=== PATIENT | female | born 1930 | race Caucasian/White ===

== ENCOUNTER → 2018-12-25 | Outpatient (CLI) | payer MEDICARE | LOC: LAB 08:00 | PROVIDERS: ATTEND Internal Medicine Nephrology | DX: N18.4 Chronic kidney disease, stage 4 (severe) (principal); D63.1 Anemia in chronic kidney disease ==

== ENCOUNTER → 2019-01-29 | Outpatient (CLI) | payer MEDICARE | LOC: SLEEP 19:54 | PROVIDERS: ATTEND Nurse Practitioner | DX: G47.33 Obstructive sleep apnea (adult) (pediatric) (principal); R06.83 Snoring; I10 Essential (primary) hypertension | CPT/HCPCS: 82274; 95811 ==

== ENCOUNTER 2019-02-17 12:40 | Outpatient (RCR) | payer MEDICARE ==
[2018-11-20 13:50] VITALS: BP 204/80
--- NOTE | 2018-11-20 14:00 | NUR ---
DR. RODRIGUEZ'S OFFICE CALLED REGARDING PT'S BP. TO RETURN CALL.
[2018-11-20 14:10] VITALS: BP 205/86
--- NOTE | 2018-11-20 14:30 | NUR ---
DR. RODRIGUEZ RETURNED CALL AND NOTIFIED ON PT'S CURRENT BP OF 205/86 P 60, AND THAT PATIENT TOOK MORNING MEDICATIONS FOR BP THAT INCLUDES AMLODIPINE 20 MG DAILY, SHE TAKES METOPROL 125 MG AT HS AND TAKES HYDRALAZINE 10 MG AT BID AND PT REPORTS THAT SHE HAD MORNING DOES. NEW ORDER RECEIVED THAT IT IS OK TO CONTINUE WITH GIVING ARANESP INJECTION AND THAT PATIENT IS TO CONTINUE WITH TAKING REGULAR BP MEDICATIONS. PT INSTRUCTED ON TAKING BP MEDICATIONS DIRECTED, PT VERBALIZES UNDERSTANDING.
[2018-11-20 17:01] VITALS: BP 195/74
[2018-12-04 13:20] VITALS: BP 169/80
[2018-12-04] MEDS: DARBEPOETIN 25 MCG/ML (ARANESP) 1 ML HOSPITAL SC SCH (14:30)
[2018-12-04 14:58] LABS: HEMOGLOBIN 8.9 G/DL (11.5-16.0)
[2018-12-22 13:10] VITALS: BP 165/74
[2018-12-22] MEDS: DARBEPOETIN 25 MCG/ML (ARANESP) 1 ML HOSPITAL SC SCH (14:05)
--- NOTE | 2018-12-22 15:00 | NUR ---
INFORMATION AND SUPPLIES PROVIDED, AND COPY OF ORDER GIVEN TO PT, FOR COLLECTION OF STOOL SAMPLES FOR OCCULT BLOOD PER DR RODRIGUEZ'S ORDER.
[2018-12-29 13:00] VITALS: BP 183/79
[2018-12-29] MEDS: DARBEPOETIN 25 MCG/ML (ARANESP) 1 ML HOSPITAL SC SCH (13:40)
[2019-01-06 13:28] LABS: HEMOGLOBIN 11.4 G/DL (11.5-16.0)
[2019-01-06 13:45] VITALS: BP 176/71
[2019-01-06] MEDS: DARBEPOETIN 25 MCG/ML (ARANESP) 1 ML HOSPITAL SC SCH (13:56)
[2019-01-20 13:10] LABS: HEMOGLOBIN 11.9 G/DL (11.5-16.0)
[2019-01-20] MEDS: DARBEPOETIN 25 MCG/ML (ARANESP) 1 ML HOSPITAL SC SCH (13:20)
[2019-01-20 13:49] VITALS: BP 168/70
[2019-02-03 13:00] VITALS: BP 170/71
[2019-02-03 13:22] LABS: HEMOGLOBIN 11.6 G/DL (11.5-16.0)
[2019-02-03 13:40] LABS: ALBUMIN 4.2 GM/DL (3.2-4.5); CALCIUM 9.1 MG/DL (8.5-10.1); CREATININE SERUM 3.01 MG/DL (0.60-1.30); PHOSPHORUS 2.8 MG/DL (2.3-4.7); POTASSIUM 5.4 MMOL/L (3.6-5.0)
[~2019-02-17] VITALS: Ht 149.9 cm; Wt 56.9 kg
[2019-02-17 12:40] VITALS: BP 193/84
[~2019-02-17 12:40] MED LIST: ACETAMINOPHEN 500 MG TAB (TYLENOL) PO PRN; DARBEPOETIN 40 MCG/ML (ARANESP) HOSPITAL SC ONE; DARBEPOETIN 40 MCG/ML (ARANESP) HOSPITAL SC SCH; FERRIC CARBOXYMALTOSE INJ 750 MG in NS (IVPB) 250 ML IV NR; FERRIC CARBOXYMALTOSE INJ 750 MG in NS (IVPB) 250 ML IV SCH; diphenhydrAMINE 50 MG/ML INJ (BENADRYL) IV PRN
[2019-02-17 13:00] LABS: HEMOGLOBIN 10.6 G/DL (11.5-16.0)
[2019-02-17] MEDS ORDERED: DARBEPOETIN 40 MCG/ML (ARANESP) HOSPITAL SC SCH (13:30)
[2019-02-17] MEDS ORDERED: DARBEPOETIN 25 MCG/ML (ARANESP) 1 ML HOSPITAL SC SCH (13:30)
[2019-02-17 15:14] LABS: BILIRUBIN,URINE NEGATIVE (NEGATIVE); CLARITY,URINE CLEAR; COLOR,URINE YELLOW; GLUCOSE, URINE (UA) 3+ (NEGATIVE); KETONES,URINE NEGATIVE (NEGATIVE); LEUKOCYTE ESTERASE ,URINE NEGATIVE (NEGATIVE); NITRITE,URINE NEGATIVE (NEGATIVE); PH,URINE 7 (5-9); PROTEIN,URINE 3+ (NEGATIVE); UROBILINOGEN,URINE NORMAL (NORMAL)
[2019-02-17 15:32] LABS: BACTERIA,URINE NEGATIVE /HPF
[2019-02-17 15:37] LABS: MEAN PLATELET VOLUME 9.8 FL (7.4-10.4); RED CELL DISTRIBUTION WIDTH 14.9 % (10.0-14.5); WHITE BLOOD COUNT 9.1 10^3/uL (4.3-11.0)
[2019-02-17 15:56] LABS: ALBUMIN 4.4 GM/DL (3.2-4.5); CALCIUM 9.4 MG/DL (8.5-10.1); CREATININE SERUM 2.95 MG/DL (0.60-1.30); PHOSPHORUS 3.2 MG/DL (2.3-4.7); POTASSIUM 4.9 MMOL/L (3.6-5.0); URIC ACID 4.3 MG/DL (2.6-7.2)
== END 2019-02-18 | disposition home or self-care (01) ==
LOC: SDC 12:40
PROVIDERS: ATTEND Internal Medicine Nephrology
DX: N18.4 Chronic kidney disease, stage 4 (severe) (principal); D63.1 Anemia in chronic kidney disease
CPT/HCPCS: 36415; 80069; 81000; 82274; 82306; 82570; 82728; 83540; 83970; 84156; 84550; 85014; 85018; 85027; 96365; 96372

== ENCOUNTER 2019-04-29 19:37 | Inpatient (IN) | payer MEDICARE ==
[~2019-04-29] VITALS: Ht 149.9 cm; Wt 55.6 kg
--- NOTE | 2019-04-29 19:55 | ED Chest Pain ---
General Chief Complaint: Abdominal/GI Problems Stated Complaint: VOMITING, NO KEEPING FLUIDS IN, DIZZY, DIARRHEA Source: patient, family, RN notes reviewed, old records Exam Limitations: no limitations History of Present Illness Date Seen by Provider: Apr 29, 2019 Time Seen by Provider: 19:55 Initial Comments Patient presents from home c/ c/o worsening nausea and vomiting since yesterday. Reports not being able to keep anything down. States she had diarrhea today as well but that was following a dose of [place] oil for her constipation. Not sure of any fever. (+) lightheaded. Timing/Duration: 24 hours, constant, getting worse Severity/Quality: mild, other (abdomen-cramping) Location: substernal (chest pain c/ exertion only) Radiation: no radiation Activities at Onset: none Modifying Factors: worse with eating, worse with movement ASA po COLOR SEPARATION PHOTOGRAPHER: No NTG SL COLOR SEPARATION PHOTOGRAPHER: No Associated Symptoms: denies symptoms (x/ as noted), abdominal pain (cramping), back pain (chronic), dizziness, headache, nausea/vomiting Allergies and Home Medications Allergies Coded Allergies: Penicillins (Unverified Adverse Reaction, Unknown, 04/29/19) cephalexin (Unverified Adverse Reaction, Unknown, 04/29/19) Patient Home Medication List Home Medication List Reviewed: Yes Review of Systems Review of Systems Constitutional: see HPI, dizziness Cardiovascular: See HPI, Chest Pain (c/ exertion), Lightheadedness Gastrointestinal: See HPI, Abdominal Pain (cramping), Diarrhea (p/ castor oil), Nausea, Poor Appetite, Poor Fluid Intake, Vomiting Musculoskeletal: see HPI, back pain (chronic) Psychiatric/Neurological: See HPI, Headache All Other Systems Reviewed Negative Unless Noted: Yes (Negative excepted noted.) Past Bdaxthf-Hyblbk-Izyqsg Hx Patient Social History Recent Foreign Travel: No Contact w/Someone Who Travel: No Physical Exam Vital Signs Vital Signs - First Documented 04/29/19 19:44 Temp 98.1 Pulse 68 B/P (MAP) 159/61 (93) Pulse Ox 100 O2 Delivery Nasal Cannula Capillary Refill : Height, Weight, BMI Height: 4'11.00" Weight: 125lbs. 6.0oz. 56.127589mv; BMI Method: General Appearance: WD/WN, Mild Distress HEENT: Pharynx Normal (although dry) Neck: Normal Inspection Respiratory: No Respiratory Distress Cardiovascular: Regular Rate, Rhythm Gastrointestinal: Tenderness (mild-diffuse) Rectal: Deferred Neurologic/Psychiatric: Alert, No Motor/Sensory Deficits, Depressed Affect Skin: Warm/Dry Progress/Results/Core Measures Results/Orders Lab Results Laboratory Tests Test 04/29/19 20:11 04/29/19 21:30 04/29/19 22:42 Range/Units White Blood Count 8.1 4.3-11.0 10^3/uL Red Blood Count 3.56 L 4.35-5.85 10^6/uL Hemoglobin 11.6 11.5-16.0 G/DL Hematocrit 34 L 35-52 % Mean Corpuscular Volume 95 80-99 FL Mean Corpuscular Hemoglobin 33 25-34 PG Mean Corpuscular Hemoglobin Concent 34 32-36 G/DL Red Cell Distribution Width 11.5 10.0-14.5 % Platelet Count 198 130-400 10^3/uL Mean Platelet Volume 10.1 7.4-10.4 FL Neutrophils (%) (Auto) 64 42-75 % Lymphocytes (%) (Auto) 19 12-44 % Monocytes (%) (Auto) 11 0-12 % Eosinophils (%) (Auto) 6 0-10 % Basophils (%) (Auto) 0 0-10 % Neutrophils # (Auto) 5.2 1.8-7.8 X 10^3 Lymphocytes # (Auto) 1.5 1.0-4.0 X 10^3 Monocytes # (Auto) 0.9 0.0-1.0 X 10^3 Eosinophils # (Auto) 0.5 H 0.0-0.3 10^3/uL Basophils # (Auto) 0.0 0.0-0.1 10^3/uL Sodium Level 130 L 135-145 MMOL/L Potassium Level 4.8 3.6-5.0 MMOL/L Chloride Level 93 L 98-107 MMOL/L Carbon Dioxide Level 21 21-32 MMOL/L Anion Gap 16 H 5-14 MMOL/L Blood Urea Nitrogen 71 H 7-18 MG/DL Creatinine 3.86 H 0.60-1.30 MG/DL Estimat Glomerular Filtration Rate 11 BUN/Creatinine Ratio 18 Glucose Level 169 H 70-105 MG/DL Calcium Level 9.3 8.5-10.1 MG/DL Corrected Calcium 8.9 8.5-10.1 MG/DL Magnesium Level 2.5 H 1.8-2.4 MG/DL Total Bilirubin 0.3 0.1-1.0 MG/DL Aspartate Amino Transf (AST/SGOT) 14 5-34 U/L Alanine Aminotransferase (ALT/SGPT) 16 0-55 U/L Alkaline Phosphatase 74 40-136 U/L Troponin T 58 H 54 H <=10 NG/L Pro-B-Type Natriuretic Peptide 3457.0 H <75.0 PG/ML Total Protein 6.7 6.4-8.2 GM/DL Albumin 4.5 3.2-4.5 GM/DL Lipase 48 8-78 U/L Urine Color YELLOW Urine Clarity CLEAR Urine pH 6.5 5-9 Urine Specific [place] 1.020 1.016-1.022 Urine Protein 2+ H NEGATIVE Urine Glucose (UA) 1+ H NEGATIVE Urine Ketones NEGATIVE NEGATIVE Urine Nitrite NEGATIVE NEGATIVE Urine Bilirubin NEGATIVE NEGATIVE Urine Urobilinogen NORMAL NORMAL MG/DL Urine Leukocyte Esterase NEGATIVE NEGATIVE Urine RBC (Auto) NEGATIVE NEGATIVE Urine RBC NONE /HPF Urine WBC NONE /HPF Urine Squamous Epithelial Cells 5-10 /HPF Urine Crystals NONE /LPF Urine Bacteria TRACE /HPF Urine Casts NONE /LPF Urine Mucus NEGATIVE /LPF Urine Culture Indicated NO My Orders Orders - VESNA PUENTE DO Ed Iv/Invasive Line Start (04/29/19 19:56) Ekg Tracing (04/29/19 19:56) Cbc With Automated Diff (04/29/19 19:56) Comprehensive Metabolic Panel (04/29/19 19:56) Lipase (04/29/19 19:56) Magnesium (04/29/19 19:56) Ua Culture If Indicated (04/29/19 19:56) Troponin T (04/29/19 19:56) Probnp Fs (04/29/19 19:56) Chest 1 View Ap/Pa Only (04/29/19 19:56) Ns Iv 1000 Ml (Sodium Chloride 0.9%) (04/29/19 21:15) Ns Iv 1000 Ml (Sodium Chloride 0.9%) (04/29/19 21:20) Troponin T (04/29/19 21:58) Ct Abdomen/Pelvis Wo (04/29/19 21:58) Vital Signs/I&O 04/29/19 19:44 Temp 98.1 Pulse 68 B/P (MAP) 159/61 (93) Pulse Ox 100 O2 Delivery Nasal Cannula Initial ECG Rhythm: Normal Sinus Initial ECG Intervals: QT (prolonged) Initial ECG Impression: Nonspecific Changes Initial ECG Comparisson: No Previous ECG Available Diagnostic Imaging Diagonstic Imaging: Xray, CT Plain Films/CT/US/NM/MRI: chest (nothing acute), abdomen (nothing acute) Departure Impression Primary Impression: N&V (nausea and vomiting) Additional Impressions: Acute on chronic renal failure Dehydration Elevated troponin Elevated brain natriuretic peptide (BNP) level Hyponatremia Disposition: ADMITTED INPATIENT Condition: Stable Admissions Decision to Admit Reason: Admit from ER (General) Decision to Admit/Date: Apr 29, 2019 Time/Decision to Admit Time: 23:52 Transfer Time Spoke to Accepting Phy: 23:52 Transfer Progress Notes Discussed the patient c/ Dr. Hinton, the [facility] Hospitalist, and she has accepted the patient in transfer. Transfer Facility: [facility] [place] Method of Transfer: EMS Departure-Patient Inst. Referrals: CHRISTIANA BLACK MD, WILLIAM D DO Apr 29, 2019 19:55
--- OUTSIDE RECORDS SUMMARY | 2019-04-29 20:04 | XMS REPORT | Continuity of Care Document ---
Author Organization Unknown Address Unknown Allergies Active Description Code Type Severity Reaction Onset Reported/Identified Relationship to Patient Clinical Status Yes cephalexin [id number] Drug Allergy Unknown N/A 11/20/2018 Yes Penicillins [id number] Drug Allergy Unknown N/A 11/20/2018 Medications There is no data. Problems Date Dx Coded Attending Type Code Diagnosis Diagnosed By 12/22/2018 GUNNAR RODRIGUEZ MD Ot D63.1 ANEMIA IN CHRONIC KIDNEY DISEASE 12/22/2018 GUNNAR RODRIGUEZ MD Ot N18.4 CHRONIC KIDNEY DISEASE, STAGE 4 (SEVERE) 12/22/2018 GUNNAR RODRIGUEZ MD Ot D63.1 ANEMIA IN CHRONIC KIDNEY DISEASE 12/22/2018 GUNNAR RODRIGUEZ MD Ot N18.4 CHRONIC KIDNEY DISEASE, STAGE 4 (SEVERE) 12/29/2018 GUNNAR RODRIGUEZ MD Ot D63.1 ANEMIA IN CHRONIC KIDNEY DISEASE 12/29/2018 GUNNAR RODRIGUEZ MD Ot N18.4 CHRONIC KIDNEY DISEASE, STAGE 4 (SEVERE) 12/29/2018 JENNIFER GUO GUNNAR Ot D63.1 ANEMIA IN CHRONIC KIDNEY DISEASE 12/29/2018 GUNNAR RODRIGUEZ MD Ot N18.4 CHRONIC KIDNEY DISEASE, STAGE 4 (SEVERE) 01/01/2019 JENNIFER GUO GUNNAR Ot D63.1 ANEMIA IN CHRONIC KIDNEY DISEASE 01/01/2019 GUNNAR RODRIGUEZ MD Ot N18.4 CHRONIC KIDNEY DISEASE, STAGE 4 (SEVERE) 01/06/2019 GUNNAR RODRIGUEZ MD Ot D63.1 ANEMIA IN CHRONIC KIDNEY DISEASE 01/06/2019 GUNNAR RODRIGUEZ MD Ot N18.4 CHRONIC KIDNEY DISEASE, STAGE 4 (SEVERE) 01/20/2019 JENNIFER GUO GUNNAR Ot D63.1 ANEMIA IN CHRONIC KIDNEY DISEASE 01/20/2019 GUNNAR RODRIGUEZ MD Ot N18.4 CHRONIC KIDNEY DISEASE, STAGE 4 (SEVERE) 01/28/2019 [facility] Ot G47.33 OBSTRUCTIVE SLEEP APNEA (ADULT) (PEDIATR 01/29/2019 [facility] TECHNICIAN Ot G47.33 OBSTRUCTIVE SLEEP APNEA (ADULT) (PEDIATR 02/01/2019 [facility] TECHNICIAN Ot G47.33 OBSTRUCTIVE SLEEP APNEA (ADULT) (PEDIATR 02/01/2019 [facility] TECHNICIAN Ot I10 ESSENTIAL (PRIMARY) HYPERTENSION 02/01/2019 [facility] TECHNICIAN Ot R06.83 SNORING 02/03/2019 JENNIFER GUO, GUNNAR Ot D63.1 ANEMIA IN CHRONIC KIDNEY DISEASE 02/03/2019 GUNNAR RODRIGUEZ MD Ot N18.4 CHRONIC KIDNEY DISEASE, STAGE 4 (SEVERE) 02/03/2019 JENNIFER GUO GUNNAR Ot D63.1 ANEMIA IN CHRONIC KIDNEY DISEASE 02/03/2019 KULDIP RODRIGUEZ MDINE Ot N18.4 CHRONIC KIDNEY DISEASE, STAGE 4 (SEVERE) 02/04/2019 [facility] TECHNICIAN Ot G47.33 OBSTRUCTIVE SLEEP APNEA (ADULT) (PEDIATR 02/04/2019 [facility] TECHNICIAN Ot I10 ESSENTIAL (PRIMARY) HYPERTENSION 02/04/2019 [facility] TECHNICIAN Ot R06.83 SNORING 02/05/2019 [facility] TECHNICIAN Ot G47.33 OBSTRUCTIVE SLEEP APNEA (ADULT) (PEDIATR 02/05/2019 [facility] TECHNICIAN Ot I10 ESSENTIAL (PRIMARY) HYPERTENSION 02/05/2019 [facility] TECHNICIAN Ot R06.83 SNORING 02/08/2019 JENNIFER GUO, GUNNAR Ot D63.1 ANEMIA IN CHRONIC KIDNEY DISEASE 02/08/2019 JENNIFER GUO GUNNAR Ot N18.4 CHRONIC KIDNEY DISEASE, STAGE 4 (SEVERE) 02/08/2019 JENNIFER GUO, GUNNAR Ot D63.1 ANEMIA IN CHRONIC KIDNEY DISEASE 02/08/2019 JENNIFER GUO GUNNAR Ot N18.4 CHRONIC KIDNEY DISEASE, STAGE 4 (SEVERE) 02/14/2019 JENNIFER GUO, GUNNAR Ot D63.1 ANEMIA IN CHRONIC KIDNEY DISEASE 02/14/2019 GUNNAR RODRIGUEZ MD Ot N18.4 CHRONIC KIDNEY DISEASE, STAGE 4 (SEVERE) 02/14/2019 [facility] TECHNICIAN Ot G47.33 OBSTRUCTIVE SLEEP APNEA (ADULT) (PEDIATR 02/14/2019 [facility] TECHNICIAN Ot I10 ESSENTIAL (PRIMARY) HYPERTENSION 02/14/2019 [facility] TECHNICIAN Ot R06.83 SNORING 02/14/2019 KULDIP RODRIGUEZ MDINE Ot D63.1 ANEMIA IN CHRONIC KIDNEY DISEASE 02/14/2019 JENNIFER GUO GUNNAR Ot N18.4 CHRONIC KIDNEY DISEASE, STAGE 4 (SEVERE) 02/14/2019 JENNIFER GUO GUNNAR Ot D63.1 ANEMIA IN CHRONIC KIDNEY DISEASE 02/14/2019 GUNNAR RODRIGUEZ MD Ot N18.4 CHRONIC KIDNEY DISEASE, STAGE 4 (SEVERE) 02/17/2019 JENNIFER GUO GUNNAR Ot D63.1 ANEMIA IN CHRONIC KIDNEY DISEASE 02/17/2019 JENNIFER GUO GUNNAR Ot N18.4 CHRONIC KIDNEY DISEASE, STAGE 4 (SEVERE) 02/18/2019 JENNIFER GUO GUNNAR Ot D63.1 ANEMIA IN CHRONIC KIDNEY DISEASE 02/18/2019 JENNIFER GUO GUNNAR Ot N18.4 CHRONIC KIDNEY DISEASE, STAGE 4 (SEVERE) 02/24/2019 JENNIFER GUO GUNNAR Ot D63.1 ANEMIA IN CHRONIC KIDNEY DISEASE 02/24/2019 JENNIFER GUO GUNNAR Ot N18.4 CHRONIC KIDNEY DISEASE, STAGE 4 (SEVERE) 02/24/2019 JENNIFER GUO GUNNAR Ot D63.1 ANEMIA IN CHRONIC KIDNEY DISEASE 02/24/2019 JENNIFER GUO GUNNAR Ot N18.4 CHRONIC KIDNEY DISEASE, STAGE 4 (SEVERE) 03/03/2019 JENNIFER GUO GUNNAR Ot D63.1 ANEMIA IN CHRONIC KIDNEY DISEASE 03/03/2019 JENNIFER GUO GUNNAR Ot N18.4 CHRONIC KIDNEY DISEASE, STAGE 4 (SEVERE) 03/08/2019 JENNIFER GUO GUNNAR Ot D63.1 ANEMIA IN CHRONIC KIDNEY DISEASE 03/08/2019 JENNIFER GUO GUNNAR Ot N18.4 CHRONIC KIDNEY DISEASE, STAGE 4 (SEVERE) 03/10/2019 KULDIP RODRIGUEZ MDINE Ot D63.1 ANEMIA IN CHRONIC KIDNEY DISEASE 03/10/2019 GUNNAR RODRIGUEZ MD Ot N18.4 CHRONIC KIDNEY DISEASE, STAGE 4 (SEVERE) 03/18/2019 KULDIP RODRIGUEZ MDINE Ot D63.1 ANEMIA IN CHRONIC KIDNEY DISEASE 03/18/2019 GUNNAR RODRIGUEZ MD Ot N18.4 CHRONIC KIDNEY DISEASE, STAGE 4 (SEVERE) 03/19/2019 [facility] TECHNICIAN Ot G47.33 OBSTRUCTIVE SLEEP APNEA (ADULT) (PEDIATR 03/19/2019 [facility] PH[facility] TECHNICIAN Ot I10 ESSENTIAL (PRIMARY) HYPERTENSION 03/19/2019 [facility] PH[facility] TECHNICIAN Ot R06.83 SNORING 03/19/2019 JENNIFER GUO GUNNAR Ot D63.1 ANEMIA IN CHRONIC KIDNEY DISEASE 03/19/2019 GUNNAR RODRIGUEZ MD Ot N18.4 CHRONIC KIDNEY DISEASE, STAGE 4 (SEVERE) 03/24/2019 KULDIP RODRIGUEZ MDINE Ot D63.1 ANEMIA IN CHRONIC KIDNEY DISEASE 03/24/2019 KULDIP RODRIGUEZ MDINE Ot N18.4 CHRONIC KIDNEY DISEASE, STAGE 4 (SEVERE) 03/31/2019 JENNIFER GUO GUNNAR Ot D63.1 ANEMIA IN CHRONIC KIDNEY DISEASE 03/31/2019 KULDIP RODRIGUEZ MDINE Ot N18.4 CHRONIC KIDNEY DISEASE, STAGE 4 (SEVERE) 04/07/2019 KULDIP RODRIGUEZ MDINE Ot D63.1 ANEMIA IN CHRONIC KIDNEY DISEASE 04/07/2019 KULDIP RODRIGUEZ MDINE Ot N18.4 CHRONIC KIDNEY DISEASE, STAGE 4 (SEVERE) 04/14/2019 JENNIFER GUO GUNNAR Ot D63.1 ANEMIA IN CHRONIC KIDNEY DISEASE 04/14/2019 GUNNAR RODRIGUEZ MD Ot N18.4 CHRONIC KIDNEY DISEASE, STAGE 4 (SEVERE) 04/15/2019 JENNIFER GUO GUNNAR Ot D63.1 ANEMIA IN CHRONIC KIDNEY DISEASE 04/15/2019 GUNNAR RODRIGUEZ MD Ot N18.4 CHRONIC KIDNEY DISEASE, STAGE 4 (SEVERE) 04/28/2019 JENNIFER GUO GUNNAR Ot D63.1 ANEMIA IN CHRONIC KIDNEY DISEASE 04/28/2019 JENNIFER GUO, GUNNAR Ot N18.4 CHRONIC KIDNEY DISEASE, STAGE 4 (SEVERE) Procedures There is no data. Results Test Result Range Whole blood hemoglobin and hematocrit panel - 12/04/18 13:30 Venous blood hemoglobin measurement (mass/volume) 8.9 g/dL 11.5-16.0 Blood hematocrit (volume fraction) 29 % 35-52 Whole blood hemoglobin and hematocrit panel - 12/04/18 13:30 Venous blood hemoglobin measurement (mass/volume) 8.9 g/dL 11.5-16.0 Blood hematocrit (volume fraction) 29 % 35-52 Stool occult blood screen - 12/22/18 21:00 Stool gastrointestinal hemoglobin detection NEGATIVE NEGATIVE Stool occult blood screen - 12/23/18 21:00 Stool gastrointestinal hemoglobin detection NEGATIVE NEGATIVE Stool occult blood screen - 12/25/18 07:48 Stool gastrointestinal hemoglobin detection NEGATIVE NEGATIVE Whole blood hemoglobin and hematocrit panel - 01/06/19 13:15 Venous blood hemoglobin measurement (mass/volume) 11.4 g/dL 11.5-16.0 Blood hematocrit (volume fraction) 35 % 35-52 Whole blood hemoglobin and hematocrit panel - 01/20/19 13:05 Venous blood hemoglobin measurement (mass/volume) 11.9 g/dL 11.5-16.0 Blood hematocrit (volume fraction) 36 % 35-52 Whole blood hemoglobin and hematocrit panel - 02/03/19 13:14 Venous blood hemoglobin measurement (mass/volume) 11.6 g/dL 11.5-16.0 Blood hematocrit (volume fraction) 35 % 35-52 Serum or plasma renal function panel (Na, K, Cl, CO2, BUN, Cr, glucose,Ca, phos, alb) - 02/03/19 13:14 Serum or plasma sodium measurement (moles/volume) 132 mmol/L 135-145 Serum or plasma potassium measurement (moles/volume) 5.4 mmol/L 3.6-5.0 Serum or plasma chloride measurement (moles/volume) 103 mmol/L 98-107 Carbon dioxide 18 mmol/L 21-32 Serum or plasma anion gap determination (moles/volume) 11 mmol/L 5-14 Serum or plasma urea nitrogen measurement (mass/volume) 40 mg/dL 7-18 Serum or plasma creatinine measurement (mass/volume) 3.01 mg/dL 0.60-1.30 Serum or plasma urea nitrogen/creatinine mass ratio 13 NRG Serum or plasma creatinine measurement with calculation of estimated glomerular filtration rate 15 NRG Serum or plasma glucose measurement (mass/volume) 167 mg/dL 70-105 Serum or plasma calcium measurement (mass/volume) 9.1 mg/dL 8.5-10.1 Serum or plasma albumin measurement (mass/volume) 4.2 g/dL 3.2-4.5 Serum or plasma phosphate measurement (mass/volume) 2.8 mg/dL 2.3-4.7 Serum iron and total iron binding capacity panel - 02/03/19 13:14 Serum or plasma iron measurement (mass/volume) 119 % 35-180 Total iron binding capacity and transferrin saturation measurement 46 % 15-50 Iron binding capacity [mass/volume] in serum or plasma 256 % 280-380 UIBC (unsaturated iron binding capacity) 137 % 55-450 Serum or plasma ferritin measurement (mass/volume) 581.7 % 20.0-177.0 LIPID PANEL - 02/05/19 09:42 CHOLESTEROL, TOTAL 166 mg/dL <200 HDL CHOLESTEROL 59 mg/dL >50 TRIGLYCERIDES 130 mg/dL <150 LDL-CHOLESTEROL 84 mg/dL (calc) NRG CHOL/HDLC RATIO 2.8 (calc) <5.0 NON HDL CHOLESTEROL 107 mg/dL (calc) <130 CMP - 02/05/19 09:42 GLUCOSE 94 mg/dL 65-99 UREA NITROGEN (BUN) 37 mg/dL 7-25 CREATININE 2.87 mg/dL 0.60-0.88 eGFR NON-AFR. NIUEAN 14 mL/min/1.73m2 > OR=60 eGFR 16 mL/min/1.73m2 > OR=60 BUN/CREATININE RATIO 13 (calc) 6-22 SODIUM 133 mmol/L 135-146 POTASSIUM 5.6 mmol/L 3.5-5.3 CHLORIDE 99 mmol/L 98-110 CARBON DIOXIDE 25 mmol/L 20-32 CALCIUM 9.3 mg/dL 8.6-10.4 PROTEIN, TOTAL 6.6 g/dL 6.1-8.1 ALBUMIN 4.5 g/dL 3.6-5.1 GLOBULIN 2.1 g/dL (calc) 1.9-3.7 ALBUMIN/GLOBULIN RATIO 2.1 (calc) 1.0-2.5 BILIRUBIN, TOTAL 0.4 mg/dL 0.2-1.2 ALKALINE PHOSPHATASE 64 U/L 33-130 AST 15 U/L 10-35 ALT 10 U/L 6-29 A1C - 02/05/19 09:42 HEMOGLOBIN A1c 5.9 % of total Hgb <5.7 Whole blood hemoglobin and hematocrit panel - 02/17/19 12:50 Venous blood hemoglobin measurement (mass/volume) 10.6 g/dL 11.5-16.0 Blood hematocrit (volume fraction) 31 % 35-52 Complete urinalysis with reflex to culture - 02/17/19 15:05 Urine color determination YELLOW NRG Urine clarity determination CLEAR NRG Urine pH measurement by test strip 7 5-9 Specific gravity of urine by test strip 1.005 1.016-1.022 Urine protein assay by test strip, semi-quantitative 3+ NEGATIVE Urine glucose detection by automated test strip 3+ NEGATIVE Erythrocytes detection in urine sediment by light microscopy NEGATIVE NEGATIVE Urine ketones detection by automated test strip NEGATIVE NEGATIVE Urine nitrite detection by test strip NEGATIVE NEGATIVE Urine total bilirubin detection by test strip NEGATIVE NEGATIVE Urine urobilinogen measurement by automated test strip (mass/volume) NORMAL NORMAL Urine leukocyte esterase detection by dipstick NEGATIVE NEGATIVE Automated urine sediment erythrocyte count by microscopy (number/high power field) NONE NRG Automated urine sediment leukocyte count by microscopy (number/high power field) NONE NRG Bacteria detection in urine sediment by light microscopy NEGATIVE NRG Crystals detection in urine sediment by light microscopy NONE NRG Casts detection in urine sediment by light microscopy NONE NRG Mucus detection in urine sediment by light microscopy NEGATIVE NRG Complete urinalysis with reflex to culture NO NRG Urine protein/creatinine mass ratio - 02/17/19 15:05 Urine protein measurement (mass/volume) 61 mg/dL 6-12 Urine creatinine measurement (mass/volume) 13 mg/dL 30-125 Urine protein/creatinine mass ratio 4.69 NRG Automated blood complete blood count (hemogram) panel - 02/17/19 15:23 Blood leukocytes automated count (number/volume) 9.1 10*3/uL 4.3-11.0 Blood erythrocytes automated count (number/volume) 3.52 10*6/uL 4.35-5.85 Venous blood hemoglobin measurement (mass/volume) 11.0 g/dL 11.5-16.0 Blood hematocrit (volume fraction) 33 % 35-52 Automated erythrocyte mean corpuscular volume 93 [foz_us] 80-99 Automated erythrocyte mean corpuscular hemoglobin (mass per erythrocyte) 31 pg 25-34 Automated erythrocyte mean corpuscular hemoglobin concentration measurement (mass/volume) 34 g/dL 32-36 Automated erythrocyte distribution width ratio 14.9 % 10.0- 14.5 Automated blood platelet count (count/volume) 224 10*3/uL 130-400 Automated blood platelet mean volume measurement 9.8 [foz_us] 7.4-10.4 Serum or plasma renal function panel (Na, K, Cl, CO2, BUN, Cr, glucose,Ca, phos, alb) - 02/17/19 15:23 Serum or plasma sodium measurement (moles/volume) 128 mmol/L 135-145 Serum or plasma potassium measurement (moles/volume) 4.9 mmol/L 3.6-5.0 Serum or plasma chloride measurement (moles/volume) 100 mmol/L 98-107 Carbon dioxide 22 mmol/L 21-32 Serum or plasma anion gap determination (moles/volume) 6 mmol/L 5-14 Serum or plasma urea nitrogen measurement (mass/volume) 45 mg/dL 7-18 Serum or plasma creatinine measurement (mass/volume) 2.95 mg/dL 0.60-1.30 Serum or plasma urea nitrogen/creatinine mass ratio 15 NRG Serum or plasma creatinine measurement with calculation of estimated glomerular filtration rate 15 NRG Serum or plasma glucose measurement (mass/volume) 159 mg/dL 70-105 Serum or plasma calcium measurement (mass/volume) 9.4 mg/dL 8.5-10.1 Serum or plasma albumin measurement (mass/volume) 4.4 g/dL 3.2-4.5 Serum or plasma phosphate measurement (mass/volume) 3.2 mg/dL 2.3-4.7 Serum or plasma uric acid measurement (mass/volume) - 02/17/19 15:23 Serum or plasma uric acid measurement (mass/volume) 4.3 mg/dL 2.6-7.2 Serum or plasma ferritin measurement (mass/volume) - 02/17/19 15:23 Serum or plasma ferritin measurement (mass/volume) 564.7 % 20.0-177.0 IRON TEST - 02/17/19 15:23 Serum or plasma iron measurement (mass/volume) 124 % 35-180 Serum iron and total iron binding capacity panel - 02/17/19 15:23 Total iron binding capacity and transferrin saturation measurement 43 % 15-50 Iron binding capacity [mass/volume] in serum or plasma 290 % 280-380 UIBC (unsaturated iron binding capacity) 166 % 55-450 Serum or plasma intact pararthyroid hormone measurement (mass/volume) - 02/17/19 15:23 Serum or plasma intact parathyroid hormone measurement (mass/volume) 202.3 pg/mL 9.0-77.0 Bio-intact parathyroid hormone (PTH) measurement with calcium 9.3 % 8.5-10.5 VITAMIN D 25-HYDROXY - 02/17/19 15:23 VITAMIN D 25-HYDROXY (TOTAL) 46.9 % 30.0-100.0 Whole blood hemoglobin and hematocrit panel - 03/03/19 13:05 Venous blood hemoglobin measurement (mass/volume) 9.8 g/dL 11.5-16.0 Blood hematocrit (volume fraction) 30 % 35-52 Whole blood hemoglobin and hematocrit panel - 03/31/19 13:09 Venous blood hemoglobin measurement (mass/volume) 12.5 g/dL 11.5-16.0 Blood hematocrit (volume fraction) 37 % 35-52 Whole blood hemoglobin and hematocrit panel - 04/14/19 13:34 Venous blood hemoglobin measurement (mass/volume) 12.2 g/dL 11.5-16.0 Blood hematocrit (volume fraction) 37 % 35-52 Whole blood hemoglobin and hematocrit panel - 04/28/19 13:05 Venous blood hemoglobin measurement (mass/volume) 11.9 g/dL 11.5-16.0 Blood hematocrit (volume fraction) 35 % 35-52 Encounters ACCT No. Visit Date/Time Discharge Status Pt. Type Provider Facility Loc./Unit Complaint [id number] 02/10/2019 08:30:00 02/10/2019 23:59:59 CLS Outpatient CHRISTIANA BLACK [facility] [id number] 02/05/2019 09:30:00 Document Registration [id number] 02/17/2019 12:40:00 02/18/2019 00:01:00 DIS Outpatient [facility] [id number] 01/29/2019 19:54:00 01/29/2019 23:59:59 CLS Outpatient KWAKU RAM APRN [facility] SLEEP YESSI G47.33 [id number] 12/25/2018 08:00:00 12/25/2018 23:59:59 CLS Outpatient GUNNAR RODRIGUEZ MD [facility] LAB [id number] 12/11/2018 13:00:00 12/11/2018 23:59:59 CLS Preadmit GUNNAR RODRIGUEZ MD [facility] IRON DEFICIENCY ANEMIA [id number] 12/04/2018 13:00:00 12/04/2018 13:00:00 CAN Preadmit GUNNAR RODRIGUEZ MD [facility] IRON DEFICIENCY ANEMIA [id number] 04/28/2019 12:51:00 ACT Outpatient GUNNAR RODRIGUEZ MD [facility] CHRONIC KIDNEY DISEASE
[2019-04-29 20:18] LABS: HEMATOCRIT 34 % (35-52); HEMOGLOBIN 11.6 G/DL (11.5-16.0); MEAN CORPUSCULAR HEMOGLOBIN 33 PG (25-34); MEAN CORPUSCULAR HGB CONC 34 G/DL (32-36); MEAN CORPUSCULAR VOLUME 95 FL (80-99); PLATELET COUNT 198 10^3/uL (130-400); RED CELL DISTRIBUTION WIDTH 11.5 % (10.0-14.5); WHITE BLOOD COUNT 8.1 10^3/uL (4.3-11.0)
[2019-04-29 20:19] LABS: BASOPHILS % (AUTO) 0 % (0-10); EOSINOPHILS # (AUTO) 0.5 10^3/uL (0.0-0.3); EOSINOPHILS % (AUTO) 6 % (0-10); LYMPHOCYTES # (AUTO) 1.5 X 10^3 (1.0-4.0); LYMPHOCYTES % (AUTO) 19 % (12-44); MEAN PLATELET VOLUME 10.1 FL (7.4-10.4); MONOCYTES # (AUTO) 0.9 X 10^3 (0.0-1.0); MONOCYTES % (AUTO) 11 % (0-12); NEUTROPHILS # (AUTO) 5.2 X 10^3 (1.8-7.8); NEUTROPHILS % (AUTO) 64 % (42-75)
[2019-04-29 20:42] LABS: ALBUMIN 4.5 GM/DL (3.2-4.5); BILIRUBIN,TOTAL 0.3 MG/DL (0.1-1.0); CALCIUM 9.3 MG/DL (8.5-10.1); CREATININE SERUM 3.86 MG/DL (0.60-1.30); MAGNESIUM 2.5 MG/DL (1.8-2.4); POTASSIUM 4.8 MMOL/L (3.6-5.0); TOTAL PROTEIN 6.7 GM/DL (6.4-8.2)
--- NOTE | 2019-04-29 20:48 | Diagnostic Imaging Report ---
INDICATION: Epigastric pain Portable chest 8:18 PM Patient has a dorsal column stimulator. Heart size and pulmonary vascularity are normal. Lungs are clear. There are no effusions or pneumothoraces. IMPRESSION: No acute abnormalities in the chest Dictated by: Dictated on workstation # [id number]
[2019-04-29] MEDS ORDERED: NS IV 1000 ML 1,000 ML ONE (21:20)
[2019-04-29] MEDS: NS IV 1000 ML 1,000 ML IV SCH (21:25)
[2019-04-29 21:54] LABS: BACTERIA,URINE TRACE /HPF; BILIRUBIN,URINE NEGATIVE (NEGATIVE); CLARITY,URINE CLEAR; COLOR,URINE YELLOW; GLUCOSE, URINE (UA) 1+ (NEGATIVE); KETONES,URINE NEGATIVE (NEGATIVE); LEUKOCYTE ESTERASE ,URINE NEGATIVE (NEGATIVE); NITRITE,URINE NEGATIVE (NEGATIVE); PH,URINE 6.5 (5-9); PROTEIN,URINE 2+ (NEGATIVE); UROBILINOGEN,URINE NORMAL (NORMAL)
[2019-04-30] VITALS (7 sets, daily range): BP systolic 135–190; BP diastolic 60–87
--- OUTSIDE RECORDS SUMMARY | 2019-04-30 00:46 | XMS REPORT | Continuity of Care Document ---
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 KIDNEY [...] DISEASE, STAGE 4 (SEVERE) 01/28/2019 KWAKU RAM HOSPICE FELLOW Ot G47.33 OBSTRUCTIVE SLEEP APNEA (ADULT) (PEDIATR 01/29/2019 KWAKU RAM HOSPICE FELLOW Ot G47.33 OBSTRUCTIVE SLEEP APNEA (ADULT) (PEDIATR 02/01/2019 KWAKU RAM HOSPICE FELLOW Ot G47.33 OBSTRUCTIVE SLEEP APNEA (ADULT) (PEDIATR 02/01/2019 KWAKU RAM HOSPICE FELLOW Ot I10 ESSENTIAL (PRIMARY) HYPERTENSION 02/01/2019 KWAKU RAM HOSPICE FELLOW Ot R06.83 SNORING 02/03/2019 JENNIFER GUO, GUNNAR Ot D63.1 ANEMIA IN CHRONIC KIDNEY DISEASE 02/03/2019 GUNNAR RODRIGUEZ MD Ot N18.4 CHRONIC KIDNEY DISEASE, STAGE 4 (SEVERE) 02/03/2019 JENNIFER GUO GUNNAR Ot D63.1 ANEMIA IN CHRONIC KIDNEY DISEASE 02/03/2019 KULDIP RODRIGUEZ MDINE Ot N18.4 CHRONIC KIDNEY DISEASE, STAGE 4 (SEVERE) 02/04/2019 KWAKU RAM HOSPICE FELLOW Ot G47.33 OBSTRUCTIVE SLEEP APNEA (ADULT) (PEDIATR 02/04/2019 KWAKU RAM HOSPICE FELLOW Ot I10 ESSENTIAL (PRIMARY) HYPERTENSION 02/04/2019 KWAKU RAM HOSPICE FELLOW Ot R06.83 SNORING 02/05/2019 KWAKU RAM HOSPICE FELLOW Ot G47.33 OBSTRUCTIVE SLEEP APNEA (ADULT) (PEDIATR 02/05/2019 KWAKU RAM HOSPICE FELLOW Ot I10 ESSENTIAL (PRIMARY) HYPERTENSION 02/05/2019 KWAKU RAM HOSPICE FELLOW Ot R06.83 SNORING 02/08/2019 JENNIFER GUO, GUNNAR [...] DISEASE, STAGE 4 (SEVERE) 02/14/2019 KWAKU RAM HOSPICE FELLOW Ot G47.33 OBSTRUCTIVE SLEEP APNEA (ADULT) (PEDIATR 02/14/2019 KWAKU RAM HOSPICE FELLOW Ot I10 ESSENTIAL (PRIMARY) HYPERTENSION 02/14/2019 KWAKU RAM HOSPICE FELLOW Ot R06.83 SNORING 02/14/2019 KULDIP RODRIGUEZ MDINE [...] KIDNEY DISEASE, STAGE 4 (SEVERE) 02/18/2019 JENNIFER UGO GUNNAR Ot D63.1 ANEMIA IN CHRONIC KIDNEY [...] DISEASE, STAGE 4 (SEVERE) 03/19/2019 KWAKU RAM HOSPICE FELLOW Ot G47.33 OBSTRUCTIVE SLEEP APNEA (ADULT) (PEDIATR 03/19/2019 KWAKU RAM HOSPICE FELLOW Ot I10 ESSENTIAL (PRIMARY) HYPERTENSION 03/19/2019 KWAKU RAM HOSPICE FELLOW Ot R06.83 SNORING 03/19/2019 JENNIFER GUO GUNNAR [...] 7-25 CREATININE 2.87 mg/dL 0.60-0.88 eGFR NON-AFR. [place] 14 mL/min/1.73m2 > OR=60 eGFR 16 mL/min/1.73m2 [...] Status Pt. Type Provider Facility Loc./Unit Complaint [id number] 02/10/2019 08:30:00 02/10/2019 23:59:59 CLS Outpatient CHRISTIANA BLACK [facility] [id number] 02/05/2019 09:30:00 Document Registration [id number] 02/17/2019 12:40:00 02/18/2019 00:01:00 DIS Outpatient [facility] [id number] 01/29/2019 19:54:00 01/29/2019 23:59:59 CLS Outpatient KWAKU RAM APRN [facility] SLEEP YESSI G47.33 [id number] 12/25/2018 08:00:00 12/25/2018 23:59:59 CLS Outpatient GUNNAR RODRIGUEZ MD [facility] LAB [id number] 12/11/2018 13:00:00 12/11/2018 23:59:59 CLS Preadmit GUNNAR RODRIGUEZ MD [facility] IRON DEFICIENCY ANEMIA [id number] 12/04/2018 13:00:00 12/04/2018 13:00:00 CAN Preadmit GUNNAR RODRIGUEZ MD [facility] IRON DEFICIENCY ANEMIA [id number] 04/28/2019 12:51:00 ACT Outpatient GUNNAR RODRIGUEZ MD [facility] CHRONIC KIDNEY DISEASE
--- NOTE | 2019-04-30 01:55 | NUR ---
KEN DURHAM admitted to room 433-1, with an admitting diagnosis of abd pain dehydration increased bnp , on 04/30/[address] [facility] accompanied by .KEN DURHAM introduced to surroundings, call light, bed controls, phone, TV, temperature control, lights, meal times, smoking policy, visitor policy, side rail policy, bathrooms and showers. Patient Rights given to patient in the handbook. KEN DURHAM verbalizes understanding that [facility] is not responsible for the loss or damage to any personal effects or valuables that are kept in the patients posession during their hospitalization.
[2019-04-30] MEDS ORDERED: ONDANSETRON 4 MG/2 ML (SDV) Z0FRAN IV PRN (02:30)
[2019-04-30] MEDS ORDERED: CATHETER FLUSH 10 ML SYR IV PRN (02:30)
[2019-04-30] MEDS ORDERED: NS IV 1000 ML 1,000 ML IV SCH (02:30)
[2019-04-30] MEDS: ACETAMINOPHEN 325 MG TABLET PO PRN ×2 (03:08→16:16)
[2019-04-30] MEDS: NS IV 1000 ML 1,000 ML IV SCH (03:57)
--- NOTE | 2019-04-30 05:49 | Diagnostic Imaging Report ---
PROCEDURE: CT abdomen and pelvis without contrast. TECHNIQUE: Multiple contiguous axial images were obtained through the abdomen and pelvis without the use of intravenous contrast. Auto Exposure Controls were utilized during the CT exam to meet ALARA standards for radiation dose reduction. INDICATION: Abdominal pain COMPARISON: None available FINDINGS: Calcified granuloma within the left lung base. Mild bibasilar interstitial and reticular opacities. Additional subpleural groundglass opacities are present, including within the left lower lobe measuring 0.7 cm. Small hiatal hernia. Given appearance, this may relate to a paraesophageal hernia. Mural thickening of the gastric antrum. The unenhanced liver is unremarkable. The spleen is unremarkable. The adrenal glands are unremarkable. The pancreas is unremarkable. The gallbladder is not visualized, likely surgically absent. Hypodensities are identified within the bilateral kidneys, incompletely evaluated on this examination. Punctate 1-2 mm nonobstructing calculus within the superior pole of the left kidney. The bilateral kidneys and ureters are otherwise unremarkable. Extensive vascular calcifications within the abdominal aorta and its branch vessels without aneurysmal dilatation of the abdominal aorta. The urinary bladder is unremarkable. A 3.8 cm cystic structure is noted within the midline lower pelvis without adjacent inflammatory stranding. The uterus is not definitely visualized. Poor distention of the distal colon with mural thickening involving the sigmoid colon and rectosigmoid junction. No significant adjacent fat stranding. The appendix is not definitely visualized. No bowel obstruction or pneumatosis. Stent within the left superficial femoral artery. Stimulator is present with the battery pack within the right gluteal region with the lead extending into the central spinal canal. [place] left curvature of the spine with advanced scattered osseous degenerative changes. No acute osseous abnormality. Significant calcifications involving the origins of the bilateral hamstrings. IMPRESSION: Punctate nonobstructing left renal calculus. Bilateral renal hypodensities, incompletely evaluated on this examination, though statistically related to cysts. Renal ultrasound would help to further evaluate to ensure these are cystic in nature. A 3.8 cm cystic structure within the midline lower pelvis. This is of uncertain etiology. This could relate to an ovarian cystic structure, benign or malignant. Alternatively, this could relate to an enteric duplication cyst. Pelvic ultrasound is recommended for further evaluation. Small hiatal hernia, with suggestion that this relates to a paraesophageal hiatal hernia. Bibasilar interstitial opacities with associated small pleural-based pulmonary nodules. Followup CT of the chest is recommended in 6 months to ensure stability. Mural thickening of the gastric antrum as well as mural thickening involving the sigmoid colon and rectosigmoid junction without adjacent fat stranding. This may relate to poor distention, though gastritis/colitis should be considered. Additional findings as described above. Agree with preliminary interpretation. Dictated by: Dictated on workstation # [id number]
[2019-04-30 05:54] LABS: CALCIUM 8.7 MG/DL (8.5-10.1); CREATININE SERUM 3.8 MG/DL (0.60-1.30); POTASSIUM 4.2 MMOL/L (3.6-5.0)
[2019-04-30] MEDS: CATHETER FLUSH 10 ML SYR IV SCH ×3 (06:31→20:19)
[2019-04-30] MEDS ORDERED: FAMOTIDINE 20MG/2ML IV (PEPCID) IV SCH (09:00)
[2019-04-30] MEDS: FAMOTIDINE 20MG/2ML IV (PEPCID) IV SCH (09:21)
--- NOTE | 2019-04-30 10:14 | NUR ---
Pt is [facility]. [employer] Server provided prayer and Communion.
--- NOTE | 2019-04-30 11:12 | History & Physical-Hospitalist ---
History of Present Illness HPI/Chief Complaint CC: N/V w/elevated creatinine HPI: This is an 88-year-old white female clinic patient of Dr. Perry in [place] who has a past medical history of diabetes and chronic renal failure usual baseline creatinine 3.0 who presented to the ER with severe nausea and vomiting and generalized weakness and was unable to go home from the ER so she was placed on gentle IV fluids due to creatinine elevation to 3.4. Patient is doing well on a clear liquid diet she is ready to advance her diet and restart her home medications and overall patient has become much improved. Telemetry will be discontinued along with hep-locked IV fluid and sliding scale insulin regimen. PT/OT will be consulted. She lives at home alone. IRF eval placed. Source: patient Exam Limitations: no limitations Date Seen 04/30/19 Time Seen by a Provider: 10:00 Attending Physician Britany Hinton DO PCP No,Local Physician Referring Physician Date of Admission Apr 29, 2019 at 23:59 Home Medications & Allergies Home Medications Reviewed patient Home Medication Reconciliation performed by pharmacy medication reconciliations hvac/r service technician and/or nursing. Patients Allergies have been reviewed. Allergies Allergies Coded Allergies Penicillins (Unverified Adverse Reaction, Unknown, 04/29/19) cephalexin (Unverified Adverse Reaction, Unknown, 04/29/19) Past Fypppmb-[id number]-Pxcowq Hx Past Med/Social Hx: Reviewed Nursing Past Med/Soc Hx, Reviewed and Corrections made Patient Social History Marrital Status: single Employed/Student: retired Alcohol Use: Denies Use Recreational Drug Use: No Smoking Status: Never a Smoker Physical Abuse Screen: No Sexual Abuse: No Recent Foreign Travel: No Contact w/other who traveled: No Recent Infectious Disease Expo: No Immunizations Up To Date Date of Pneumonia Vaccine: Aug 30, 2018 Seasonal Allergies Seasonal Allergies: No Past Medical History Cardiac: High Cholesterol, Hypertension Endocrine: Diabetes, Non-Insulin dep Review of Systems Constitutional: see HPI, malaise, weakness EENTM: no symptoms reported Respiratory: no symptoms reported Cardiovascular: no symptoms reported Gastrointestinal: nausea, vomiting Musculoskeletal: no symptoms reported Skin: no symptoms reported Psychiatric/Neurological: No Symptoms Reported All Other Systems Reviewed Negative Unless Noted: Yes Physical Exam Physical Exam Vital Signs Vital Signs - First Documented 04/29/19 04/30/19 19:44 00:33 Temp 98.1 Pulse 68 Resp 20 B/P (MAP) 159/61 (93) Pulse Ox 100 O2 Delivery Nasal Cannula O2 Flow Rate 3.00 Capillary Refill : Less Than 3 Seconds Height, Weight, BMI Height: 4'11.00" Weight: 120lbs. 4.8oz. [id number]; 24.3 BMI Method:Stated General Appearance: No Apparent Distress, WD/WN, Chronically ill Eyes: Right Eye Normal Inspection, Right Eye PERRL HEENT: PERRL/EOMI, TMs Normal, Normal ENT Inspection, Pharynx Normal, Moist Mucous Membranes Neck: Full Range of Motion, Normal Inspection, Non Tender Respiratory: Chest Non Tender, Lungs Clear, Normal Breath Sounds, No Accessory Muscle Use, No Respiratory Distress Cardiovascular: Regular Rate, Rhythm, No Edema, No Gallop, No JVD, No Murmur, Normal Peripheral Pulses Gastrointestinal: Normal Bowel Sounds, No Organomegaly, No Pulsatile Mass, Non Tender, Soft Back: Normal Inspection, No CVA Tenderness, No Vertebral Tenderness Extremity: Normal Capillary Refill, Normal Inspection, Normal Range of Motion, Non Tender, No Calf Tenderness, No Pedal Edema Neurologic/Psychiatric: Alert, Oriented x3, No Motor/Sensory Deficits, Normal Mood/Affect Skin: Normal Color, Warm/Dry Lymphatic: No Adenopathy Results Results/Procedures Labs Laboratory Tests 04/29/19 20:11 04/30/19 05:11 Patient resulted labs reviewed. Assessment/Plan Admission Diagnosis Assessment: N/V Dehydration Elevated troponin Elevated BNP DM CRF Stage 4 HTN HLP Plan: Cardiology consultation ECHO Monitor labs SSI OT/OT DC Tely Admission Status: Observation Diagnosis/Problems Diagnosis/Problems (1) N&V (nausea and vomiting) Status: Acute (2) Elevated troponin Status: Acute (3) Hyponatremia Status: Acute (4) Dehydration Status: Acute (5) Acute on chronic renal failure Status: Chronic Qualifiers: Chronic kidney disease stage: stage 4 (severe) (6) Elevated brain natriuretic peptide (BNP) level Status: Acute Clinical Quality Measures AMI/AHF: ASA po Prior to arrival: No DVT/VTE Risk/Contraindication: Risk Factor Score Per Nursin RFS Level Per Nursing on Admit: 3=High BRITANY HINTON DO Apr 30, 2019 11:12
[2019-04-30] MEDS ORDERED: ONDANSETRON 4 MG/2 ML (SDV) Z0FRAN IVP PRN (11:15)
[2019-04-30] MEDS ORDERED: ACETAMINOPHEN 500 MG TAB (TYLENOL) PO PRN (11:15)
[2019-04-30] MEDS ORDERED: CALCIUM CARBONATE 500 MG (TUMS) TAB.CHEW PO PRN (11:15)
[2019-04-30] MEDS ORDERED: diphenhydrAMINE 25 MG TAB (BENADRYL) PO PRN (11:15)
[2019-04-30] MEDS ORDERED: LOPERAMIDE 2 MG (IMODIUM) TABLET PO PRN (11:15)
[2019-04-30] MEDS ORDERED: MELATONIN 3 MG TABLET PO PRN (11:15)
[2019-04-30] MEDS ORDERED: DOCUSATE SODIUM 100 MG (COLACE) CAP PO PRN (11:15)
--- NOTE | 2019-04-30 11:54 | Physical Therapy Evaluation ---
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 Patient completes activity by themselves 4 Supervision or touching assist (CGA). [place] provide cues , steadying assist 3 The helper provides less than half the effort to complete the activity 2 The helper provides more than half the effort to complete the activity 1 Dependent. The helper does all the effort to complete an activity 7 Patient refused to complete or attempt activity 9 The patient did not perform the activity before the current illness or injury 88 Not attempted due to Medical conditions or safety concerns Functional Abilities and Goals: Independent: Patient completed the activities by him/herself, with or without an assistive device, with no assistance from a helper. Needed Some Help: Patient needed partial assistance from another person to complete activities. Dependent: A helper completed the activities for the patient. Unknown: Not Applicable: Bed Mobility: 6 Transfers (B,C,W/C) (FIM): 6 Gait: 6 Indoor Mobility (Ambulation): Independent Prior Devices Use: Walker Prior Device Use: 4WW PT Evaluation-Current Subjective Patient agrees to PT. Patient report she wear an AFO on her right foot due to drop foot from back surgery several years ago, however, it is not currently with her. Pain Numeric Pain Scale: 0-No Pain Location: No Pain Reported Objective Patient Orientation: Normal For Age Problem Solving: Fair Attachments: Oxygen (2L) ROM/Strength ROM Lower Extremities bilateral LE WFL Strength Lower Extremities right drop foot/ knee extension/flexion 4/5 left LE 4/5 grossly Integumentary/Posture Integumentary refer to nursing notes Bowel Incontinence: No Bladder Incontinence: No Posture WFL Neuromuscular (Tone, Coordination, Reflexes) coordination grossly intact Sensory Vision: Wears Glasses Hearing: Functional Sensation Right Lower Extremit: Impaired Sensation Left Lower Extremity: Impaired Transfers Therapy Code Descriptions/Definitions Functional [place] Measure: 0=Not Assessed/NA 4=Minimal Assistance 1=Total Assistance 5=Supervision or Setup 2=Maximal Assistance 6=Modified [place] 3=Moderate Assistance 7=Complete [place] Transfers (B, C, W/C) (FIM): 4 Scootin Rollin Supine to/from Sit: 5 Sit to/from Stand: 4 CGA for safety Gait Mode of Locomotion: Walk Anticipated Mode of Locomotion: Walk Gait (FIM): 1 Distance (FIM): 1=up to 49 ft Distance: 45' Gait Level of Assist: 4 Gait Persons Needed: 1 Gait Assistive Device: FWW Comments/Gait Description drop foot gait right/functional sequence Balance Sitting Static: Normal Sitting Dynamic: Normal Standing Static: Good Standing Dynamic: Good Assessment/Needs 88 y.o. female, will be seen short term by skilled PT to address functional strength and mobility to improve current LOF and to safely return to home with family at maximum LOF. Rehab Potential: Fair PT Snf Goals Snf Goals PT Snf Goals Time Frame: May 15, 2019 Transfers (B,C,W/C) (FIM): 6 Gait (FIM): 6 Gait distance (FIM): 3=150 ft Distance: 250' Gait Level of Assist: 6 Gait Assistive Device: FWW PT Plan Problem List Problem List: Activity Tolerance Treatment/Plan Treatment Plan: Continue Plan of Care Treatment Plan: Bed Mobility, Education, Functional Activity Katerina, Functional Strength, Gait, Safety, Therapeutic Exercise Treatment Duration: May 15, 2019 Frequency: 6 times per week Estimated Hrs Per Day: .25 hour per day Patient and/or Family Agrees t: Yes Safety Risks/Education Patient Education: Safety Issues Teaching Recipient: Patient Teaching Methods: Discussion Response to Teaching: Verbalize Understanding Discharge Recommendations Therapy D/C Recommendations: Home w/ Family Support Time/GCodes Time In: 1125 Time Out: 1146 Total Billed Treatment Time: 21 Total Billed Treatment 1 visit EVModC 21 min KASSY PEREYRA PT Apr 30, 2019 11:54
[2019-04-30] MEDS ORDERED: SPIR25TA5 PO (12:05)
[2019-04-30] MEDS ORDERED: GLIP10TA13 PO (12:05)
[2019-04-30] MEDS ORDERED: OMEP20CA12 PO (12:05)
[2019-04-30] MEDS ORDERED: METO-395 PO (12:05)
[2019-04-30] MEDS ORDERED: HYDR-3923 PO (12:05)
[2019-04-30] MEDS ORDERED: CETI1TAB61 PO (12:05)
--- NOTE | 2019-04-30 12:09 | NUR ---
SPOKE WITH PATIENT ABOUT THEIR MEDCATIONS AND COMPARED IT TO THE EXTERNAL MED HISTORY. I ALSO CALLED AND SPOKE WITH HER DAUGHTER TO VERIFY ALSO. THE DAUGHTER ALSO WAS ABLE TO TELL ME THAT THE PT TAKES OTC PRILOSEC ONCE D AND ZYRTEC D BID.
[2019-04-30] MEDS ORDERED: PANTOPRAZOLE 20 MG TABLET (PROTONIX) PO PRN (12:27)
--- NOTE | 2019-04-30 13:10 | NUR ---
IRF Evaluation Order received to evaluate patient for the ARU. According to chart, patient is modified independent to stand by assist with ADLs; therefore, the patient does not meet admission criteria specific to requiring two of three forms of therapy. Thank you for this referral.
--- NOTE | 2019-04-30 14:19 | Progress Note-Pre Operative ---
Pre-Operative Progress Note H&P Reviewed The H&P was reviewed, patient examined and no changes noted. Date Seen by Provider: Apr 30, 2019 Time Seen by Provider: 14:00 Date H&P Reviewed: Apr 30, 2019 Time H&P Reviewed: 14:00 Pre-Operative Diagnosis: nausea/vomiting, GERD LEXI HUNT MD Apr 30, 2019 14:19
--- NOTE | 2019-04-30 14:19 | Conscious Sedation/ASA ---
Conscious Sedation Pre-Proced Time 14:00 ASA Score 2 For ASA 3 and 4: Consider anesthesia and medical clearance. Also, for patients with a history of failed moderate sedation consider anesthesia. Airway Lungs Heart ASA score ASA 1: a normal healthy patient ASA 2: a patient with a mild systemic disease (mid diabetes, controlled hypertension, obesity ASA 3: a patient with a severe systemic disease that limits activity (angina, COPD, prior Myocardial infarction) ASA 4: a patient with an incapacitating disease that is a constant threat to life (CHF, renal failure) ASA 5: a moribund patient not expected to survive 24 hrs. (ruptured aneurysm) ASA 6: a declared brain- patient whose organs are being harvested. For emergent operations, add the letter E after the classification Mallampati Classification Grade 3 Sedation Plan Analgesia, Amnesia, Plan communicated to team members, Discussed options with patient/fam, Discussed risks with patient/fam The patient is an appropriate candidate to undergo the planned procedure, sedation, and anesthesia. The patient immediately re-assessed prior to indication. LEXI HUNT MD Apr 30, 2019 14:19
--- NOTE | 2019-04-30 14:38 | ST Cognitive Linguistic Eval ---
Speech Evaluation-General Medical Diagnosis acute or chronic renal failure/dehydration Onset Date: Apr 29, 2019 Therapy Diagnosis Therapy Diagnosis: Cognitive-communication Precautions Precautions/Isolations: Fall Prevention, Standard Precautions Referral Referring Physician: Dr. Hinton Medical History Pertinent Medical History: COPD Reviewed History: Yes Social History Current Living Status: Other Family Speech PLF-Current Status Prior Level of Function Patient lived at home with family. She was independent for most of her daily needs per patient. Subjective The patient was pleasant and cooperative with cognitive evaluation. Language Eval: Auditory Comprehends Simple Yes/No Ques: Functional Indent/Objects Multiple [place]: Functional Ident/Pics in Multiple [place]: Functional Follows 1-Step Commands: Functional Follows Complex Directions: Mild Follows General Conversations: Mild Language Eval: Verbal Language Completes Spontaneous Greeting: Functional Produces Auto, Serial Info: Functional Imitates Simple Words/Phrases: Functional Word Finding: Mild Requests Basic Needs: Functional States Basic Personal Info: Functional Expresses Complex Ideas: Moderate Objective Cognitive Domain Attention: WNL Memory: Mild Problem Solving: Mild Executive Functions: Moderate Visuospatial Skills: Mild Composite Severity Rating: Mild Clock Drawing Severity Rating: Mild Objective Formal/Standardized Tests [facility] Mental Status Results The patient scored 23/30 with deficits in memory and problem solving with decreased safety awareness also noted. 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 Oral Motor/Speech Production Within Functional Limits Impression The patient is an 88 year old woman who was hospitalized due to renal failure and dehydration. The patient completed the SLUMS with verbal cues provided as appropriate. She scored within the MNCD range. She appeared to be distraught at being in the hospital but was easily redirected. The patient is recommended for skilled ST to focus on cognitive function related to safety awareness. Speech Short Term Goals Short Term Goals Short Term Goals 1) The patient will complete memory tasks with 90% or greater given minimal verbal cues. 2) The patient will complete problem solving tasks related to safety with 90% or greater given minimal verbal cues. 3) The patient will demonstrate the ability to follow multi step directions with 90% or greater given minimal verbal cues. Speech Nursing Home Goals Nursing Home Goals The patient will improve her safety awareness and independence within her immediate environment. Speech-Plan Patient/Family Goals Patient/Family Goals: The patient plans on returning home upon hospital discharge. Treatment Plan Speech Therapy Treatment Plan: Continue Plan of Care The patient will receive skilled ST services. Treatment Duration: May 07, 2019 Frequency: 5 times per week Estimated Hrs Per Day: .25 hour per day Rehab Potential: Fair Barriers to Learning: Patient exhibits cognitive deficits Pt/Family Agrees to Plan: Yes Safety Risks/Education Teaching Recipient: Patient Teaching Methods: Discussion Response to Teaching: Verbalize Understanding Education Topics Provided: Safety within her room and utilization of the call light as needed. Time Speech Therapy Time In: 13:15 Speech Therapy Time Out: 13:30 Total Billed Time: 15 Billed Treatment Time 1RAFA[address] ST Apr 30, 2019 14:38
--- NOTE | 2019-04-30 14:46 | Occupational Therapy Eval ---
OT Evaluation-General/PLF Medical Diagnosis Admission Date Apr 29, 2019 at 23:59 Medical Diagnosis: acute or chronic renal failure/dehydration Onset Date: Apr 29, 2019 Therapy Diagnosis Therapy Diagnosis: impaired ADLS and mobility Height/Weight Height (Feet): 4 Height (Inches): 11.00 Weight (Pounds): 120 Weight (Ounces): 4.8 Precautions Precautions/Isolations: Fall Prevention, Standard Precautions Weight Bear Status Weight Bearing Restriction: Weight Bearing/Tolerated noted R foot drop. this is PLOF pt wears AFO but ferrera not have it with her currently Referral Physician: Jamaal Referral Reason: Activity Tolerance, Self Care, Evaluation/Treatment, Strengthening/ROM Medical History Pertinent Medical History: COPD Additional Medical History Constitutional: , malaise, weakness EENTM: no symptoms reported Respiratory: no symptoms reported Cardiovascular: no symptoms reported Gastrointestinal: nausea, vomiting Musculoskeletal: no symptoms reported Skin: no symptoms reported Psychiatric/Neurological: No Symptoms Reported Current History per H&P: "HPI: This is an 88-year-old white female clinic patient of Dr. Perry in [place] who has a past medical history of diabetes and chronic renal failure usual baseline creatinine 3.0 who presented to the ER with severe nausea and vomiting and generalized weakness and was unable to go home from the ER so she was placed on gentle IV fluids due to creatinine elevation to 3.4. Patient is doing well on a clear liquid diet she is ready to advance her diet and restart her home medications and overall patient has become much improved. Telemetry will be discontinued along with hep-locked IV fluid and sliding scale insulin regimen. PT/OT will be consulted. She lives at home alone. IRF eval placed." Reviewed History: Yes Social History Home: Single Level Current Living Status: Other Family Steps Into Home: 2 ADL-Prior Level of Function Therapy Code Descriptions/Definitions Functional [place] Measure: 0=Not Assessed/NA 4=Minimal Assistance 1=Total Assistance 5=Supervision or Setup 2=Maximal Assistance 6=Modified [place] 3=Moderate Assistance 7=Complete [place] Therapy Quality Codes: 6 Independent with activity with or without an assistive device 5 Patient requires set up or clean up by helper. Patient completes activity by themselves 4 Supervision or touching assist (CGA). [place] provide cues , steadying assist 3 The helper provides less than half the effort to complete the activity 2 The helper provides more than half the effort to complete the activity 1 Dependent. The helper does all the effort to complete an activity 7 Patient refused to complete or attempt activity 9 The patient did not perform the activity before the current illness or injury 88 Not attempted due to Medical conditions or safety concerns Functional Abilities and Goals: Independent: Patient completed the activities by him/herself, with or without an assistive device, with no assistance from a helper. Needed Some Help: Patient needed partial assistance from another person to complete activities. Dependent: A helper completed the activities for the patient. Unknown: Not Applicable: Self Care: Independent Functional Cognition: Independent DME/Equipment: Bath Chair, Shower, Tub/Shower Drive Self: No OT Current Status Subjective pt laying in bed upon OT arrival in no apparent distress. pt agreed to OT evaluation session. pt reports no pain. Mental Status/Objective Patient Orientation: Person, Place, Time, Situation ADL-Treatment Therapy Code Descriptions/Definitions Functional [place] Measure: 0=Not Assessed/NA 4=Minimal Assistance 1=Total Assistance 5=Supervision or Setup 2=Maximal Assistance 6=Modified [place] 3=Moderate Assistance 7=Complete [place] Therapy Quality Codes: 6 Independent with activity with or without an assistive device 5 Patient requires set up or clean up by helper. Patient completes activity by themselves 4 Supervision or touching assist (CGA). [place] provide cues , steadying assist 3 The helper provides less than half the effort to complete the activity 2 The helper provides more than half the effort to complete the activity 1 Dependent. The helper does all the effort to complete an activity 7 Patient refused to complete or attempt activity 9 The patient did not perform the activity before the current illness or injury 88 Not attempted due to Medical conditions or safety concerns pt demo ability to sit EOB and perform LB/ UE dressing MOD I and ambulate to bathroom with SBA and perform toileting and grooming MOD I with safety concerns using RW. OT Short Term Goals Short Term Goals 1=Demonstrate adherence to instructed precautions during ADL tasks. 2=Patient will verbalize/demonstrate understanding of assistive devices/modifications for ADL. 3=Patient will improve strength/tolerance for activity to enable patient to perform ADL's. OT Group Home Goals Community Music Therapist Goals 1=Demonstrate adherence to instructed precautions during ADL tasks. 2=Patient will verbalize/demonstrate understanding of assistive devices/modifications for ADL. 3=Patient will improve strength/tolerance for activity to enable patient to perform ADL's. OT Education/Plan Problem List/Assessment pt demo ability to perform ADL tasks MOD I using RW. pt stated she is functioning PLOF and does not sate any safety concerns at this time. noted pt does have Right foot drop and wears AFO at home. pt stated she did not bring AFO to hospital. therefore, pt requires SBA for safety with mobility. OT services not indicated secondary to functioning at baseline. PT to address mobility.(PT agreed to this) pt agrees she does not need OT services. pt safe to return home when medically stable. Discharge Recommendations Plan/Recommendations: Discontinue OT Therapy D/C Recommendations: Home w/ Family Support Equpiment Recommendations-D/C: None Treatment Plan/Plan of Care Treatment,Training & Education: Yes Patient would benefit from OT for education, treatment and training to promote independence in ADL's, mobility, safety and/or upper extremity function for ADL's. Treatment Duration: Apr 30, 2019 Frequency: 1 time per week (d/c ) Estimated Hrs Per Day: Other (d/c) Agreement: Yes Rehab Potential: Fair Time/GCodes Start Time: 14:05 Stop Time: 14:25 Billed Treatment Time EVL 20 minutes AMANDA LOO OT Apr 30, 2019 14:46
--- NOTE | 2019-04-30 15:50 | Consultation-Cardiology ---
HPI-Cardiology Cardiology Consultation: Date of Consultation 04/30/19 Time Seen by a Provider: 15:20 Date of Admission 04-30-19 Attending Physician Britany Hinton DO Admitting Physician Bertha,Local Physician Consulting Physician Tyron Putnam MD HPI: Chief Complaint: Chest pain ESPOSITO Ms. Durham is an 88 year old female admitted to [facility] from the ED. She reports for approx the last several day she has had n/v. She reports she has had a GOSS so she took a "pain pill" and then felt after 2 days she was constipated so she took some castor oil in orange juice and approx 2 hours late began to have diarrhea. She state she has had chest pain which she describes as a pressure which radiates through to her back with activity that is relieved with rest. She describes it as mod to severe. Relieves after several minutes of sitting. States this has been going on for the last few weeks. Reports SOB with the pain. No other assoc symptoms. Denies any palpitations, syncope or near syncope. Reports chronic right ankle swelling which is unchanged in the recent past. Currently not reporting any pain. Review of Systems-Cardiology Review of Systems Constitutional: No chills, No fever; tiredness Eyes: No vision change Ears/Nose/Throat: No epistaxis, No recent hearing loss Respiratory: As described under HPI Cardiovascular: As described under HPI Gastrointestinal: As described under HPI Genitourinary: No dysuria, No hematuria Skin: No rash, No ulcerations Psychiatric/Neurological: No anxiety, No depression, No seizure, No focal weakness, No syncope Hematologic: easy bleeding, easy bruising All Other Systems Reviewed Negative Unless Noted: Yes ZYD-Vlwakt-Wxtjko Hx Patient Social History Marrital Status: single Employed/Student: retired Alcohol Use: Denies Use Recreational Drug Use: No Smoking Status: Never a Smoker Recent Foreign Travel: No Recent Infectious Disease Expo: No Hospitalization with Isolation: Denies Physical Abuse Screen: No Sexual Abuse: No Immunizations Up To Date Date of Pneumonia Vaccine: Aug 30, 2018 Past Medical History PMH As described under Assessment. Family Medical History Family Medical History: She denies any family h/o CAD. Allergies and Home Medications Allergies Coded Allergies: Penicillins (Unverified Adverse Reaction, Unknown, 04/29/19) cephalexin (Unverified Adverse Reaction, Unknown, 04/29/19) Home Medications Famotidine 20 Mg Tablet, 20 MG PO BID Prescribed by: HARVEY VILLARREAL on 05/03/19 1210 Glipizide 10 Mg Tablet, 10 MG PO BID, (Reported) Hydralazine HCl 25 Mg Tablet, 25 MG PO TID, (Reported) Metoprolol Succinate 100 Mg Tab.er.24h, 100 MG PO HS, (Reported) Omeprazole 20 Mg Capsule.dr, 20 MG PO DAILY PRN for HEARTBURN, (Reported) Spironolactone 25 Mg Tablet, 12.5 MG PO DAILY, (Reported) TAKES 1/2 TABLET (25MG) Patient Home Medication List Home Medication List Reviewed: Yes Physical Exam-Cardiology Physical Exam Vital Signs/I&O Capillary Refill : Less Than 3 Seconds Constitutional: AAO x 3, well-developed, other (thin) Neck: No carotid bruit; carotid pulses are 2 + bilaterally Respiratory: lungs clear to auscultation Cardiovascular: regular rate-rhythm; No JVD; S1 and S2 Gastrointestinal: No tender; soft, round Rectal: deferred Extremities: no lower extremity edema bilateral Neurologic/Psychiatric: grossly intact, power is 5/5 both on sides Skin: No rash on exposed areas, No ulcerations on exposed areas Data Review Labs Radiology NAME: KEN DURHAM MED REC#: [id number] PT STATUS: ADM Britney : 1930 PHYSICIAN: VESNA PUENTE DO ADMIT DATE: 04/29/19 Signed Date of Exam: 04/29/19 CT ABDOMEN/PELVIS WO PROCEDURE: CT abdomen and pelvis without contrast. TECHNIQUE: Multiple contiguous axial images were obtained through the abdomen and pelvis without the use of intravenous contrast. Auto Exposure Controls were utilized during the CT exam to meet ALARA standards for radiation dose reduction. INDICATION: Abdominal pain COMPARISON: None available FINDINGS: Calcified granuloma within the left lung base. Mild bibasilar interstitial and reticular opacities. Additional subpleural groundglass opacities are present, including within the left lower lobe measuring 0.7 cm. Small hiatal hernia. Given appearance, this may relate to a paraesophageal hernia. Mural thickening of the gastric antrum. The unenhanced liver is unremarkable. The spleen is unremarkable. The adrenal glands are unremarkable. The pancreas is unremarkable. The gallbladder is not visualized, likely surgically absent. Hypodensities are identified within the bilateral kidneys, incompletely evaluated on this examination. Punctate 1-2 mm nonobstructing calculus within the superior pole of the left kidney. The bilateral kidneys and ureters are otherwise unremarkable. Extensive vascular calcifications within the abdominal aorta and its branch vessels without aneurysmal dilatation of the abdominal aorta. The urinary bladder is unremarkable. A 3.8 cm cystic structure is noted within the midline lower pelvis without adjacent inflammatory stranding. The uterus is not definitely visualized. Poor distention of the distal colon with mural thickening involving the sigmoid colon and rectosigmoid junction. No significant adjacent fat stranding. The appendix is not definitely visualized. No bowel obstruction or pneumatosis. Stent within the left superficial femoral artery. Stimulator is present with the battery pack within the right gluteal region with the lead extending into the central spinal canal. Dresher left curvature of the spine with advanced scattered osseous degenerative changes. No acute osseous abnormality. Significant calcifications involving the origins of the bilateral hamstrings. IMPRESSION: Punctate nonobstructing left renal calculus. Bilateral renal hypodensities, incompletely evaluated on this examination, though statistically related to cysts. Renal ultrasound would help to further evaluate to ensure these are cystic in nature. A 3.8 cm cystic structure within the midline lower pelvis. This is of uncertain etiology. This could relate to an ovarian cystic structure, benign or malignant. Alternatively, this could relate to an enteric duplication cyst. Pelvic ultrasound is recommended for further evaluation. Small hiatal hernia, with suggestion that this relates to a paraesophageal hiatal hernia. Bibasilar interstitial opacities with associated small pleural-based pulmonary nodules. Followup CT of the chest is recommended in 6 months to ensure stability. Mural thickening of the gastric antrum as well as mural thickening involving the sigmoid colon and rectosigmoid junction without adjacent fat stranding. This may relate to poor distention, though gastritis/colitis should be considered. Additional findings as described above. Agree with preliminary interpretation. Dictated by: Dictated on workstation # [id number] Dict: 04/30/19 0515 Trans: 04/30/191038 Interpreted by: NAFISA KIRAN MD Electronically signed by: NAFISA KIRAN MD 04/30/19 103 NAME: KEN DURHAM [facility] REC#: [id number] PT STATUS: REG ER : 1930 PHYSICIAN: VSENA PUENTE DO ADMIT DATE: 04/29/19/ER FS Signed Date of Exam: 04/29/19 CHEST 1 VIEW AP/PA ONLY INDICATION: Epigastric pain Portable chest 8:18 PM Patient has a dorsal column stimulator. Heart size and pulmonary vascularity are normal. Lungs are clear. There are no effusions or pneumothoraces. IMPRESSION: No acute abnormalities in the chest Dictated by: Dictated on workstation # [id number] Dict: 04/29/192044 Trans: 04/29/192109 Interpreted by: PERRY HAYDEN MD Electronically signed by: PERRY HAYDEN MD 04/29/192109 ECG Impression ECG Initial ECG Rhythm: Normal Sinus A/P-Cardiology Assessment/Admission Diagnosis Chest discomfort consistent with characteristics of angina pectoris N/V/D - management per medical services HTN Reports h/o PAD - reports bilat percutaneous peripheral intervention in 2014 and then a few weeks later left LE bypass grafting by Dr Quigley of [facility] - exact details unknown HLD CKD stage 4 - follows with Dr. Celine Vo of nephrology services DM Reports h/o bilat carotid arterial disease - follows with [facility] (reports recent scan in March 2019) - exact details unknown Chronic back with multiple surgeries - reports spinal stimulator in place (done in [place], [place]) Reports h/o PUD (diagnosed in the 60's) for this reason she refuses to take ASA Discussion and Recomendations Chest discomfort with characteristics consistent of angina pectoris. Advise medical management at this time d/t renal failure and refusal of anti-platelet tx, for reasons noted above, which could be necessary if intervention is undertaken. If she continues to have discomfort consideration for high risk cardiac cath with intervention can be made. Increase antihypertensives to better control BP She refuses antiplatelet tx for reasons noted above She refuses Norvasc d/t concerns regarding a recent recall that she has read about Echocardiogram to eval LVEF and structure Monitor lab closely Advise avoidance of any nephrotoxic agents Request records from [facility] Management of n/v/d is with medical services We would like to thank medical services for this consult Further recs will be based on her hospital course Clinical Quality Measures AMI/AHF: ASA po Prior to arrival: No DVT/VTE Risk/Contraindication: Risk Factor Score Per Nursin RFS Level Per Nursing on Admit: 3=High AVA BHATIA Apr 30, 2019 15:49
[2019-04-30] MEDS: hydrALAZINE (APRESOLINE) 25 MG TAB PO SCH ×2 (15:57→21:24)
[2019-04-30] MEDS: inSUlin ASPART (NovoLOG) 1 UNIT/0.01 ML (CHARGE PER UNIT) SC SCH ×2 (16:01→21:25)
--- NOTE | 2019-04-30 16:32 | Consultation-Cardiology ---
HPI-Cardiology Cardiology Consultation: Date of Consultation 04/30/19 Time Seen by a Provider: 16:10 Date of Admission Attending Physician Britany Hinton DO Admitting Physician No,Local Physician Consulting Physician MONY WEINBERG MD, MA, FACP, FACC, FSCAI, CCDS Physician requesting consult: Dr Hinton HPI: Chief Complaint: CC: Headache, nausea, malaise, shorntess of breath, chest discomfort HPI Ms. Rush is an 88 year old female admitted to [facility] from the ED. She reports for approx the last several day she has had n/v. She reports she has had a GOSS so she took a "pain pill" and then felt after 2 days she was constipated so she took some castor oil in orange juice and approx 2 hours late began to have diarr hea. She state she has had chest pain which she describes as a pressure which radiates through to her back with activity that is relieved with rest. She describes it as mod to severe. Relieves after several minutes of sitting. States this has been going on for the last few weeks. Reports SOB with the pain. No other assoc symptoms. Denies any palpitations, syncope or near syncope. Reports chronic right ankle swelling which is unchanged in the recent past. Currently not reporting any pain. Review of Systems-Cardiology Review of Systems Constitutional: No chills, No fever; tiredness Eyes: No vision change Ears/Nose/Throat: No epistaxis, No recent hearing loss Respiratory: As described under HPI Cardiovascular: As described under HPI Gastrointestinal: As described under HPI Genitourinary: No dysuria, No hematuria Skin: No rash, No ulcerations Psychiatric/Neurological: No anxiety, No depression, No seizure, No focal weakness, No syncope Hematologic: easy bleeding, easy bruising All Other Systems Reviewed Negative Unless Noted: Yes NNC-[id number]-Qwjxpv Hx Patient Social History Marrital Status: single Employed/Student: retired Alcohol Use: Denies Use Recreational Drug Use: No Smoking Status: Never a Smoker Recent Foreign Travel: No Recent Infectious Disease Expo: No Hospitalization with Isolation: Denies Physical Abuse Screen: No Sexual Abuse: No Immunizations Up To Date Date of Pneumonia Vaccine: Aug 30, 2018 Past Medical History PMH As described under Assessment. Family Medical History Family Medical History: She denies any family h/o CAD. Allergies and Home Medications Allergies Coded Allergies: Penicillins (Unverified Adverse Reaction, Unknown, 04/29/19) cephalexin (Unverified Adverse Reaction, Unknown, 04/29/19) Home Medications Cetirizine HCl/Pseudoephedrine 1 Each Tab.er.12h, 1 TAB PO BID PRN for CONGESTION, (Reported) Glipizide 10 Mg Tablet, 10 MG PO BID, (Reported) Hydralazine HCl 25 Mg Tablet, 25 MG PO TID, (Reported) Metoprolol Succinate 100 Mg Tab.er.24h, 100 MG PO HS, (Reported) Omeprazole 20 Mg Capsule.dr, 20 MG PO DAILY PRN for HEARTBURN, (Reported) Spironolactone 25 Mg Tablet, 12.5 MG PO DAILY, (Reported) TAKES 1/2 TABLET (25MG) Patient Home Medication List Home Medication List Reviewed: Yes Physical Exam-Cardiology Physical Exam Vital Signs/I&O 04/30/19 04/30/19 04/30/19 04/30/19 04:32 07:00 08:45 08:58 Temp 97.8 97.2 Pulse 65 61 64 Resp 16 21 B/P (MAP) 163/64 (97) 190/87 (121) Pulse Ox 99 99 99 O2 Delivery Nasal Cannula Nasal Cannula Nasal Cannula O2 Flow Rate 2.00 2.00 2.00 04/30/19 04/30/19 04/30/19 09:00 12:49 16:00 Temp 97.6 99.2 Pulse 70 70 Resp 20 18 B/P (MAP) 158/60 (92) 135/80 (98) 183/85 (117) Pulse Ox 99 98 O2 Delivery Nasal Cannula Nasal Cannula O2 Flow Rate 2.00 2.00 Capillary Refill : Less Than 3 Seconds Constitutional: AAO x 3, well-developed, other (thin) Neck: No carotid bruit; carotid pulses are 2 + bilaterally Respiratory: lungs clear to auscultation Cardiovascular: regular rate-rhythm; No JVD; S1 and S2 Gastrointestinal: No tender; soft, round Rectal: deferred Extremities: no lower extremity edema bilateral Neurologic/Psychiatric: grossly intact, power is 5/5 both on sides Skin: No rash on exposed areas, No ulcerations on exposed areas Data Review Labs Laboratory Tests 04/29/19 20:11: White Blood Count 8.1, Red Blood Count 3.56L, Hemoglobin 11.6, Hematocrit 34L, Mean Corpuscular Volume 95, Mean Corpuscular Hemoglobin 33, Mean Corpuscular Hemoglobin Concent 34, Red Cell Distribution Width 11.5, Platelet Count 198, Mean Platelet Volume 10.1, Neutrophils (%) (Auto) 64, Lymphocytes (%) (Auto) 19, Monocytes (%) (Auto) 11, Eosinophils (%) (Auto) 6, Basophils (%) (Auto) 0, Ne utrophils # (Auto) 5.2, Lymphocytes # (Auto) 1.5, Monocytes # (Auto) 0.9, Eosinophils # (Auto) 0.5H, Basophils # (Auto) 0.0, Sodium Level 130L, Potassium Level 4.8, Chloride Level 93L, Carbon Dioxide Level 21, Anion Gap 16H, Blood Urea Nitrogen 71H, Creatinine 3.86H, Estimat Glomerular Filtration Rate 11, BUN/Creatinine Ratio 18, Glucose Level 169H, Calcium Level 9.3, Corrected Calcium 8.9, Magnesium Level 2.5H, Total Bilirubin 0.3, Aspartate Amino Transf (AST/SGOT) 14, Alanine Aminotransferase (ALT/SGPT) 16, Alkaline Phosphatase 74, Troponin T 58H, Pro-B-Type Natriuretic Peptide 3457.0H, Total Protein 6.7, Albumin 4.5, Lipase 48 04/29/19 21:30: Urine Color YELLOW, Urine Clarity CLEAR, Urine pH 6.5, Urine Specific [place] 1.020, Urine Protein 2+H, Urine Glucose (UA) 1+H, Urine Ketones NEGATIVE, Urine Nitrite NEGATIVE, Urine Bilirubin NEGATIVE, Urine Urobilinogen NORMAL, Urine Leukocyte Esterase NEGATIVE, Urine RBC (Auto) NEGATIVE, Urine RBC NONE, Urine WBC NONE, Urine Squamous Epithelial Cells 5-10, Urine Crystals NONE, Urine Bacteria TRACE, Urine Casts NONE, Urine Mucus NEGATIVE, Urine Culture Indicated NO 04/29/19 22:42: Troponin T 54H 04/30/19 05:11: Sodium Level 131L, Potassium Level 4.2, Chloride Level 102, Carbon Dioxide Level 18L, Anion Gap 11, Blood Urea Nitrogen 68H, Creatinine 3.80H, Estimat Glomerular Filtration Rate 11, BUN/Creatinine Ratio 18, Glucose Level 130H, Calcium Level 8.7, Troponin I 0.032H, B-Type Natriuretic Peptide 471.2H 6/21/19 15:44: Glucometer 208H Laboratory Tests 04/29/19 20:11 04/30/19 05:11 A/P-Cardiology Assessment/Admission Diagnosis Chest discomfort consistent with angina pectoris Echo of 04/30/19: LVEF 60-65%, grade I kirkpatrick dysfunction, mild MR, AoV sclerosis w/o stenosis, RVSP 24 mmHg N/V/D - management per Medical services HTN Reports h/o PAD - reports bilat percutaneous peripheral intervention in 2014 and then a few weeks later left LE bypass grafting by Dr Quigley of [facility] - exact details unknown HLD CKD stage 4 - follows with Dr. Celine Vo of Nephrology services DM Reports h/o bilat carotid arterial disease - follows with [facility] (reports recent scan in March 2019) - exact details unknown Chronic back with multiple surgeries - reports spinal stimulator in place (done in [place], [place]) Reports h/o PUD (diagnosed in the 60's) for this reason she refuses to take ASA Discussion and Recomendations * Complex management * Not suitable for invasive cardiac management because: 1) wishes to be managed conservatively, 2) refuses ASA and antiplatelet agents, 3) carries high risk of contrast nephropathy (given CKD-4) with risk of leading to hemodialysis * Increase antihypertensives to better control BP * Multiple refusals: refuses ASA due to reasons noted, refuses Norvasc d/t conc erns regarding a recent recall that she has read about * Monitor lab closely * Advise avoidance of any nephrotoxic agents * Request records from [facility] * We would like to thank medical services for this consult * Further recs will be based on her hospital course Clinical Quality Measures AMI/AHF: ASA po Prior to arrival: No DVT/VTE Risk/Contraindication: Risk Factor Score Per Nursin RFS Level Per Nursing on Admit: 3=High MONY WEINBERG MD FACP FACC CCDS Apr 30, 2019 16:32
--- NOTE | 2019-04-30 16:35 | CONSULTATION REPORT ---
DATE OF SERVICE: 02/28/2019 ADMITTING PHYSICIAN: Britany Hinton DO. HISTORY OF PRESENT ILLNESS: The patient is an 88-year-old female, who presented to [facility] due to nausea, vomiting and weakness. She also does have a chronic renal failure due to diabetes with a baseline creatinine of 3.0 and this was elevated as well. 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 This may be consistent with gastritis, ulceration as well as the possibility of a Armando ulceration. Her hemoglobin is otherwise stable at this time. PAST MEDICAL HISTORY: Hypertension, hypercholesterolemia, diabetes, and chronic renal failure. PAST SURGICAL HISTORY: None known. MEDICATIONS: Cetirizine daily, glipizide 10 mg daily, hydralazine 25 mg t.i.d., metoprolol 100 mg daily, omeprazole 20 mg daily, and spironolactone 25 mg daily. SOCIAL HISTORY: Negative smoke, negative alcohol. FAMILY HISTORY: Noncontributory. VITAL SIGNS: Temperature is 97.6, blood pressure 135/80, pulse 70, respirations 20, and pulse ox 99% on 2 liters nasal cannula. REVIEW OF SYSTEMS: Well-nourished female, currently in no acute distress. She is not experiencing any shortness of breath or difficulty breathing. No chest pain, palpitations, diaphoresis. Initial nausea and vomiting; however, is feeling better since admission and IV hydration. She has had a history of gastroesophageal reflux disease with epigastric burning sensation as well as crampy pain in the past. No known diarrhea or constipation, no red blood per rectum, no dark tarry stools. No fever or chills, no recent inadvertent weight loss. All other review of systems is negative. PHYSICAL EXAMINATION: CHEST: A few scattered rales bilaterally. HEART: Regular, no murmurs. EXTREMITIES: No lower extremity edema, negative Homans sign. HEENT: No scleral icterus. NECK: No cervical lymphadenopathy. ABDOMEN: Soft, nondistended. There is mild discomfort in the epigastric region upon deep palpation. No palpable masses. SKIN: Warm, dry. LABORATORY DATA: WBC is 8.1, hemoglobin 11.6, hematocrit 34, and platelets 198. BUN is 68, creatinine 3.8. ASSESSMENT AND PLAN: An 88-year-old female with nausea and vomiting with signs and symptoms of type 2 paraesophageal hernia as well as possible peptic ulcer disease. While in this admission, we will proceed with an EGD as well as biopsy as appropriate. Job ID: [id number] DocumentID: [id number] Dictated Date: 04/30/2019 14:18:31 Program Host Date: 04/30/2019 14:42:49 Dictated By: LEXI HUNT MD
[2019-04-30] MEDS: meTOprolol SUCCINATE 100 MG (TOPROL XL) TAB PO SCH (20:16)
[2019-04-30] MEDS: SENNA W/DOCUSATE (SENOKOT S) TABLET PO SCH (20:16)
[2019-04-30] MEDS ORDERED: meTOprolol SUCCINATE 100 MG (TOPROL XL) TAB PO SCH (21:00)
[2019-05-01] VITALS: BP 151/73
[2019-05-01 04:00] VITALS: BP 158/79
[2019-05-01 05:40] LABS: BASOPHILS % (AUTO) 0 % (0-10); EOSINOPHILS # (AUTO) 0.5 10^3/uL (0.0-0.3); EOSINOPHILS % (AUTO) 5 % (0-10); HEMATOCRIT 30 % (35-52); HEMOGLOBIN 10.3 G/DL (11.5-16.0); LYMPHOCYTES % (AUTO) 22 % (12-44); MEAN CORPUSCULAR HEMOGLOBIN 33 PG (25-34); MEAN CORPUSCULAR HGB CONC 34 G/DL (32-36); MEAN CORPUSCULAR VOLUME 96 FL (80-99); MEAN PLATELET VOLUME 9.8 FL (7.4-10.4); MONOCYTES # (AUTO) 1.1 X 10^3 (0.0-1.0); MONOCYTES % (AUTO) 13 % (0-12); NEUTROPHILS # (AUTO) 5.3 X 10^3 (1.8-7.8); NEUTROPHILS % (AUTO) 60 % (42-75); PLATELET COUNT 170 10^3/uL (130-400); RED CELL DISTRIBUTION WIDTH 11.7 % (10.0-14.5); WHITE BLOOD COUNT 8.8 10^3/uL (4.3-11.0)
[2019-05-01 06:05] LABS: ALBUMIN 3.6 GM/DL (3.2-4.5); BILIRUBIN,TOTAL 0.3 MG/DL (0.1-1.0); CALCIUM 8.5 MG/DL (8.5-10.1); CREATININE SERUM 3.53 MG/DL (0.60-1.30); POTASSIUM 4.2 MMOL/L (3.6-5.0); TOTAL PROTEIN 5.4 GM/DL (6.4-8.2)
[2019-05-01] MEDS: inSUlin ASPART (NovoLOG) 1 UNIT/0.01 ML (CHARGE PER UNIT) SC SCH ×4 (06:12→20:55)
[2019-05-01] MEDS: CATHETER FLUSH 10 ML SYR IV SCH ×3 (06:23→22:00)
[2019-05-01] MEDS: hydrALAZINE (APRESOLINE) 25 MG TAB PO SCH ×3 (06:23→20:54)
[2019-05-01 08:00] VITALS: BP 178/79
--- NOTE | 2019-05-01 09:04 | Physical Therapy Daily Note ---
PT Daily Note-Current Subjective Patient in bed pre tx, agrees to PT, has no complaints of pain. Appearance Patient in recliner post tx with nurse call, phone, tray, legs elevated, all needs met. Mental Status Patient Orientation: Person, Place, Situation Attachments: Oxygen Transfers Therapy Code Descriptions/Definitions Functional Loup Measure: 0=Not Assessed/NA 4=Minimal Assistance 1=Total Assistance 5=Supervision or Setup 2=Maximal Assistance 6=Modified Loup 3=Moderate Assistance 7=Complete Loup Therapy Quality Codes: 6 Independent with activity with or without an assistive device 5 Patient requires set up or clean up by helper. Patient completes activity by themselves 4 Supervision or touching assist (CGA). [place] provide cues , steadying assist 3 The helper provides less than half the effort to complete the activity 2 The helper provides more than half the effort to complete the activity 1 Dependent. The helper does all the effort to complete an activity 7 Patient refused to complete or attempt activity 9 The patient did not perform the activity before the current illness or injury 88 Not attempted due to Medical conditions or safety concerns Transfers (B, C, W/C) (FIM): 4 Scootin Rollin Supine to/from Sit: 4 Sit to/from Stand: 4 Bed to/from Chair: 4 Supine to sit min assist, sit to stand and transfers CGA Gait Training Gait (FIM): 2 Distance: 50' Gait Level of Assist: 4 Gait Persons Needed: 1 Gait Assistive Device: FWW Steady ambulation, no LOB. Patient needed to use the restroom and she did so with mod I. Treatments ambulation, toileting Assessment Current Status: Fair Progress improved general mobility PT Jail Goals Jail Goals PT Teletype Or [place] Keyboard Operator Goals Time Frame: May 15, 2019 Transfers (B,C,W/C) (FIM): 6 Gait (FIM): 6 Gait distance (FIM): 3=150 ft Distance: 250' Gait Level of Assist: 6 Gait Assistive Device: FWW PT Plan Problem List Problem List: Activity Tolerance, Functional Strength, Safety, Balance, Gait, Transfer, Bed Mobility Treatment/Plan Treatment Plan: Continue Plan of Care Treatment Plan: Bed Mobility, Education, Functional Activity Katerina, Functional Strength, Gait, Safety, Therapeutic Exercise Treatment Duration: May 15, 2019 Frequency: 6 times per week Estimated Hrs Per Day: .25 hour per day Patient and/or Family Agrees t: Yes Safety Risks/Education Patient Education: Gait Training, Transfer Techniques, Correct Positioning, Safety Issues Teaching Recipient: Patient Teaching Methods: Demonstration, Discussion Response to Teaching: Reinforcement Needed Time/GCodes Time In: 0845 Time Out: 0857 Total Billed Treatment Time: 12 Total Billed Treatment 1 visit GT 12' BEBETO GARCIA PT May 01, 2019 09:03
[2019-05-01] MEDS: SENNA W/DOCUSATE (SENOKOT S) TABLET PO SCH ×2 (10:05→20:54)
[2019-05-01] MEDS: meTOprolol SUCCINATE 100 MG (TOPROL XL) TAB PO SCH ×2 (10:05→20:54)
[2019-05-01] MEDS ORDERED: HURRICAINE EXT TUBE (BENZOCAINE) ONE (10:17)
[2019-05-01] MEDS ORDERED: LIDOCAINE JELLY 2% 6 ML SYRINGE ONE (10:17)
[2019-05-01] MEDS ORDERED: fentaNYL INJECTION 100 MCG/2 ML AMP ONE (10:18)
[2019-05-01] MEDS ORDERED: MIDAZOLAM 2 MG/2 ML (VERSED) VIAL ONE ×2 (10:18)
[2019-05-01] MEDS ORDERED: NS IV 500 ML 500 ML IV PRN (10:35)
[2019-05-01] MEDS ORDERED: MIDAZOLAM 2 MG/2 ML (VERSED) VIAL IVP ONE (10:45)
[2019-05-01] MEDS ORDERED: fentaNYL INJECTION 100 MCG/2 ML AMP IVP ONE (10:45)
[2019-05-01] MEDS ORDERED: LIDOCAINE JELLY 2% 6 ML SYRINGE MM PRN (10:45)
[2019-05-01] MEDS ORDERED: HURRICAINE EXT TUBE (BENZOCAINE) XX ONE (11:15)
--- NOTE | 2019-05-01 11:47 | Progress Note-Hospitalist ---
Subjective HPI/CC On Admission Date Seen by Provider: May 01, 2019 Time Seen by Provider: 11:00 CC: N/V w/elevated creatinine HPI: This is an 88-year-old white female clinic patient of Dr. Perry in [place] who has a past medical history of diabetes and chronic renal failure usual baseline creatinine 3.0 who presented to the ER with severe nausea and vomiting and generalized weakness and was unable to go home from the ER so she was placed on gentle IV fluids due to creatinine elevation to 3.4. Patient is doing well on a clear liquid diet she is ready to advance her diet and restart her home medications and overall patient has become much improved. Telemetry will be discontinued along with hep-locked IV fluid and sliding scale insulin regimen. PT/OT will be consulted. She lives at home alone. IRF eval placed. Subjective/Events-last exam Patient still drowsy from EGD sedation Reviewed EGD note and it appears that she has gastritis and biopsy was obtained and dilatation performed for stricture Creatinine 3.5 Hyponatremia noted Conferred with cardiology who confirms presence of angina but considering her renal failure medical management will be optimized no other intervention planned Objective Exam Vital Signs Vital Signs Date Time Temp Pulse Resp B/P (MAP) Pulse Ox O2 Delivery O2 Flow Rate FiO2 05/01/19 16:36 97.6 68 18 168/76 (106) 99 Nasal Cannula 2.00 Capillary Refill : Less Than 3 Seconds General Appearance: No Apparent Distress, WD/WN, Chronically ill, Other (drowsy) HEENT: PERRL/EOMI, TMs Normal, Normal ENT Inspection, Pharynx Normal, Moist Mucous Membranes Neck: Full Range of Motion, Normal Inspection, Non Tender Respiratory: Chest Non Tender, Lungs Clear, Normal Breath Sounds, No Accessory Muscle Use, No Respiratory Distress Cardiovascular: Regular Rate, Rhythm, No Edema, No Gallop, No JVD, No Murmur, Normal Peripheral Pulses Gastrointestinal: Normal Bowel Sounds, No Organomegaly, No Pulsatile Mass, Non Tender, Soft Rectal: Deferred Back: Normal Inspection, No CVA Tenderness, No Vertebral Tenderness Extremity: Normal Capillary Refill, Normal Inspection, Normal Range of Motion, Non Tender, No Calf Tenderness, No Pedal Edema Neurologic/Psychiatric: Other (drowsy) Skin: Normal Color, Warm/Dry Lymphatic: No Adenopathy Results/Procedures Lab Laboratory Tests 05/01/19 05:21 Patient resulted labs reviewed. Assessment/Plan Assessment and Plan Assess & Plan/Chief Complaint Assessment: N/V Dehydration Elevated troponin Elevated BNP DM CRF Stage 4 HTN HLP Gastritis and stricture on EGD today per Dr Rodriguez Plan: Cardiology consultation is appreciated ECHO Monitor labs SSI PT/OT Diagnosis/Problems Diagnosis/Problems (1) N&V (nausea and vomiting) Status: Acute (2) Elevated troponin Status: Acute (3) Hyponatremia Status: Acute (4) Dehydration Status: Acute (5) Acute on chronic renal failure Status: Chronic Qualifiers: Chronic kidney disease stage: stage 4 (severe) (6) Elevated brain natriuretic peptide (BNP) level Status: Acute Clinical Quality Measures AMI/AHF: ASA po Prior to arrival: No DVT/VTE Risk/Contraindication: Risk Factor Score Per Nursin RFS Level Per Nursing on Admit: 3=High RONY MONROE DO May 01, 2019 11:47
[2019-05-01 11:59] VITALS: BP 175/68
--- NOTE | 2019-05-01 12:12 | Progress Note-Cardiology ---
Cardiology SOAP Progress Note Subjective: Just back from endoscopy Drowsy, not reporting any symptoms Objective: I&O/Vital Signs 05/01/19 05/01/19 05/01/19 05/01/19 04:00 08:00 09:00 11:59 Temp 98.1 98.0 97.2 Pulse 68 65 60 Resp 18 18 18 B/P (MAP) 158/79 (105) 178/79 (112) 175/68 (103) Pulse Ox 99 100 100 O2 Delivery Nasal Cannula Nasal Cannula Nasal Cannula Nasal Cannula O2 Flow Rate 2.00 2.00 2.00 2.00 05/01/19 00:00 Intake Total 2010 ml Output Total 1300 ml Balance 710 ml Weight (Pounds): 121 Weight (Ounces): 4.0 Weight (Calculated Kilograms): [id number] Constitutional: AAO x 3, well-developed, other (thin) Respiratory: lungs clear to auscultation Cardiovascular: regular rate-rhythm; No JVD; S1 and S2 Gastrointestional: No tender; soft, round Extremities: no lower extremity edema bilateral Neurologic/Psychiatric: grossly intact, power is 5/5 both on sides Skin: No rash on exposed areas, No ulcerations on exposed areas Results/Procedures: Labs Laboratory Tests 04/30/19 15:44: Glucometer 208H 04/30/19 20:10: Glucometer 204H 05/01/19 05:21: White Blood Count 8.8, Red Blood Count 3.15L, Hemoglobin 10.3L, Hematocrit 30L, Mean Corpuscular Volume 96, Mean Corpuscular Hemoglobin 33, Mean Corpuscular Hemoglobin Concent 34, Red Cell Distribution Width 11.7, Platelet Count 170, Mean Platelet Volume 9.8, Neutrophils (%) (Auto) 60, Lymphocytes (%) (Auto) 22, Monocytes (%) (Auto) 13H, Eosinophils (%) (Auto) 5, Basophils (%) (Auto) 0, Neutrophils # (Auto) 5.3, Lymphocytes # (Auto) 2.0, Monocytes # (Auto) 1.1H, Eosinophils # (Auto) 0.5H, Basophils # (Auto) 0.0, Sodium Level 130L, Potassium Level 4.2, Chloride Level 103, Carbon Dioxide Level 17L, Anion Gap 10, Blood Urea Nitrogen 64H, Creatinine 3.53H, Estimat Glomerular Filtration Rate 12, BUN/Creatinine Ratio 18, Glucose Level 111H, Calcium Level 8.5, Corrected Calcium 8.8, Total Bilirubin 0.3, Aspartate Amino Transf (AST/SGOT) 13, Alanine Aminotransferase (ALT/SGPT) 12, Alkaline Phosphatase 50, Total Protein 5.4L, Albumin 3.6 05/01/19 11:47: Glucometer 172H Laboratory Tests 04/29/19 20:11 04/30/19 05:11 05/01/19 05:21 A/P: Assessment: Chest discomfort consistent with angina pectoris Echo of 04/30/19: LVEF 60-65%, grade I kirkpatrick dysfunction, mild MR, AoV sclerosis w/o stenosis, RVSP 24 mmHg N/V/D - management per Medical services HTN Reports h/o PAD - reports bilat percutaneous peripheral intervention in 2014 and then a few weeks later left LE bypass grafting by Dr Quigley of [facility] - exact details unknown HLD CKD stage 4 - follows with Dr. Celine Vo of Nephrology services DM Reports h/o bilat carotid arterial disease - follows with [facility] (reports recent scan in March 2019) - exact details unknown Chronic back with multiple surgeries - reports spinal stimulator in place (done in [place], [place]) Reports h/o PUD (diagnosed in the 60's) for this reason she refuses to take ASA Plan: * Continue current regimen * Monitor labs * Earlier today, I discussed her CV issues with patient's daughter and with Dr Hinton Clinical Quality Measures AMI/AHF: ASA po Prior to arrival: MONY Chan MD FACP FAC CCDS May 01, 2019 12:12
[2019-05-01] MEDS: FAMOTIDINE 20MG/2ML IV (PEPCID) IV SCH (12:52)
--- NOTE | 2019-05-01 13:58 | Progress Note-Post Operative ---
Post-Operative Progess Note Surgeon (s)/Livestock Laborer (s) Surgeon LEXI HUNT MD Livestock Laborer: none Pre-Operative Diagnosis nausea/vomiting, GERD Post-Operative Diagnosis reflux esophagitis(stage 2), recurrent HH(3cm), mild distal esophageal stricture, mild-mod gastritis. Procedure & Operative Findings Date of Procedure 05/01/19 Procedure Performed/Findings EGD with bx and balloon dilatation. Anesthesia Type cs Estimated Blood Loss Estimated blood loss (mL): minimal Specimens/Packing Specimens Removed ge jxn, antrum LEXI HUNT MD May 01, 2019 13:58
--- NOTE | 2019-05-01 14:20 | OPERATIVE REPORT ---
DATE OF SERVICE: 05/01/2019 ADMITTING PHYSICIAN: Dr. Hinton. PREOPERATIVE DIAGNOSES: Dysphagia, nausea and vomiting, history of recurrent hiatal hernia. POSTOPERATIVE DIAGNOSES: Reflux esophagitis, stage II. Moderate size recurrent hiatal hernia approximately 3 cm in size, intact previous wrap with a mild distal esophageal stricture. Mild to moderate gastritis. No distal obstructions. PROCEDURE: EGD with biopsy and balloon dilatation. SURGEON: Lexi Hunt MD ANESTHESIA: Conscious sedation. ESTIMATED BLOOD LOSS: Minimal. FINDINGS: Reflux esophagitis, stage II. Moderate size recurrent hiatal hernia approximately 3 cm in size, intact previous wrap with a mild distal esophageal stricture. Mild to moderate gastritis. No distal obstructions. DISPOSITION: The patient tolerated the procedure well. INDICATIONS: The patient is an 88-year-old female, who presented to [facility] with nausea and vomiting and weakness. She also has a history of chronic renal failure due to diabetes with a baseline creatinine of 3.0, which was slightly elevated as well. On this admission, a CT scan was performed, which did show a hiatal hernia as well as a thickened portion of the antrum. This was consistent with gastritis. Her hemoglobin was stable and her white count was normal. Upon further questioning, she does report a history of gastroesophageal reflux disease and hiatal hernia and is status post hiatal hernia repair as well as a Gauri fundoplication many years ago. Since that time, she has known she has had a recurrent hiatal hernia. She reports that she has had dysphagia for certain types of foods; however, this episode was more of nausea and vomiting. She was not able to keep any adequate amounts of liquids or solids down. She does not report any hematemesis or coffee ground emesis. DESCRIPTION OF PROCEDURE: The patient was brought to the endoscopy suite, laid in the left lateral decubitus position. After adequate IV pain and sedating medications and conscious sedation anesthesia, the mouthpiece was applied. Endoscope was placed in the mouth, visualizing the pharynx and hypopharyngeal region. Vocal cords, epiglottis and vallecula were identified and appeared to be normal. The endoscope was then gently intubated at the esophageal opening and esophagus was insufflated. The endoscope was then advanced through the first, second and third portion of the esophagus at the level of the GE junction, a reflux esophagitis, stage II identified. The GE junction was also intrathoracic consistent with a recurrent hiatal hernia. A biopsy was taken of the GE junction with forceps with visualization of good hemostasis. The endoscope was then advanced into the stomach and then endoscope retroflexed, visualizing the recurrent hiatal hernia approximately 3 cm in size. There also appeared to be a previous intact Gauri fundoplication wrap; however, this area also appeared to be strictured. There was a mild to moderate gastritis. No formal ulcerations, polyps, or any neoplasms identified throughout the stomach or pylorus. A biopsy was taken of the antrum to rule out H. pylori with visualization of good hemostasis. Endoscope was then advanced through the pylorus and the first and second portions of duodenum, which appeared normal with no distal obstructions. We then proceeded with dilatation of the distal esophageal stricture. The balloon was placed in the stomach and pulled back to the area of the stricture. The balloon was then first insufflated with two atmospheres of pressure with no resistance. We then proceeded to 4 atmospheres of pressure again with no resistance. We then proceeded to 6 atmospheres of pressure or 20 mm in luminal diameter with moderate resistance and left this in place for approximately 60 seconds. The balloon was then desufflated and removed with visualization of good hemostasis as well as no mucosal tears. The endoscope was then slowly withdrawn while taking a second look and suctioning of residual air with no additional findings. The patient tolerated the procedure well. We will start a regular diet. She does have a recurrent hiatal hernia; however, she is not a surgical candidate for revision surgery and we will recommend the necessary lifestyle and diet accommodation including small and more frequent meals, avoidance of eating at night as well as head elevation while lying supine. She also needs to avoid the foods that do cause dysphagia, which include lean meats in larger pieces as well as raw vegetables including salads as well as breads and dry grains. There was no significant gastritis noted and she may continue with her current acid cognos architect regimen. Job ID: [id number] DocumentID: [id number] Dictated Date: 05/01/2019 13:57:11 Wild Animal Caretaker Date: 05/01/2019 14:18:40 Dictated By: LEXI HUNT MD
[2019-05-01 16:36] VITALS: BP 168/76
[2019-05-01 20:17] VITALS: BP 177/77
[2019-05-02] VITALS: BP 170/74
[2019-05-02 04:00] VITALS: BP 129/91
[2019-05-02] MEDS: CATHETER FLUSH 10 ML SYR IV SCH ×3 (06:00→21:00)
[2019-05-02 06:19] LABS: BASOPHILS % (AUTO) 0 % (0-10); EOSINOPHILS # (AUTO) 0.5 10^3/uL (0.0-0.3); EOSINOPHILS % (AUTO) 5 % (0-10); HEMATOCRIT 33 % (35-52); HEMOGLOBIN 10.8 G/DL (11.5-16.0); LYMPHOCYTES # (AUTO) 1.7 X 10^3 (1.0-4.0); LYMPHOCYTES % (AUTO) 17 % (12-44); MEAN CORPUSCULAR HEMOGLOBIN 32 PG (25-34); MEAN CORPUSCULAR HGB CONC 33 G/DL (32-36); MEAN CORPUSCULAR VOLUME 96 FL (80-99); MONOCYTES # (AUTO) 1.1 X 10^3 (0.0-1.0); MONOCYTES % (AUTO) 11 % (0-12); NEUTROPHILS # (AUTO) 6.7 X 10^3 (1.8-7.8); NEUTROPHILS % (AUTO) 67 % (42-75); PLATELET COUNT 166 10^3/uL (130-400); RED CELL DISTRIBUTION WIDTH 11.5 % (10.0-14.5)
[2019-05-02 06:33] LABS: ALBUMIN 3.8 GM/DL (3.2-4.5); BILIRUBIN,TOTAL 0.3 MG/DL (0.1-1.0); CALCIUM 8.7 MG/DL (8.5-10.1); CREATININE SERUM 3.33 MG/DL (0.60-1.30); POTASSIUM 4.2 MMOL/L (3.6-5.0); TOTAL PROTEIN 5.9 GM/DL (6.4-8.2)
[2019-05-02] MEDS: inSUlin ASPART (NovoLOG) 1 UNIT/0.01 ML (CHARGE PER UNIT) SC SCH ×4 (07:02→20:58)
[2019-05-02] MEDS: hydrALAZINE (APRESOLINE) 25 MG TAB PO SCH ×3 (07:32→20:59)
[2019-05-02 08:22] VITALS: BP 160/81
[2019-05-02] MEDS: SENNA W/DOCUSATE (SENOKOT S) TABLET PO SCH ×2 (08:55→20:49)
[2019-05-02] MEDS: FAMOTIDINE 20MG/2ML IV (PEPCID) IV SCH (08:55)
[2019-05-02] MEDS: meTOprolol SUCCINATE 100 MG (TOPROL XL) TAB PO SCH ×2 (08:55→20:49)
--- NOTE | 2019-05-02 10:19 | Progress Note (SOAP) ---
Subjective Date Seen by a Provider: May 02, 2019 Time Seen by a Provider: 09:45 Subjective/Events-last exam Patient seen with Dr. Rodriguez. Patient reports that she gets "choked up with water" but does fine with food. She reports that she did throw up her water this morning. She reports episodes of heartburn but is not having any currently. No nausea. No hematemesis. No abdominal pain. Objective Exam Vital Signs Date Time Temp Pulse Resp B/P (MAP) Pulse Ox O2 Delivery O2 Flow Rate FiO2 05/02/19 08:22 98.0 68 22 160/81 (107) 100 Nasal Cannula 2.00 05/02/19 07:20 Nasal Cannula 2.00 05/02/19 04:00 98.9 74 20 129/91 (104) 97 Nasal Cannula 2.00 05/02/19 00:00 98.4 71 18 170/74 (106) 97 Nasal Cannula 2.00 05/01/19 20:17 98.7 73 18 177/77 (110) 99 Nasal Cannula 2.00 05/01/19 20:00 97 Nasal Cannula 2.00 05/01/19 16:36 97.6 68 18 168/76 (106) 99 Nasal Cannula 2.00 05/01/19 16:11 Nasal Cannula 2.00 05/01/19 11:59 97.2 60 18 175/68 (103) 100 Nasal Cannula 2.00 05/01/19 11:15 55 18 100 Room Air 05/01/19 11:10 55 18 100 OxyMask 10 05/01/19 11:05 58 18 100 OxyMask 10 05/01/19 11:00 58 18 100 OxyMask 10 05/01/19 10:55 63 18 100 OxyMask 10 05/01/19 10:50 62 18 100 OxyMask 10 05/01/19 10:45 64 18 100 OxyMask 10 05/01/19 10:40 60 18 100 OxyMask 10 05/01/19 10:35 61 18 100 OxyMask 10 05/01/19 10:30 62 18 100 OxyMask 10 05/01/19 10:25 62 18 100 OxyMask 10 05/01/19 10:20 62 18 100 OxyMask 10 05/01/19 10:17 64 18 99 Room Air I & O 05/02/19 07:00 Intake Total 6990 ml Output Total 800 ml Balance 6190 ml Capillary Refill : Less Than 3 Seconds General Appearance: No Apparent Distress, WD/WN Neck: Full Range of Motion, Normal Inspection, Supple Respiratory: Normal Breath Sounds, No Accessory Muscle Use, No Respiratory Distress Cardiovascular: Regular Rate, Rhythm, No Edema Gastrointestinal: normal bowel sounds, non tender, soft Extremity: Normal Capillary Refill, Normal Inspection, Normal Range of Motion Neurologic/Psychiatric: Alert, Oriented x3 Skin: Normal Color, Warm/Dry Results Lab Laboratory Tests 05/01/19 11:47: Glucometer 172H 05/01/19 15:57: Glucometer 188H 05/01/19 20:46: Glucometer 310H 05/02/19 05:49: Glucometer 153H 05/02/19 06:00: White Blood Count 10.0, Red Blood Count 3.39L, Hemoglobin 10.8L, Hematocrit 33L, Mean Corpuscular Volume 96, Mean Corpuscular Hemoglobin 32, Mean Corpuscular Hemoglobin Concent 33, Red Cell Distribution Width 11.5, Platelet Count 166, Mean Platelet Volume 10.0, Neutrophils (%) (Auto) 67, Lymphocytes (%) (Auto) 17, Monocytes (%) (Auto) 11, Eosinophils (%) (Auto) 5, Basophils (%) (Auto) 0, Neutrophils # (Auto) 6.7, Lymphocytes # (Auto) 1.7, Monocytes # (Auto) 1.1H, Eosinophils # (Auto) 0.5H, Basophils # (Auto) 0.0, Sodium Level 133L, Potassium Level 4.2, Chloride Level 105, Carbon Dioxide Level 17L, Anion Gap 11, Blood Urea Nitrogen 64H, Creatinine 3.33H, Estimat Glomerular Filtration Rate 13, BUN/Creatinine Ratio 19, Glucose Level 145H, Calcium Level 8.7, Corrected Calcium 8.9, Total Bilirubin 0.3, Aspartate Amino Transf (AST/SGOT) 12, Alanine Aminotransferase (ALT/SGPT) 13, Alkaline Phosphatase 60, Total Protein 5.9L, Albumin 3.8 Assessment/Plan Assessment/Plan Assess & Plan/Chief Complaint A 88 year old female with GERD, recurrent hiatal hernia, esophageal stricture and gastritis identified by EGD. She is not a surgical candidate for revision surgery and we will recommend the necessary lifestyle and diet changes. Small and more frequent meals, avoidance of eating at night as well as head elevation while lying supine. She also needs to avoid the foods that do cause dysphagia, which include lean meats in larger pieces as well as raw vegetables including salads as well as breads and dry grains. Continue with medical management with current acid antique clocks repairer regimen. Clinical Quality Measures AMI/AHF: ASA po Prior to arrival: No DVT/VTE Risk/Contraindication: Risk Factor Score Per Nursin RFS Level Per Nursing on Admit: 3=High ANEG MCNEIL RAILROAD CAR LOADER May 02, 2019 10:19
--- NOTE | 2019-05-02 11:46 | Progress Note-Hospitalist ---
Subjective HPI/CC On Admission Date Seen by Provider: May 02, 2019 Time Seen by Provider: 12:15 CC: N/V w/elevated creatinine HPI: This is an 88-year-old white female clinic patient of Dr. Perry in [place] who has a past medical history of diabetes and chronic renal failure usual baseline creatinine 3.0 who presented to the ER with severe nausea and vomiting and generalized weakness and was unable to go home from the ER so she was placed on gentle IV fluids due to creatinine elevation to 3.4. Patient is doing well on a clear liquid diet she is ready to advance her diet and restart her home medications and overall patient has become much improved. Telemetry will be discontinued along with hep-locked IV fluid and sliding scale insulin regimen. PT/OT will be consulted. She lives at home alone. IRF eval placed. Subjective/Events-last exam Patient doing well Appears to be slightly confused but she appears to be oriented 3 when I questioned her Adamantly refuses to take insulin sliding really unsure what were banded do with that since her blood sugars require insulin and due to renal failure oral hypoglycemic agents she was on is not a safe option anymore considering her creatinine was 3.3 Patient working on swallowing Patient lives alone and I'm really unsure what we will do as far as disposition so initiated a social media marketing manager consult Review of Systems General: Fatigue HEENT: Dysphasia Objective Exam Vital Signs Vital Signs Date Time Temp Pulse Resp B/P (MAP) Pulse Ox O2 Delivery O2 Flow Rate FiO2 05/02/19 12:27 98.0 74 21 169/80 (109) 97 Nasal Cannula 2.00 Capillary Refill : Less Than 3 Seconds General Appearance: No Apparent Distress, WD/WN HEENT: PERRL/EOMI, TMs Normal, Normal ENT Inspection, Pharynx Normal, Moist Mucous Membranes Neck: Full Range of Motion, Normal Inspection, Supple Respiratory: Normal Breath Sounds, No Accessory Muscle Use, No Respiratory Distress Cardiovascular: Regular Rate, Rhythm, No Edema Gastrointestinal: Normal Bowel Sounds, No Organomegaly, No Pulsatile Mass, Non Tender, Soft Rectal: Deferred Back: Normal Inspection, No CVA Tenderness, No Vertebral Tenderness Extremity: Normal Capillary Refill, Normal Inspection, Normal Range of Motion Neurologic/Psychiatric: Alert, Oriented x3 Skin: Normal Color, Warm/Dry Lymphatic: No Adenopathy Results/Procedures Lab Laboratory Tests 05/02/19 06:00 Patient resulted labs reviewed. Assessment/Plan Assessment and Plan Assess & Plan/Chief Complaint Assessment: N/V Dehydration Elevated troponin Elevated BNP DM CRF Stage 4 HTN HLP Gastritis and stricture on EGD today per Dr Rodriguez Plan: Cardiology consultation is appreciated ECHO Monitor labs SSI PT/OT Disposition? Social work consult Needs insulin at discharge Diagnosis/Problems Diagnosis/Problems (1) N&V (nausea and vomiting) Status: Resolved Resolution Date/Time: 05/02/19 @ 13:39 (2) Elevated troponin Status: Acute (3) Hyponatremia Status: Acute (4) Dehydration Status: Acute (5) Acute on chronic renal failure Status: Chronic Qualifiers: Chronic kidney disease stage: stage 4 (severe) (6) Elevated brain natriuretic peptide (BNP) level Status: Acute Clinical Quality Measures AMI/AHF: ASA po Prior to arrival: No DVT/VTE Risk/Contraindication: Risk Factor Score Per Nursin RFS Level Per Nursing on Admit: 3=High RONY MONROE DO May 02, 2019 11:46
[2019-05-02 12:27] VITALS: BP 169/80
[2019-05-02 16:13] VITALS: BP 179/79
--- NOTE | 2019-05-02 16:36 | Progress Note-Cardiology ---
Cardiology SOAP Progress Note Subjective: No cp or palp or syncope Mod shortness of breath with exertion Objective: I&O/Vital Signs 05/02/19 05/02/19 05/02/19 05/02/19 07:20 08:22 12:27 16:13 Temp 98.0 98.0 99.5 Pulse 68 74 63 Resp 22 21 20 B/P (MAP) 160/81 (107) 169/80 (109) 179/79 (112) Pulse Ox 100 97 100 O2 Delivery Nasal Cannula Nasal Cannula Nasal Cannula Nasal Cannula O2 Flow Rate 2.00 2.00 2.00 2.00 05/02/19 00:00 Intake Total 3690 ml Output Total 800 ml Balance 2890 ml Weight (Pounds): 128 Weight (Ounces): 3.0 Weight (Calculated Kilograms): 58.687710 Constitutional: AAO x 3, well-developed, other (thin) Respiratory: lungs clear to auscultation Cardiovascular: regular rate-rhythm; No JVD; S1 and S2 Gastrointestional: No tender; soft, round Extremities: no lower extremity edema bilateral Neurologic/Psychiatric: grossly intact, power is 5/5 both on sides Skin: No rash on exposed areas, No ulcerations on exposed areas Results/Procedures: Labs Laboratory Tests 05/01/19 20:46: Glucometer 310H 05/02/19 05:49: Glucometer 153H 05/02/19 06:00: White Blood Count 10.0, Red Blood Count 3.39L, Hemoglobin 10.8L, Hematocrit 33L, Mean Corpuscular Volume 96, Mean Corpuscular Hemoglobin 32, Mean Corpuscular Hemoglobin Concent 33, Red Cell Distribution Width 11.5, Platelet Count 166, Mean Platelet Volume 10.0, Neutrophils (%) (Auto) 67, Lymphocytes (%) (Auto) 17, Monocytes (%) (Auto) 11, Eosinophils (%) (Auto) 5, Basophils (%) (Auto) 0, Neutrophils # (Auto) 6.7, Lymphocytes # (Auto) 1.7, Monocytes # (Auto) 1.1H, Eosinophils # (Auto) 0.5H, Basophils # (Auto) 0.0, Sodium Level 133L, Potassium Level 4.2, Chloride Level 105, Carbon Dioxide Level 17L, Anion Gap 11, Blood Urea Nitrogen 64H, Creatinine 3.33H, Estimat Glomerular Filtration Rate 13, BUN /Creatinine Ratio 19, Glucose Level 145H, Calcium Level 8.7, Corrected Calcium 8.9, Total Bilirubin 0.3, Aspartate Amino Transf (AST/SGOT) 12, Alanine Aminotransferase (ALT/SGPT) 13, Alkaline Phosphatase 60, Total Protein 5.9L, Albumin 3.8 05/02/19 11:18: Glucometer 291H 05/02/19 15:54: Glucometer 119H A/P: Assessment: Chest discomfort consistent with angina pectoris, ,clinically stable Echo of 04/30/19: LVEF 60-65%, grade I kirkpatrick dysfunction, mild MR, AoV sclerosis w/o stenosis, RVSP 24 mmHg GERD and HH, managed by Dr Rodriguez HTN Reports h/o PAD - reports bilat percutaneous peripheral intervention in 2014 and then a few weeks later left LE bypass grafting by Dr Quigley of [facility] - exact details unknown HLD CKD stage 4 - follows with Dr. Celine Vo of Nephrology services DM Reports h/o bilat carotid arterial disease - follows with [facility] (reports recent scan in March 2019) - exact details unknown Chronic back with multiple surgeries - reports spinal stimulator in place (done in [place], [place]) Reports h/o PUD (diagnosed in the 60's) for this reason she refuses to take ASA Plan: * Continue current regimen * Monitor labs Clinical Quality Measures AMI/AHF: ASA po Prior to arrival: MONY Chan MD FACP [facility]S May 02, 2019 16:36
[2019-05-02 20:18] VITALS: BP 192/79
[2019-05-03] VITALS: BP 152/69
[2019-05-03 04:00] VITALS: BP 186/77
[2019-05-03] MEDS: hydrALAZINE (APRESOLINE) 25 MG TAB PO SCH ×2 (06:00→13:37)
[2019-05-03] MEDS: inSUlin ASPART (NovoLOG) 1 UNIT/0.01 ML (CHARGE PER UNIT) SC SCH ×2 (06:00→11:32)
[2019-05-03] MEDS: CATHETER FLUSH 10 ML SYR IV SCH ×2 (06:01→13:36)
[2019-05-03 08:21] VITALS: BP 173/86
[2019-05-03] MEDS: meTOprolol SUCCINATE 100 MG (TOPROL XL) TAB PO SCH (09:01)
[2019-05-03] MEDS: FAMOTIDINE 20MG/2ML IV (PEPCID) IV SCH (09:01)
[2019-05-03] MEDS: SENNA W/DOCUSATE (SENOKOT S) TABLET PO SCH (09:01)
--- NOTE | 2019-05-03 09:31 | NUR ---
provided prayer and Communion.
--- NOTE | 2019-05-03 10:50 | Physical Therapy Daily Note ---
PT Daily Note-Current Subjective Patient sitting EOB and agrees to PT. Pain Numeric Pain Scale: 3 Location: Lower Location Body Site: Back Pain Description: Chronic Mental Status Patient Orientation: Time, Normal For Age Transfers Therapy Code Descriptions/Definitions Functional [place] Measure: 0=Not Assessed/NA 4=Minimal Assistance 1=Total Assistance 5=Supervision or Setup 2=Maximal Assistance 6=Modified [place] 3=Moderate Assistance 7=Complete [place] Therapy Quality Codes: 6 Independent with activity with or without an assistive device 5 Patient requires set up or clean up by helper. Patient completes activity by themselves 4 Supervision or touching assist (CGA). Ford provide cues , steadying assist 3 The helper provides less than half the effort to complete the activity 2 The helper provides more than half the effort to complete the activity 1 Dependent. The helper does all the effort to complete an activity 7 Patient refused to complete or attempt activity 9 The patient did not perform the activity before the current illness or injury 88 Not attempted due to Medical conditions or safety concerns Transfers (B, C, W/C) (FIM): 6 Scootin Sit to/from Stand: 6 patient performed all mobility modified independent and toileted self after BM with hand washing after Gait Training Gait (FIM): 5 Distance (FIM): 3=150 ft Distance: 500' Gait Level of Assist: 5 Gait Assistive Device: FWW assist for O2 tank/AFO unavailable/noted right drop foot Assessment Patient fatigued very quickly with minimal activity on this date. PT to continue with POC. PT Transit Vehicle Inspector Goals Transit Vehicle Inspector Goals PT Detention Goals Time Frame: May 15, 2019 Transfers (B,C,W/C) (FIM): 6 Gait (FIM): 6 Gait distance (FIM): 3=150 ft Distance: 250' Gait Level of Assist: 6 Gait Assistive Device: FWW PT Plan Treatment/Plan Treatment Plan: Continue Plan of Care Treatment Plan: Bed Mobility, Education, Functional Activity Katerina, Functional Strength, Gait, Safety, Therapeutic Exercise Treatment Duration: May 15, 2019 Frequency: 6 times per week Estimated Hrs Per Day: .25 hour per day Patient and/or Family Agrees t: Yes Time/GCodes Time In: 1031 Time Out: 1044 Total Billed Treatment Time: 13 Total Billed Treatment 1 visit FA 13 min KASSY PEREYRA PT May 03, 2019 10:49
[2019-05-03 10:56] LABS: CALCIUM 8.8 MG/DL (8.5-10.1); CREATININE SERUM 3.29 MG/DL (0.60-1.30)
--- NOTE | 2019-05-03 11:12 | Progress Note-Cardiology ---
Cardiology SOAP Progress Note Subjective: States she is feeling good. Wants to go home. No c/o CP or palpitations. Objective: I&O/Vital Signs 05/03/19 05/03/19 05/03/19 08:00 08:21 12:11 Temp 98.4 98.2 Pulse 64 72 Resp B/P (MAP) 173/86 (115) 170/78 (108) Pulse Ox 100 100 O2 Delivery Nasal Cannula Nasal Cannula Nasal Cannula O2 Flow Rate 2.00 2.00 2.00 05/03/19 00:00 Intake Total 4452 ml Output Total 300 ml Balance 4152 ml Weight (Pounds): 122 Weight (Ounces): 8.0 Weight (Calculated Kilograms): 55.654830 Constitutional: AAO x 3, well-developed, other (thin) Respiratory: lungs clear to auscultation Cardiovascular: regular rate-rhythm; No JVD; S1 and S2 Gastrointestional: No tender; soft, round Extremities: no lower extremity edema bilateral Neurologic/Psychiatric: grossly intact, power is 5/5 both on sides Skin: No rash on exposed areas, No ulcerations on exposed areas Results/Procedures: Labs Laboratory Tests 05/02/19 20:31: Glucometer 232H 05/03/19 06:00: Glucometer 151H 05/03/19 10:30: Sodium Level 131L, Potassium Level 4.0, Chloride Level 103, Carbon Dioxide Level 17L, Anion Gap 11, Blood Urea Nitrogen 52H, Creatinine 3.29H, Estimat Glomerular Filtration Rate 13, BUN/Creatinine Ratio 16, Glucose Level 236H, Calcium Level 8.8 05/03/19 10:54: Glucometer 238H 05/03/19 16:06: Glucometer 247H Laboratory Tests 05/02/19 06:00 05/03/19 10:30 A/P: Assessment: Chest discomfort consistent with angina pectoris, clinically stable Echo of 04/30/19: LVEF 60-65%, grade I kirkpatrick dysfunction, mild MR, AoV sclerosis w/o stenosis, RVSP 24 mmHg GERD and HH, managed by Dr Rodriguez HTN Reports h/o PAD - left above knee fem pop using 6 mm PTFE on 01-13-[address] Lopez at [place], [place]. May 23, [address] Lopez - Atherectomy R SFA. HLD CKD stage 4 - follows with Dr. Celine Vo of Nephrology services DM Reports h/o bilat carotid arterial disease - Carotid u/s from April 02, 2019 showed L ICA stenosis of approx 60-79%; R ICA approx 1-39% stenosis - follows with [facility] Chronic back with multiple surgeries - reports spinal stimulator in place (done in [place], [place]) Reports h/o PUD (diagnosed in the 60's) for this reason she refuses to take ASA Plan: * Records from [facility] [place] reviewed * Continue current regimen * Monitor labs * OK to discharge home on current medication regimen * Follow up as out pt with [facility] cardiothoracic services * F/U as out with nephrology services - established Dr. Vo Physician Assessment Physician Assessment No cp or palp or syncope Chronic exertional shortness of breath Lungs: good bilat air entry Cor: reg Ext: no /c/c/e A&R * As documented in our note above that I updated (italics) and as noted below * Continue current regimen * Monitor labs Clinical Quality Measures AMI/AHF: ASA po Prior to arrival: AVA Persaud TOLL LINE REPAIRER May 03, 2019 11:12 MONY WEINBERG MD FACP [facility] May 03, 2019 18:10
--- NOTE | 2019-05-03 11:45 | NUR ---
Dr. Bolanos notified that patient refuses to take the sliding scale insulin
[2019-05-03] MEDS ORDERED: FAMO20TA3 PO (12:10)
[2019-05-03 12:11] VITALS: BP 170/78
--- NOTE | 2019-05-03 12:19 | D/C HH Face to Face Order ---
D/C Face to Face Orders Instructions for Patient Patient Instructions/FollowUp: Follow up with Dr. Walker on May 20 at 1:15 pm. Physician to follow Patient: Dr. Walker Discharge Diet for Home: Cardiac Diet Patient Problems: Esophageal stricture (dilated this hospital stay) CKD DMII Patient Data-Allergies,Ht & Wt Patient Allergies: Coded Allergies: Penicillins (Unverified Adverse Reaction, Unknown, 04/29/19) cephalexin (Unverified Adverse Reaction, Unknown, 04/29/19) Height (Feet): 4 Height (Inches): 11.00 Weight (Pounds): 122 Weight (Ounces): 8.0 Home Health Need/Face to Face Date of Face to Face: May 03, 2019 Clinical Findings: Generalized weakness and fatigue I have seen Pt [id number]: Yes Discharged To: Home Diagnosis/Conditions: Esophageal stricture (dilated this hospital stay) CKD DMII Debility requiring walker for ambulation Patient is Homebound due to: Linda fall risk due to instabilty Homebound Status Due to the above stated illness, injury or surgical procedure (medical condition or diagnosis) and associated clinical findings, the patient is homebound because of his/her inability to leave home except with aid of a supportive device and/or person AND leaving the home requires a considerable and taxing effort or is medically contraindicated. Pt req the following assistanc: Walker Home Health Nursing Orders Home Health Services Order: Nursing Services, Drum Tester-Evaluate & Treat, Speech Language-Evaluate & Treat Home Health Infusion Therapy Line Start Date: Apr 29, 2019 Therapy Orders Therapy Orders: OT (must have SN or PT order), Physical Therapy, PT to assess for OT, Speech Language Pathology Therapy Specific Orders: Teach enviro modifications/safety, Eval & treat dyspha shannen, Increase strength/endurance Certify Stmt I certify that this patient is under my care and that I, a nurse practitioner or a physician; a perioperative assistant working with me, had a face to face encounter that - meets the physician face to face encounter requirements with this patient as dated. HARVEY VILLARREAL MD May 03, 2019 12:16
--- NOTE | 2019-05-03 12:27 | Discharge Summary ---
Diagnosis/Chief Complaint Date of Admission Apr 29, 2019 Date of Discharge May 03, 2019 Admission Diagnosis Admission Diagnosis Dysphagia Vomiting Dehydration Elevated troponin Elevated BNP DM CRF Stage 4 HTN HLP Discharge Diagnosis Dysphagia- EGD done during stay showed gastritis and esophagitis, hiatal hernia and mild distal esophageal stricture which was dilated. Tolerating intake at d/ c. Resumed home omeprazole and added H2 lesly. Vomiting- CT scan with mural thickening of gastric/sigmoid and rectosigmoid mucosa without stranding, resolved by time of d/c, suspect related to the above Dehydration- improved with careful IVF Elevated troponin- Cardiology consulted, appreciate recommendations, Echo of 04/30/19: LVEF 60-65%, grade I kirkpatrick dysfunction, mild MR, AoV sclerosis w/o stenosis, RVSP 24 mmHg Elevated BNP- echo results as noted above DM- pt declined any sliding scale insulin use and was not interested in considering insulin, reported home blood sugars in the 100-120 range with home glipizide. Discussed concern with using glipizide given her renal function, she can follow up with Dr. Black to discuss further, continued on home med at d/c. CRF Stage 4- stable creatinine about 3.3 during admission HTN- pt stopped Norvasc due to concern about recall, maintained on hydralazine and metoprolol with somewhat elevated BP intermittently during stay. Recommended d/c cetirizine/pseudoephedrine on home med list due to HTN. Pleural nodules- noted on CT, Radiology recommended 6 mo f/u Cystic pelvic mass- 3.8 cm midline lower pelvic cystic mass of unclear etiology noted on CT inpatient, needs pelvic US for follow-up. Chief Complaint/HPI Chief Complaint/HPI From Dr. Hinton's H&P: HPI: This is an 88-year-old white female clinic patient of Dr. Perry in [place] who has a past medical history of diabetes and chronic renal failure usual baseline creatinine 3.0 who presented to the ER with severe nausea and vomiting and generalized weakness and was unable to go home from the ER so she was placed on gentle IV fluids due to creatinine elevation to 3.4. Patient is doing well on a clear liquid diet she is ready to advance her diet and restart her home medications and overall patient has become much improved. Telemetry will be discontinued along with hep-locked IV fluid and sliding scale insulin regimen. PT/OT will be consulted. She lives at home alone. IRF eval placed. Discharge Summary-Simple/Stand Procedures EGD Consultations Surgery- Dr. Rodriguez Cardiology- Dr. Putnam Discharge Physical Examination Allergies: Coded Allergies: Penicillins (Unverified Adverse Reaction, Unknown, 04/29/19) cephalexin (Unverified Adverse Reaction, Unknown, 04/29/19) Vitals & I&Os Vital Sign - Last 12Hours Date Time Temp Pulse Resp B/P (MAP) Pulse Ox O2 Delivery O2 Flow Rate FiO2 05/03/19 12:11 98.2 72 19 170/78 (108) 100 Nasal Cannula 2.00 Intake and Output 05/03/19 00:00 Intake Total 4452 ml Output Total 300 ml Balance 4152 ml General Appearance: Alert, Oriented X3, No Acute Distress Respiratory: Clear to Auscultation, Normal Air Movement Cardiovascular: Regular Rate, No Murmurs Abdominal: Normal Bowel Sounds, Soft Psych/Mental Status: Mental Status NL Hospital Course See final discharge diagnosis. Labs Laboratory Tests Test 05/01/19 15:57 05/01/19 20:46 05/02/19 05:49 05/02/19 06:00 Range/Units Glucometer 188 H 310 H 153 H 70-110 MG/DL White Blood Count 10.0 4.3-11.0 10^3/uL Red Blood Count 3.39 L 4.35-5.85 10^6/uL Hemoglobin 10.8 L 11.5-16.0 G/DL Hematocrit 33 L 35-52 % Mean Corpuscular Volume 96 80-99 FL Mean Corpuscular Hemoglobin 32 25-34 PG Mean Corpuscular Hemoglobin Concent 33 32-36 G/DL Red Cell Distribution Width 11.5 10.0-14.5 % Platelet Count 166 130-400 10^3/uL Mean Platelet Volume 10.0 7.4-10.4 FL Neutrophils (%) (Auto) 67 42-75 % Lymphocytes (%) (Auto) 17 12-44 % Monocytes (%) (Auto) 11 0-12 % Eosinophils (%) (Auto) 5 0-10 % Basophils (%) (Auto) 0 0-10 % Neutrophils # (Auto) 6.7 1.8-7.8 X 10^3 Lymphocytes # (Auto) 1.7 1.0-4.0 X 10^3 Monocytes # (Auto) 1.1 H 0.0-1.0 X 10^3 Eosinophils # (Auto) 0.5 H 0.0-0.3 10^3/uL Basophils # (Auto) 0.0 0.0-0.1 10^3/uL Sodium Level 133 L 135-145 MMOL/L Potassium Level 4.2 3.6-5.0 MMOL/L Chloride Level 105 98-107 MMOL/L Carbon Dioxide Level 17 L 21-32 MMOL/L Anion Gap 11 5-14 MMOL/L Blood Urea Nitrogen 64 H 7-18 MG/DL Creatinine 3.33 H 0.60-1.30 MG/DL Estimat Glomerular Filtration Rate 13 BUN/Creatinine Ratio 19 Glucose Level 145 H 70-105 MG/DL Calcium Level 8.7 8.5-10.1 MG/DL Corrected Calcium 8.9 8.5-10.1 MG/DL Total Bilirubin 0.3 0.1-1.0 MG/DL Aspartate Amino Transf (AST/SGOT) 12 5-34 U/L Alanine Aminotransferase (ALT/SGPT) 13 0-55 U/L Alkaline Phosphatase 60 40-136 U/L Total Protein 5.9 L 6.4-8.2 GM/DL Albumin 3.8 3.2-4.5 GM/DL Test 05/02/19 11:18 05/02/19 15:54 05/02/19 20:31 05/03/19 06:00 Range/Units Glucometer 291 H 119 H 232 H 151 H 70-110 MG/DL Test 05/03/19 10:30 05/03/19 10:54 Range/Units Sodium Level 131 L 135-145 MMOL/L Potassium Level 4.0 3.6-5.0 MMOL/L Chloride Level 103 98-107 MMOL/L Carbon Dioxide Level 17 L 21-32 MMOL/L Anion Gap 11 5-14 MMOL/L Blood Urea Nitrogen 52 H 7-18 MG/DL Creatinine 3.29 H 0.60-1.30 MG/DL Estimat Glomerular Filtration Rate 13 BUN/Creatinine Ratio 16 Glucose Level 236 H 70-105 MG/DL Calcium Level 8.8 8.5-10.1 MG/DL Glucometer 238 H 70-110 MG/DL Radiology Reviewed NAME: KEN DURHAM [facility] REC#: [id number] PT STATUS: ADM Britney : 1930 PHYSICIAN: VESNA PUENTE DO ADMIT DATE: 04/29/19/ Signed Date of Exam: 04/29/19 CT ABDOMEN/PELVIS WO PROCEDURE: CT abdomen and pelvis without contrast. TECHNIQUE: Multiple contiguous axial images were obtained through the abdomen and pelvis without the use of intravenous contrast. Auto Exposure Controls were utilized during the CT exam to meet ALARA standards for radiation dose reduction. INDICATION: Abdominal pain COMPARISON: None available FINDINGS: Calcified granuloma within the left lung base. Mild bibasilar interstitial and reticular opacities. Additional subpleural groundglass opacities are present, including within the left lower lobe measuring 0.7 cm. Small hiatal hernia. Given appearance, this may relate to a paraesophageal hernia. Mural thickening of the gastric antrum. The unenhanced liver is unremarkable. The spleen is unremarkable. The adrenal glands are unremarkable. The pancreas is unremarkable. The gallbladder is not visualized, likely surgically absent. Hypodensities are identified within the bilateral kidneys, incompletely evaluated on this examination. Punctate 1-2 mm nonobstructing calculus within the superior pole of the left kidney. The bilateral kidneys and ureters are otherwise unremarkable. Extensive vascular calcifications within the abdominal aorta and its branch vessels without aneurysmal dilatation of the abdominal aorta. The urinary bladder is unremarkable. A 3.8 cm cystic structure is noted within the midline lower pelvis without adjacent inflammatory stranding. The uterus is not definitely visualized. Poor distention of the distal colon with mural thickening involving the sigmoid colon and rectosigmoid junction. No significant adjacent fat stranding. The appendix is not definitely visualized. No bowel obstruction or pneumatosis. Stent within the left superficial femoral artery. Stimulator is present with the battery pack within the right gluteal region with the lead extending into the central spinal canal. [place] left curvature of the spine with advanced scattered osseous degenerative changes. No acute osseous abnormality. Significant calcifications involving the origins of the bilateral hamstrings. IMPRESSION: Punctate nonobstructing left renal calculus. Bilateral renal hypodensities, incompletely evaluated on this examination, though statistically related to cysts. Renal ultrasound would help to further evaluate to ensure these are cystic in nature. A 3.8 cm cystic structure within the midline lower pelvis. This is of uncertain etiology. This could relate to an ovarian cystic structure, benign or malignant. Alternatively, this could relate to an enteric duplication cyst. Pelvic ultrasound is recommended for further evaluation. Small hiatal hernia, with suggestion that this relates to a paraesophageal hiatal hernia. Bibasilar interstitial opacities with associated small pleural-based pulmonary nodules. Followup CT of the chest is recommended in 6 months to ensure stability. Mural thickening of the gastric antrum as well as mural thickening involving the sigmoid colon and rectosigmoid junction without adjacent fat stranding. This may relate to poor distention, though gastritis/colitis should be considered. Additional findings as described above. Agree with preliminary interpretation. Dictated by: Dictated on workstation # [id number] Dict: 04/30/19514 Trans: 04/30/191038 Interpreted by: NAFISA KIRAN MD Electronically signed by: NAFISA KIRAN MD 04/30/191038 NAME: KEN DURHAM [facility] REC#: [id number] PT STATUS: REG ER : 1930 PHYSICIAN: VESNA PUENTE DO ADMIT DATE: 04/29/19/ER FS Signed Date of Exam: 04/29/19 CHEST 1 VIEW AP/PA ONLY INDICATION: Epigastric pain Portable chest 8:18 PM Patient has a dorsal column stimulator. Heart size and pulmonary vascularity are normal. Lungs are clear. There are no effusions or pneumothoraces. IMPRESSION: No acute abnormalities in the chest Dictated by: Dictated on workstation # [id number] Dict: 04/29/192044 Trans: 04/29/192109 Interpreted by: PERRY HAYDEN MD Electronically signed by: PERRY HAYDEN MD 04/29/192109 Discharge Instructions to patient/family Please see electronic discharge instructions given to patient. Discharge Medications Reviewed and agree with Discharge Medication list on patient's Discharge Instruction sheet Clinical Quality Measures AMI/AHF: ASA po Prior to arrival: No DVT/VTE Risk/Contraindication: Risk Factor Score Per Nursin RFS Level Per Nursing on Admit: 2=Moderate Copy Copies To 1: CHRISTIANA BLACK MD, BETHANY N MD May 03, 2019 12:26
--- NOTE | 2019-05-03 13:21 | NUR ---
CM/SS patient is discharging this day with [facility]. Patient preference would be for [facility] in [facility]. Referral information sent to [facility].
== END 2019-05-03 17:15 | disposition home health service (06) | DRG 392 ==
LOC: EDUNIT# 19:37 → ER FS 19:38 → 4TH 23:59 → OBSVTOIN 05-03 09:45
PROVIDERS: ADMIT Internal Medicine; ATTEND Family Medicine
PROC: 0DB78ZX Excision of Stomach, Pylorus, Via Natural or Artificial Opening Endoscopic, Diagnostic (ICD-10-PCS; 2019-05-01)
PROC: 0D738ZZ Dilation of Lower Esophagus, Via Natural or Artificial Opening Endoscopic (ICD-10-PCS; 2019-05-01)
PROC: 0DB48ZX Excision of Esophagogastric Junction, Via Natural or Artificial Opening Endoscopic, Diagnostic (ICD-10-PCS; principal; 2019-05-01 10:17)
DX: K22.2 Esophageal obstruction (principal); R13.10 Dysphagia, unspecified; K29.70 Gastritis, unspecified, without bleeding; K21.0 Gastro-esophageal reflux disease with esophagitis; N17.9 Acute kidney failure, unspecified; E87.1 Hypo-osmolality and hyponatremia; N18.4 Chronic kidney disease, stage 4 (severe); E86.0 Dehydration; E11.22 Type 2 diabetes mellitus with diabetic chronic kidney disease; I10 Essential (primary) hypertension; E78.5 Hyperlipidemia, unspecified; K44.9 Diaphragmatic hernia without obstruction or gangrene; I73.9 Peripheral vascular disease, unspecified; I08.0 Rheumatic disorders of both mitral and aortic valves; I65.23 Occlusion and stenosis of bilateral carotid arteries; R79.89 Other specified abnormal findings of blood chemistry; J94.9 Pleural condition, unspecified; N94.89 Other specified conditions associated with female genital organs and menstrual cycle; Z88.0 Allergy status to penicillin; Z88.1 Allergy status to other antibiotic agents; Z79.84 Long term (current) use of oral hypoglycemic drugs
CPT/HCPCS: 36415; 71045; 74176; 80048; 80053; 81000; 82962; 83690; 83735; 83880; 84484; 85025; 93005; 93306; G0378

== ENCOUNTER 2019-05-19 12:55 | Outpatient (RCR) | payer MEDICARE ==
[2019-02-24 13:00] VITALS: BP 162/78
[2019-03-03 13:17] LABS: HEMOGLOBIN 9.8 G/DL (11.5-16.0)
[2019-03-03 13:50] VITALS: BP 160/66
[2019-03-10 13:00] VITALS: BP 158/59
[2019-03-18 13:00] VITALS: BP 162/70
[2019-03-24 13:25] VITALS: BP 122/49
[2019-03-31 13:16] LABS: HEMOGLOBIN 12.5 G/DL (11.5-16.0)
[2019-03-31 13:25] VITALS: BP 153/77
[2019-04-14 13:40] LABS: HEMOGLOBIN 12.2 G/DL (11.5-16.0)
[2019-04-14 13:55] VITALS: BP 161/86
[2019-04-28 13:12] LABS: HEMOGLOBIN 11.9 G/DL (11.5-16.0)
[2019-04-28 13:31] VITALS: BP 169/68
[2019-05-12 12:43] VITALS: BP 129/61
[2019-05-12 13:17] LABS: HEMOGLOBIN 10.7 G/DL (11.5-16.0)
[~2019-05-19] VITALS: Ht 149.9 cm; Wt 56.9 kg
[~2019-05-19 12:55] MED LIST changes: -ACETAMINOPHEN 500 MG TAB (TYLENOL) PO PRN; +CETI1TAB61 PO; +DARBEPOETIN 25 MCG/ML (ARANESP) 1 ML HOSPITAL SC ONE; -DARBEPOETIN 40 MCG/ML (ARANESP) HOSPITAL SC SCH; +FAMO20TA3 PO; -FERRIC CARBOXYMALTOSE INJ 750 MG in NS (IVPB) 250 ML IV NR; -FERRIC CARBOXYMALTOSE INJ 750 MG in NS (IVPB) 250 ML IV SCH; +GLIP10TA13 PO; +HYDR-3923 PO; +METO-395 PO; +OMEP20CA12 PO; +SPIR25TA5 PO; -diphenhydrAMINE 50 MG/ML INJ (BENADRYL) IV PRN
[2019-05-19 13:41] LABS: HEMOGLOBIN 10.1 G/DL (11.5-16.0)
[2019-05-19 14:00] LABS: ALBUMIN 4.3 GM/DL (3.2-4.5); CALCIUM 9.4 MG/DL (8.5-10.1); CREATININE SERUM 3.56 MG/DL (0.60-1.30); PHOSPHORUS 3.3 MG/DL (2.3-4.7); POTASSIUM 5.4 MMOL/L (3.6-5.0)
[2019-05-19] MEDS ORDERED: DARBEPOETIN 25 MCG/ML (ARANESP) 1 ML HOSPITAL SC ONE (14:00)
[2019-05-19 14:07] VITALS: BP 153/78
== END 2019-05-25 | disposition home or self-care (01) ==
LOC: SDC 12:55
PROVIDERS: ATTEND Internal Medicine Nephrology
DX: N18.4 Chronic kidney disease, stage 4 (severe) (principal); D63.1 Anemia in chronic kidney disease
CPT/HCPCS: 36415; 80069; 82728; 83540; 85014; 85018; 96372

== ENCOUNTER → 2019-05-24 | Outpatient (CLI) | payer MEDICARE ==
[~2019-05-24] MED LIST changes: -DARBEPOETIN 25 MCG/ML (ARANESP) 1 ML HOSPITAL SC ONE; -DARBEPOETIN 40 MCG/ML (ARANESP) HOSPITAL SC ONE
[2019-05-24 08:06] LABS: HEMOGLOBIN 10.6 G/DL (11.5-16.0); MEAN PLATELET VOLUME 9.5 FL (7.4-10.4); RED CELL DISTRIBUTION WIDTH 12.1 % (10.0-14.5); WHITE BLOOD COUNT 8.3 10^3/uL (4.3-11.0)
[2019-05-24 15:00] LABS: ALBUMIN 4.3 GM/DL (3.2-4.5); CALCIUM 9.7 MG/DL (8.5-10.1); CREATININE SERUM 3.64 MG/DL (0.60-1.30); PHOSPHORUS 4.1 MG/DL (2.3-4.7); POTASSIUM 4.9 MMOL/L (3.6-5.0); URIC ACID 5.1 MG/DL (2.6-7.2)
== END ==
LOC: LAB FS 07:35
PROVIDERS: ATTEND Internal Medicine Nephrology
DX: I73.9 Peripheral vascular disease, unspecified (principal); I12.0 Hypertensive chronic kidney disease with stage 5 chronic kidney disease or end stage renal disease; E11.22 Type 2 diabetes mellitus with diabetic chronic kidney disease; D63.1 Anemia in chronic kidney disease; N18.5 Chronic kidney disease, stage 5; N25.0 Renal osteodystrophy; E87.2 Acidosis; N25.81 Secondary hyperparathyroidism of renal origin; E55.9 Vitamin D deficiency, unspecified; G47.10 Hypersomnia, unspecified
CPT/HCPCS: 36415; 80069; 82306; 82570; 83935; 83970; 84156; 84300; 84550; 85027

== ENCOUNTER 2019-06-09 13:00 | Outpatient (RCR) | payer MEDICARE ==
[2019-05-26 13:00] VITALS: BP 131/79
[2019-05-26 13:38] LABS: HEMOGLOBIN 10.6 G/DL (11.5-16.0)
[2019-06-02] MEDS: DARBEPOETIN 25 MCG/ML (ARANESP) 1 ML HOSPITAL SC SCH (13:49)
[2019-06-02 14:00] VITALS: BP 158/68
[~2019-06-09] VITALS: Ht 149.9 cm; Wt 56.9 kg
[2019-06-09 12:45] VITALS: BP 157/80
[~2019-06-09 13:00] MED LIST changes: +DARBEPOETIN 25 MCG/ML (ARANESP) 1 ML HOSPITAL SC ONE; -OMEP20CA12 PO; +OMEP20CA13 PO
[2019-06-09 13:13] LABS: HEMOGLOBIN 11.5 G/DL (11.5-16.0)
[2019-06-09] MEDS: DARBEPOETIN 25 MCG/ML (ARANESP) 1 ML HOSPITAL SC SCH (13:30)
== END 2019-06-16 13:28 | disposition home or self-care (01) ==
LOC: SDC 13:00
PROVIDERS: ATTEND Internal Medicine Nephrology
DX: E11.22 Type 2 diabetes mellitus with diabetic chronic kidney disease (principal); I12.0 Hypertensive chronic kidney disease with stage 5 chronic kidney disease or end stage renal disease; N18.5 Chronic kidney disease, stage 5; I73.9 Peripheral vascular disease, unspecified; N25.0 Renal osteodystrophy; E87.2 Acidosis; R68.89 Other general symptoms and signs; R80.9 Proteinuria, unspecified; N25.81 Secondary hyperparathyroidism of renal origin; E55.9 Vitamin D deficiency, unspecified; D63.1 Anemia in chronic kidney disease
CPT/HCPCS: 36415; 85014; 85018; 96372

== ENCOUNTER 2019-06-16 12:29 | Outpatient (RCR) | payer MEDICARE ==
[2019-06-09] MEDS: FERRIC CARBOXYMALTOSE INJ 750 MG in NS (IVPB) 250 ML IV SCH (13:30)
[~2019-06-16] VITALS: Ht 149.9 cm; Wt 56.9 kg
[~2019-06-16 12:29] MED LIST changes: +ACETAMINOPHEN 500 MG TAB (TYLENOL) PO PRN; -DARBEPOETIN 25 MCG/ML (ARANESP) 1 ML HOSPITAL SC ONE; +diphenhydrAMINE 50 MG/ML INJ (BENADRYL) IV PRN
[2019-06-16 12:45] VITALS: BP 166/84
[2019-06-16] MEDS: FERRIC CARBOXYMALTOSE INJ 750 MG in NS (IVPB) 250 ML IV SCH (12:53)
== END 2019-06-16 13:43 | disposition home or self-care (01) ==
LOC: SDC 12:29
PROVIDERS: ATTEND Internal Medicine Nephrology
DX: N18.4 Chronic kidney disease, stage 4 (severe) (principal); D63.1 Anemia in chronic kidney disease; D50.9 Iron deficiency anemia, unspecified
CPT/HCPCS: 96365

== ENCOUNTER 2019-06-21 11:07 | Emergency (ER) | payer MEDICARE ==
[~2019-06-21] VITALS: Ht 149.9 cm; Wt 54.0 kg
[~2019-06-21 11:07] MED LIST changes: -ACETAMINOPHEN 500 MG TAB (TYLENOL) PO PRN; -diphenhydrAMINE 50 MG/ML INJ (BENADRYL) IV PRN
[2019-06-21 11:15] VITALS: BP 126/55
--- NOTE | 2019-06-21 11:15 | NUR ---
Triage was done by [employer] developing machine operator. Pt notified Toya that pt fell and hit head on concrete. Aching head pain. Happened at 10:30. Pt's vital signs 98.0 temp, pulse 63, bp 126/55, 97% on 4 L. Pain was a 5 on a number scale (0-10).
[2019-06-21] MEDS ORDERED: TETANUS,DIPTH,PERTUSS P/F (BOOSTRIX) 0.5 ML VIAL IM ONE (12:30)
[2019-06-21] MEDS ORDERED: LIDOCAINE 1% INJ 20 ML 20 ML VIAL INJ ONE (12:30)
--- NOTE | 2019-06-21 12:45 | NUR ---
Consent for Tetanus shot was obtained and signed by patient.
--- OUTSIDE RECORDS SUMMARY | 2019-06-21 13:13 | XMS REPORT | Continuity of Care Document ---
Author Organization Unknown Address Unknown Phone Unavailable Allergies Active Description Code Type Severity Reaction Onset Reported/Identified Relationship to Patient Clinical Status Yes cephalexin [id number] Drug Allergy Unknown N/A 04/29/2019 Yes Penicillins [id number] Drug Allergy Unknown N/A 04/29/2019 Medications There is no data. Problems Date Dx Coded Attending Type Code Diagnosis Diagnosed By 10/09/1342 GUNNAR RODRIGUEZ MD Ot D50.9 IRON DEFICIENCY ANEMIA, UNSPECIFIED 10/09/1342 GUNNAR RODRIGUEZ MD Ot D63.1 ANEMIA IN CHRONIC KIDNEY DISEASE 10/09/1342 GUNNAR RODRIGUEZ MD Ot N18.4 CHRONIC KIDNEY DISEASE, STAGE 4 (SEVERE) 12/22/2018 KULDIP RODRIGUEZ MDINE Ot D63.1 ANEMIA IN CHRONIC KIDNEY DISEASE 12/22/2018 GUNNAR RODRIGUEZ MD Ot N18.4 CHRONIC KIDNEY DISEASE, STAGE 4 (SEVERE) 12/22/2018 KULDIP RODRIGUEZ MDINE Ot D63.1 ANEMIA IN CHRONIC KIDNEY DISEASE 12/22/2018 GUNNAR RODRIGUEZ MD Ot N18.4 CHRONIC KIDNEY DISEASE, STAGE 4 (SEVERE) 12/29/2018 KULDIP RODRIGUEZ MDINE Ot D63.1 ANEMIA IN CHRONIC KIDNEY DISEASE 12/29/2018 JENNIFER GUO GUNNAR Ot N18.4 CHRONIC KIDNEY DISEASE, STAGE 4 (SEVERE) 12/29/2018 KULDIP RODRIGUEZ MDINE Ot D63.1 ANEMIA IN CHRONIC KIDNEY DISEASE 12/29/2018 GUNNAR RODRIGUEZ MD Ot N18.4 CHRONIC KIDNEY DISEASE, STAGE 4 (SEVERE) 01/01/2019 KULDIP RODRIGUEZ MDINE Ot D63.1 ANEMIA IN CHRONIC KIDNEY DISEASE 01/01/2019 GUNNAR RODRIGUEZ MD Ot N18.4 CHRONIC KIDNEY DISEASE, STAGE 4 (SEVERE) 01/06/2019 GUNNAR RODRIGUEZ MD Ot D63.1 ANEMIA IN CHRONIC KIDNEY DISEASE 01/06/2019 JENNIFER GUO, GUNNAR Ot N18.4 CHRONIC KIDNEY DISEASE, STAGE 4 (SEVERE) 01/20/2019 GUNNAR RODRIGUEZ MD Ot D63.1 ANEMIA IN CHRONIC KIDNEY DISEASE 01/20/2019 JENNIFER UGO, GUNNAR Ot N18.4 CHRONIC KIDNEY DISEASE, STAGE 4 (SEVERE) 01/28/2019 KWAKU RAM MEDIA CONSULTANT Ot G47.33 OBSTRUCTIVE SLEEP APNEA (ADULT) (PEDIATR 01/29/2019 KWAKU RAM MEDIA CONSULTANT Ot G47.33 OBSTRUCTIVE SLEEP APNEA (ADULT) (PEDIATR 02/01/2019 KWAKU RAM MEDIA CONSULTANT Ot G47.33 OBSTRUCTIVE SLEEP APNEA (ADULT) (PEDIATR 02/01/2019 KWAKU RAM MEDIA CONSULTANT Ot I10 ESSENTIAL (PRIMARY) HYPERTENSION 02/01/2019 KWAKU RAM MEDIA CONSULTANT Ot R06.83 SNORING 02/03/2019 GUNNAR RODRIGUEZ MD Ot D63.1 ANEMIA IN CHRONIC KIDNEY DISEASE 02/03/2019 GUNNAR RODRIGUEZ MD Ot N18.4 CHRONIC KIDNEY DISEASE, STAGE 4 (SEVERE) 02/03/2019 GUNNAR RODRIGUEZ MD Ot D63.1 ANEMIA IN CHRONIC KIDNEY DISEASE 02/03/2019 GUNNAR RODRIGUEZ MD Ot N18.4 CHRONIC KIDNEY DISEASE, STAGE 4 (SEVERE) 02/04/2019 KWAKU RAM MEDIA CONSULTANT Ot G47.33 OBSTRUCTIVE SLEEP APNEA (ADULT) (PEDIATR 02/04/2019 KWAKU RAM MEDIA CONSULTANT Ot I10 ESSENTIAL (PRIMARY) HYPERTENSION 02/04/2019 KWAKU RAM MEDIA CONSULTANT Ot R06.83 SNORING 02/05/2019 KWAKU RAM MEDIA CONSULTANT Ot G47.33 OBSTRUCTIVE SLEEP APNEA (ADULT) (PEDIATR 02/05/2019 KWAKU RAM MEDIA CONSULTANT Ot I10 ESSENTIAL (PRIMARY) HYPERTENSION 02/05/2019 KWAKU RAM MEDIA CONSULTANT Ot R06.83 SNORING 02/08/2019 GUNNAR RODRIGUEZ MD Ot D63.1 ANEMIA IN CHRONIC KIDNEY DISEASE 02/08/2019 GUNNAR RODRIGUEZ MD Ot N18.4 CHRONIC KIDNEY DISEASE, STAGE 4 (SEVERE) 02/08/2019 KULDIP RODRIGUEZ MDINE Ot D63.1 ANEMIA IN CHRONIC KIDNEY DISEASE 02/08/2019 GUNNAR RODRIGUEZ MD Ot N18.4 CHRONIC KIDNEY DISEASE, STAGE 4 (SEVERE) 02/14/2019 KULDIP RODRIGUEZ MDINE Ot D63.1 ANEMIA IN CHRONIC KIDNEY DISEASE 02/14/2019 KULDIP RODRIGUEZ MDINE Ot N18.4 CHRONIC KIDNEY DISEASE, STAGE 4 (SEVERE) 02/14/2019 KWAKU RAM MEDIA CONSULTANT Ot G47.33 OBSTRUCTIVE SLEEP APNEA (ADULT) (PEDIATR 02/14/2019 KWAKU RAM MEDIA CONSULTANT Ot I10 ESSENTIAL (PRIMARY) HYPERTENSION 02/14/2019 KWAKU RAM MEDIA CONSULTANT Ot R06.83 SNORING 02/14/2019 GUNNAR RODRIGUEZ MD Ot D63.1 ANEMIA IN CHRONIC KIDNEY DISEASE 02/14/2019 GUNNAR RODRIGUEZ MD Ot N18.4 CHRONIC KIDNEY DISEASE, STAGE 4 (SEVERE) 02/14/2019 KULDIP RODRIGUEZ MDINE Ot D63.1 ANEMIA IN CHRONIC KIDNEY DISEASE 02/14/2019 GUNNAR RODRIGUEZ MD Ot N18.4 CHRONIC KIDNEY DISEASE, STAGE 4 (SEVERE) 02/17/2019 KULDIP RODRIGUEZ MDINE Ot D63.1 ANEMIA IN CHRONIC KIDNEY DISEASE 02/17/2019 KULDIP RODRIGUEZ MDINE Ot N18.4 CHRONIC KIDNEY DISEASE, STAGE 4 (SEVERE) 02/18/2019 JENNIFER GUO GUNNAR Ot D63.1 ANEMIA IN CHRONIC KIDNEY DISEASE 02/18/2019 KULDIP RODRIGUEZ MDINE Ot N18.4 CHRONIC KIDNEY DISEASE, STAGE 4 (SEVERE) 02/24/2019 JENNIFER GUO GUNNAR Ot D63.1 ANEMIA IN CHRONIC KIDNEY DISEASE 02/24/2019 GUNNAR RODRIGUEZ MD Ot N18.4 CHRONIC KIDNEY DISEASE, STAGE 4 (SEVERE) 02/24/2019 JENNIFER GUO GUNNAR Ot D63.1 ANEMIA IN CHRONIC KIDNEY DISEASE 02/24/2019 KULDIP RODRIGUEZ MDINE Ot N18.4 CHRONIC KIDNEY DISEASE, STAGE 4 (SEVERE) 03/03/2019 JENNIFER GUO GUNNAR Ot D63.1 ANEMIA IN CHRONIC KIDNEY DISEASE 03/03/2019 GUNNAR RODRIGUEZ MD Ot N18.4 CHRONIC KIDNEY DISEASE, STAGE 4 (SEVERE) 03/08/2019 KULDIP RODRIGUEZ MDINE Ot D63.1 ANEMIA IN CHRONIC KIDNEY DISEASE 03/08/2019 KULDIP RODRIGUEZ MDINE Ot N18.4 CHRONIC KIDNEY DISEASE, STAGE 4 (SEVERE) 03/10/2019 KULDIP RODRIGUEZ MDINE Ot D63.1 ANEMIA IN CHRONIC KIDNEY DISEASE 03/10/2019 GUNNAR RODRIGUEZ MD Ot N18.4 CHRONIC KIDNEY DISEASE, STAGE 4 (SEVERE) 03/18/2019 KULDIP RODRIGUEZ MDINE Ot D63.1 ANEMIA IN CHRONIC KIDNEY DISEASE 03/18/2019 GUNNAR RODRIGUEZ MD Ot N18.4 CHRONIC KIDNEY DISEASE, STAGE 4 (SEVERE) 03/19/2019 KWAKU RAM MEDIA CONSULTANT Ot G47.33 OBSTRUCTIVE SLEEP APNEA (ADULT) (PEDIATR 03/19/2019 KWAKU RAM MEDIA CONSULTANT Ot I10 ESSENTIAL (PRIMARY) HYPERTENSION 03/19/2019 KWAKU RAM MEDIA CONSULTANT Ot R06.83 SNORING 03/19/2019 GUNNAR RODRIGUEZ MD Ot D63.1 ANEMIA IN CHRONIC KIDNEY DISEASE 03/19/2019 KULDIP RODRIGUEZ MDINE Ot N18.4 CHRONIC KIDNEY DISEASE, STAGE 4 (SEVERE) 03/24/2019 JENNIFER GUO GUNNAR Ot D63.1 ANEMIA IN CHRONIC KIDNEY DISEASE 03/24/2019 KULDIP RODRIGUEZ MDINE Ot N18.4 CHRONIC KIDNEY DISEASE, STAGE 4 (SEVERE) 03/31/2019 JENNIFER GUO GUNNAR Ot D63.1 ANEMIA IN CHRONIC KIDNEY DISEASE 03/31/2019 KULDIP RODRIGUEZ MDINE Ot N18.4 CHRONIC KIDNEY DISEASE, STAGE 4 (SEVERE) 04/07/2019 JENNIFER GUO GUNNAR Ot D63.1 ANEMIA IN CHRONIC KIDNEY DISEASE 04/07/2019 JENNIFER GUO GUNNAR Ot N18.4 CHRONIC KIDNEY DISEASE, STAGE 4 (SEVERE) 04/14/2019 JENNIFER GUO GUNNAR Ot D63.1 ANEMIA IN CHRONIC KIDNEY DISEASE 04/14/2019 JENNIFER GUO GUNNAR Ot N18.4 CHRONIC KIDNEY DISEASE, STAGE 4 (SEVERE) 04/15/2019 GUNNAR RODRIGUEZ MD Ot D63.1 ANEMIA IN CHRONIC KIDNEY DISEASE 04/15/2019 GUNNAR RODRIGUEZ MD, Ot N18.4 CHRONIC KIDNEY DISEASE, STAGE 4 (SEVERE) 04/28/2019 GUNNAR RODRIGUEZ MD Ot D63.1 ANEMIA IN CHRONIC KIDNEY DISEASE 04/28/2019 GUNNAR RODRIGUEZ MD Ot N18.4 CHRONIC KIDNEY DISEASE, STAGE 4 (SEVERE) 04/29/2019 GUNNAR RODRIGUEZ MD Ot D63.1 ANEMIA IN CHRONIC KIDNEY DISEASE 04/29/2019 GUNNAR RODRIGUEZ MD, Ot N18.4 CHRONIC KIDNEY DISEASE, STAGE 4 (SEVERE) 04/30/2019 HARVEY VILLARREAL MD Ot 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 04/30/2019 HARVEY VILLARREAL MD, Ot E78.5 HYPERLIPIDEMIA, UNSPECIFIED 04/30/2019 HARVEY VILLARREAL MD Ot E86.0 DEHYDRATION 04/30/2019 HARVEY VILLARREAL MD Ot E87.1 HYPO-OSMOLALITY AND HYPONATREMIA 04/30/2019 HARVEY VILLARREAL MD 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 04/30/2019 HARVEY VILLARREAL MD, Ot I10 ESSENTIAL (PRIMARY) HYPERTENSION 04/30/2019 HARVEY VILLARREAL MD Ot 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 04/30/2019 HARVEY VILLARREAL MD Ot I73.9 PERIPHERAL VASCULAR DISEASE, UNSPECIFIED 04/30/2019 HARVEY VILLARREAL MD Ot 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, UNSPECIFIED 04/30/2019 HARVEY VILLARREAL MD, Ot K21.0 GASTRO-ESOPHAGEAL REFLUX DISEASE WITH ES 04/30/2019 HARVEY VILLARREAL MD Ot K22.2 ESOPHAGEAL OBSTRUCTION 04/30/2019 HARVEY VILLARREAL MD, Ot K29.70 GASTRITIS, UNSPECIFIED, WITHOUT BLEEDING 04/30/2019 HARVEY VILLARREAL MD, Ot K44.9 DIAPHRAGMATIC HERNIA WITHOUT OBSTRUCTION 04/30/2019 HARVEY VILLARREAL MD Ot N17.9 ACUTE KIDNEY FAILURE, UNSPECIFIED 04/30/2019 CHERELLE MD, HARVEY N Ot N18.4 CHRONIC KIDNEY DISEASE, STAGE 4 (SEVERE) 04/30/2019 HARVEY VILLARREAL MD Ot N94.89 OT COND 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 A 04/30/2019 HARVEY VILLARREAL MD Ot R13.10 DYSPHAGIA, UNSPECIFIED 04/30/2019 HARVEY VILLARREAL MD Ot R79.89 OTHER SPECIFIED ABNORMAL FINDINGS OF BLO 04/30/2019 HARVEY VILLARREAL MD Ot Z79.84 AIR SAMPLING AND MONITORING (CURRENT) USE OF ORAL HYPOGLYC 04/30/2019 HARVEY VILLARREAL MD Ot Z88.0 ALLERGY STATUS TO PENICILLIN 04/30/2019 HARVEY VILLARREAL MD Ot Z88.1 ALLERGY STATUS TO OTHER ANTIBIOTIC AGENT 04/30/2019 HARVEY VILLARREAL MD Ot E86.0 DEHYDRATION 04/30/2019 HARVEY VILLARREAL MD Ot E87.1 HYPO-OSMOLALITY AND HYPONATREMIA 04/30/2019 HARVEY VILLARREAL MD Ot N17.9 ACUTE KIDNEY FAILURE, UNSPECIFIED 04/30/2019 HARVEY VILLARREAL MD Ot N18.9 CHRONIC KIDNEY DISEASE, UNSPECIFIED 04/30/2019 HARVEY VILLARREAL MD Ot R11.2 NAUSEA WITH VOMITING, UNSPECIFIED 04/30/2019 HARVEY VILLARREAL MD Ot R79.89 OTHER SPECIFIED ABNORMAL FINDINGS OF BLO 04/30/2019 HARVEY VILLARREAL MD Ot Z88.0 ALLERGY STATUS TO PENICILLIN 04/30/2019 HARVEY VILLARREAL MD Ot Z88.1 ALLERGY STATUS TO OTHER ANTIBIOTIC AGENT 04/30/2019 HARVEY VILLARREAL MD Ot E86.0 DEHYDRATION 04/30/2019 HARVEY VILLARREAL MD Ot E87.1 HYPO-OSMOLALITY AND HYPONATREMIA 04/30/2019 HARVEY VILLARREAL MD Ot N17.9 ACUTE KIDNEY FAILURE, UNSPECIFIED 04/30/2019 HARVEY VILLARREAL MD Ot N18.9 CHRONIC KIDNEY DISEASE, UNSPECIFIED 04/30/2019 HARVEY VILLARREAL MD Ot R11.2 NAUSEA WITH VOMITING, UNSPECIFIED 04/30/2019 HARVEY VILLARREAL MD Ot R79.89 OTHER SPECIFIED ABNORMAL FINDINGS OF BLO 04/30/2019 CHERELLE MD, HARVEY N Ot Z88.0 ALLERGY STATUS TO PENICILLIN 04/30/2019 HARVEY VILLARREAL MD Ot Z88.1 ALLERGY STATUS TO OTHER ANTIBIOTIC AGENT 05/01/2019 HARVEY VILLARREAL MD Ot E86.0 DEHYDRATION 05/01/2019 HARVEY VILLARREAL MD Ot E87.1 HYPO-OSMOLALITY AND HYPONATREMIA 05/01/2019 HARVEY VILLARREAL MD Ot N17.9 ACUTE KIDNEY FAILURE, UNSPECIFIED 05/01/2019 HARVEY VILLARREAL MD Ot N18.9 CHRONIC KIDNEY DISEASE, UNSPECIFIED 05/01/2019 HARVEY VILLARREAL MD Ot R11.2 NAUSEA WITH VOMITING, UNSPECIFIED 05/01/2019 HARVEY VILLARREAL MD Ot R79.89 OTHER SPECIFIED ABNORMAL FINDINGS OF BLO 05/01/2019 HARVEY VILLARREAL MD Ot Z88.0 ALLERGY STATUS TO PENICILLIN 05/01/2019 HARVEY VILLARREAL MD Ot Z88.1 ALLERGY STATUS TO OTHER ANTIBIOTIC AGENT 05/02/2019 HARVEY VILLARREAL MD Ot E86.0 DEHYDRATION 05/02/2019 HARVEY VILLARREAL MD Ot E87.1 HYPO-OSMOLALITY AND HYPONATREMIA 05/02/2019 HARVEY VILLARREAL MD Ot N17.9 ACUTE KIDNEY FAILURE, UNSPECIFIED 05/02/2019 HARVEY VILLARREAL MD Ot N18.9 CHRONIC KIDNEY DISEASE, UNSPECIFIED 05/02/2019 HARVEY VLILARREAL MD Ot R11.2 NAUSEA WITH VOMITING, UNSPECIFIED 05/02/2019 HARVEY VILLARREAL MD Ot R79.89 OTHER SPECIFIED ABNORMAL FINDINGS OF BLO 05/02/2019 HARVEY VILLARREAL MD Ot Z88.0 ALLERGY STATUS TO PENICILLIN 05/02/2019 HARVEY VILLARREAL MD Ot Z88.1 ALLERGY STATUS TO OTHER ANTIBIOTIC AGENT 05/03/2019 HARVEY VILLARREAL MD Ot E86.0 DEHYDRATION 05/03/2019 HARVEY VILLARREAL MD Ot E87.1 HYPO-OSMOLALITY AND HYPONATREMIA 05/03/2019 HARVEY VILLARREAL MD Ot N17.9 ACUTE KIDNEY FAILURE, UNSPECIFIED 05/03/2019 HARVEY VILLARREAL MD Ot N18.9 CHRONIC KIDNEY DISEASE, UNSPECIFIED 05/03/2019 CHERELLE MD, HARVEY N Ot R11.2 NAUSEA WITH VOMITING, UNSPECIFIED 05/03/2019 HARVEY VILLARREAL MD Ot R79.89 OTHER SPECIFIED ABNORMAL FINDINGS OF BLO 05/03/2019 HARVEY VILLARREAL MD Ot Z88.0 ALLERGY STATUS TO PENICILLIN 05/03/2019 HARVEY VILLARREAL MD Ot Z88.1 ALLERGY STATUS TO OTHER ANTIBIOTIC AGENT 05/03/2019 HARVEY VILLARREAL MD Ot E86.0 DEHYDRATION 05/03/2019 HARVEY VILLARREAL MD Ot E87.1 HYPO-OSMOLALITY AND HYPONATREMIA 05/03/2019 HARVEY VILLARREAL MD Ot N17.9 ACUTE KIDNEY FAILURE, UNSPECIFIED 05/03/2019 HARVEY VILLARREAL MD Ot N18.9 CHRONIC KIDNEY DISEASE, UNSPECIFIED 05/03/2019 HARVEY VILLARREAL MD N Ot R11.2 NAUSEA WITH VOMITING, UNSPECIFIED 05/03/2019 HARVEY VILLARREAL MD Ot R79.89 OTHER SPECIFIED ABNORMAL FINDINGS OF BLO 05/03/2019 HARVEY VILLARREAL MD Ot Z88.0 ALLERGY STATUS TO PENICILLIN 05/03/2019 HARVEY VILLARREAL MD Ot Z88.1 ALLERGY STATUS TO OTHER ANTIBIOTIC AGENT 05/03/2019 HARVEY VILLARREAL MD Ot E86.0 DEHYDRATION 05/03/2019 HARVEY VILLARREAL MD Ot E87.1 HYPO-OSMOLALITY AND HYPONATREMIA 05/03/2019 HARVEY VILLARREAL MD Ot N17.9 ACUTE KIDNEY FAILURE, UNSPECIFIED 05/03/2019 HARVEY VILLARREAL MD Ot N18.9 CHRONIC KIDNEY DISEASE, UNSPECIFIED 05/03/2019 HARVEY VILLARREAL MD N Ot R11.2 NAUSEA WITH VOMITING, UNSPECIFIED 05/03/2019 HARVEY VILLARREAL MD N Ot R79.89 OTHER SPECIFIED ABNORMAL FINDINGS OF BLO 05/03/2019 HARVEY VILLARREAL MD Ot Z88.0 ALLERGY STATUS TO PENICILLIN 05/03/2019 HARVEY VILLARREAL MD N Ot Z88.1 ALLERGY STATUS TO OTHER ANTIBIOTIC AGENT 05/03/2019 HARVEY VILLARREAL MD N Ot E86.0 DEHYDRATION 05/03/2019 HARVEY VILLARREAL MD N Ot E87.1 HYPO-OSMOLALITY AND HYPONATREMIA 05/03/2019 HARVEY VILLARREAL MD, Ot N17.9 ACUTE KIDNEY FAILURE, UNSPECIFIED 05/03/2019 HARVEY VILLARREAL MD, Ot N18.9 CHRONIC KIDNEY DISEASE, UNSPECIFIED 05/03/2019 HARVEY VILLARREAL MD, Ot R11.2 NAUSEA WITH VOMITING, UNSPECIFIED 05/03/2019 HARVEY VILLARREAL MD Ot R79.89 OTHER SPECIFIED ABNORMAL FINDINGS OF BLO 05/03/2019 HARVEY VILLARREAL MD, Ot Z88.0 ALLERGY STATUS TO PENICILLIN 05/03/2019 HARVEY VILLARREAL MD, Ot Z88.1 ALLERGY STATUS TO OTHER ANTIBIOTIC AGENT 05/03/2019 HARVEY VILLARREAL MD, Ot 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 05/03/2019 HARVEY VILLARREAL MD, Ot E78.5 HYPERLIPIDEMIA, UNSPECIFIED 05/03/2019 HARVEY VILLARREAL MD, Ot E86.0 DEHYDRATION 05/03/2019 HARVEY VILLARREAL MD Ot E87.1 HYPO-OSMOLALITY AND HYPONATREMIA 05/03/2019 HARVEY VILLARREAL MD 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 05/03/2019 HARVEY VILLARREAL MD Ot I10 ESSENTIAL (PRIMARY) HYPERTENSION 05/03/2019 HARVEY VILLARREAL MD, Ot 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 05/03/2019 HARVEY VILLARREAL MD Ot I73.9 PERIPHERAL VASCULAR DISEASE, UNSPECIFIED 05/03/2019 HARVEY VILLARREAL MD, Ot 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, UNSPECIFIED 05/03/2019 HARVEY VILLARREAL MD Ot K21.0 GASTRO-ESOPHAGEAL REFLUX DISEASE WITH ES 05/03/2019 HARVEY VILLARREAL MD, Ot K22.2 ESOPHAGEAL OBSTRUCTION 05/03/2019 HARVEY VILLARREAL MD Ot K29.70 GASTRITIS, UNSPECIFIED, WITHOUT BLEEDING 05/03/2019 HARVEY VILLARREAL MD, Ot K44.9 DIAPHRAGMATIC HERNIA WITHOUT OBSTRUCTION 05/03/2019 HARVEY VILLARREAL MD, Ot N17.9 ACUTE KIDNEY FAILURE, UNSPECIFIED 05/03/2019 HARVEY VILLARREAL MD, Ot N18.4 CHRONIC KIDNEY DISEASE, STAGE 4 (SEVERE) 05/03/2019 HARVEY VILLARREAL MD, Ot N18.9 CHRONIC KIDNEY DISEASE, UNSPECIFIED 05/03/2019 HARVEY VILLARREAL MD, Ot N94.89 OTH COND 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 A 05/03/2019 HARVEY VILLARREAL MD, Ot R11.2 NAUSEA WITH VOMITING, UNSPECIFIED 05/03/2019 HARVEY VILLARREAL MD, Ot R13.10 DYSPHAGIA, UNSPECIFIED 05/03/2019 HARVEY VILLARREAL MD, Ot R79.89 OTHER SPECIFIED ABNORMAL FINDINGS OF BLO 05/03/2019 HARVEY VILLARREAL MD, Ot Z79.84 FCI (CURRENT) USE OF ORAL HYPOGLYC 05/03/2019 HARVEY VILLARREAL MD, Ot Z88.0 ALLERGY STATUS TO PENICILLIN 05/03/2019 HARVEY VILLARREAL MD, Ot Z88.1 ALLERGY STATUS TO OTHER ANTIBIOTIC AGENT 05/11/2019 HARVEY VILLARREAL MD, Ot 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 05/11/2019 HARVEY VILLARREAL MD, Ot E78.5 HYPERLIPIDEMIA, UNSPECIFIED 05/11/2019 HARVEY VILLARREAL MD Ot E86.0 DEHYDRATION 05/11/2019 HARVEY VILLARREAL MD Ot E87.1 HYPO-OSMOLALITY AND HYPONATREMIA 05/11/2019 HARVEY VILLARREAL MD, 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 05/11/2019 HARVEY VILLARREAL MD, Ot I10 ESSENTIAL (PRIMARY) HYPERTENSION 05/11/2019 HARVEY VILLARREAL MD Ot 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 05/11/2019 HARVEY VILLARREAL MD Ot I73.9 PERIPHERAL VASCULAR DISEASE, UNSPECIFIED 05/11/2019 HARVEY VILALRREAL MD, Ot 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, UNSPECIFIED 05/11/2019 HARVEY VILLARREAL MD, Ot K21.0 GASTRO-ESOPHAGEAL REFLUX DISEASE WITH ES 05/11/2019 HARVEY VILLARREAL MD Ot K22.2 ESOPHAGEAL OBSTRUCTION 05/11/2019 HARVEY VILLARREAL MD, Ot K29.70 GASTRITIS, UNSPECIFIED, WITHOUT BLEEDING 05/11/2019 HARVEY VILLARREAL MD, Ot K44.9 DIAPHRAGMATIC HERNIA WITHOUT OBSTRUCTION 05/11/2019 CHERELLE MD, HARVEY N Ot N17.9 ACUTE KIDNEY FAILURE, UNSPECIFIED 05/11/2019 HARVEY VILLARREAL MD, Ot N18.4 CHRONIC KIDNEY DISEASE, STAGE 4 (SEVERE) 05/11/2019 HARVEY VILLARREAL MD Ot N94.89 OTH COND 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 A 05/11/2019 HARVEY VILLARREAL MD Ot R13.10 DYSPHAGIA, UNSPECIFIED 05/11/2019 HARVEY VILLARREAL MD Ot R79.89 OTHER SPECIFIED ABNORMAL FINDINGS OF BLO 05/11/2019 HARVEY VILLARREAL MD Ot Z79.84 AIR SAMPLING AND MONITORING (CURRENT) USE OF ORAL HYPOGLYC 05/11/2019 HARVEY VILLARREAL MD Ot Z88.0 ALLERGY STATUS TO PENICILLIN 05/11/2019 HARVEY VILLARREAL MD Ot Z88.1 ALLERGY STATUS TO OTHER ANTIBIOTIC AGENT 05/11/2019 KWAKU RAM MEDIA CONSULTANT Ot G47.33 OBSTRUCTIVE SLEEP APNEA (ADULT) (PEDIATR 05/11/2019 KWAKU RAM MEDIA CONSULTANT Ot I10 ESSENTIAL (PRIMARY) HYPERTENSION 05/11/2019 KWAKU RAM MEDIA CONSULTANT Ot R06.83 SNORING 05/11/2019 GUNNAR RODRIGUEZ MD Ot D63.1 ANEMIA IN CHRONIC KIDNEY DISEASE 05/11/2019 GUNNAR RODRIGUEZ MD Ot N18.4 CHRONIC KIDNEY DISEASE, STAGE 4 (SEVERE) 05/11/2019 JENNIFER GUO GUNNAR Ot D63.1 ANEMIA IN CHRONIC KIDNEY DISEASE 05/11/2019 GUNNAR RODRIGUEZ MD Ot N18.4 CHRONIC KIDNEY DISEASE, STAGE 4 (SEVERE) 05/12/2019 JENNIFER GUO GUNNAR Ot D63.1 ANEMIA IN CHRONIC KIDNEY DISEASE 05/12/2019 GUNNAR RODRIGUEZ MD Ot N18.4 CHRONIC KIDNEY DISEASE, STAGE 4 (SEVERE) 05/19/2019 JENNIFER GUO GUNNAR Ot D63.1 ANEMIA IN CHRONIC KIDNEY DISEASE 05/19/2019 KULDIP RODRIGUEZ MDINE Ot N18.4 CHRONIC KIDNEY DISEASE, STAGE 4 (SEVERE) 05/25/2019 JENNIFER GUO GUNNAR Ot D63.1 ANEMIA IN CHRONIC KIDNEY DISEASE 05/25/2019 JENNIFER GUO GUNNAR Ot N18.4 CHRONIC KIDNEY DISEASE, STAGE 4 (SEVERE) 05/26/2019 KULDIP RODRIGUEZ MDINE Ot D63.1 ANEMIA IN CHRONIC KIDNEY DISEASE 05/26/2019 GUNNAR RODRIGUEZ MD Ot N18.4 CHRONIC KIDNEY DISEASE, STAGE 4 (SEVERE) 05/26/2019 KULDIP RODRIGUEZ MDINE Ot D63.1 ANEMIA IN CHRONIC KIDNEY DISEASE 05/26/2019 GUNNAR RODRIGUEZ MD Ot N18.4 CHRONIC KIDNEY DISEASE, STAGE 4 (SEVERE) 06/02/2019 KULDIP RODRIGUEZ MDINE Ot D63.1 ANEMIA IN CHRONIC KIDNEY DISEASE 06/02/2019 GUNNAR RODRIGUEZ MD Ot N18.4 CHRONIC KIDNEY DISEASE, STAGE 4 (SEVERE) 06/08/2019 KWAKU RAM MEDIA CONSULTANT Ot G47.33 OBSTRUCTIVE SLEEP APNEA (ADULT) (PEDIATR 06/08/2019 KWAKU RAM MEDIA CONSULTANT Ot I10 ESSENTIAL (PRIMARY) HYPERTENSION 06/08/2019 KWAKU RAM MEDIA CONSULTANT Ot R06.83 SNORING 06/08/2019 GUNNAR RODRIGUEZ MD Ot D63.1 ANEMIA IN CHRONIC KIDNEY DISEASE 06/08/2019 GUNNAR RODRIGUEZ MD Ot N18.4 CHRONIC KIDNEY DISEASE, STAGE 4 (SEVERE) 06/08/2019 GUNNAR RODRIGUEZ MD Ot D63.1 ANEMIA IN CHRONIC KIDNEY DISEASE 06/08/2019 GUNNAR RODRIGUEZ MD Ot 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 06/08/2019 GUNNAR RODRIGUEZ MD Ot E55.9 VITAMIN D DEFICIENCY, UNSPECIFIED 06/08/2019 KULDIP RODRIGUEZ MDINE Ot E87.2 ACIDOSIS 06/08/2019 GUNNAR RODRIGUEZ MD Ot G47.10 HYPERSOMNIA, UNSPECIFIED 06/08/2019 GUNNAR RODRIGUEZ MD Ot I12.0 HYP CHR KIDNEY DISEASE W STAGE 5 CHR KID 06/08/2019 KULDIP RODRIGUEZ MDINE Ot I73.9 PERIPHERAL VASCULAR DISEASE, UNSPECIFIED 06/08/2019 GUNNAR RODRIGUEZ MD Ot N18.5 CHRONIC KIDNEY DISEASE, STAGE 5 06/08/2019 JENNIFER GUO GUNNAR Ot N25.0 RENAL OSTEODYSTROPHY 06/08/2019 GUNNAR RODRIGUEZ MD Ot 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 O 06/08/2019 GUNNAR RODRIGUEZ MD Ot D63.1 ANEMIA IN CHRONIC KIDNEY DISEASE 06/08/2019 GUNNAR RODRIGUEZ MD Ot N18.4 CHRONIC KIDNEY DISEASE, STAGE 4 (SEVERE) 06/09/2019 GUNNAR RODRIUGEZ MD Ot D63.1 ANEMIA IN CHRONIC KIDNEY DISEASE 06/09/2019 GUNNAR RODRIGUEZ MD Ot N18.4 CHRONIC KIDNEY DISEASE, STAGE 4 (SEVERE) 06/09/2019 GUNNAR RODRIGUEZ MD Ot D63.1 ANEMIA IN CHRONIC KIDNEY DISEASE 06/09/2019 GUNNAR RODRIGUEZ MD Ot N18.4 CHRONIC KIDNEY DISEASE, STAGE 4 (SEVERE) 06/09/2019 GUNNAR RODRIGUEZ MD Ot D63.1 ANEMIA IN CHRONIC KIDNEY DISEASE 06/09/2019 GUNNAR RODRIGUEZ MD Ot N18.4 CHRONIC KIDNEY DISEASE, STAGE 4 (SEVERE) 06/18/2019 GUNNAR RODRIGUEZ MD Ot D63.1 ANEMIA IN CHRONIC KIDNEY DISEASE 06/18/2019 GUNNAR RODRIGUEZ MD Ot 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 06/18/2019 GUNNAR RODRIGUEZ MD Ot E55.9 VITAMIN D DEFICIENCY, UNSPECIFIED 06/18/2019 GUNNAR RODRIGUEZ MD Ot E87.2 ACIDOSIS 06/18/2019 GUNNAR RODRIGUEZ MD Ot G47.10 HYPERSOMNIA, UNSPECIFIED 06/18/2019 GUNNAR RODRIGUEZ MD Ot I12.0 HYP CHR KIDNEY DISEASE W STAGE 5 CHR KID 06/18/2019 GUNNAR RODRIGUEZ MD Ot I73.9 PERIPHERAL VASCULAR DISEASE, UNSPECIFIED 06/18/2019 GUNNAR RODRIGUEZ MD Ot N18.5 CHRONIC KIDNEY DISEASE, STAGE 5 06/18/2019 GUNNAR RODRIGUEZ MD Ot N25.0 RENAL OSTEODYSTROPHY 06/18/2019 GUNNAR RODRIGUEZ MD Ot 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 O Procedures Code Description Performed By Performed On [id number] DILATION OF LOWER ESOPHAGUS, ENDO 05/01/2019 [id number] EXCISION OF ESOPHAGOGASTRIC JUNCTION, EN 05/01/2019 [id number] EXCISION OF STOMACH, PYLORUS, ENDO, DIAG 05/01/2019 Results Test Result Range Whole blood hemoglobin [...] 7-25 CREATININE 2.87 mg/dL 0.60-0.88 eGFR NON-AFR. NIGERIEN 14 mL/min/1.73m2 > OR=60 eGFR 16 mL/min/1.73m2 [...] Blood hematocrit (volume fraction) 35 % 35-52 Complete blood count (CBC) with automated white blood cell (WBC) differential - 04/29/19 20:11 Blood leukocytes automated count (number/volume) 8.1 10*3/uL 4.3-11.0 Blood erythrocytes automated count (number/volume) 3.56 10*6/uL 4.35-5.85 Venous blood hemoglobin measurement (mass/volume) 11.6 g/dL 11.5-16.0 Blood hematocrit (volume fraction) 34 % 35-52 Automated erythrocyte mean corpuscular volume 95 [foz_us] 80-99 Automated erythrocyte mean corpuscular hemoglobin (mass per erythrocyte) 33 pg 25-34 Automated erythrocyte mean corpuscular hemoglobin concentration measurement (mass/volume) 34 g/dL 32-36 Automated erythrocyte distribution width ratio 11.5 % 10.0- 14.5 Automated blood platelet count (count/volume) 198 10*3/uL 130-400 Automated blood platelet mean volume measurement 10.1 [foz_us] 7.4-10.4 Automated blood neutrophils/100 leukocytes 64 % 42-75 Automated blood lymphocytes/100 leukocytes 19 % 12-44 Blood monocytes/100 leukocytes 11 % 0-12 Automated blood eosinophils/100 leukocytes 6 % 0-10 Automated blood basophils/100 leukocytes 0 % 0-10 Blood neutrophils automated count (number/volume) 5.2 10*3 1.8-7.8 Blood lymphocytes automated count (number/volume) 1.5 10*3 1.0-4.0 Blood monocytes automated count (number/volume) 0.9 10*3 0.0- 1.0 Automated eosinophil count 0.5 10*3/uL 0.0-0.3 Automated blood basophil count (count/volume) 0.0 10*3/uL 0.0-0.1 Comprehensive metabolic panel - 04/29/19 20:11 Serum or plasma sodium measurement (moles/volume) 130 mmol/L 135-145 Serum or plasma potassium measurement (moles/volume) 4.8 mmol/L 3.6-5.0 Serum or plasma chloride measurement (moles/volume) 93 mmol/L 98-107 Carbon dioxide 21 mmol/L 21-32 Serum or plasma anion gap determination (moles/volume) 16 mmol/L 5-14 Serum or plasma urea nitrogen measurement (mass/volume) 71 mg/dL 7-18 Serum or plasma creatinine measurement (mass/volume) 3.86 mg/dL 0.60-1.30 Serum or plasma urea nitrogen/creatinine mass ratio 18 NRG Serum or plasma creatinine measurement with calculation of estimated glomerular filtration rate 11 NRG Serum or plasma glucose measurement (mass/volume) 169 mg/dL 70-105 Serum or plasma calcium measurement (mass/volume) 9.3 mg/dL 8.5-10.1 Serum or plasma total bilirubin measurement (mass/volume) 0.3 mg/dL 0.1-1.0 Serum or plasma alkaline phosphatase measurement (enzymatic activity/volume) 74 U/L 40-136 Serum or plasma aspartate aminotransferase measurement (enzymatic activity/volume) 14 U/L 5-34 Serum or plasma alanine aminotransferase measurement (enzymatic activity/volume) 16 U/L 0-55 Serum or plasma protein measurement (mass/volume) 6.7 g/dL 6.4-8.2 Serum or plasma albumin measurement (mass/volume) 4.5 g/dL 3.2-4.5 CALCIUM CORRECTED 8.9 mg/dL 8.5-10.1 Magnesium - 04/29/19 20:11 Magnesium 2.5 mg/dL 1.8-2.4 TROPONIN T - 04/29/19 20:11 TROPONIN T 58 % <=10 PROBNP FS - 04/29/19 20:11 PROBNP FS 3457.0 pg/mL <75.0 Lipase - 04/29/19 20:11 Lipase 48 U/L 8-78 Complete urinalysis with reflex to culture - 04/29/19 21:30 Urine color determination YELLOW NRG Urine clarity determination CLEAR NRG Urine pH measurement by test strip 6.5 5-9 Specific gravity of urine by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
--- NOTE | 2019-06-21 13:35 | ED General ---
General Chief Complaint: Trauma-Non Activation Stated Complaint: FALL; HEAD INJ Nursing Triage Note: Pt arrived by private vehicle from the chiropractor. Pt had fallen outside on concrete and had hit her head and is complaining of right skin tear and previous had a headache/hip pain prior to seeing the chiropractor. Pt has laceration to right forearm and right eyebrow. Pt was able to stand up by holding her car after the fall. Pt is alert, oriented x 4. Pt denies head pain now, but right arm pain at the skin tear. Controlled bleeding at skin tears. Nursing Sepsis Screen: No Definite Risk History of Present Illness Date Seen by Provider: Jun 21, 2019 Time Seen by Provider: 13:31 Initial Comments Patient presenting to emergency department for evaluation of head injury status post mechanical fall. She was at her primary care provider's office for a checkup says that she is feeling quite well but she stepped down off the sidewalk and didn't know there was a drop off and she missed it and fell forward and hit her right forehead and has a skin tear on her right wrist. She says that she was able to stand up with no difficulty and able to ambulate as well and she denies any neck chest abdomen back or extremity pain rather she has a mild headache and has a laceration. Tetanus status is unclear so was updated. She was incidentally being seen for headache by her primary care provider and said it is much better now after treatment from PCP than before. She says she is on no blood thinners. She is in no obvious distress with normal vital signs. Location Injury Occurred: head and right arm Allergies and Home Medications Allergies Coded Allergies: Penicillins (Unverified Adverse Reaction, Unknown, 04/29/19) cephalexin (Unverified Adverse Reaction, Unknown, 04/29/19) Home Medications Famotidine 20 Mg Tablet, 20 MG PO BID Prescribed by: HARVEY VILLARREAL on 05/03/19 1210 Glipizide 10 Mg Tablet, 10 MG PO BID, (Reported) Hydralazine HCl 25 Mg Tablet, 25 MG PO TID, (Reported) Metoprolol Succinate 100 Mg Tab.er.24h, 100 MG PO HS, (Reported) Omeprazole 20 Mg Capsule.dr, 20 MG PO DAILY PRN for HEARTBURN, (Reported) Spironolactone 25 Mg Tablet, 12.5 MG PO DAILY, (Reported) TAKES 1/2 TABLET (25MG) Patient Home Medication List Home Medication List Reviewed: Yes Review of Systems Review of Systems Constitutional: no symptoms reported EENTM: no symptoms reported Respiratory: no symptoms reported Cardiovascular: no symptoms reported Gastrointestinal: no symptoms reported Musculoskeletal: no symptoms reported Skin: other (lac and abrasion) Psychiatric/Neurological: Headache All Other Systems Reviewed Negative Unless Noted: Yes Past Furdmey-Fbrusm-Excpde Hx Patient Social History Alcohol Use: Denies Use Recreational Drug Use: No Smoking Status: Never a Smoker 2nd Hand Smoke Exposure: No Recent Foreign Travel: No Contact w/Someone Who Travel: No Recent Infectious Disease Expo: No Physical Abuse: No Sexual Abuse: No Mistreated: No Fear: No Immunizations Up To Date Tetanus Booster (TDap): Unknown Date of Pneumonia Vaccine: Aug 30, 2018 Seasonal Allergies Seasonal Allergies: No Past Medical History Respiratory: Yes COPD High Cholesterol, Hypertension Diabetes, Non-Insulin dep Integumentary: No Physical Exam Vital Signs Vital Signs - First Documented 06/21/19 11:15 Temp 98.0 Pulse 63 Resp 20 B/P (MAP) 126/55 (78) Pulse Ox 97 O2 Delivery Nasal Cannula O2 Flow Rate 4.00 Capillary Refill : Less Than 3 Seconds Height, Weight, BMI Height: 4'11.00" Weight: 119lbs. 0oz. [id number]; 24.3 BMI Method:Stated General Appearance: No Apparent Distress, WD/WN Eyes: Bilateral Eye Normal Inspection HEENT: PERRL/EOMI, TMs Normal Neck: Non Tender, Supple Respiratory: Lungs Clear, No Respiratory Distress Cardiovascular: Regular Rate, Rhythm Gastrointestinal: Non Tender, Soft Rectal: Deferred Back: Normal Inspection, No Vertebral Tenderness Extremity: Normal Capillary Refill, Normal Range of Motion Neurologic/Psychiatric: Alert, Oriented x3 Skin: Normal Color, Warm/Dry, Other (a stellate lac appx 1cm in size lateral to R eye brow. Just medial to this wound is an appx 2 cm irregular shpaed lac through eye brow. Wound examined in bloodless field with no FB or tendon visualized.) Procedures/Interventions Wound Location: Face Wound's Depth, Shape: irregular, stellate Wound Explored: no foreign body removed Betadine Prep?: Yes Anesthesia: 1% Lidocaine Volume Anesthetic (ccs): 3 Wound Debrided: minimal Suture: Ethlion Suture Size: 5-0 Number of Sutures: 5 Layer Closure?: 1 Sterile Dressing Applied?: Yes Wound prepped and draped in normal sterile fashion and was anesthetized with lidocaine and then irrigated with a copious amount of fluids with no foreign body visualized after cleansing. The lateral wound was closed with 2 sutures and the medial wound was closed with 3 sutures with no complications noted. Progress/Results/Core Measures Suspected Sepsis Recent Fever Within 48 Hours: No Infection Criteria Present: None New/Unexplained Altered Menta: No Sepsis Screen: No Definite Risk SIRS Temperature:98.2 Pulse: 63 Respiratory Rate: 22 Blood Pressure 134 /64 Mean: 87 Results/Orders My Orders Orders - ASHLEY COTO DO Dipht,Pertuss(Acell),Tet Adult (Boostrix (06/21/19 12:30) Lidocaine 1% Inj 20 Ml (Xylocaine 1% Inj (06/21/19 12:30) Ct Head/Cervical Spine Wo (06/21/19 12:26) Medications Given in ED Current Medications Medications Dose Ordered Sig/Bridgette Route Start Time Stop Time Status Last Admin Dose Admin Diphtheria/ Tetanus/Acell Pertussis 0.5 ml ONCE ONCE IM 06/21/19 12:30 06/21/19 12:31 DC 06/21/19 12:53 0.5 ML Lidocaine HCl 20 ml ONCE ONCE INJ 06/21/19 12:30 06/21/19 12:31 DC 06/21/19 12:53 20 ML Vital Signs/I&O 06/21/19 06/21/19 06/21/19 11:15 12:24 12:24 Temp 98.0 98.2 98.2 Pulse 63 63 63 Resp 20 22 22 B/P (MAP) 126/55 (78) 134/64 (87) 134/64 (87) Pulse Ox 97 98 98 O2 Delivery Nasal Cannula Nasal Cannula Nasal Cannula O2 Flow Rate 4.00 4.00 Capillary Refill : Less Than 3 Seconds Blood Pressure Mean: 87 Progress Note : Progress Note Patient's imaging showed no acute findings and her repeat neurologic exam is normal and she continues to feel well. She'll be discharged in stable condition told to follow primary care provider within 2-3 days for recheck and come back to the ED sooner with worsening pain neurologic changes other general concerns. Patient aware and agreeable with plan for discharge and verbalized understanding of the above instructions. Departure Impression Primary Impression: Facial laceration Qualified Codes: S01.81XA - Laceration without foreign body of other part of head, initial encounter Additional Impression: CHI (closed head injury) Disposition: 01 HOME, SELF-CARE Condition: Stable Departure-Patient Inst. Referrals: CHRISTIANA BLACK MD (PCP/Family) Primary Care Physician Patient Instructions: Laceration Repair With Stitches (DC) ASHLEY COTO DO Jun 21, 2019 13:35
--- NOTE | 2019-06-21 14:08 | Diagnostic Imaging Report ---
PROCEDURE: CT head and CT cervical spine without contrast. TECHNIQUE: Multiple contiguous axial images were obtained through the brain and cervical spine without the use of intravenous contrast. Sagittal and coronal reformations through the cervical spine were then performed. Auto Exposure Controls were utilized during the CT exam to meet ALARA standards for radiation dose reduction. INDICATION: Fall with laceration on right forehead. COMPARISON: No prior studies available for comparison. 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 No sulcal effacement or midline shift is identified. No acute intra-axial or extra-axial hemorrhage is detected. Cisterns are patent. No depressed calvarial fracture is detected. IMPRESSION: Chronic changes. No acute intracranial process is detected. CT cervical spine: There is mild reversal of normal cervical lordotic curvature. Minimal anterolisthesis of C3 on C4 is seen. There is retrolisthesis of C5 on C6. Marked cystic degenerative changes throughout the cervical spine is noted. There is significant disc space narrowing at C3-C4, C4-C5, C5-C6 and C6-C7 levels. No fractures are identified. Prevertebral tissues are normal. Odontoid is intact. IMPRESSION: Severe degenerative changes. No acute bony abnormality is detected. Dictated by: Dictated on workstation # [id number]
[2019-06-21 14:32] VITALS: BP 154/61
== END 2019-06-21 14:32 | disposition home or self-care (01) ==
LOC: EDUNIT# 11:07 → ER FS 11:08
DX: S09.90XA Unspecified injury of head, initial encounter (principal); S01.81XA Laceration without foreign body of other part of head, initial encounter; S01.111A Laceration without foreign body of right eyelid and periocular area, initial encounter; J44.9 Chronic obstructive pulmonary disease, unspecified; I10 Essential (primary) hypertension; E78.00 Pure hypercholesterolemia, unspecified; E11.9 Type 2 diabetes mellitus without complications; Z88.0 Allergy status to penicillin; Z88.1 Allergy status to other antibiotic agents; Z79.84 Long term (current) use of oral hypoglycemic drugs
CPT/HCPCS: 70450; 72125; 82962; 90715

== ENCOUNTER 2019-08-04 12:27 | Outpatient (RCR) | payer MEDICARE ==
[2019-06-23 12:40] VITALS: BP 172/73
[2019-06-23 13:06] LABS: HEMOGLOBIN 11.2 G/DL (11.5-16.0)
[2019-07-07 13:09] LABS: HEMOGLOBIN 8.7 G/DL (11.5-16.0)
[2019-07-07 13:40] VITALS: BP 159/72
[2019-07-14] MEDS: DARBEPOETIN 40 MCG/ML (ARANESP) HOSPITAL SC SCH (13:17)
[2019-07-14 13:20] VITALS: BP 160/81
[2019-07-21 13:02] LABS: HEMOGLOBIN 8.8 G/DL (11.5-16.0)
[2019-07-21 13:13] VITALS: BP 119/57
[2019-07-21] MEDS: DARBEPOETIN 40 MCG/ML (ARANESP) HOSPITAL SC SCH (13:23)
[2019-07-28 12:47] LABS: HEMOGLOBIN 9.9 G/DL (11.5-16.0)
[2019-07-28 13:30] VITALS: BP 150/70
[2019-07-28] MEDS: DARBEPOETIN 40 MCG/ML (ARANESP) HOSPITAL SC SCH (13:43)
[~2019-08-04] VITALS: Ht 149.9 cm; Wt 53.1 kg
[2019-08-04 12:26] VITALS: BP 190/85
[~2019-08-04 12:27] MED LIST changes: +DARBEPOETIN 40 MCG/ML (ARANESP) HOSPITAL SC ONE
[2019-08-04] MEDS ORDERED: cloNIDine 0.1 MG (CATAPRES) TAB PO ONE (14:30)
[2019-08-06] MEDS ORDERED: HYDR-3924 PO (17:41)
== END 2019-09-21 | disposition home or self-care (01) ==
LOC: SDC 12:27
PROVIDERS: ATTEND Internal Medicine Nephrology
DX: N18.4 Chronic kidney disease, stage 4 (severe) (principal); D63.1 Anemia in chronic kidney disease; D50.9 Iron deficiency anemia, unspecified
CPT/HCPCS: 36415; 85014; 85018; 96372

== ENCOUNTER 2019-08-06 16:56 | Emergency (ER) | payer MEDICARE ==
[~2019-08-06] VITALS: Ht 148.8 cm; Wt 53.6 kg
[~2019-08-06 16:56] MED LIST changes: -DARBEPOETIN 40 MCG/ML (ARANESP) HOSPITAL SC ONE
[2019-08-06] MEDS ORDERED: hydrALAZINE (APRESOLINE) 25 MG TAB PO ONE (17:30)
--- NOTE | 2019-08-06 17:36 | ED Cardiac General ---
History of Present Illness General Chief Complaint: Cardiac/General Problems Stated Complaint: HIGH BP Nursing Triage Note: Patient reports her blood pressure has been higher than normal since Friday, states she has been taking prn clonidine, but still has had high blood pressures. She denies any symptoms on arrival to ED, states she has had an intermittent headache for several days. She has not contacted her PCP about her higher than normal blood pressures. History of Present Illness Date Seen by Provider: Aug 06, 2019 Time Seen by Provider: 17:10 Initial Comments The patient is an 88-year-old female with a history of hypertension on hydralazine, amlodipine, Lasix and metoprolol, heart failure, chronic respirato ry failure on 4L per NC at all times, chronic renal insufficiency, non-insulin dependent diabetes. The patient presents with concern for asymptomatic elevated blood pressures over the last few days. Contrary to triage note, no consistent severe headache different than usual and no headache now. The patient is alert and oriented 4 and is pleasantly and appropriately interactive and in absolutely no distress upon initial assessment in the emergency department. She specifically denies nausea or vomiting, focal weakness, numbness, tingling, neck stiffness/pain, vision changes, shortness of breath, chest pain of any kind, flank pain, back pain, dysuria or oliguria, changes in bowel habits. Allergies and Home Medications Allergies Coded Allergies: Penicillins (Unverified Adverse Reaction, Unknown, 04/29/19) cephalexin (Unverified Adverse Reaction, Unknown, 04/29/19) Home Medications Famotidine 20 Mg Tablet, 20 MG PO BID Prescribed by: HARVEY VILLARREAL on 05/03/19 1210 Glipizide 10 Mg Tablet, 10 MG PO BID, (Reported) Hydralazine HCl 25 Mg Tablet, 25 MG PO TID, (Reported) Hydralazine HCl 50 Mg Tablet, 50 MG PO TID Prescribed by: TAMRA ELLINGTON on 08/06/19 1741 Metoprolol Succinate 100 Mg Tab.er.24h, 100 MG PO HS, (Reported) Omeprazole 20 Mg Capsule.dr, 20 MG PO DAILY PRN for HEARTBURN, (Reported) Spironolactone 25 Mg Tablet, 12.5 MG PO DAILY, (Reported) TAKES 1/2 TABLET (25MG) Patient Home Medication List Home Medication List Reviewed: Yes Review of Systems Review of Systems Constitutional: see HPI All Other Systems Reviewed Negative Unless Noted: Yes (Negative excepted noted.) Past Avynqmw-Hdbzjr-Tqfwru Hx Past Med/Social Hx: Reviewed Nursing Past Med/Soc Hx Patient Social History Alcohol Use: Denies Use Recreational Drug Use: No Smoking Status: Never a Smoker 2nd Hand Smoke Exposure: No Recent Foreign Travel: No Contact w/Someone Who Travel: No Recent Infectious Disease Expo: No Recent Hopitalizations: No Physical Abuse: No Sexual Abuse: No Mistreated: No Fear: No Immunizations Up To Date Tetanus Booster (TDap): Unknown Date of Pneumonia Vaccine: Aug 30, 2018 Seasonal Allergies Seasonal Allergies: No Past Medical History Surgeries: Yes Respiratory: Yes COPD Cardiac: Yes High Cholesterol, Hypertension Neurological: No Genitourinary: No Gastrointestinal: No Musculoskeletal: No Endocrine: Yes Diabetes, Non-Insulin dep HEENT: No Cancer: No Psychosocial: No Integumentary: No Family Medical History Reviewed Nursing Family Hx Physical Exam Vital Signs Vital Signs - First Documented 08/06/19 17:00 Temp 36.6 Pulse 56 Resp 18 B/P (MAP) 226/85 (132) Pulse Ox 97 O2 Delivery Room Air Capillary Refill : Less Than 3 Seconds Height, Weight, BMI Height: 4'11.00" Weight: 119lbs. 0.0oz. 53.531160qn; 24.00 BMI Method:Stated General Appearance: No Apparent Distress Other comments This is an elderly female appearing nontoxic and in no acute distress. Head is normocephalic and atraumatic. Neck is supple and nontender. Oropharynx is moist. Lungs are clear to auscultation in all stations. There is a normal S1 and S2 without rubs or gallops and capillary refill is appropriate, less than 2 seconds globally. Abdomen is soft, nontender and nondistended. Skin is warm and dry without cyanosis, clubbing or edema. Psychiatrically, the patient demonstrates appropriate mood and affect and is alert. From a neurologic standpoint, patient moves all extremities equally, there are no lateralizing deficits noted and she is alert and oriented 4. Procedures/Interventions Suture Size: 5-0 Progress/Results/Core Measures Results/Orders My Orders Orders - TAMRA ELLINGTON MD Hydralazine Tablet (Apresoline Tablet) (08/06/19 17:30) Clonidine Tablet (Catapres Tablet) (08/06/19 17:45) Vital Signs/I&O 08/06/19 17:00 Temp 36.6 Pulse 56 Resp 18 B/P (MAP) 226/85 (132) Pulse Ox 97 O2 Delivery Room Air Blood Pressure Mean: 132 Progress Progress Note : Time: 17:37 Progress Note Elderly patient who presents with asymptomatic elevated blood pressure without signs or symptoms of acute end organ damage. She is in no distress and reports no symptoms at the present time and this is evidently a recurrent issue for her. I discussed with the patient and her family that asymptomatic elevated systolic blood pressure, particularly without co-occuring markedly elevated diastolic BP, is typically not a medical emergency and that it is typically safe to follow this up closely with primary care. Case is discussed with Dr. Hinton, construction assistant for Dr. Black, who agrees with a trial of 3 times a day 50 mg hydralazine, up from 25 mg twice a day hydralazine, with a plan to follow up very closely in the [facility] primary care clinic on Friday which is being arranged for the patient by our nursing staff. As we do not have oral hydralazine here at this time we will give a dose of clonidine prior to discharge. Patient is counseled that if she develops worsening symptoms or other new symptoms of concern that she should return immediately to the emergency department for reevaluation, but that otherwise she should plan to follow up on Friday in the primary clinic as scheduled to discuss next steps in treatment of her elevated blood pressure. Patient and family understand and agree and all questions are answered. We will proceed with discharge home at this time. Departure Impression Primary Impression: Asymptomatic hypertensive urgency Disposition: 01 HOME, SELF-CARE Condition: Improved Departure-Patient Inst. Referrals: CHRISTIANA BLACK MD (PCP/Family) Primary Care Physician Patient Instructions: High Blood Pressure in Adults Scripts Hydralazine HCl (Hydralazine HCl) 50 Mg Tablet 50 MG PO TID for 7 Days, #21 TAB Prov: TAMRA ELLINGTON MD 08/06/19 TAMRA ELLINGTON MD Aug 06, 2019 17:36
[2019-08-06] MEDS ORDERED: HYDR-3924 PO (17:41)
[2019-08-06] MEDS ORDERED: cloNIDine 0.2 MG (CATAPRES) TAB PO ONE (17:45)
[2019-08-06] MEDS ORDERED: cloNIDine 0.1 MG (CATAPRES) TAB ONE (17:52)
--- NOTE | 2019-08-06 18:41 | Diagnostic Imaging Report ---
INDICATION: Hypertension. COMPARISON STUDY: Chest from April 29, 2019. FINDINGS: Frontal view of the chest demonstrates mild cardiomegaly with normal vascularity. A spinal cord stimulator is in place. Degenerative changes are present in both shoulders. The lungs are clear. The vascularity is normal. IMPRESSION: There is cardiomegaly with no acute findings. Dictated by: Dictated on workstation # [id number]
[2019-08-06 18:47] LABS: WHITE BLOOD COUNT 7.1 10^3/uL (4.3-11.0)
[2019-08-06 18:48] LABS: MEAN PLATELET VOLUME 9.9 FL (7.4-10.4); RED CELL DISTRIBUTION WIDTH 13.2 % (10.0-14.5)
[2019-08-06 19:12] LABS: SODIUM 128 MMOL/L (135-145)
[2019-08-06 19:13] LABS: ALANINE AMINOTRANSFERASE 11 U/L (0-55); ALKALINE PHOSPHATASE 76 U/L (40-136); BILIRUBIN,TOTAL < 0.2 MG/DL (0.1-1.0); BUN/CREATININE RATIO 13; CALCIUM 8.6 MG/DL (8.5-10.1); CARBON DIOXIDE 26 MMOL/L (21-32); CHLORIDE 94 MMOL/L (98-107); GFR ESTIMATED 14; GLUCOSE 234 MG/DL (70-105); POTASSIUM 4.2 MMOL/L (3.6-5.0); TOTAL PROTEIN 5.9 GM/DL (6.4-8.2)
[2019-08-06] MEDS ORDERED: hydrALAZINE (APESOLINE) 20 MG/ML VIAL IV ONE (20:00)
--- NOTE | 2019-08-06 20:27 | Diagnostic Imaging Report ---
PROCEDURE: CT head without contrast. TECHNIQUE: Multiple contiguous axial images were obtained through the brain without the use of intravenous contrast. Auto Exposure Controls were utilized during the CT exam to meet ALARA standards for radiation dose reduction. INDICATION: Trauma, fall. COMPARISON: CT head of 06/21/2019. FINDINGS: There is an acute thin subdural hematoma along the right parietal and temporal region. This has a maximal thickness of 7 mm. There is no associated effacement of adjacent cortical sulci. No midline shift. No hydrocephalus. Encephalomalacia in the right temporal region is unchanged. No acute skull fracture. Paranasal sinuses and mastoid air cells are clear. IMPRESSION: Acute right subdural hematoma has maximal thickness of 7 mm and there is no right to left midline shift. CRITICAL FINDING was called to Dr. Neto Magdaleno in the Emergency Department at 8:24 PM on 08/06/2019. Dictated by: Dictated on workstation # [id number]
[2019-08-06] MEDS ORDERED: ONDANSETRON 4 MG/2 ML (SDV) Z0FRAN IVP ONE (20:30)
[2019-08-06] MEDS ORDERED: fentaNYL INJECTION 100 MCG/2 ML AMP IVP ONE (20:30)
[2019-08-06 20:38] LABS: PROTHROMBIN TIME PATIENT 13.3 SEC (12.2-14.7)
[2019-08-06 21:32] VITALS: BP 128/64
== END 2019-08-06 21:32 | disposition short-term general hospital (02) ==
LOC: EDUNIT# 16:56 → ER FS 16:58
DX: I16.0 Hypertensive urgency (principal); I13.0 Hypertensive heart and chronic kidney disease with heart failure and stage 1 through stage 4 chronic kidney disease, or unspecified chronic kidney disease; E11.22 Type 2 diabetes mellitus with diabetic chronic kidney disease; I50.9 Heart failure, unspecified; N18.9 Chronic kidney disease, unspecified; J44.9 Chronic obstructive pulmonary disease, unspecified; E78.00 Pure hypercholesterolemia, unspecified; Z87.09 Personal history of other diseases of the respiratory system; Z99.81 Dependence on supplemental oxygen; Z88.0 Allergy status to penicillin; Z88.1 Allergy status to other antibiotic agents; Z79.84 Long term (current) use of oral hypoglycemic drugs
CPT/HCPCS: 36415; 70450; 71045; 80053; 84484; 85027; 85610; 85730; 93005; 96374; 96375

== ENCOUNTER 2019-12-30 13:54 | Emergency (ER) | payer MEDICARE ==
[~2019-12-30] VITALS: Ht 149.8 cm; Wt 48.6 kg
[~2019-12-30 13:54] MED LIST changes: +HYDR-3924 PO; -METO-395 PO; +MTP100TCR PO; -OMEP20CA13 PO; +OMEP20CA18 PO
[2019-12-30 15:43] LABS: HEMATOCRIT 33 % (35-52); HEMOGLOBIN 11.6 G/DL (11.5-16.0); MEAN CORPUSCULAR HEMOGLOBIN 33 PG (25-34); MEAN CORPUSCULAR HGB CONC 35 G/DL (32-36); MEAN CORPUSCULAR VOLUME 94 FL (80-99); RED CELL DISTRIBUTION WIDTH 11.8 % (10.0-14.5); WHITE BLOOD COUNT 12.7 10^3/uL (4.3-11.0)
[2019-12-30 15:44] LABS: BASOPHILS % (AUTO) 0 % (0-10); EOSINOPHILS # (AUTO) 0.2 10^3/uL (0.0-0.3); EOSINOPHILS % (AUTO) 2 % (0-10); LYMPHOCYTES # (AUTO) 1.5 X 10^3 (1.0-4.0); LYMPHOCYTES % (AUTO) 12 % (12-44); MEAN PLATELET VOLUME 9.9 FL (7.4-10.4); MONOCYTES # (AUTO) 1.1 X 10^3 (0.0-1.0); MONOCYTES % (AUTO) 9 % (0-12); NEUTROPHILS # (AUTO) 9.8 X 10^3 (1.8-7.8); NEUTROPHILS % (AUTO) 77 % (42-75); PLATELET COUNT 305 10^3/uL (130-400)
--- NOTE | 2019-12-30 15:45 | Diagnostic Imaging Report ---
INDICATION: Shortness of breath. EXAMINATION: PA and lateral chest. FINDINGS: The patient has dorsal column stimulator with leads projecting over the lower thoracic spine. Heart size and pulmonary vascularity are normal. There is a patchy infiltrate at the right lateral lung base. There are no effusions or pneumothoraces. IMPRESSION: Small patchy infiltrate in the right lateral lung base. Dictated by: Dictated on workstation # [id number]
[2019-12-30 15:53] LABS: INR 0.9 (0.8-1.4)
[2019-12-30 16:10] LABS: BUN/CREATININE RATIO 20; CARBON DIOXIDE 20 MMOL/L (21-32); CHLORIDE 96 MMOL/L (98-107); CREATININE SERUM 3.17 MG/DL (0.60-1.30); GFR ESTIMATED 14; POTASSIUM 4.8 MMOL/L (3.6-5.0); SODIUM 129 MMOL/L (135-145)
[2019-12-30 16:11] LABS: ALANINE AMINOTRANSFERASE 27 U/L (0-55); ALBUMIN 4.1 GM/DL (3.2-4.5); ALKALINE PHOSPHATASE 79 U/L (40-136); BILIRUBIN,TOTAL 0.2 MG/DL (0.1-1.0); GLUCOSE 232 MG/DL (70-105); TOTAL PROTEIN 6.3 GM/DL (6.4-8.2)
--- NOTE | 2019-12-30 16:29 | ED Respiratory ---
General Chief Complaint: Respiratory Problems Stated Complaint: SOB Nursing Triage Note: Patient presents to the ED with c/o of shortness of breath. Patient states that her shortness of breath started a couple weeks ago; she was seen by her PCP last and treated for pneuomia. She reports finishing her antibiotic yesterday but is still short of breath with exersion. History of Present Illness Date Seen by Provider: Dec 30, 2019 Time Seen by Provider: 14:10 Initial Comments The patient is an 89-year-old female with a history of hypertension on hydralazine, amlodipine, Lasix and metoprolol, heart failure, chronic respiratory failure on 4L per NC at all times, chronic renal insufficiency with unclear baseline Cr, non-insulin dependent diabetes, history of small subdural hemorrhage about 5 months ago secondary to a ground-level fall. The patient presents with concern for acute onset of dyspnea with minimal exertion in association with a nonproductive cough, all with onset about 2 weeks ago. Patient saw her primary care physician about one week ago and was placed on azithromycin as empiric coverage for community acquired pneumonia. The patient states that while she does not feel any worse than she did last week, she does not feel any better either and continues to have dyspnea with minimal exertion which is not typical for her. She states she can barely walk a few feet with her walker without getting winded. She denies associated fevers, vomiting, upper respiratory congestion/rhinorrhea, shortness of breath at rest, chest pain of any kind, flank pain, back pain, abdominal pain, dysuria or hematuria, changes in bowel habits. Patient is alert and oriented and pleasantly and appropriately interactive and in absolutely no acute distress with appropriate vital signs including oxygenation on her typical several liters of nasal cannula oxygen on initial evaluation here in the emergency department. Allergies and Home Medications Allergies Coded Allergies: Penicillins (Unverified Adverse Reaction, Unknown, 04/29/19) cephalexin (Unverified Adverse Reaction, Unknown, 04/29/19) Home Medications Famotidine 20 Mg Tablet, 20 MG PO BID Prescribed by: HARVEY VILLARREAL on 05/03/19 1210 Glipizide 10 Mg Tablet, 10 MG PO BID, (Reported) Hydralazine HCl 25 Mg Tablet, 25 MG PO TID, (Reported) Hydralazine HCl 50 Mg Tablet, 50 MG PO TID Prescribed by: TAMRA ELLINGTON on 08/06/19 1741 Metoprolol Succinate 100 Mg Tab.er.24h, 100 MG PO HS, (Reported) Omeprazole 20 Mg Capsule.dr, 20 MG PO DAILY PRN for HEARTBURN, (Reported) Spironolactone 25 Mg Tablet, 12.5 MG PO DAILY, (Reported) TAKES 1/2 TABLET (25MG) Patient Home Medication List Home Medication List Reviewed: Yes Review of Systems Review of Systems Constitutional: see HPI All Other Systems Reviewed Negative Unless Noted: Yes (Negative excepted noted.) Past Xthjxan-Oegbet-Uyzdrc Hx Past Med/Social Hx: Reviewed Nursing Past Med/Soc Hx Patient Social History Alcohol Use: Denies Use Recreational Drug Use: No 2nd Hand Smoke Exposure: No Recent Foreign Travel: No Contact w/Someone Who Travel: No Recent Infectious Disease Expo: No Recent Hopitalizations: No Physical Abuse: No Sexual Abuse: No Mistreated: No Fear: No Immunizations Up To Date Tetanus Booster (TDap): Unknown Date of Pneumonia Vaccine: Aug 30, 2018 Seasonal Allergies Seasonal Allergies: No Past Medical History Surgeries: Yes Respiratory: Yes COPD Cardiac: Yes High Cholesterol, Hypertension Neurological: No Genitourinary: No Gastrointestinal: No Musculoskeletal: No Endocrine: Yes Diabetes, Non-Insulin dep HEENT: No Cancer: No Psychosocial: No Integumentary: No Blood Disorders: No Family Medical History Reviewed Nursing Family Hx Physical Exam Vital Signs - First Documented 12/30/19 14:25 Temp 37.2 Pulse 73 Resp 18 B/P (MAP) 167/71 (103) Pulse Ox 100 O2 Delivery Room Air O2 Flow Rate 3.00 Capillary Refill : Less Than 3 Seconds Height: 4'11.00" Weight: 119lbs. 0.0oz. 53.717636pb; 21.00 BMI Method:Stated General Appearance: no apparent distress This is a very elderly female appearing nontoxic and in no acute distress. Head is normocephalic and atraumatic. Neck is supple and nontender. Oropharynx is moist. Lungs are clear to auscultation at all stations. There is some diminished air movement at the bilateral bases without any adventitious sounds noted. Abdomen is soft, nontender and nondistended. Skin is warm and dry without cyanosis, clubbing or edema. Psychiatrically, the patient demonstrates appropriate mood and affect and is alert. Focused Exam Lactate Level 12/30/19 16:40: Lactic Acid Level Laboratory Tests Test 12/30/19 16:40 Procedures/Interventions Suture Size: 5-0 Progress/Results/Core Measures Suspected Sepsis Recent Fever Within 48 Hours: No Infection Criteria Present: Documented Infection New/Unexplained Altered Menta: No Sepsis Screen: No Definite Risk SIRS Temperature: Pulse: 73 Respiratory Rate: 18 Laboratory Tests 12/30/19 15:25: White Blood Count 12.7H Blood Pressure 167 /71 Mean: 103 12/30/19 16:40: Laboratory Tests 12/30/19 15:25: Creatinine 3.17H, INR Comment 0.9, Platelet Count 305, Total Bilirubin 0.2 Results/Orders Lab Results Laboratory Tests Test 12/30/19 15:25 12/30/19 16:40 Range/Units White Blood Count 12.7 H 4.3-11.0 10^3/uL Red Blood Count 3.53 L 4.35-5.85 10^6/uL Hemoglobin 11.6 11.5-16.0 G/DL Hematocrit 33 L 35-52 % Mean Corpuscular Volume 94 80-99 FL Mean Corpuscular Hemoglobin 33 25-34 PG Mean Corpuscular Hemoglobin Concent 35 32-36 G/DL Red Cell Distribution Width 11.8 10.0-14.5 % Platelet Count 305 130-400 10^3/uL Mean Platelet Volume 9.9 7.4-10.4 FL Neutrophils (%) (Auto) 77 H 42-75 % Lymphocytes (%) (Auto) 12 12-44 % Monocytes (%) (Auto) 9 0-12 % Eosinophils (%) (Auto) 2 0-10 % Basophils (%) (Auto) 0 0-10 % Neutrophils # (Auto) 9.8 H 1.8-7.8 X 10^3 Lymphocytes # (Auto) 1.5 1.0-4.0 X 10^3 Monocytes # (Auto) 1.1 H 0.0-1.0 X 10^3 Eosinophils # (Auto) 0.2 0.0-0.3 10^3/uL Basophils # (Auto) 0.0 0.0-0.1 10^3/uL Prothrombin Time 13.0 12.2-14.7 SEC INR Comment 0.9 0.8-1.4 Activated Partial Thromboplast Time 26 24-35 SEC Sodium Level 129 L 135-145 MMOL/L Potassium Level 4.8 3.6-5.0 MMOL/L Chloride Level 96 L 98-107 MMOL/L Carbon Dioxide Level 20 L 21-32 MMOL/L Anion Gap 13 5-14 MMOL/L Blood Urea Nitrogen 62 H 7-18 MG/DL Creatinine 3.17 H 0.60-1.30 MG/DL Estimat Glomerular Filtration Rate 14 BUN/Creatinine Ratio 20 Glucose Level 232 H 70-105 MG/DL Calcium Level 9.0 8.5-10.1 MG/DL Corrected Calcium 8.9 8.5-10.1 MG/DL Total Bilirubin 0.2 0.1-1.0 MG/DL Aspartate Amino Transf (AST/SGOT) 24 5-34 U/L Alanine Aminotransferase (ALT/SGPT) 27 0-55 U/L Alkaline Phosphatase 79 40-136 U/L Troponin I < 0.30 <0.30 NG/ML Pro-B-Type Natriuretic Peptide 2992.0 H <75.0 PG/ML Total Protein 6.3 L 6.4-8.2 GM/DL Albumin 4.1 3.2-4.5 GM/DL My Orders Orders - TAMRA ELLINGTON MD Cbc With Automated Diff (12/30/19 15:20) Comprehensive Metabolic Panel (12/30/19 15:20) Troponin I Fs (12/30/19 15:20) Ekg Tracing (12/30/19 15:20) Chest Pa/Lat (2 View) (12/30/19 15:20) Probnp Fs (12/30/19 15:20) Protime With Inr (12/30/19 15:20) Partial Thromboplastin Time (12/30/19 15:20) Lactic Acid Analyzer (12/30/19 16:18) Blood Culture (12/30/19 16:18) Levofloxacin 750 Mg/150 Ml Iv (Levaquin (12/30/19 16:30) Sputum Culture (12/30/19 16:18) Influenza A And B Antigens (12/30/19 16:18) Blood Culture (12/30/19 16:45) Medications Given in ED Current Medications Medications Dose Ordered Sig/Bridgette Route Start Time Stop Time Status Last Admin Dose Admin Levofloxacin/ Dextrose 150 ml @ 100 mls/hr ONCE ONCE IV 12/30/19 16:30 12/30/19 17:59 12/30/19 16:48 100 MLS/HR Vital Signs/I&O 12/30/19 14:25 Temp 37.2 Pulse 73 Resp 18 B/P (MAP) 167/71 (103) Pulse Ox 100 O2 Delivery Room Air O2 Flow Rate 3.00 Capillary Refill : Less Than 3 Seconds Blood Pressure Mean: 103 Progress Note : Time: 16:25 Progress Note Very elderly and comorbid female who presents with rather significant exertional dyspnea over the last 2 weeks in the setting of a nonproductive cough. Took an entire course of azithromycin, completing it yesterday, without any improvement in symptoms. Vital signs and clinical examination generally reassuring aside from hypertension here in the emergency department. We will check labs and EKG and chest x-ray and will then reevaluate. Low threshold for admission given age and comorbidities. Update 1600: Patient is resting comfortably in no acute distress upon reassessment. Chest x-ray with a right basilar infiltrate suspicious for a community-acquired pneumonia, and laboratory evaluation demonstrates a leukocytosis as well as likely chronic renal insufficiency with creatinine similar to prior values here. BNP also quite elevated without pulmonary congestion noted on chest x-ray or significant peripheral edema. Given age and comorbidities as well as treatment failure with azithromycin, will plan for admission for further care. We will draw cultures and then initiate IV antibiotics as patient is allergic to penicillins and cephalosporins, we will give a dose of levofloxacin. Patient and her family request transfer to [facility] for admission and state that they prefer not to be transferred to [place]. We will proceed with transfer. Update 1635: Patient is graciously accepted in transfer to [facility] for med/telemetry admission by Dr. Majano. ECG EKG : Comment Sinus rhythm, no acute ST elevation or depression, rate 64, TX 191, QRS 95, QTC 444, EP interpretation. Diagnostic Imaging Comments CHEST PA/LAT (2 VIEW) INDICATION: Shortness of breath. EXAMINATION: PA and lateral chest. FINDINGS: The patient has dorsal column stimulator with leads projecting over the lower thoracic spine. Heart size and pulmonary vascularity are normal. There is a patchy infiltrate at the right lateral lung base. There are no effusions or pneumothoraces. IMPRESSION: Small patchy infiltrate in the right lateral lung base. Dictated by: Dictated on workstation # [id number] Departure Impression Primary Impression: Community acquired bacterial pneumonia Additional Impressions: Chronic hypoxemic respiratory failure Exertional dyspnea Chronic renal insufficiency Qualified Codes: N18.9 - Chronic kidney disease, unspecified Disposition: 02 XFER SHT-TRM HOSP Condition: Stable Transfer Transfer Reason: Patient preference Time Spoke to Accepting Phy: 16:40 Transfer Progress Notes Patient family state that they prefer that she be transferred to [facility] for her admission. I counseled the patient and family that we do have the necessary services at [place] however they continue to request [place]. Patient therefore graciously accepted in transfer to [facility] for med/telemetry admission by Dr. Majano. Transfer Time: 16:56 Transfer Facility: [facility] Method of Transfer: EMS Departure-Patient Inst. Referrals: CHRISTIANA BLACK MD (PCP/Family) Primary Care Physician TAMRA ELLINGTON MD Dec 30, 2019 16:28
[2019-12-30] MEDS ORDERED: LEVOFLOXACIN 750 MG/150 ML IV 150 ML IV ONE (16:30)
[2019-12-30 18:24] VITALS: BP 132/80
== END 2019-12-30 18:24 | disposition short-term general hospital (02) ==
LOC: EDUNIT# 13:54 → ER FS 13:55
DX: J96.11 Chronic respiratory failure with hypoxia (principal); J15.9 Unspecified bacterial pneumonia; E11.22 Type 2 diabetes mellitus with diabetic chronic kidney disease; I13.0 Hypertensive heart and chronic kidney disease with heart failure and stage 1 through stage 4 chronic kidney disease, or unspecified chronic kidney disease; N18.9 Chronic kidney disease, unspecified; Z99.81 Dependence on supplemental oxygen; Z88.0 Allergy status to penicillin; Z88.1 Allergy status to other antibiotic agents
CPT/HCPCS: 36415; 71046; 80053; 83605; 83880; 84484; 85025; 85610; 85730; 87040; 87804; 93005; 96365; 96366

== ENCOUNTER → 2020-02-09 | Outpatient (RCR) | payer MEDICARE ==
[2019-11-11 12:07] VITALS: BP 154/74
[2019-11-11] MEDS: DARBEPOETIN 40 MCG/ML (ARANESP) HOSPITAL SC SCH (13:43)
[2019-11-24 13:00] VITALS: BP 159/79
[2019-11-24] MEDS: DARBEPOETIN 40 MCG/ML (ARANESP) HOSPITAL SC SCH (13:21)
[2019-12-08 12:40] VITALS: BP 170/84
[2019-12-08 13:06] LABS: HEMOGLOBIN 11.4 G/DL (11.5-16.0)
[2019-12-08] MEDS: DARBEPOETIN 40 MCG/ML (ARANESP) HOSPITAL SC SCH (13:10)
[2019-12-22 13:33] LABS: HEMOGLOBIN 11.2 G/DL (11.5-16.0)
[2019-12-22 15:00] VITALS: BP 123/70
[2020-01-12 12:41] VITALS: BP 116/74
[2020-01-12 13:27] LABS: HEMOGLOBIN 9.6 G/DL (11.5-16.0)
[2020-01-12 13:48] LABS: ALBUMIN 3.8 GM/DL (3.2-4.5); CREATININE SERUM 3.64 MG/DL (0.60-1.30); PHOSPHORUS 3.9 MG/DL (2.3-4.7); POTASSIUM 4.6 MMOL/L (3.6-5.0)
--- NOTE | 2020-01-12 14:00 | NUR ---
THIS RN PHONED JOSEFINA PHARMACIST TO INQUIRE ABOUT DOSAGE OF 60MCG. INFORMED THAT PATIENT HAD BEEN HOSPITALIZED AT [facility] AND HAD NOT BEEN HERE SINCE 12/08/2019. JOSEFINA INFORMED WOULD CALL [facility] AND GET BACK WITH THIS RN. WILL WAIT FOR NEW ORDERS. JOSEFINA PHONED BACK THIS RN AND INFORMED TO CHANGE DOSAGE TO 40MCG.
[2020-01-26 12:45] VITALS: BP 134/71
[2020-01-26 13:03] LABS: HEMOGLOBIN 10.5 G/DL (11.5-16.0)
[2020-01-26] MEDS: DARBEPOETIN 40 MCG/ML (ARANESP) HOSPITAL SC SCH (13:26)
[~2020-02-09] MED LIST changes: +DARBEPOETIN 60 MCG/ML (ARANESP) HOSPITAL SQ NR; +DARBEPOETIN 60 MCG/ML (ARANESP) HOSPITAL SQ SCH
[2020-02-09 13:22] LABS: HEMOGLOBIN 11.7 G/DL (11.5-16.0)
[2020-02-09 13:25] VITALS: BP 131/69
== END | disposition home or self-care (01) ==
LOC: SDC 11-11 12:02
PROVIDERS: ATTEND Internal Medicine Nephrology
DX: N18.4 Chronic kidney disease, stage 4 (severe) (principal); D63.1 Anemia in chronic kidney disease; D50.9 Iron deficiency anemia, unspecified
CPT/HCPCS: 36415; 80069; 82728; 83540; 85014; 85018; 96372

== ENCOUNTER 2020-02-23 11:58 | Emergency (ER) | payer MEDICARE ==
[~2020-02-23] VITALS: Ht 149.8 cm; Wt 49.5 kg
[~2020-02-23 11:58] MED LIST changes: -DARBEPOETIN 60 MCG/ML (ARANESP) HOSPITAL SQ NR; -DARBEPOETIN 60 MCG/ML (ARANESP) HOSPITAL SQ SCH
--- NOTE | 2020-02-23 12:12 | ED Fall/Injury ---
General Chief Complaint: Trauma-Non Activation Stated Complaint: FALL Source: patient Exam Limitations: no limitations History of Present Illness Date Seen by Provider: Feb 23, 2020 Time Seen by Provider: 12:09 Initial Comments To ER with reports of a fall at home, she bent forward to pick something up as an abrasion on the right side of her face near the eye. No loss of consciousness no neck pain. Complains of some mild right shoulder pain. No anticoagulant use, history of "brain bleed" according to daughter. Daughter Advises that if the patient needs admitted she would like her sent to [place]. Occurred: this evening Severity: moderate Injuries/Pain Location: head Loss of Consciousness: no loss of consciousness Associated Symptoms (Fall): Headache Allergies and Home Medications Allergies Coded Allergies: Penicillins (Unverified Adverse Reaction, Unknown, 04/29/19) cephalexin (Unverified Adverse Reaction, Unknown, 04/29/19) Home Medications Famotidine 20 Mg Tablet, 20 MG PO BID Prescribed by: HARVEY VILLARREAL on 05/03/19 1210 Glipizide 10 Mg Tablet, 10 MG PO BID, (Reported) Hydralazine HCl 25 Mg Tablet, 25 MG PO TID, (Reported) Hydralazine HCl 50 Mg Tablet, 50 MG PO TID Prescribed by: TAMRA ELLINGTON on 08/06/19 1741 Metoprolol Succinate 100 Mg Tab.er.24h, 100 MG PO HS, (Reported) Omeprazole 20 Mg Capsule.dr, 20 MG PO DAILY PRN for HEARTBURN, (Reported) Spironolactone 25 Mg Tablet, 12.5 MG PO DAILY, (Reported) TAKES 1/2 TABLET (25MG) Patient Home Medication List Home Medication List Reviewed: Yes Review of Systems Review of Systems Constitutional: see HPI Eyes: No Symptoms Reported Ears, Nose, Mouth, Throat: no symptoms reported Respiratory: no symptoms reported Cardiovascular: no symptoms reported Genitourinary: no symptoms reported Musculoskeletal: no symptoms reported Skin: no symptoms reported Psychiatric/Neurological: See HPI, Headache Past Tughpvc-Vptxbk-Ibprxl Hx Patient Social History 2nd Hand Smoke Exposure: No Recent Foreign Travel: No Contact w/Someone Who Travel: No Recent Hopitalizations: No Immunizations Up To Date Tetanus Booster (TDap): Unknown Date of Pneumonia Vaccine: Aug 30, 2018 Seasonal Allergies Seasonal Allergies: No Past Medical History Surgeries: Yes Respiratory: Yes COPD Cardiac: Yes High Cholesterol, Hypertension Neurological: No Genitourinary: No Gastrointestinal: No Musculoskeletal: No Endocrine: Yes Diabetes, Non-Insulin dep HEENT: No Cancer: No Psychosocial: No Integumentary: No Blood Disorders: No Physical Exam Vital Signs Vital Signs - First Documented 02/23/20 12:00 Temp 36.2 Pulse 61 Resp 16 B/P (MAP) 164/81 (108) Pulse Ox 96 O2 Delivery Room Air Capillary Refill : Height, Weight, BMI Height: 4'11.00" Weight: 119lbs. 0.0oz. 53.329482ur; 21.00 BMI Method:Stated General Appearance: WD/WN, no apparent distress HEENT: PERRL/EOMI, normal ENT inspection, other (minor superficial abrasion to the corner of the right eye. No evidence of globe injury.) Neck: non-tender, full range of motion Respiratory: no respiratory distress, no accessory muscle use Gastrointestinal: soft Extremities: other (normal range of motion no evidence of injury to the right arm she complains of pain to the right upper arm. Normal pulses neurovascularly intact at the fingertips.) Neurologic/Psychiatric: alert, normal mood/affect, oriented x 3 Arlin Coma Score Best Eye Response: (4) Open Spontaneously Best Verbal Response: (5) Oriented Best Motor Response: (6) Obeys Commands Arlin Total: 15 Procedures/Interventions Suture Size: 5-0 Progress/Results/Core Measures Results/Orders My Orders Orders - JOSEFINA ROMO APRN Humerus, Right, 2 Views (02/23/20 12:09) Ct Head/Cervical Spine Wo (02/23/20 12:09) Vital Signs/I&O 02/23/20 12:00 Temp 36.2 Pulse 61 Resp 16 B/P (MAP) 164/81 (108) Pulse Ox 96 O2 Delivery Room Air Diagnostic Imaging Diagonstic Imaging: CT Comments NAME: KEN DURHAM MED REC#: [id number] PT STATUS: REG ER : 1930 PHYSICIAN: JOSEFINA ROMO APRN ADMIT DATE: 02/23/20/ER Draft Date of Exam:02/23/20 CT HEAD/CERVICAL SPINE WO PROCEDURE: CT head and CT cervical spine without contrast. TECHNIQUE: Multiple contiguous axial images were obtained through the brain and cervical spine without the use of intravenous contrast. Sagittal and coronal reformations through the cervical spine were then performed. Auto Exposure Controls were utilized during the CT exam to meet ALARA standards for radiation dose reduction. INDICATION: Fall. Trauma to head. History of previous traumatic injury. COMPARISON: 08/06/2019 FINDINGS: CT head: Moderate sized area of encephalomalacia of the right temporal lobe extending into the right occipital lobe is noted consistent with prior infarct or traumatic injury. There are also scattered and confluent areas of decreased attenuation within the periventricular and subcortical deep white matter consistent with chronic small vessel ischemic changes. There is no new loss of mcdermott-white matter junction differentiation to suggest new acute territorial infarct. Ventricles and cortical sulci are diffusely prominent consistent with underlying age-related parenchymal volume loss. There is no mass effect or midline shift. There is no evidence of intra or extra-axial intracranial hemorrhage. Bony calvarium is intact. Paranasal sinuses are clear. There is partial opacification of the mastoid air cells on the left. CT cervical spine: Evaluation static alignment shows mild reversal of normal lordotic curvature. There is also slight grade 1 anterolisthesis at the C3-C4 and C7-T1 levels. There is also slight grade 1 retrolisthesis at C5-C6 and C6-C7. Findings are likely degenerative. There is no evidence of jumped facets. Vertebral body heights are maintained. There is no evidence of acute fracture. No bony fragments are seen within the spinal canal. There are advanced multilevel degenerative changes of the cervical spine consisting of diffuse severe disc space narrowing as well as a large anterior and posterior disc osteophyte complex formations and moderate multilevel facet arthropathy. This does result in multilevel osseous spinal canal and neuroforaminal stenosis. Pre and paravertebral soft tissue structures are unremarkable. Note is made of calcified carotid atherosclerosis. Included portions lung apices show no additional acute abnormalities. IMPRESSION: 1. No new acute intracranial abnormality. No CT evidence of acute infarct, mass, nor hemorrhage. 2. Area of old encephalomalacia of the right temporal occipital lobes as well as background chronic small vessel ischemic changes and age-related parenchymal volume loss. 3. No acute fracture or dislocation of the cervical spine. 4. Advanced multilevel degenerative changes of the cervical spine. Dictated on workstation # [id number] Dict: 02/23/20 1231 Trans: 02/23/20 1254 [facility] [id number] Interpreted by: ANUJA TRUONG MD Electronically signed by: Departure Communication (Admissions) Discussed with the daughter that we would get a scan of her head, she informs me that it should be a "CAT scan". Impression Primary Impression: Facial abrasion Qualified Codes: S00.81XA - Abrasion of other part of head, initial encounter Additional Impression: Fall at home Qualified Codes: W19.XXXA - Unspecified fall, initial encounter; Y92.009 - Unspecified place in unspecified non-institutional (private) residence as the place of occurrence of the external cause Disposition: 01 HOME, SELF-CARE Condition: Stable Departure-Patient Inst. Decision time for Depature: 12:59 Referrals: CHRISTIANA BLACK MD (PCP/Family) Primary Care Physician Patient Instructions: Preventing Falls Add. Discharge Instructions: 1. Return to ER for any intolerable headache, confusion, any other concerns. Follow-up with Dr. Black All discharge instructions reviewed with patient and/or family. Voiced understanding. Copy Copies To 1: CHRISTIANA BLACK MD, PETER J BINDING [employer] STITCHER Feb 23, 2020 12:12
--- OUTSIDE RECORDS SUMMARY | 2020-02-23 12:36 | XMS REPORT | Continuity of Care Document ---
Author Organization Unknown Address Unknown Phone Unavailable Allergies Active Description Code Type Severity Reaction Onset Reported/Identified Relationship to Patient Clinical Status Yes cephalexin [id number] Drug Allerg y Unknown N/A 04/29/2019 Yes Penicillins [id number] Drug Aller gy Unknown N/A 04/29/2019 Medications There is no data. 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 10/09/1327 GUNNAR RODRIGUEZ MD Ot E55.9 VITAMIN D DEFICIENCY, UNSPECIFIED 10/09/1327 KULDIP RODRIGUEZ MDINE Ot E87.2 ACIDOSIS 10/09/1327 GUNNAR RODRIGUEZ MD Ot I12.0 HYP CHR KIDNEY DISEASE W STAGE 5 CHR KID 10/09/1327 GUNNAR RODRIGUEZ MD Ot I73.9 PERIPHERAL VASCULAR DISEASE, UNSPECIFIED 10/09/1327 GUNNAR RODRIGUEZ MD Ot N18.5 CHRONIC KIDNEY DISEASE, STAGE 5 10/09/1327 GUNNAR RODRIGUEZ MD Ot N25.0 RENAL OSTEODYSTROPHY 10/09/1327 KULDIP RODRIGUEZ MDINE Ot 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 O 10/09/1327 KULDIP RODRIGUEZ MDINE Ot R68.89 OTHER GENERAL SYMPTOMS AND SIGNS 10/09/1327 GUNNAR RODRIGUEZ MD Ot R80.9 PROTEINURIA, UNSPECIFIED 10/09/1342 GUNNAR RODRIGUEZ MD Ot D50.9 IRON DEFICIENCY ANEMIA, UNSPECIFIED 10/09/1342 GUNNAR RODRIGUEZ MD Ot D63.1 ANEMIA IN CHRONIC KIDNEY DISEASE 10/09/1342 ABOUL-MAGD MD, GUNNAR Ot N18.4 CHRONIC KIDNEY DISEASE, STAGE 4 (SEVERE) 12/22/2018 JENNIFER GUO, GUNNAR Ot D63.1 ANEMIA IN CHRONIC KIDNEY DISEASE 12/22/2018 JENNIFER GUO, GUNNAR Ot N18.4 CHRONIC KIDNEY DISEASE, STAGE 4 (SEVERE) 12/22/2018 JENNIFER GUO, GUNNAR Ot D63.1 ANEMIA IN CHRONIC KIDNEY DISEASE 12/22/2018 JENNIFER GUO, GUNNAR Ot N18.4 CHRONIC KIDNEY DISEASE, STAGE 4 (SEVERE) 12/29/2018 JENNIFER GUO, GUNNAR Ot D63.1 ANEMIA IN CHRONIC KIDNEY DISEASE 12/29/2018 JENNIFER GUO, GUNNAR Ot N18.4 CHRONIC KIDNEY DISEASE, STAGE 4 (SEVERE) 12/29/2018 JENNIFER GUO, GUNNAR Ot D63.1 ANEMIA IN CHRONIC KIDNEY DISEASE 12/29/2018 JENNIFER GUO, GUNNAR Ot N18.4 CHRONIC KIDNEY DISEASE, STAGE 4 (SEVERE) 01/01/2019 KULDIP RODRIGUEZ MDINE Ot D63.1 ANEMIA IN CHRONIC KIDNEY DISEASE 01/01/2019 JENNIFER GUO, GUNNAR Ot N18.4 CHRONIC KIDNEY DISEASE, STAGE 4 (SEVERE) 01/06/2019 JENNIFER GUO, GUNNAR Ot D63.1 ANEMIA IN CHRONIC KIDNEY DISEASE 01/06/2019 JENNIFER GUO, GUNNAR Ot N18.4 CHRONIC KIDNEY DISEASE, STAGE 4 (SEVERE) 01/20/2019 JENNIFER GUO, GUNNAR Ot D63.1 ANEMIA IN CHRONIC KIDNEY DISEASE 01/20/2019 JENNIFER GUO, GUNNAR Ot N18.4 CHRONIC KIDNEY DISEASE, STAGE 4 (SEVERE) 01/28/2019 KWAKU RAM PHYSIATRIST Ot G47.33 OBSTRUCTIVE SLEEP APNEA (ADULT) (PEDIATR 01/29/2019 KWAKU RAM PHYSIATRIST Ot G47.33 OBSTRUCTIVE SLEEP APNEA (ADULT) (PEDIATR 02/01/2019 KWAKU RAM PHYSIATRIST Ot G47.33 OBSTRUCTIVE SLEEP APNEA (ADULT) (PEDIATR 02/01/2019 KWAKU RAM PHYSIATRIST Ot I1 0 ESSENTIAL (PRIMARY) HYPERTENSION 02/01/2019 KWAKU RAM PHYSIATRIST Ot R06.83 SNORING 02/03/2019 ABOUL-MAGD MD, GUNNAR Ot D63.1 ANEMIA IN CHRONIC KIDNEY DISEASE 02/03/2019 KULDIP RODRIGUEZ MDINE Ot N18.4 CHRONIC KIDNEY DISEASE, STAGE 4 (SEVERE) 02/03/2019 KULDIP RODRIGUEZ MDINE Ot D63.1 ANEMIA IN CHRONIC KIDNEY DISEASE 02/03/2019 JENNIFER GUO, GUNNAR Ot N18.4 CHRONIC KIDNEY DISEASE, STAGE 4 (SEVERE) 02/04/2019 KWAKU RAM PHYSIATRIST Ot G47.33 OBSTRUCTIVE SLEEP APNEA (ADULT) (PEDIATR 02/04/2019 KWAKU RAM PHYSIATRIST Ot I1 0 ESSENTIAL (PRIMARY) HYPERTENSION 02/04/2019 KWAKU RAM PHYSIATRIST Ot R06.83 SNORING 02/05/2019 KWAKU RAM PHYSIATRIST Ot G47.33 OBSTRUCTIVE SLEEP APNEA (ADULT) (PEDIATR 02/05/2019 KWAKU RAM PHYSIATRIST Ot I1 0 ESSENTIAL (PRIMARY) HYPERTENSION 02/05/2019 KWAKU RAM PHYSIATRIST Ot R06.83 SNORING 02/08/2019 KULDIP RODRIGUEZ MDINE Ot D63.1 ANEMIA IN CHRONIC KIDNEY DISEASE 02/08/2019 JENNIFER GUO GUNNAR Ot N18.4 CHRONIC KIDNEY DISEASE, STAGE 4 (SEVERE) 02/08/2019 JENNIFER GUO GUNNAR Ot D63.1 ANEMIA IN CHRONIC KIDNEY DISEASE 02/08/2019 JENNIFER GUO GUNNAR Ot N18.4 CHRONIC KIDNEY DISEASE, STAGE 4 (SEVERE) 02/14/2019 KULDIP RODRIGUEZ MDINE Ot D63.1 ANEMIA IN CHRONIC KIDNEY DISEASE 02/14/2019 JENNIFER GUO GUNNAR Ot N18.4 CHRONIC KIDNEY DISEASE, STAGE 4 (SEVERE) 02/14/2019 KWAKU RAM PHYSIATRIST Ot G47.33 OBSTRUCTIVE SLEEP APNEA (ADULT) (PEDIATR 02/14/2019 KWAKU RAM PHYSIATRIST Ot I1 0 ESSENTIAL (PRIMARY) HYPERTENSION 02/14/2019 KWAKU RAM PHYSIATRIST Ot R06.83 SNORING 02/14/2019 GUNNAR RODRIGUEZ MD Ot D63.1 ANEMIA IN CHRONIC KIDNEY DISEASE 02/14/2019 KULDIP RODRIGUEZ MDINE Ot N18.4 CHRONIC KIDNEY DISEASE, STAGE 4 (SEVERE) 02/14/2019 KULDIP RODRIGUEZ MDINE Ot D63.1 ANEMIA IN CHRONIC KIDNEY DISEASE 02/14/2019 GUNNAR RODRIGUEZ MD Ot N18.4 CHRONIC KIDNEY DISEASE, STAGE 4 (SEVERE) 02/17/2019 KULDIP RODRIGUEZ MDINE Ot D63.1 ANEMIA IN CHRONIC KIDNEY DISEASE 02/17/2019 GUNNAR RODRIGUEZ MD Ot N18.4 CHRONIC KIDNEY DISEASE, STAGE 4 (SEVERE) 02/18/2019 GUNNAR RODRIGUEZ MD Ot D63.1 ANEMIA IN CHRONIC KIDNEY DISEASE 02/18/2019 GUNNAR RODRIGUEZ MD Ot N18.4 CHRONIC KIDNEY DISEASE, STAGE 4 (SEVERE) 02/24/2019 GUNNAR RODRIGUEZ MD Ot D63.1 ANEMIA IN CHRONIC KIDNEY DISEASE 02/24/2019 GUNNAR RODRIGUEZ MD Ot N18.4 CHRONIC KIDNEY DISEASE, STAGE 4 (SEVERE) 02/24/2019 GUNNAR RODRIGUEZ MD Ot D63.1 ANEMIA IN CHRONIC KIDNEY DISEASE 02/24/2019 GUNNAR RODRIGUEZ MD Ot N18.4 CHRONIC KIDNEY DISEASE, STAGE 4 (SEVERE) 03/03/2019 KULDIP RODRIGUEZ MDINE Ot D63.1 ANEMIA IN CHRONIC KIDNEY DISEASE 03/03/2019 GUNNAR RODRIGUEZ MD Ot N18.4 CHRONIC KIDNEY DISEASE, STAGE 4 (SEVERE) 03/08/2019 JENNIFER GUO GUNNAR Ot D63.1 ANEMIA IN CHRONIC KIDNEY DISEASE 03/08/2019 KULDIP RODRIGUEZ MDINE Ot N18.4 CHRONIC KIDNEY DISEASE, STAGE 4 (SEVERE) 03/10/2019 JENNIFER GUO GUNNAR Ot D63.1 ANEMIA IN CHRONIC KIDNEY DISEASE 03/10/2019 KULDIP RODRIGUEZ MDINE Ot N18.4 CHRONIC KIDNEY DISEASE, STAGE 4 (SEVERE) 03/18/2019 KULDIP RODRIGUEZ MDINE Ot D63.1 ANEMIA IN CHRONIC KIDNEY DISEASE 03/18/2019 JENNIFER GUO GUNNAR Ot N18.4 CHRONIC KIDNEY DISEASE, STAGE 4 (SEVERE) 03/19/2019 KWAKU RAM APRN Ot G47.33 OBSTRUCTIVE SLEEP APNEA (ADULT) (PEDIATR 03/19/2019 KWAKU RAM PHYSIATRIST Ot I1 0 ESSENTIAL (PRIMARY) HYPERTENSION 03/19/2019 YO KWAKU Greenberg PHYSIATRIST Ot R06.83 SNORING 03/19/2019 KULDIP RODRIGUEZ MDINE Ot D63.1 ANEMIA IN CHRONIC KIDNEY DISEASE 03/19/2019 KULDIP RODRIGUEZ MDINE Ot N18.4 CHRONIC KIDNEY DISEASE, STAGE 4 (SEVERE) 03/24/2019 KULDIP RODRIGUEZ MDINE Ot D63.1 ANEMIA IN CHRONIC KIDNEY DISEASE 03/24/2019 GUNNAR RODRIGUEZ MD Ot N18.4 CHRONIC KIDNEY DISEASE, STAGE 4 (SEVERE) 03/31/2019 JENNIFER GUO GUNNAR Ot D63.1 ANEMIA IN CHRONIC KIDNEY DISEASE 03/31/2019 GUNNAR RODRIGUEZ MD Ot N18.4 CHRONIC KIDNEY DISEASE, STAGE 4 (SEVERE) 04/07/2019 JENNIFER GUO GUNNAR Ot D63.1 ANEMIA IN CHRONIC KIDNEY DISEASE 04/07/2019 GUNNAR RODRIGUEZ MD Ot N18.4 CHRONIC KIDNEY DISEASE, STAGE 4 (SEVERE) 04/14/2019 JENNIFER GUO GUNNAR Ot D63.1 ANEMIA IN CHRONIC KIDNEY DISEASE 04/14/2019 GUNNAR RODRIGUEZ MD Ot N18.4 CHRONIC KIDNEY DISEASE, STAGE 4 (SEVERE) 04/15/2019 JENNIFER GUO GUNNAR Ot D63.1 ANEMIA IN CHRONIC KIDNEY DISEASE 04/15/2019 JENNIFER GUO GUNNAR Ot N18.4 CHRONIC KIDNEY DISEASE, STAGE 4 (SEVERE) 04/28/2019 JENNIFER GUO GUNNAR Ot D63.1 ANEMIA IN CHRONIC KIDNEY DISEASE 04/28/2019 JENNIFER GUO GUNNAR Ot N18.4 CHRONIC KIDNEY DISEASE, STAGE 4 (SEVERE) 04/29/2019 KULDIP RODRIGUEZ MDINE Ot D63.1 ANEMIA IN CHRONIC KIDNEY DISEASE 04/29/2019 KULDIP RODRIGUEZ MDINE Ot N18.4 CHRONIC KIDNEY DISEASE, STAGE 4 (SEVERE) 04/30/2019 HARVEY VILLARREAL MD Ot 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 04/30/2019 HARVEY VILLARREAL MD Ot E78 .5 HYPERLIPIDEMIA, UNSPECIFIED 04/30/2019 HARVEY VILLARREAL MD, Ot E86 .0 DEHYDRATION 04/30/2019 HARVEY VILLARREAL MD, Ot E87 .1 HYPO-OSMOLALITY AND HYPONATREMIA 04/30/2019 HARVEY VILLARREAL MD, 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 04/30/2019 HARVEY VILLARREAL MD, Ot I10 ESSENTIAL (PRIMARY) HYPERTENSION 04/30/2019 HARVEY VILLARREAL MD, Ot 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 04/30/2019 HARVEY VILLARREAL MD Ot I73 .9 PERIPHERAL VASCULAR DISEASE, UNSPECIFIED 04/30/2019 HARVEY VILLARREAL MD, Ot J94 .9 PLEURAL CONDITION, UNSPECIFIED 04/30/2019 HARVEY VILLARREAL MD, Ot K21 .0 GASTRO-ESOPHAGEAL REFLUX DISEASE WITH ES 04/30/2019 HARVEY VILLARREAL MD, Ot K22 .2 ESOPHAGEAL OBSTRUCTION 04/30/2019 HARVEY VILLARREAL MD, Ot K29.70 GASTRITIS, UNSPECIFIED, WITHOUT BLEEDING 04/30/2019 HARVEY VILLARREAL MD, Ot K44 .9 DIAPHRAGMATIC HERNIA WITHOUT OBSTRUCTION 04/30/2019 HARVEY VILLARREAL MD, Ot N17 .9 ACUTE KIDNEY FAILURE, UNSPECIFIED 04/30/2019 HARVEY VILLARREAL MD, Ot N18 .4 CHRONIC KIDNEY DISEASE, STAGE 4 (SEVERE) 04/30/2019 HARVEY VILLARREAL MD, Ot N94.89 OT COND 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 A 04/30/2019 HARVEY VILLARREAL MD, Ot R13.10 DYSPHAGIA, UNSPECIFIED 04/30/2019 HARVEY VILLARREAL MD, Ot R79.89 OTHER SPECIFIED ABNORMAL FINDINGS OF BLO 04/30/2019 HARVEY VILLARREAL MD, Ot Z79.84 SNF (CURRENT) USE OF ORAL HYPOGLYC 04/30/2019 HARVEY VILLARREAL MD, Ot Z88 .0 ALLERGY STATUS TO PENICILLIN 04/30/2019 HARVEY VILLARREAL MD, Ot Z88 .1 ALLERGY STATUS TO OTHER ANTIBIOTIC AGENT 04/30/2019 HARVEY VILLARREAL MD Ot E86 .0 DEHYDRATION 04/30/2019 HARVEY VILLARREAL MD, Ot E87 .1 HYPO-OSMOLALITY AND HYPONATREMIA 04/30/2019 CHERELLE MD, HARVEY N Ot N17 .9 ACUTE KIDNEY FAILURE, UNSPECIFIED 04/30/2019 HARVEY VILLARREAL MD Ot N18 .9 CHRONIC KIDNEY DISEASE, UNSPECIFIED 04/30/2019 HARVEY VILLARREAL MD Ot R11 .2 NAUSEA WITH VOMITING, UNSPECIFIED 04/30/2019 HARVEY VILLARREAL MD Ot R79.89 OTHER SPECIFIED ABNORMAL FINDINGS OF BLO 04/30/2019 HARVEY VILLARREAL MD Ot Z88 .0 ALLERGY STATUS TO PENICILLIN 04/30/2019 HARVEY VILLARREAL MD N Ot Z88 .1 ALLERGY STATUS TO OTHER ANTIBIOTIC AGENT 04/30/2019 HARVEY VILLARREAL MD N Ot E86 .0 DEHYDRATION 04/30/2019 HARVEY VILLARREAL MD Ot E87 .1 HYPO-OSMOLALITY AND HYPONATREMIA 04/30/2019 HARVEY VILLARREAL MD Ot N17 .9 ACUTE KIDNEY FAILURE, UNSPECIFIED 04/30/2019 HARVEY VILLARREAL MD Ot N18 .9 CHRONIC KIDNEY DISEASE, UNSPECIFIED 04/30/2019 HARVEY VILLARREAL MD Ot R11 .2 NAUSEA WITH VOMITING, UNSPECIFIED 04/30/2019 HARVEY VILLARREAL MD Ot R79.89 OTHER SPECIFIED ABNORMAL FINDINGS OF BLO 04/30/2019 HARVEY VILLARREAL MD Ot Z88 .0 ALLERGY STATUS TO PENICILLIN 04/30/2019 HARVEY VILLARREAL MD Ot Z88 .1 ALLERGY STATUS TO OTHER ANTIBIOTIC AGENT 05/01/2019 HARVEY VILLARREAL MD Ot E86 .0 DEHYDRATION 05/01/2019 HARVEY VILLARREAL MD Ot E87 .1 HYPO-OSMOLALITY AND HYPONATREMIA 05/01/2019 HARVEY VILLARREAL MD Ot N17 .9 ACUTE KIDNEY FAILURE, UNSPECIFIED 05/01/2019 HARVEY VILLARREAL MD Ot N18 .9 CHRONIC KIDNEY DISEASE, UNSPECIFIED 05/01/2019 HARVEY VILLARREAL MD Ot R11 .2 NAUSEA WITH VOMITING, UNSPECIFIED 05/01/2019 HARVEY VILLARREAL MD Ot R79.89 OTHER SPECIFIED ABNORMAL FINDINGS OF BLO 05/01/2019 HARVEY VILLARREAL MD Ot Z88 .0 ALLERGY STATUS TO PENICILLIN 05/01/2019 HARVEY VILLARREAL MD Ot Z88 .1 ALLERGY STATUS TO OTHER ANTIBIOTIC AGENT 05/02/2019 HARVEY VILLARREAL MD N Ot E86 .0 DEHYDRATION 05/02/2019 HARVEY VILLARREAL MD Ot E87 .1 HYPO-OSMOLALITY AND HYPONATREMIA 05/02/2019 HARVEY VILLARREAL MD N Ot N17 .9 ACUTE KIDNEY FAILURE, UNSPECIFIED 05/02/2019 HARVEY VILLARREAL MD Ot N18 .9 CHRONIC KIDNEY DISEASE, UNSPECIFIED 05/02/2019 HARVEY VILLARREAL MD Ot R11 .2 NAUSEA WITH VOMITING, UNSPECIFIED 05/02/2019 HARVEY VILLARREAL MD Ot R79.89 OTHER SPECIFIED ABNORMAL FINDINGS OF BLO 05/02/2019 HARVEY VILLARREAL MD Ot Z88 .0 ALLERGY STATUS TO PENICILLIN 05/02/2019 HARVEY VILLARREAL MD N Ot Z88 .1 ALLERGY STATUS TO OTHER ANTIBIOTIC AGENT 05/03/2019 HARVEY VILLARREAL MD N Ot E86 .0 DEHYDRATION 05/03/2019 HARVEY VILLARREAL MD Ot E87 .1 HYPO-OSMOLALITY AND HYPONATREMIA 05/03/2019 HARVEY VILLARREAL MD Ot N17 .9 ACUTE KIDNEY FAILURE, UNSPECIFIED 05/03/2019 HARVEY VILLARREAL MD Ot N18 .9 CHRONIC KIDNEY DISEASE, UNSPECIFIED 05/03/2019 HARVEY VILLARREAL MD Ot R11 .2 NAUSEA WITH VOMITING, UNSPECIFIED 05/03/2019 HARVEY VILLARREAL MD Ot R79.89 OTHER SPECIFIED ABNORMAL FINDINGS OF BLO 05/03/2019 HARVEY VILLARREAL MD Ot Z88 .0 ALLERGY STATUS TO PENICILLIN 05/03/2019 HARVEY VILLARREAL MD N Ot Z88 .1 ALLERGY STATUS TO OTHER ANTIBIOTIC AGENT 05/03/2019 HARVEY VILLARREAL MD N Ot E86 .0 DEHYDRATION 05/03/2019 HARVEY VILLARREAL MD Ot E87 .1 HYPO-OSMOLALITY AND HYPONATREMIA 05/03/2019 HARVEY VILLARREAL MD Ot N17 .9 ACUTE KIDNEY FAILURE, UNSPECIFIED 05/03/2019 HARVEY VILLARREAL MD Ot N18 .9 CHRONIC KIDNEY DISEASE, UNSPECIFIED 05/03/2019 HARVEY VILLARREAL MD N Ot R11 .2 NAUSEA WITH VOMITING, UNSPECIFIED 05/03/2019 HARVEY VILLARREAL MD Ot R79.89 OTHER SPECIFIED ABNORMAL FINDINGS OF BLO 05/03/2019 HARVEY VILLARREAL MD Ot Z88 .0 ALLERGY STATUS TO PENICILLIN 05/03/2019 HARVEY VILLARREAL MD Ot Z88 .1 ALLERGY STATUS TO OTHER ANTIBIOTIC AGENT 05/03/2019 HARVEY VILLARREAL MD Ot E86 .0 DEHYDRATION 05/03/2019 HARVEY VILLARREAL MD Ot E87 .1 HYPO-OSMOLALITY AND HYPONATREMIA 05/03/2019 HARVEY VILLARREAL MD Ot N17 .9 ACUTE KIDNEY FAILURE, UNSPECIFIED 05/03/2019 HARVEY VILLARREAL MD Ot N18 .9 CHRONIC KIDNEY DISEASE, UNSPECIFIED 05/03/2019 HARVEY VILLARREAL MD Ot R11 .2 NAUSEA WITH VOMITING, UNSPECIFIED 05/03/2019 HARVEY VILLARREAL MD Ot R79.89 OTHER SPECIFIED ABNORMAL FINDINGS OF BLO 05/03/2019 HARVEY VILLARREAL MD Ot Z88 .0 ALLERGY STATUS TO PENICILLIN 05/03/2019 HARVEY VILLARREAL MD Ot Z88 .1 ALLERGY STATUS TO OTHER ANTIBIOTIC AGENT 05/03/2019 HARVEY VILLARREAL MD Ot E86 .0 DEHYDRATION 05/03/2019 HARVEY VILLARREAL MD Ot E87 .1 HYPO-OSMOLALITY AND HYPONATREMIA 05/03/2019 HARVEY VILLARREAL MD Ot N17 .9 ACUTE KIDNEY FAILURE, UNSPECIFIED 05/03/2019 HARVEY VILLARREAL MD Ot N18 .9 CHRONIC KIDNEY DISEASE, UNSPECIFIED 05/03/2019 HARVEY VILLARREAL MD Ot R11 .2 NAUSEA WITH VOMITING, UNSPECIFIED 05/03/2019 HARVEY VILLARREAL MD Ot R79.89 OTHER SPECIFIED ABNORMAL FINDINGS OF BLO 05/03/2019 HARVEY VILLARREAL MD Ot Z88 .0 ALLERGY STATUS TO PENICILLIN 05/03/2019 HARVEY VILLARREAL MD Ot Z88 .1 ALLERGY STATUS TO OTHER ANTIBIOTIC AGENT 05/03/2019 HARVEY VILLARREAL MD Ot 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 05/03/2019 HARVEY VILLARREAL MD Ot E78 .5 HYPERLIPIDEMIA, UNSPECIFIED 05/03/2019 HARVEY VILLARREAL MD Ot E86 .0 DEHYDRATION 05/03/2019 HARVEY VILLARREAL MD Ot E87 .1 HYPO-OSMOLALITY AND HYPONATREMIA 05/03/2019 HARVEY VILLARREAL MD, 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 05/03/2019 HARVEY VILLARREAL MD, Ot I10 ESSENTIAL (PRIMARY) HYPERTENSION 05/03/2019 HARVEY VILLARREAL MD, Ot 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 05/03/2019 HARVEY VILLARREAL MD, Ot I73 .9 PERIPHERAL VASCULAR DISEASE, UNSPECIFIED 05/03/2019 HARVEY VILLARREAL MD, Ot J94 .9 PLEURAL CONDITION, UNSPECIFIED 05/03/2019 HARVEY VILLARREAL MD, Ot K21 .0 GASTRO-ESOPHAGEAL REFLUX DISEASE WITH ES 05/03/2019 HARVEY VILLARREAL MD, Ot K22 .2 ESOPHAGEAL OBSTRUCTION 05/03/2019 HARVEY VILLARREAL MD, Ot K29.70 GASTRITIS, UNSPECIFIED, WITHOUT BLEEDING 05/03/2019 HARVEY VILLARREAL MD, Ot K44 .9 DIAPHRAGMATIC HERNIA WITHOUT OBSTRUCTION 05/03/2019 HARVEY VILLARREAL MD, Ot N17 .9 ACUTE KIDNEY FAILURE, UNSPECIFIED 05/03/2019 HARVEY VILLARREAL MD, Ot N18 .4 CHRONIC KIDNEY DISEASE, STAGE 4 (SEVERE) 05/03/2019 HARVEY VILLARREAL MD, Ot N18 .9 CHRONIC KIDNEY DISEASE, UNSPECIFIED 05/03/2019 HARVEY VILLARREAL MD, Ot N94.89 OTH COND 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 A 05/03/2019 HARVEY VILLARREAL MD, Ot R11 .2 NAUSEA WITH VOMITING, UNSPECIFIED 05/03/2019 HARVEY VILLARREAL MD, Ot R13.10 DYSPHAGIA, UNSPECIFIED 05/03/2019 HARVEY VILLARREAL MD, Ot R79.89 OTHER SPECIFIED ABNORMAL FINDINGS OF BLO 05/03/2019 HARVEY VILLARREAL MD, Ot 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 05/03/2019 HARVEY VILLARREAL MD, Ot Z88 .0 ALLERGY STATUS TO PENICILLIN 05/03/2019 HARVEY VILLARREAL MD, Ot Z88 .1 ALLERGY STATUS TO OTHER ANTIBIOTIC AGENT 05/11/2019 HARVEY VILLARREAL MD, Ot 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 05/11/2019 HARVEY VILLARREAL MD, Ot E78 .5 HYPERLIPIDEMIA, UNSPECIFIED 05/11/2019 HARVEY VILLARREAL MD, Ot E86 .0 DEHYDRATION 05/11/2019 HARVEY VILLARREAL MD, Ot E87 .1 HYPO-OSMOLALITY AND HYPONATREMIA 05/11/2019 HARVEY VILLARREAL MD 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 05/11/2019 HARVEY VILLARREAL MD Ot I10 ESSENTIAL (PRIMARY) HYPERTENSION 05/11/2019 HARVEY VILLARREAL MD, Ot 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 05/11/2019 HARVEY VILLARREAL MD, Ot I73 .9 PERIPHERAL VASCULAR DISEASE, UNSPECIFIED 05/11/2019 HARVEY VILLARREAL MD, Ot J94 .9 PLEURAL CONDITION, UNSPECIFIED 05/11/2019 HARVEY VILLARREAL MD, Ot K21 .0 GASTRO-ESOPHAGEAL REFLUX DISEASE WITH ES 05/11/2019 HARVEY VILLARREAL MD, Ot K22 .2 ESOPHAGEAL OBSTRUCTION 05/11/2019 HARVEY VILLARREAL MD, Ot K29.70 GASTRITIS, UNSPECIFIED, WITHOUT BLEEDING 05/11/2019 HARVEY VILLARREAL MD, Ot K44 .9 DIAPHRAGMATIC HERNIA WITHOUT OBSTRUCTION 05/11/2019 HARVEY VILLARREAL MD, Ot N17 .9 ACUTE KIDNEY FAILURE, UNSPECIFIED 05/11/2019 HARVEY VILLARREAL MD, Ot N18 .4 CHRONIC KIDNEY DISEASE, STAGE 4 (SEVERE) 05/11/2019 HARVEY VILLARREAL MD, Ot N94.89 OTH COND 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 A 05/11/2019 HARVEY VILLARREAL MD Ot R13.10 DYSPHAGIA, UNSPECIFIED 05/11/2019 HARVEY VILLARREAL MD, Ot R79.89 OTHER SPECIFIED ABNORMAL FINDINGS OF BLO 05/11/2019 HARVEY VILLARREAL MD, Ot 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 05/11/2019 HARVEY VILLARREAL MD, Ot Z88 .0 ALLERGY STATUS TO PENICILLIN 05/11/2019 HARVEY VILLARREAL MD, Ot Z88 .1 ALLERGY STATUS TO OTHER ANTIBIOTIC AGENT 05/11/2019 KWAKU RAM APRN Ot G47.33 OBSTRUCTIVE SLEEP APNEA (ADULT) (PEDIATR 05/11/2019 YO, KWAKU R PHYSIATRIST Ot I1 0 ESSENTIAL (PRIMARY) HYPERTENSION 05/11/2019 KWAKU RAM PHYSIATRIST Ot R06.83 SNORING 05/11/2019 JENNIFER GUO, GUNNAR Ot D63.1 ANEMIA IN CHRONIC KIDNEY DISEASE 05/11/2019 JENNIFER GUO, GUNNAR Ot N18.4 CHRONIC KIDNEY DISEASE, STAGE 4 (SEVERE) 05/11/2019 JENNIFER GUO, GUNNAR Ot D63.1 ANEMIA IN CHRONIC KIDNEY DISEASE 05/11/2019 JENNIFER GUO, GUNNAR Ot N18.4 CHRONIC KIDNEY DISEASE, STAGE 4 (SEVERE) 05/12/2019 JENNIFER GUO, GUNNAR Ot D63.1 ANEMIA IN CHRONIC KIDNEY DISEASE 05/12/2019 JENNIFER GUO, GUNNAR Ot N18.4 CHRONIC KIDNEY DISEASE, STAGE 4 (SEVERE) 05/19/2019 JENNIFER GUO, GUNNAR Ot D63.1 ANEMIA IN CHRONIC KIDNEY DISEASE 05/19/2019 JENNIFER GUO GUNNAR Ot N18.4 CHRONIC KIDNEY DISEASE, STAGE 4 (SEVERE) 05/25/2019 JENNIFER GUO, GUNNAR Ot D63.1 ANEMIA IN CHRONIC KIDNEY DISEASE 05/25/2019 JENNIFER GUO GUNNAR Ot N18.4 CHRONIC KIDNEY DISEASE, STAGE 4 (SEVERE) 05/26/2019 JENNIFER GUO, GUNNAR Ot D63.1 ANEMIA IN CHRONIC KIDNEY DISEASE 05/26/2019 JENNIFER GUO, GUNNAR Ot N18.4 CHRONIC KIDNEY DISEASE, STAGE 4 (SEVERE) 05/26/2019 JENNIFER GUO, GUNNAR Ot D63.1 ANEMIA IN CHRONIC KIDNEY DISEASE 05/26/2019 JENNIFER GUO, GUNNAR Ot N18.4 CHRONIC KIDNEY DISEASE, STAGE 4 (SEVERE) 06/02/2019 JENNIFER GUO, GUNNAR Ot D63.1 ANEMIA IN CHRONIC KIDNEY DISEASE 06/02/2019 JENNIFER GUO, GUNNAR Ot N18.4 CHRONIC KIDNEY DISEASE, STAGE 4 (SEVERE) 06/08/2019 KWAKU RAM PHYSIATRIST Ot G47.33 OBSTRUCTIVE SLEEP APNEA (ADULT) (PEDIATR 06/08/2019 KWAKU RAM PHYSIATRIST Ot I1 0 ESSENTIAL (PRIMARY) HYPERTENSION 06/08/2019 KWAKU RAM PHYSIATRIST Ot R06.83 SNORING 06/08/2019 GUNNAR RODRIGUEZ MD Ot D63.1 ANEMIA IN CHRONIC KIDNEY DISEASE 06/08/2019 GUNNAR RODRIGUEZ MD Ot N18.4 CHRONIC KIDNEY DISEASE, STAGE 4 (SEVERE) 06/08/2019 GUNNAR RODRIGUEZ MD Ot D63.1 ANEMIA IN CHRONIC KIDNEY DISEASE 06/08/2019 GUNNAR RODRIGUEZ MD Ot 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 06/08/2019 GUNNAR RODRIGUEZ MD Ot E55.9 VITAMIN D DEFICIENCY, UNSPECIFIED 06/08/2019 KULDIP RODRIGUEZ MDINE Ot E87.2 ACIDOSIS 06/08/2019 GUNNAR RODRIGUEZ MD Ot G47.10 HYPERSOMNIA, UNSPECIFIED 06/08/2019 KULDIP RODRIGUEZ MDINE Ot I12.0 HYP CHR KIDNEY DISEASE W STAGE 5 CHR KID 06/08/2019 KULDIP RODRIGUEZ MDINE Ot I73.9 PERIPHERAL VASCULAR DISEASE, UNSPECIFIED 06/08/2019 JENNIFER GUO GUNNAR Ot N18.5 CHRONIC KIDNEY DISEASE, STAGE 5 06/08/2019 KULDIP RODRIGUEZ MDINE Ot N25.0 RENAL OSTEODYSTROPHY 06/08/2019 JENNIFER GUO GUNNAR Ot 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 O 06/08/2019 JENNIFER GUO GUNNAR Ot D63.1 ANEMIA IN CHRONIC KIDNEY DISEASE 06/08/2019 GUNNAR RODRIGUEZ MD Ot N18.4 CHRONIC KIDNEY DISEASE, STAGE 4 (SEVERE) 06/09/2019 JENNIFER GUO GUNNAR Ot D63.1 ANEMIA IN CHRONIC KIDNEY DISEASE 06/09/2019 KULDIP RODRIGUEZ MDINE Ot N18.4 CHRONIC KIDNEY DISEASE, STAGE 4 (SEVERE) 06/09/2019 JENNIFER GUO GUNNAR Ot D63.1 ANEMIA IN CHRONIC KIDNEY DISEASE 06/09/2019 JENNIFER GUO GUNNAR Ot N18.4 CHRONIC KIDNEY DISEASE, STAGE 4 (SEVERE) 06/09/2019 JENNIFER GUO GUNNAR Ot D63.1 ANEMIA IN CHRONIC KIDNEY DISEASE 06/09/2019 ABOUL-GUNNAR WEAVER MD Ot N18.4 CHRONIC KIDNEY DISEASE, STAGE 4 (SEVERE) 06/16/2019 GUNNAR RODRIGUEZ MD Ot D63.1 ANEMIA IN CHRONIC KIDNEY DISEASE 06/16/2019 GUNNAR RODRIGUEZ MD Ot 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 06/16/2019 GUNNAR RODRIGUEZ MD Ot E55.9 VITAMIN D DEFICIENCY, UNSPECIFIED 06/16/2019 GUNNAR RODRIGUEZ MD Ot E87.2 ACIDOSIS 06/16/2019 KULDIP RODRIGUEZ MDINE Ot I12.0 HYP CHR KIDNEY DISEASE W STAGE 5 CHR KID 06/16/2019 GUNNAR RODRIGUEZ MD Ot I73.9 PERIPHERAL VASCULAR DISEASE, UNSPECIFIED 06/16/2019 GUNNAR RODRIGUEZ MD Ot N18.5 CHRONIC KIDNEY DISEASE, STAGE 5 06/16/2019 GUNNAR RODRIGUEZ MD Ot N25.0 RENAL OSTEODYSTROPHY 06/16/2019 KULDIP RODRIGUEZ MDINE Ot 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 O 06/16/2019 GUNNAR RODRIGUEZ MD Ot R68.89 OTHER GENERAL SYMPTOMS AND SIGNS 06/16/2019 GUNNAR RODRIGUEZ MD Ot R80.9 PROTEINURIA, UNSPECIFIED 06/16/2019 GUNNAR RODRIGUEZ MD Ot D50.9 IRON DEFICIENCY ANEMIA, UNSPECIFIED 06/16/2019 GUNNAR RODRIGUEZ MD Ot D63.1 ANEMIA IN CHRONIC KIDNEY DISEASE 06/16/2019 GUNNAR RODRIGUEZ MD Ot N18.4 CHRONIC KIDNEY DISEASE, STAGE 4 (SEVERE) 06/18/2019 GUNNAR RODRIGUEZ MD Ot D63.1 ANEMIA IN CHRONIC KIDNEY DISEASE 06/18/2019 GUNNAR RODRIGUEZ MD Ot 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 06/18/2019 GUNNAR RODRIGUEZ MD Ot E55.9 VITAMIN D DEFICIENCY, UNSPECIFIED 06/18/2019 GUNNAR RODRIGUEZ MD Ot E87.2 ACIDOSIS 06/18/2019 GUNNAR RODRIGUEZ MD Ot G47.10 HYPERSOMNIA, UNSPECIFIED 06/18/2019 KULDIP RODRIGUEZ MDINE Ot I12.0 HYP CHR KIDNEY DISEASE W STAGE 5 CHR KID 06/18/2019 JENNIFER GUO, GUNNAR Ot I73.9 PERIPHERAL VASCULAR DISEASE, UNSPECIFIED 06/18/2019 JENNIFER GUO, GUNNAR Ot N18.5 CHRONIC KIDNEY DISEASE, STAGE 5 06/18/2019 JENNIFER GUO, GUNNAR Ot N25.0 RENAL OSTEODYSTROPHY 06/18/2019 JENNIFER GUO, GUNNAR Ot 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 O 06/21/2019 ASHLEY COTO DO Ot E11 .9 TYPE 2 DIABETES MELLITUS WITHOUT COMPLIC 06/21/2019 ASHLEY COTO DO Ot E78.00 PURE HYPERCHOLESTEROLEMIA, UNSPECIFIED 06/21/2019 ASHLEY COTO DO, Ot I10 ESSENTIAL (PRIMARY) HYPERTENSION 06/21/2019 ASHLEY COTO DO, Ot J44 .9 CHRONIC OBSTRUCTIVE PULMONARY DISEASE, U 06/21/2019 ASHLEY COTO DO Ot S01.111A LACERATION W/O FB OF RIGHT EYELID AND PE 06/21/2019 ASHLEY COTO DO Ot S01.81XA LACERATION W/O FOREIGN BODY OF OTH PART 06/21/2019 ASHLEY COTO DO Ot S09.90XA UNSPECIFIED INJURY OF HEAD, INITIAL ENCO 06/21/2019 ASHLEY COTO DO Ot 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 06/21/2019 ASHLEY COTO DO Ot Z88 .0 ALLERGY STATUS TO PENICILLIN 06/21/2019 ASHLEY COTO DO Ot Z88 .1 ALLERGY STATUS TO OTHER ANTIBIOTIC AGENT 06/24/2019 ASHLEY COTO DO, Ot E11 .9 TYPE 2 DIABETES MELLITUS WITHOUT COMPLIC 06/24/2019 ASHLEY COTO DO Ot E78.00 PURE HYPERCHOLESTEROLEMIA, UNSPECIFIED 06/24/2019 ASHLEY COTO DO Ot I10 ESSENTIAL (PRIMARY) HYPERTENSION 06/24/2019 ASHLEY COTO DO, Ot J44 .9 CHRONIC OBSTRUCTIVE PULMONARY DISEASE, U 06/24/2019 ASHLEY COTO DO Ot S01.111A LACERATION W/O FB OF RIGHT EYELID AND PE 06/24/2019 ASHLEY COTO DO, Ot S01.81XA LACERATION W/O FOREIGN BODY OF OTH PART 06/24/2019 ASHLEY COTO DO Ot S09.90XA UNSPECIFIED INJURY OF HEAD, INITIAL ENCO 06/24/2019 ASHLEY COTO DO Ot Z79.84 SNF (CURRENT) USE OF ORAL HYPOGLYC 06/24/2019 ASHLEY COTO DO Ot Z88 .0 ALLERGY STATUS TO PENICILLIN 06/24/2019 ASHLEY COTO DO Ot Z88 .1 ALLERGY STATUS TO OTHER ANTIBIOTIC AGENT 07/28/2019 JENNIFER GUO, GUNNAR Ot D50.9 IRON DEFICIENCY ANEMIA, UNSPECIFIED 07/28/2019 JENNIFER GUO, GUNNAR Ot D63.1 ANEMIA IN CHRONIC KIDNEY DISEASE 07/28/2019 JENNIFER GUO, GUNNAR Ot N18.4 CHRONIC KIDNEY DISEASE, STAGE 4 (SEVERE) 08/04/2019 JENNIFER GUO, GUNNAR Ot D50.9 IRON DEFICIENCY ANEMIA, UNSPECIFIED 08/04/2019 JENNIFER GUO, GUNNAR Ot D63.1 ANEMIA IN CHRONIC KIDNEY DISEASE 08/04/2019 KULDIP RODRIGUEZ MDINE Ot N18.4 CHRONIC KIDNEY DISEASE, STAGE 4 (SEVERE) 08/06/2019 BARBARA MANDEL DO Ot 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 08/06/2019 BARBARA MANDEL DO Ot E78.00 PURE HYPERCHOLESTEROLEMIA, UNSPECIFIED 08/06/2019 BARBARA MANDEL DO Ot I13.0 HYP HRT CHR KDNY DIS W HRT FAIL AND ST 08/06/2019 TEQUILA TRIANA, BARBARA Ot I16.0 HYPERTENSIVE URGENCY 08/06/2019 BARBARA MANDEL DO Ot I50.9 HEART FAILURE, UNSPECIFIED 08/06/2019 BARBARA MANDEL DO Ot J44.9 CHRONIC OBSTRUCTIVE PULMONARY DISEASE, U 08/06/2019 BARBARA MANDEL DO Ot N18.9 CHRONIC KIDNEY DISEASE, UNSPECIFIED 08/06/2019 TEQUILA TRIANA, BARBARA Ot R03.0 ELEVATED BLOOD-PRESSURE READING, W/O JAVY 08/06/2019 BARBARA MANDEL DO Ot Z79.84 SNF (CURRENT) USE OF ORAL HYPOGLYC 08/06/2019 BARBARA MANDEL DO Ot Z87.09 PERSONAL HISTORY OF OTHER DISEASES OF TH 08/06/2019 BARBARA MANDEL DO Ot Z88.0 ALLERGY STATUS TO PENICILLIN 08/06/2019 BARBARA MANDEL DO Ot Z88.1 ALLERGY STATUS TO OTHER ANTIBIOTIC AGENT 08/06/2019 BARBARA MANDEL DO Ot Z99.81 DEPENDENCE ON SUPPLEMENTAL OXYGEN 08/10/2019 MANDEL DO, BARBARA Ot 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 08/10/2019 [place] DO, BARBARA Ot E78.00 PURE HYPERCHOLESTEROLEMIA, UNSPECIFIED 08/10/2019 [place] DO, BARBARA Ot I13.0 HYP HRT CHR KDNY DIS W HRT FAIL AND ST 08/10/2019 [facility], BARBARA Ot I16.0 HYPERTENSIVE URGENCY 08/10/2019 [facility], BARBARA Ot I50.9 HEART FAILURE, UNSPECIFIED 08/10/2019 [facility], BARBARA Ot J44.9 CHRONIC OBSTRUCTIVE PULMONARY DISEASE, U 08/10/2019 [facility], BARBARA Ot N18.9 CHRONIC KIDNEY DISEASE, UNSPECIFIED 08/10/2019 [facility], BARBARA Ot R03.0 ELEVATED BLOOD-PRESSURE READING, W/O JAVY 08/10/2019 [facility], BARBARA Ot 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 08/10/2019 [facility], BARBARA Ot Z87.09 PERSONAL HISTORY OF OTHER DISEASES OF TH 08/10/2019 [facility], BARBARA Ot Z88.0 ALLERGY STATUS TO PENICILLIN 08/10/2019 [facility], BARBARA Ot Z88.1 ALLERGY STATUS TO OTHER ANTIBIOTIC AGENT 08/10/2019 [facility], BARBARA Ot Z99.81 DEPENDENCE ON SUPPLEMENTAL OXYGEN 08/12/2019 GUNNAR RODRIGUEZ MD Ot D50.9 IRON DEFICIENCY ANEMIA, UNSPECIFIED 08/12/2019 GUNNAR RODRIGUEZ MD Ot D63.1 ANEMIA IN CHRONIC KIDNEY DISEASE 08/12/2019 GUNNAR RODRIGUEZ MD Ot N18.4 CHRONIC KIDNEY DISEASE, STAGE 4 (SEVERE) 09/06/2019 GUNNAR RODRIGUEZ MD Ot D50.9 IRON DEFICIENCY ANEMIA, UNSPECIFIED 09/06/2019 KULDIP RODRIGUEZ MDINE Ot D63.1 ANEMIA IN CHRONIC KIDNEY DISEASE 09/06/2019 GUNNAR RODRIGUEZ MD Ot N18.4 CHRONIC KIDNEY DISEASE, STAGE 4 (SEVERE) 09/21/2019 GUNNAR RODRIGUEZ MD Ot D50.9 IRON DEFICIENCY ANEMIA, UNSPECIFIED 09/21/2019 GUNNAR RODRIGUEZ MD Ot D63.1 ANEMIA IN CHRONIC KIDNEY DISEASE 09/21/2019 GUNNAR RODRIGUEZ MD Ot N18.4 CHRONIC KIDNEY DISEASE, STAGE 4 (SEVERE) 09/27/2019 GUNNAR RODRIGUEZ MD Ot D50.9 IRON DEFICIENCY ANEMIA, UNSPECIFIED 09/27/2019 GUNNAR RODRIGUEZ MD Ot D63.1 ANEMIA IN CHRONIC KIDNEY DISEASE 09/27/2019 GUNNAR RODRIGUEZ MD Ot N18.4 CHRONIC KIDNEY DISEASE, STAGE 4 (SEVERE) 11/11/2019 GUNNAR RODRIGUEZ MD Ot D50.9 IRON DEFICIENCY ANEMIA, UNSPECIFIED 11/11/2019 GUNNAR RODRIGUEZ MD Ot D63.1 ANEMIA IN CHRONIC KIDNEY DISEASE 11/11/2019 GUNNAR RODRIGUEZ MD Ot N18.4 CHRONIC KIDNEY DISEASE, STAGE 4 (SEVERE) 11/24/2019 GUNNAR RODRIGUEZ MD Ot D50.9 IRON DEFICIENCY ANEMIA, UNSPECIFIED 11/24/2019 GUNNAR RODRIGUEZ MD Ot D63.1 ANEMIA IN CHRONIC KIDNEY DISEASE 11/24/2019 GUNNAR RODRIGUEZ MD Ot N18.4 CHRONIC KIDNEY DISEASE, STAGE 4 (SEVERE) 12/01/2019 GUNNAR RODRIGUEZ MD Ot D50.9 IRON DEFICIENCY ANEMIA, UNSPECIFIED 12/01/2019 GUNNAR RODRIGUEZ MD Ot D63.1 ANEMIA IN CHRONIC KIDNEY DISEASE 12/01/2019 GUNNAR RODRIGUEZ MD Ot N18.4 CHRONIC KIDNEY DISEASE, STAGE 4 (SEVERE) 12/08/2019 GUNNAR RODRIGUEZ MD Ot D50.9 IRON DEFICIENCY ANEMIA, UNSPECIFIED 12/08/2019 GUNNAR RODRIGUEZ MD Ot D63.1 ANEMIA IN CHRONIC KIDNEY DISEASE 12/08/2019 GUNNAR RODRIGUEZ MD Ot N18.4 CHRONIC KIDNEY DISEASE, STAGE 4 (SEVERE) 12/22/2019 GUNNAR RODRIGUEZ MD Ot D50.9 IRON DEFICIENCY ANEMIA, UNSPECIFIED 12/22/2019 GUNNAR RODRIGUEZ MD Ot D63.1 ANEMIA IN CHRONIC KIDNEY DISEASE 12/22/2019 GUNNAR RODRIGUEZ MD Ot N18.4 CHRONIC KIDNEY DISEASE, STAGE 4 (SEVERE) 12/30/2019 TAMRA ELLINGTON MD Ot 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 9 CHRONIC KIDNEY DISEASE, UNSPECIFIED 12/30/2019 TAMRA ELLINGTON MD Ot R06. 09 OTHER FORMS OF DYSPNEA 12/30/2019 TAMRA ELLINGTON MD Ot Z88. 0 ALLERGY STATUS TO PENICILLIN 12/30/2019 TAMRA ELLINGTON MD Ot Z88. 1 ALLERGY STATUS TO OTHER ANTIBIOTIC AGENT 12/30/2019 TAMRA ELLINGTON MD Ot Z99. 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 9 CHRONIC KIDNEY DISEASE, UNSPECIFIED 01/04/2020 TAMRA ELLINGTON MD Ot R06. 09 OTHER FORMS OF DYSPNEA 01/04/2020 TAMRA ELLINGTON MD Ot Z88. 0 ALLERGY STATUS TO PENICILLIN 01/04/2020 TAMRA ELLINGTON MD Ot Z88. 1 ALLERGY STATUS TO OTHER ANTIBIOTIC AGENT 01/04/2020 TAMRA ELLINGTON MD Ot Z99. 81 DEPENDENCE ON SUPPLEMENTAL OXYGEN 01/04/2020 GUNNAR RODRIGUEZ MD Ot D50.9 IRON DEFICIENCY ANEMIA, UNSPECIFIED 01/04/2020 GUNNAR RODRIGUEZ MD Ot D63.1 ANEMIA IN CHRONIC KIDNEY DISEASE 01/04/2020 GUNNAR RODRIGUEZ MD Ot N18.4 CHRONIC KIDNEY DISEASE, STAGE 4 (SEVERE) 01/06/2020 GUNNAR RODRIGUEZ MD Ot D50.9 IRON DEFICIENCY ANEMIA, UNSPECIFIED 01/06/2020 GUNNAR RODRIGUEZ MD Ot D63.1 ANEMIA IN CHRONIC KIDNEY DISEASE 01/06/2020 ABOUL-MAGD MD, GUNNAR Ot N18.4 CHRONIC KIDNEY DISEASE, STAGE 4 (SEVERE) 01/12/2020 JENNIFER GUO, GUNNAR Ot D50.9 IRON DEFICIENCY ANEMIA, UNSPECIFIED 01/12/2020 JENNIFER GUO, GUNNAR Ot D63.1 ANEMIA IN CHRONIC KIDNEY DISEASE 01/12/2020 JENNIFER GUO, GUNNAR Ot N18.4 CHRONIC KIDNEY DISEASE, STAGE 4 (SEVERE) 01/12/2020 JENNIFER GUO, GUNNAR Ot D50.9 IRON DEFICIENCY ANEMIA, UNSPECIFIED 01/12/2020 JENNIFER GUO, GUNNAR Ot D63.1 ANEMIA IN CHRONIC KIDNEY DISEASE 01/12/2020 JENNIFER GUO, GUNNAR Ot N18.4 CHRONIC KIDNEY DISEASE, STAGE 4 (SEVERE) 01/12/2020 JENNIFER GUO, GUNNAR Ot D50.9 IRON DEFICIENCY ANEMIA, UNSPECIFIED 01/12/2020 JENNIFER GUO, GUNNAR Ot D63.1 ANEMIA IN CHRONIC KIDNEY DISEASE 01/12/2020 KULDIP RODRIGUEZ MDINE Ot N18.4 CHRONIC KIDNEY DISEASE, STAGE 4 (SEVERE) 01/26/2020 JENNIFER GUO GUNANR Ot D50.9 IRON DEFICIENCY ANEMIA, UNSPECIFIED 01/26/2020 JENNIFER GUO, GUNNAR Ot D63.1 ANEMIA IN CHRONIC KIDNEY DISEASE 01/26/2020 JENNIFER GUO, GUNNAR Ot N18.4 CHRONIC KIDNEY DISEASE, STAGE 4 (SEVERE) 01/26/2020 JENNIFER GUO GUNNAR Ot D50.9 IRON DEFICIENCY ANEMIA, UNSPECIFIED 01/26/2020 JENNIFER GUO GUNNAR Ot D63.1 ANEMIA IN CHRONIC KIDNEY DISEASE 01/26/2020 JENNIFER GUO, GUNNAR Ot N18.4 CHRONIC KIDNEY DISEASE, STAGE 4 (SEVERE) 02/09/2020 JENNIFER GUO GUNNAR Ot D50.9 IRON DEFICIENCY ANEMIA, UNSPECIFIED 02/09/2020 JENNIFER GUO, GUNNAR Ot D63.1 ANEMIA IN CHRONIC KIDNEY DISEASE 02/09/2020 JENNIFER GUO, GUNNAR Ot N18.4 CHRONIC KIDNEY DISEASE, STAGE 4 (SEVERE) 02/09/2020 JENNIFER GUO GUNNAR Ot D50.9 IRON DEFICIENCY ANEMIA, UNSPECIFIED 02/09/2020 JENNIFER GUO, GUNNAR Ot D63.1 ANEMIA IN CHRONIC KIDNEY DISEASE 02/09/2020 JENNIFER GUO, GUNNAR Lindsey N18.4 CHRONIC KIDNEY DISEASE, STAGE 4 (SEVERE) Procedures Code Description Performed By Per formed On [id number] DI LATION OF LOWER ESOPHAGUS, ENDO 05/01/2019 [id number] EX CISION OF ESOPHAGOGASTRIC JUNCTION, EN 05/01/2019 [id number] EX CISION OF STOMACH, PYLORUS, ENDO, DIAG 05/01/2019 Results Test Result Range Whole blood hemoglobin and hematocrit [facility] 12/04/18 13:30 Venous blood hemoglobin measurement (mass/volume) 8.9 g/dL 11.5-16.0 Blood hematocrit (volume fraction) 29 % 35-52 Whole blood hemoglobin and hematocrit [facility] 12/04/18 13:30 Venous blood hemoglobin measurement (mass/volume) 8.9 g/dL 11.5-16.0 Blood hematocrit (volume fraction) 29 % 35-52 Stool occult blood screen - 12/22/18 21: 00 Stool gastrointestinal hemoglobin detection NEGATI VE NEGATIVE Stool occult blood screen - 12/23/18 21: 00 Stool gastrointestinal hemoglobin detection NEGATI VE NEGATIVE Stool occult blood screen - 12/25/18 07: 48 Stool gastrointestinal hemoglobin detection NEGATI VE NEGATIVE Whole blood hemoglobin and hematocrit [facility] 01/06/19 13:15 Venous blood hemoglobin measurement (mass/volume) 11.4 g/dL 11.5-16.0 Blood hematocrit (volume fraction) 35 % 35-52 Whole blood hemoglobin and hematocrit [facility] 01/20/19 13:05 Venous blood hemoglobin measurement (mass/volume) 11.9 g/dL 11.5-16.0 Blood hematocrit (volume fraction) 36 % 35-52 Whole blood hemoglobin and hematocrit [facility] 02/03/19 13:14 Venous blood hemoglobin measurement (mass/volume) 11.6 g/dL 11.5-16.0 Blood hematocrit (volume fraction) 35 % 35-52 Serum or plasma renal function panel (Na , K, Cl, CO2, BUN, Cr, glucose,Ca, phos, alb) - 02/03/19 13:14 Serum or plasma sodium measurement (moles/volume) 132 mmol/L 135-145 Serum or plasma potassium measurement (moles/volume) 5.4 mmol/L 3.6-5.0 Serum or plasma chloride measurement (moles/volume) 103 mmol/L 98-107 Carbon dioxide 18 mmol/L 21-32 Serum or plasma anion gap determination (moles/volume) 11 mmol/L 5-14 Serum or plasma urea nitrogen measurement (mass/volume ) 40 mg/dL 7-18 Serum or plasma creatinine measurement (mass/volume) 3.01 mg/dL 0.60-1.30 Serum or plasma urea nitrogen/creatinine mass ratio 13 NRG Serum or plasma creatinine measurement w ith calculation of estimated glomerular filtration rate 15 NRG Serum or plasma glucose measurement (mass/volume) 167 mg/dL 70-105 Serum or plasma calcium measurement (mass/volume) 9.1 mg/dL 8.5-10.1 Serum or plasma albumin measurement (mass/volume) 4.2 g/dL 3.2-4.5 Serum or plasma phosphate measurement (mass/volume) 2.8 mg/dL 2.3-4.7 Serum iron and total iron binding capaci ty panel - 02/03/19 13:14 Serum or plasma [...] <5.0 NON HDL CHOLESTEROL 107 mg/dL (calc) <13 0 CMP - 02/05/19 09:42 GLUCOSE 94 mg/dL 65-99 UREA NITROGEN (BUN) 37 mg/dL 7-25 CREATININE 2.87 mg/dL 0.60-0.88 eGFR NON-AFR. [place] 14 mL/min/1.73m2 > OR = 60 eGFR 16 mL/min/1.73m2 > OR = 60 BUN/CREATININE RATIO 13 (calc) 6-22 SODIUM 133 mmol/L 135-146 POTASSIUM 5.6 mmol/L 3.5-5.3 CHLORIDE 99 mmol/L 98-110 CARBON DIOXIDE 25 mmol/L 20-32 CALCIUM 9.3 mg/dL 8.6-10.4 PROTEIN, TOTAL 6.6 g/dL 6.1-8.1 ALBUMIN 4.5 g/dL 3.6-5.1 GLOBULIN 2.1 g/dL (calc) 1.9-3.7 ALBUMIN/GLOBULIN RATIO 2.1 (calc) 1.0-2. 5 BILIRUBIN, TOTAL 0.4 mg/dL 0.2-1.2 ALKALINE PHOSPHATASE 64 U/L 33-130 AST 15 U/L 10-35 ALT 10 U/L 6-29 A1C - 02/05/19 09:42 HEMOGLOBIN A1c 5.9 % of total Hgb <5.7 Whole blood hemoglobin and hematocrit pa maia - 02/17/19 12:50 Venous blood hemoglobin measurement (mass/volume) 10.6 g/dL 11.5-16.0 Blood hematocrit (volume fraction) 31 % 35-52 Complete urinalysis with reflex to cultu re - 02/17/19 15:05 Urine color determination YELLOW NRG Urine clarity determination CLEAR NR G Urine pH measurement by test strip 7 5-9 Specific gravity of urine by test strip 1.005 1.016-1.022 Urine protein assay by test strip, semi-quantitative 3+ NEGATIVE Urine glucose detection by automated test strip 3+ NEGATIVE Erythrocytes detection in urine sediment by light micr oscopy NEGATIVE NEGATIVE Urine ketones detection by automated test strip NE GATIVE NEGATIVE Urine nitrite detection by test strip NEGATIVE NEGATIVE Urine total bilirubin detection by test strip NEGA TIVE NEGATIVE Urine urobilinogen measurement by automated test strip (mass/volume) NORMAL NORMAL Urine leukocyte esterase detection by dipstick NEG ATIVE NEGATIVE Automated urine sediment erythrocyte cou nt by microscopy (number/high power field) NONE NRG Automated urine sediment leukocyte count by microscopy (number/high power field) NONE NRG Bacteria detection in urine sediment by light microsco py NEGATIVE NRG Crystals detection in urine sediment by light microsco py NONE NRG Casts detection in urine sediment by light microscopy NONE NRG Mucus detection in urine sediment by light microscopy NEGATIVE NRG Complete urinalysis with reflex to culture NO NRG Urine protein/creatinine mass ratio - 15:05 Urine protein measurement (mass/volume) 61 mg/dL 6-12 Urine creatinine measurement (mass/volume) 13 mg/d L 30-125 Urine protein/creatinine mass ratio 4.69 NRG Automated blood complete blood count (he mogram) panel - 02/17/19 15:23 Blood leukocytes automated count (number/volume) 9.1 10*3/uL 4.3-11.0 Blood erythrocytes automated count (number/volume) 3.52 10*6/uL 4.35-5.85 Venous blood hemoglobin measurement (mass/volume) 11.0 g/dL 11.5-16.0 Blood hematocrit (volume fraction) 33 % 35-52 Automated erythrocyte mean corpuscular volume 93 [ foz_us] 80-99 Automated erythrocyte mean corpuscular h emoglobin (mass per erythrocyte) 31 pg 25-34 Automated erythrocyte mean corpuscular h emoglobin concentration measurement (mass/volume) 34 g/dL 32-36 Automated erythrocyte distribution width ratio 14. 9 % 10.0- 14.5 Automated blood platelet count (count/volume) 224 10*3/uL 130-400 Automated blood platelet mean volume measurement 9.8 [foz_us] 7.4-10.4 Serum or plasma renal function panel (Na , K, Cl, CO2, BUN, Cr, glucose,Ca, phos, alb) - 02/17/19 15:23 Serum or plasma sodium measurement (moles/volume) 128 mmol/L 135-145 Serum or plasma potassium measurement (moles/volume) 4.9 mmol/L 3.6-5.0 Serum or plasma chloride measurement (moles/volume) 100 mmol/L 98-107 Carbon dioxide 22 mmol/L 21-32 Serum or plasma anion gap determination (moles/volume) 6 mmol/L 5-14 Serum or plasma urea nitrogen measurement (mass/volume ) 45 mg/dL 7-18 Serum or plasma creatinine measurement (mass/volume) 2.95 mg/dL 0.60-1.30 Serum or plasma urea nitrogen/creatinine mass ratio 15 NRG Serum or plasma creatinine measurement w ith calculation of estimated glomerular filtration rate 15 NRG Serum or plasma glucose measurement (mass/volume) 159 mg/dL 70-105 Serum or plasma calcium measurement (mass/volume) 9.4 mg/dL 8.5-10.1 Serum or plasma albumin measurement (mass/volume) 4.4 g/dL 3.2-4.5 Serum or plasma phosphate measurement (mass/volume) 3.2 mg/dL 2.3-4.7 Serum or plasma uric acid measurement (m ass/volume) - 02/17/19 15:23 Serum or plasma uric acid measurement (mass/volume) 4.3 mg/dL 2.6-7.2 Serum or plasma ferritin measurement (ma ss/volume) - 02/17/19 15:23 Serum or plasma ferritin measurement (mass/volume) 564.7 % 20.0-177.0 IRON TEST - 02/17/19 15:23 Serum or plasma iron measurement (mass/volume) 124 % 35-180 Serum iron and total iron binding capaci ty panel - 02/17/19 15:23 Total iron binding capacity and transferrin saturation measurement 43 % 15-50 Iron binding capacity [mass/volume] in serum or plasma 290 % 280-380 UIBC (unsaturated iron binding capacity) 166 % 55-450 Serum or plasma intact pararthyroid horm one measurement (mass/volume) - 02/17/19 15:23 Serum or plasma intact parathyroid hormone measurement (mass/volume) 202.3 pg/mL 9.0-77.0 Bio-intact parathyroid hormone (PTH) measurement with calcium 9.3 % 8.5-10.5 VITAMIN D 25-HYDROXY - 02/17/19 15:23 VITAMIN D 25-HYDROXY (TOTAL) 46.9 % 3 0.0-100.0 Whole blood hemoglobin and hematocrit [facility] 03/03/19 13:05 Venous blood hemoglobin measurement (mass/volume) 9.8 g/dL 11.5-16.0 Blood hematocrit (volume fraction) 30 % 35-52 Whole blood hemoglobin and hematocrit [facility] 03/31/19 13:09 Venous blood hemoglobin measurement (mass/volume) 12.5 g/dL 11.5-16.0 Blood hematocrit (volume fraction) 37 % 35-52 Whole blood hemoglobin and hematocrit [facility] 04/14/19 13:34 Venous blood hemoglobin measurement (mass/volume) 12.2 g/dL 11.5-16.0 Blood hematocrit (volume fraction) 37 % 35-52 Whole blood hemoglobin and hematocrit [facility] 04/28/19 13:05 Venous blood hemoglobin measurement (mass/volume) 11.9 g/dL 11.5-16.0 Blood hematocrit (volume fraction) 35 % 35-52 Complete blood count (CBC) with automate d white blood cell (WBC) differential - 04/29/19 20:11 Blood leukocytes automated count (number/volume) 8.1 10*3/uL 4.3-11.0 Blood erythrocytes automated count (number/volume) 3.56 10*6/uL 4.35-5.85 Venous blood hemoglobin measurement (mass/volume) 11.6 g/dL 11.5-16.0 Blood hematocrit (volume fraction) 34 % 35-52 Automated erythrocyte mean corpuscular volume 95 [ foz_us] 80-99 Automated erythrocyte mean corpuscular h emoglobin (mass per erythrocyte) 33 pg 25-34 Automated erythrocyte mean corpuscular h emoglobin concentration measurement (mass/volume) 34 g/dL 32-36 Automated erythrocyte distribution width ratio 11. 5 % 10.0- 14.5 Automated blood platelet count [...] 10*3 1.0-4.0 Blood monocytes automated count (number/volume) 0. 9 10*3 0.0-1.0 Automated eosinophil count 0.5 10*3/uL 0 .0-0.3 Automated blood basophil count (count/volume) 0.0 10*3/uL 0.0-0.1 Comprehensive metabolic panel - 04/29/19 20:11 Serum or plasma sodium measurement (moles/volume) 130 mmol/L 135-145 Serum or plasma potassium measurement (moles/volume) 4.8 mmol/L 3.6-5.0 Serum or plasma chloride measurement (moles/volume) 93 mmol/L 98-107 Carbon dioxide 21 mmol/L 21-32 Serum or plasma anion gap determination (moles/volume) 16 mmol/L 5-14 Serum or plasma urea nitrogen measurement (mass/volume ) 71 mg/dL 7-18 Serum or plasma creatinine measurement (mass/volume) 3.86 mg/dL 0.60-1.30 Serum or plasma urea nitrogen/creatinine mass ratio 18 NRG Serum or plasma creatinine measurement w ith calculation of estimated glomerular filtration rate 11 NRG Serum or plasma glucose measurement (mass/volume) 169 mg/dL 70-105 Serum or plasma calcium measurement (mass/volume) 9.3 mg/dL 8.5-10.1 Serum or plasma total bilirubin measurement (mass/volu me) 0.3 mg/dL 0.1-1.0 Serum or plasma alkaline phosphatase bridget surement (enzymatic activity/volume) 74 U/L 40-136 Serum or plasma aspartate aminotransfera se measurement (enzymatic activity/volume) 14 U/L 5-34 Serum [...] U/L 8-78 Complete urinalysis with reflex to cultu re - 04/29/19 21:30 Urine color determination YELLOW NRG Urine clarity determination CLEAR NR G Urine pH measurement by test strip 6.5 5-9 Specific gravity of urine by test strip 1.020 1.016-1.022 Urine protein assay by test strip, semi-quantitative 2+ NEGATIVE Urine glucose detection by automated test strip 1+ NEGATIVE Erythrocytes detection in urine sediment by light micr oscopy NEGATIVE NEGATIVE Urine ketones detection by automated test strip NE GATIVE NEGATIVE Urine nitrite detection by test strip NEGATIVE NEGATIVE Urine total bilirubin detection by test strip NEGA TIVE NEGATIVE Urine urobilinogen measurement by automated test strip (mass/volume) NORMAL NORMAL Urine leukocyte esterase detection by dipstick NEG ATIVE NEGATIVE Automated urine sediment erythrocyte cou nt by microscopy (number/high power field) NONE NRG Automated urine sediment leukocyte count by microscopy (number/high power field) NONE NRG Bacteria detection in urine sediment by light microsco py TRACE NRG Squamous epithelial cells detection in u rine sediment by light microscopy 5-10 NRG Crystals detection in urine sediment by light microsco py NONE NRG Casts detection in urine sediment by light microscopy NONE NRG Mucus detection in urine sediment by light microscopy NEGATIVE NRG Complete urinalysis with reflex to culture NO NRG TROPONIN T - 04/29/19 22:42 TROPONIN T 54 % <=10 Whole blood basic metabolic panel - 04/11 11/28 05:11 Serum or plasma sodium measurement (moles/volume) 131 mmol/L 135-145 Serum or plasma potassium measurement (moles/volume) 4.2 mmol/L 3.6-5.0 Serum or plasma chloride measurement (moles/volume) 102 mmol/L 98-107 Carbon dioxide 18 mmol/L 21-32 Serum or plasma anion gap determination (moles/volume) 11 mmol/L 5-14 Serum or plasma urea nitrogen measurement (mass/volume ) 68 mg/dL 7-18 Serum or plasma creatinine measurement (mass/volume) 3.80 mg/dL 0.60-1.30 Serum or plasma urea nitrogen/creatinine mass ratio 18 NRG Serum or plasma creatinine measurement w ith calculation of estimated glomerular filtration rate 11 NRG Serum or plasma glucose measurement (mass/volume) 130 mg/dL 70-105 Serum or plasma calcium measurement (mass/volume) 8.7 mg/dL 8.5-10.1 Serum or plasma troponin i.cardiac measu rement (mass/volume) - 04/30/19 05:11 Serum or plasma troponin i.cardiac measurement (mass/v olume) 0.032 ng/mL <0.028 Capillary blood glucose measurement by g lucometer (mass/volume) - 04/30/19 15:44 Capillary blood glucose measurement by glucometer (mas s/volume) 208 mg/dL 70-110 Capillary blood glucose measurement by g lucometer (mass/volume) - 04/30/19 20:10 Capillary blood glucose measurement by glucometer (mas s/volume) 204 mg/dL 70-110 Complete blood count (CBC) with automate d white blood cell (WBC) differential - 05/01/19 05:21 Blood leukocytes automated count (number/volume) 8.8 10*3/uL 4.3-11.0 Blood erythrocytes automated count (number/volume) 3.15 10*6/uL 4.35-5.85 Venous blood hemoglobin measurement (mass/volume) 10.3 g/dL 11.5-16.0 Blood hematocrit (volume fraction) 30 % 35-52 Automated erythrocyte mean corpuscular volume 96 [ foz_us] 80-99 Automated erythrocyte mean corpuscular h emoglobin (mass per erythrocyte) 33 pg 25-34 Automated erythrocyte mean corpuscular h emoglobin concentration measurement (mass/volume) 34 g/dL 32-36 Automated erythrocyte distribution width ratio 11. 7 % 10.0- 14.5 Automated blood platelet count [...] 10*3 1.0-4.0 Blood monocytes automated count (number/volume) 1. 1 10*3 0.0-1.0 Automated eosinophil count 0.5 10*3/uL 0 .0-0.3 Automated blood basophil count (count/volume) 0.0 10*3/uL 0.0-0.1 Comprehensive metabolic panel - 05/01/19 05:21 Serum or plasma sodium measurement (moles/volume) 130 mmol/L 135-145 Serum or plasma potassium measurement (moles/volume) 4.2 mmol/L 3.6-5.0 Serum or plasma chloride measurement (moles/volume) 103 mmol/L 98-107 Carbon dioxide 17 mmol/L 21-32 Serum or plasma anion gap determination (moles/volume) 10 mmol/L 5-14 Serum or plasma urea nitrogen measurement (mass/volume ) 64 mg/dL 7-18 Serum or plasma creatinine measurement (mass/volume) 3.53 mg/dL 0.60-1.30 Serum or plasma urea nitrogen/creatinine mass ratio 18 NRG Serum or plasma creatinine measurement w ith calculation of estimated glomerular filtration rate 12 NRG Serum or plasma glucose measurement (mass/volume) 111 mg/dL 70-105 Serum or plasma calcium measurement (mass/volume) 8.5 mg/dL 8.5-10.1 Serum or plasma total bilirubin measurement (mass/volu me) 0.3 mg/dL 0.1-1.0 Serum or plasma alkaline phosphatase bridget surement (enzymatic activity/volume) 50 U/L 40-136 Serum or plasma aspartate aminotransfera se measurement (enzymatic activity/volume) 13 U/L 5-34 Serum or plasma alanine aminotransferase measurement (enzymatic activity/volume) 12 U/L 0-55 Serum or plasma protein measurement (mass/volume) 5.4 g/dL 6.4-8.2 Serum or plasma albumin measurement (mass/volume) 3.6 g/dL 3.2-4.5 CALCIUM CORRECTED 8.8 mg/dL 8.5-10.1 Capillary blood glucose measurement by g lucometer (mass/volume) - 05/01/19 11:47 Capillary blood glucose measurement by glucometer (mas s/volume) 172 mg/dL 70-110 Capillary blood glucose measurement by g lucometer (mass/volume) - 05/01/19 15:57 Capillary blood glucose measurement by glucometer (mas s/volume) 188 mg/dL 70-110 Capillary blood glucose measurement by g lucometer (mass/volume) - 05/01/19 20:46 Capillary blood glucose measurement by glucometer (mas s/volume) 310 mg/dL 70-110 Capillary blood glucose measurement by g lucometer (mass/volume) - 05/02/19 05:49 Capillary blood glucose measurement by glucometer (mas s/volume) 153 mg/dL 70-110 Complete blood count (CBC) with automate d white blood cell (WBC) differential - 05/02/19 06:00 Blood leukocytes automated count (number/volume) 10.0 10*3/uL 4.3-11.0 Blood erythrocytes automated count (number/volume) 3.39 10*6/uL 4.35-5.85 Venous blood hemoglobin measurement (mass/volume) 10.8 g/dL 11.5-16.0 Blood hematocrit (volume fraction) 33 % 35-52 Automated erythrocyte mean corpuscular volume 96 [ foz_us] 80-99 Automated erythrocyte mean corpuscular h emoglobin (mass per erythrocyte) 32 pg 25-34 Automated erythrocyte mean corpuscular h emoglobin concentration measurement (mass/volume) 33 g/dL 32-36 Automated erythrocyte distribution width ratio 11. 5 % 10.0- 14.5 Automated blood platelet count [...] 10*3 1.0-4.0 Blood monocytes automated count (number/volume) 1. 1 10*3 0.0-1.0 Automated eosinophil count 0.5 10*3/uL 0 .0-0.3 Automated blood basophil count (count/volume) 0.0 10*3/uL 0.0-0.1 Comprehensive metabolic panel - 05/02/19 06:00 Serum or plasma sodium measurement (moles/volume) 133 mmol/L 135-145 Serum or plasma potassium measurement (moles/volume) 4.2 mmol/L 3.6-5.0 Serum or plasma chloride measurement (moles/volume) 105 mmol/L 98-107 Carbon dioxide 17 mmol/L 21-32 Serum or plasma anion gap determination (moles/volume) 11 mmol/L 5-14 Serum or plasma urea nitrogen measurement (mass/volume ) 64 mg/dL 7-18 Serum or plasma creatinine measurement (mass/volume) 3.33 mg/dL 0.60-1.30 Serum or plasma urea nitrogen/creatinine mass ratio 19 NRG Serum or plasma creatinine measurement w ith calculation of estimated glomerular filtration rate 13 NRG Serum or plasma glucose measurement (mass/volume) 145 mg/dL 70-105 Serum or plasma calcium measurement (mass/volume) 8.7 mg/dL 8.5-10.1 Serum or plasma total bilirubin measurement (mass/volu me) 0.3 mg/dL 0.1-1.0 Serum or plasma alkaline phosphatase bridget surement (enzymatic activity/volume) 60 U/L 40-136 Serum or plasma aspartate aminotransfera se measurement (enzymatic activity/volume) 12 U/L 5-34 Serum or plasma alanine aminotransferase measurement (enzymatic activity/volume) 13 U/L 0-55 Serum or plasma protein measurement (mass/volume) 5.9 g/dL 6.4-8.2 Serum or plasma albumin measurement (mass/volume) 3.8 g/dL 3.2-4.5 CALCIUM CORRECTED 8.9 mg/dL 8.5-10.1 Capillary blood glucose measurement by g lucometer (mass/volume) - 05/02/19 11:18 Capillary blood glucose measurement by glucometer (mas s/volume) 291 mg/dL 70-110 Capillary blood glucose measurement by g lucometer (mass/volume) - 05/02/19 15:54 Capillary blood glucose measurement by glucometer (mas s/volume) 119 mg/dL 70-110 Capillary blood glucose measurement by g lucometer (mass/volume) - 05/02/19 20:31 Capillary blood glucose measurement by glucometer (mas s/volume) 232 mg/dL 70-110 Capillary blood glucose measurement by g lucometer (mass/volume) - 05/03/19 06:00 Capillary blood glucose measurement by glucometer (mas s/volume) 151 mg/dL 70-110 Whole blood basic metabolic panel - 04/11 02/26 10:30 Serum or plasma sodium measurement (moles/volume) 131 mmol/L 135-145 Serum or plasma potassium measurement (moles/volume) 4.0 mmol/L 3.6-5.0 Serum or plasma chloride measurement (moles/volume) 103 mmol/L 98-107 Carbon dioxide 17 mmol/L 21-32 Serum or plasma anion gap determination (moles/volume) 11 mmol/L 5-14 Serum or plasma urea nitrogen measurement (mass/volume ) 52 mg/dL 7-18 Serum or plasma creatinine measurement (mass/volume) 3.29 mg/dL 0.60-1.30 Serum or plasma urea nitrogen/creatinine mass ratio 16 NRG Serum or plasma creatinine measurement w ith calculation of estimated glomerular filtration rate 13 NRG Serum or plasma glucose measurement (mass/volume) 236 mg/dL 70-105 Serum or plasma calcium measurement (mass/volume) 8.8 mg/dL 8.5-10.1 Capillary blood glucose measurement by g lucometer (mass/volume) - 05/03/19 10:54 Capillary blood glucose measurement by glucometer (mas s/volume) 238 mg/dL 70-110 Capillary blood glucose measurement by g lucometer (mass/volume) - 05/03/19 16:06 Capillary blood glucose measurement by glucometer (mas s/volume) 247 mg/dL 70-110 BMP - 05/10/19 13:48 GLUCOSE 221 mg/dL 65-99 UREA NITROGEN (BUN) 62 mg/dL 7-25 CREATININE 3.54 mg/dL 0.60-0.88 eGFR NON-AFR. [place] 11 mL/min/1.73m2 > OR = 60 eGFR 13 mL/min/1.73m2 > OR = 60 BUN/CREATININE RATIO 18 (calc) 6-22 SODIUM 126 mmol/L 135-146 POTASSIUM 5.4 mmol/L 3.5-5.3 CHLORIDE 96 mmol/L 98-110 CARBON DIOXIDE 21 mmol/L 20-32 CALCIUM 9.1 mg/dL 8.6-10.4 A1C - 05/10/19 13:48 HEMOGLOBIN A1c 6.2 % of total Hgb <5.7 Whole blood hemoglobin and hematocrit [facility] 05/12/19 13:11 Venous blood hemoglobin measurement (mass/volume) 10.7 g/dL 11.5-16.0 Blood hematocrit (volume fraction) 32 % 35-52 Whole blood hemoglobin and hematocrit [facility] 05/19/19 13:24 Venous blood hemoglobin measurement (mass/volume) 10.1 g/dL 11.5-16.0 Blood hematocrit (volume fraction) 30 % 35-52 Serum or plasma renal function panel (Na , K, Cl, CO2, BUN, Cr, glucose,Ca, phos, alb) - 05/19/19 13:24 Serum or plasma sodium measurement (moles/volume) 126 mmol/L 135-145 Serum or plasma potassium measurement (moles/volume) 5.4 mmol/L 3.6-5.0 Serum or plasma chloride measurement (moles/volume) 96 mmol/L 98-107 Carbon dioxide 18 mmol/L 21-32 Serum or plasma anion gap determination (moles/volume) 12 mmol/L 5-14 Serum or plasma urea nitrogen measurement (mass/volume ) 59 mg/dL 7-18 Serum or plasma creatinine measurement (mass/volume) 3.56 mg/dL 0.60-1.30 Serum or plasma urea nitrogen/creatinine mass ratio 17 NRG Serum or plasma creatinine measurement w ith calculation of estimated glomerular filtration rate 12 NRG Serum or plasma glucose measurement (mass/volume) 163 mg/dL 70-105 Serum or plasma calcium measurement (mass/volume) 9.4 mg/dL 8.5-10.1 Serum or plasma albumin measurement (mass/volume) 4.3 g/dL 3.2-4.5 Serum or plasma phosphate measurement (mass/volume) 3.3 mg/dL 2.3-4.7 Serum iron and total iron binding capaci ty panel - 05/19/19 13:24 TIBC 281 % 280-380 Serum or plasma iron measurement (mass/volume) 71 % 35-180 Total iron binding capacity and transferrin saturation measurement 25 % 15-50 UIBC (unsaturated iron binding capacity) 210 % 55-450 Serum or plasma ferritin measurement (mass/volume) 458.5 % 20.0-177.0 Urine protein/creatinine mass ratio - 07:42 Urine protein measurement (mass/volume) 112 mg/dL 6-12 Urine creatinine measurement (mass/volume) 42 mg/d L 30-125 Urine protein/creatinine mass ratio 2.67 [facility] Automated blood complete blood count (he mogram) panel - 05/24/19 07:46 Blood leukocytes automated count (number/volume) 8.3 10*3/uL 4.3-11.0 Blood erythrocytes automated count (number/volume) 3.33 10*6/uL 4.35-5.85 Venous blood hemoglobin measurement (mass/volume) 10.6 g/dL 11.5-16.0 Blood hematocrit (volume fraction) 32 % 35-52 Automated erythrocyte mean corpuscular volume 95 [ foz_us] 80-99 Automated erythrocyte mean corpuscular h emoglobin (mass per erythrocyte) 32 pg 25-34 Automated erythrocyte mean corpuscular h emoglobin concentration measurement (mass/volume) 34 g/dL 32-36 Automated erythrocyte distribution width ratio 12. 1 % 10.0- 14.5 Automated blood platelet count (count/volume) 240 10*3/uL 130-400 Automated blood platelet mean volume measurement 9.5 [foz_us] 7.4-10.4 Serum or plasma renal function panel (Na , K, Cl, CO2, BUN, Cr, glucose,Ca, phos, alb) - 05/24/19 07:46 Serum or plasma sodium measurement (moles/volume) 126 mmol/L 135-145 Serum or plasma potassium measurement (moles/volume) 4.9 mmol/L 3.6-5.0 Serum or plasma chloride measurement (moles/volume) 94 mmol/L 98-107 Carbon dioxide 21 mmol/L 21-32 Serum or plasma anion gap determination (moles/volume) 11 mmol/L 5-14 Serum or plasma urea nitrogen measurement (mass/volume ) 44 mg/dL 7-18 Serum or plasma creatinine measurement (mass/volume) 3.64 mg/dL 0.60-1.30 Serum or plasma urea nitrogen/creatinine mass ratio 12 NRG Serum or plasma creatinine measurement w ith calculation of estimated glomerular filtration rate 12 NRG Serum or plasma glucose measurement (mass/volume) 121 mg/dL 70-105 Serum or plasma calcium measurement (mass/volume) 9.7 mg/dL 8.5-10.1 Serum or plasma albumin measurement (mass/volume) 4.3 g/dL 3.2-4.5 Serum or plasma phosphate measurement (mass/volume) 4.1 mg/dL 2.3-4.7 Serum or plasma uric acid measurement (m ass/volume) - 05/24/19 07:46 Serum or plasma uric acid measurement (mass/volume) 5.1 mg/dL 2.6-7.2 VITAMIN D 25-HYDROXY - 05/24/19 07:46 VITAMIN D 25-HYDROXY (TOTAL) 60.8 % 3 0.0-100.0 Urine osmolality - 05/24/19 07:46 Urine osmolality 235 % 250-1200 SODIUM URINE RANDOM - 05/24/19 07:46 [id number] 34 % NRG Serum or plasma intact pararthyroid horm one measurement (mass/volume) - 05/24/19 07:46 Serum or plasma intact parathyroid hormone measurement (mass/volume) 134.4 pg/mL 9.0-77.0 Bio-intact parathyroid hormone (PTH) measurement with calcium 9.7 % 8.5-10.5 VITAMIN D 25-HYDROXY - 07/15/19 07:46 VITAMIN D 25-HYDROXY (TOTAL) 60.8 % 3 0.0-100.0 SODIUM URINE RANDOM - 05/24/19 07:46 [id number] 34 % NRG Whole blood hemoglobin and hematocrit [facility] - 05/26/19 13:28 Venous blood hemoglobin measurement (mass/volume) 10.6 g/dL 11.5-16.0 Blood hematocrit (volume fraction) 31 % 35-52 Whole blood hemoglobin and hematocrit [facility] 06/09/19 13:00 Venous blood hemoglobin measurement (mass/volume) 11.5 g/dL 11.5-16.0 Blood hematocrit (volume fraction) 34 % 35-52 CBC - 06/15/19 08:45 WHITE BLOOD CELL COUNT 8.7 Thousand/uL 3 .8-10.8 RED BLOOD CELL COUNT 3.77 Million/uL 3.8 0-5.10 HEMOGLOBIN 12.1 g/dL 11.7-15.5 HEMATOCRIT 36.5 % 35.0-45.0 MCV 96.8 fL 80.0-100.0 MCH 32.1 pg 27.0-33.0 MCHC 33.2 g/dL 32.0-36.0 RDW 11.9 % 11.0-15.0 PLATELET COUNT 246 Thousand/uL 140-400 MPV 9.7 fL 7.5-12.5 ABSOLUTE NEUTROPHILS 5716 cells/uL 1500- 7800 ABSOLUTE LYMPHOCYTES 1418 cells/uL 850-3 900 ABSOLUTE MONOCYTES 1218 cells/uL 200-950 ABSOLUTE EOSINOPHILS 322 cells/uL 15-500 ABSOLUTE BASOPHILS 26 cells/uL 0-200 NEUTROPHILS 65.7 % NRG LYMPHOCYTES 16.3 % NRG MONOCYTES 14.0 % NRG EOSINOPHILS 3.7 % NRG BASOPHILS 0.3 % NRG Capillary blood glucose measurement by g lucometer (mass/volume) - 06/21/19 14:06 Capillary blood glucose measurement by glucometer (mas s/volume) 154 mg/dL 70-110 Whole blood hemoglobin and hematocrit [facility] - 06/23/19 13:00 Venous blood hemoglobin measurement (mass/volume) 11.2 g/dL 11.5-16.0 Blood hematocrit (volume fraction) 33 % 35-52 Whole blood hemoglobin and hematocrit [facility] - 07/07/19 13:00 Venous blood hemoglobin measurement (mass/volume) 8.7 g/dL 11.5-16.0 Blood hematocrit (volume fraction) 26 % 35-52 Whole blood hemoglobin and hematocrit [facility] 07/21/19 12:55 Venous blood hemoglobin measurement (mass/volume) 8.8 g/dL 11.5-16.0 Blood hematocrit (volume fraction) 27 % 35-52 Whole blood hemoglobin and hematocrit [facility] 07/28/19 12:39 Venous blood hemoglobin measurement (mass/volume) 9.9 g/dL 11.5-16.0 Blood hematocrit (volume fraction) 30 % 35-52 Automated blood complete blood count (he mogram) panel - 08/06/19 18:35 Blood leukocytes automated count (number/volume) 7.1 10*3/uL 4.3-11.0 Blood erythrocytes automated count (number/volume) 2.97 10*6/uL 4.35-5.85 Venous blood hemoglobin measurement (mass/volume) 10.0 g/dL 11.5-16.0 Blood hematocrit (volume fraction) 31 % 35-52 Automated erythrocyte mean corpuscular volume 103 [foz_us] 80-99 Automated erythrocyte mean corpuscular h emoglobin (mass per erythrocyte) 34 pg 25-34 Automated erythrocyte mean corpuscular h emoglobin concentration measurement (mass/volume) 33 g/dL 32-36 Automated erythrocyte distribution width ratio 13. 2 % 10.0- 14.5 Automated blood platelet count (count/volume) 178 10*3/uL 130-400 Automated blood platelet mean volume measurement 9.9 [foz_us] 7.4-10.4 Comprehensive metabolic panel - 08/06/19 18:35 Serum or plasma sodium measurement (moles/volume) 128 mmol/L 135-145 Serum or plasma potassium measurement (moles/volume) 4.2 mmol/L 3.6-5.0 Serum or plasma chloride measurement (moles/volume) 94 mmol/L 98-107 Carbon dioxide 26 mmol/L 21-32 Serum or plasma anion gap determination (moles/volume) 8 mmol/L 5-14 Serum or plasma urea nitrogen measurement (mass/volume ) 43 mg/dL 7-18 Serum or plasma creatinine measurement (mass/volume) 3.20 mg/dL 0.60-1.30 Serum or plasma urea nitrogen/creatinine mass ratio 13 NRG Serum or plasma creatinine measurement w ith calculation of estimated glomerular filtration rate 14 NRG Serum or plasma glucose measurement (mass/volume) 234 mg/dL 70-105 Serum or plasma calcium measurement (mass/volume) 8.6 mg/dL 8.5-10.1 Serum or plasma total bilirubin measurement (mass/volu me) < mg/dL 0.1-1.0 Serum or plasma alkaline phosphatase bridget surement (enzymatic activity/volume) 76 U/L 40-136 Serum or plasma aspartate aminotransfera se measurement (enzymatic activity/volume) 14 U/L 5-34 Serum or plasma alanine aminotransferase measurement (enzymatic activity/volume) 11 U/L 0-55 Serum or plasma protein measurement (mass/volume) 5.9 g/dL 6.4-8.2 Serum or plasma albumin measurement (mass/volume) 4.0 g/dL 3.2-4.5 CALCIUM CORRECTED 8.6 mg/dL 8.5-10.1 TROPONIN I FS - 08/06/19 18:35 TROPONIN I FS < 0.30 <0.30 PT panel in platelet poor plasma by coag ulation assay - 08/06/19 18:35 Prothrombin time (PT) in platelet poor plasma by coagu lation assay 13.3 s 12.2-14.7 INR in platelet poor plasma or blood by coagulation as say 1.0 0.8-1.4 Activated partial thromboplastin time (a PTT) in platelet poor plasma bycoagulation assay - 08/06/19 18:35 Activated partial thromboplastin time (a PTT) in platelet poor plasma bycoagulation assay 30 s 24-35 CBC w/MANUAL DIFF - 10/13/19 10:48 WHITE BLOOD CELL COUNT 8.7 Thousand/uL 3 .8-10.8 RED BLOOD CELL COUNT 3.05 Million/uL 3.8 0-5.10 HEMOGLOBIN 10.1 g/dL 11.7-15.5 HEMATOCRIT 29.9 % 35.0-45.0 MCV 98.0 fL 80.0-100.0 MCH 33.1 pg 27.0-33.0 MCHC 33.8 g/dL 32.0-36.0 RDW 11.5 % 11.0-15.0 PLATELET COUNT 233 Thousand/uL 140-400 MPV 10.0 fL 7.5-12.5 ABSOLUTE NEUTROPHILS 5307 cells/uL 1500- 7800 ABSOLUTE MONOCYTES 696 cells/uL 200-950 ABSOLUTE EOSINOPHILS 435 cells/uL 15-500 ABSOLUTE BASOPHILS 87 cells/uL 0-200 NEUTROPHILS 61.0 % NRG LYMPHOCYTES 25.0 % NRG MONOCYTES 8.0 % NRG EOSINOPHILS 5.0 % NRG BASOPHILS 1.0 % NRG ABSOLUTE LYMPHOCYTES 2175 cells/uL 850-3 900 PLATELET ESTIMATION ADEQUATE ADEQUATE COMMENT(S) NRG A1C - 10/13/19 10:48 HEMOGLOBIN A1c 6.4 % of total Hgb <5.7 Whole blood hemoglobin and hematocrit [facility] 11/11/19 12:55 Venous blood hemoglobin measurement (mass/volume) 9.0 g/dL 11.5-16.0 Blood hematocrit (volume fraction) 28 % 35-52 Whole blood hemoglobin and hematocrit [facility] 12/08/19 12:59 Venous blood hemoglobin measurement (mass/volume) 11.4 g/dL 11.5-16.0 Blood hematocrit (volume fraction) 35 % 35-52 Whole blood hemoglobin and hematocrit [facility] 12/22/19 13:25 Venous blood hemoglobin measurement (mass/volume) 11.2 g/dL 11.5-16.0 Blood hematocrit (volume fraction) 33 % 35-52 Complete blood count (CBC) with automate d white blood cell (WBC) differential - 12/30/19 15:25 Blood leukocytes automated count (number/volume) 12.7 10*3/uL 4.3-11.0 Blood erythrocytes automated count (number/volume) 3.53 10*6/uL 4.35-5.85 Venous blood hemoglobin measurement (mass/volume) 11.6 g/dL 11.5-16.0 Blood hematocrit (volume fraction) 33 % 35-52 Automated erythrocyte mean corpuscular volume 94 [ foz_us] 80-99 Automated erythrocyte mean corpuscular h emoglobin (mass per erythrocyte) 33 pg 25-34 Automated erythrocyte mean corpuscular h emoglobin concentration measurement (mass/volume) 35 g/dL 32-36 Automated erythrocyte distribution width ratio 11. 8 % 10.0- 14.5 Automated blood platelet count (count/volume) 305 10*3/uL 130-400 Automated blood platelet mean volume measurement 9.9 [foz_us] 7.4-10.4 Automated blood neutrophils/100 leukocytes 77 % 42-75 Automated blood lymphocytes/100 leukocytes 12 % 12-44 Blood monocytes/100 leukocytes 9 % 0-12 Automated blood eosinophils/100 leukocytes 2 % 0-10 Automated blood basophils/100 leukocytes 0 % 0-10 Blood neutrophils automated count (number/volume) 9.8 10*3 1.8-7.8 Blood lymphocytes automated count (number/volume) 1.5 10*3 1.0-4.0 Blood monocytes automated count (number/volume) 1. 1 10*3 0.0-1.0 Automated eosinophil count 0.2 10*3/uL 0 .0-0.3 Automated blood basophil count (count/volume) 0.0 10*3/uL 0.0-0.1 PT panel in platelet poor plasma by coag ulation assay - 12/30/19 15:25 Prothrombin time (PT) in platelet poor plasma by coagu lation assay 13.0 s 12.2-14.7 INR in platelet poor plasma or blood by coagulation as say 0.9 0.8-1.4 Activated partial thromboplastin time (a PTT) in platelet poor plasma bycoagulation assay - 12/30/19 15:25 Activated partial thromboplastin time (a PTT) in platelet poor plasma bycoagulation assay 26 s 24-35 Comprehensive metabolic panel - 12/30/19 15:25 Serum or plasma sodium measurement (moles/volume) 129 mmol/L 135-145 Serum or plasma potassium measurement (moles/volume) 4.8 mmol/L 3.6-5.0 Serum or plasma chloride measurement (moles/volume) 96 mmol/L 98-107 Carbon dioxide 20 mmol/L 21-32 Serum or plasma anion gap determination (moles/volume) 13 mmol/L 5-14 Serum or plasma urea nitrogen measurement (mass/volume ) 62 mg/dL 7-18 Serum or plasma creatinine measurement (mass/volume) 3.17 mg/dL 0.60-1.30 Serum or plasma urea nitrogen/creatinine mass ratio 20 NRG Serum or plasma creatinine measurement w ith calculation of estimated glomerular filtration rate 14 NRG Serum or plasma glucose measurement (mass/volume) 232 mg/dL 70-105 Serum or plasma calcium measurement (mass/volume) 9.0 mg/dL 8.5-10.1 Serum or plasma total bilirubin measurement (mass/volu me) 0.2 mg/dL 0.1-1.0 Serum or plasma alkaline phosphatase bridgte surement (enzymatic activity/volume) 79 U/L 40-136 Serum or plasma aspartate aminotransfera se measurement (enzymatic activity/volume) 24 U/L 5-34 Serum or plasma alanine aminotransferase measurement (enzymatic activity/volume) 27 U/L 0-55 Serum or plasma protein measurement (mass/volume) 6.3 g/dL 6.4-8.2 Serum or plasma albumin measurement (mass/volume) 4.1 g/dL 3.2-4.5 CALCIUM CORRECTED 8.9 mg/dL 8.5-10.1 TROPONIN I FS - 12/30/19 15:25 TROPONIN I FS < 0.30 <0.30 PROBNP FS - 12/30/19 15:25 PROBNP FS 2992.0 pg/mL <75.0 Influenza virus A and B antigen detectio n - 12/30/19 16:40 FLU RESULT NEGATIVE FOR INFLUENZA A AND B ANTIGENS BY IA NR Blood lactic acid measurement (moles/vol ume) - 12/30/19 16:40 Blood lactic acid measurement (moles/volume) 1.18 mmol/L 0.50-2.00 Bacterial blood culture - 12/30/19 16:40 Bacterial blood culture NG NRG Bacterial blood culture - 12/30/19 17:39 Bacterial blood culture NG NR Whole blood hemoglobin and hematocrit pa maia - 01/12/20 13:17 Venous blood hemoglobin measurement (mass/volume) 9.6 g/dL 11.5-16.0 Blood hematocrit (volume fraction) 29 % 35-52 Serum or plasma renal function panel (Na , K, Cl, CO2, BUN, Cr, glucose,Ca, phos, alb) - 01/12/20 13:17 Serum or plasma sodium measurement (moles/volume) 134 mmol/L 135-145 Serum or plasma potassium measurement (moles/volume) 4.6 mmol/L 3.6-5.0 Serum or plasma chloride measurement (moles/volume) 105 mmol/L 98-107 Carbon dioxide 22 mmol/L 21-32 Serum or plasma anion gap determination (moles/volume) 7 mmol/L 5-14 Serum or plasma urea nitrogen measurement (mass/volume ) 54 mg/dL 7-18 Serum or plasma creatinine measurement (mass/volume) 3.64 mg/dL 0.60-1.30 Serum or plasma urea nitrogen/creatinine mass ratio 15 NRG Serum or plasma creatinine measurement w ith calculation of estimated glomerular filtration rate 12 NRG Serum or plasma glucose measurement (mass/volume) 121 mg/dL 70-105 Serum or plasma calcium measurement (mass/volume) 9.0 mg/dL 8.5-10.1 Serum or plasma albumin measurement (mass/volume) 3.8 g/dL 3.2-4.5 Serum or plasma phosphate measurement (mass/volume) 3.9 mg/dL 2.3-4.7 Serum iron and total iron binding capaci [facility] - 01/12/20 13:17 TIBC 216 % 280-380 UIBC 162 % 55-450 Serum or plasma iron measurement (mass/volume) 54 % 35-180 Total iron binding capacity and transferrin saturation measurement 25 % 15-50 Serum or plasma ferritin measurement (mass/volume) 798.5 % 20.0-177.0 Whole blood hemoglobin and hematocrit [facility] 01/26/20 12:55 Venous blood hemoglobin measurement (mass/volume) 10.5 g/dL 11.5-16.0 Blood hematocrit (volume fraction) 32 % 35-52 Whole blood hemoglobin and hematocrit [facility] 02/09/20 13:10 Venous blood hemoglobin measurement (mass/volume) 11.7 g/dL 11.5-16.0 Blood hematocrit (volume fraction) 36 % 35-52 CBC - 02/14/20 10:07 WHITE BLOOD CELL COUNT 7.3 Thousand/uL 3 .8-10.8 RED BLOOD CELL COUNT 3.39 Million/uL 3.8 0-5.10 HEMOGLOBIN 10.8 g/dL 11.7-15.5 HEMATOCRIT 33.0 % 35.0-45.0 MCV 97.3 fL 80.0-100.0 MCH 31.9 pg 27.0-33.0 MCHC 32.7 g/dL 32.0-36.0 RDW 12.4 % 11.0-15.0 PLATELET COUNT 234 Thousand/uL 140-400 MPV 10.3 fL 7.5-12.5 ABSOLUTE NEUTROPHILS 4541 cells/uL 1500- 7800 ABSOLUTE LYMPHOCYTES 1716 cells/uL 850-3 900 ABSOLUTE MONOCYTES 664 cells/uL 200-950 ABSOLUTE EOSINOPHILS 350 cells/uL 15-500 ABSOLUTE BASOPHILS 29 cells/uL 0-200 NEUTROPHILS 62.2 % NRG LYMPHOCYTES 23.5 % NRG MONOCYTES 9.1 % NRG EOSINOPHILS 4.8 % NRG BASOPHILS 0.4 % NRG A1C - 02/14/20 10:07 HEMOGLOBIN A1c 5.9 % of total Hgb <5.7 Encounters ACCT No. Visit Date/Time Discharge Status Pt. Type Provider Facility Loc./Unit Complaint [id number] 06/15/2019 08:45:00 06/15/2019 23:59: 59 [id number] 02/14/2020 09:00:00 Document Registration [id number] 10/13/2019 09:30:00 Document Registration [id number] 06/15/2019 08:45:00 Document Registration [id number] 05/10/2019 13:15:00 Document Registration [id number] 02/05/2019 09:30:00 Document Registration [id number] 02/09/2020 12:55:00 00:01:00 DIS Outpatient GUNNAR RODRIGUEZ MD [facility] [id number] 12/30/2019 13:55:00 18:24:00 DIS Emergency TAMRA ELLINGTON MD [facility] ER FS SOB [id number] 08/04/2019 12:27:00 00:01:00 DIS Outpatient GUNNAR RODRIGUEZ MD [facility] [id number] 08/06/2019 16:58:00 21:32:00 DIS Emergency BARBARA MANDEL DO [facility] ER FS HIGH BP [id number] 06/21/2019 11:08:00 14:32:00 DIS Emergency ASHLEY COTO DO [facility] ER FS FALL; HEAD INJ [id number] 06/16/2019 12:29:00 13:43:00 DIS Outpatient GUNNAR RODRIGUEZ MD [facility] IRON DEFICIENCY ANEMIA [id number] 06/09/2019 13:00:00 13:28:00 DIS Outpatient GUNNAR RODRIGUEZ MD [facility] CHRONIC KIDNEY DISEASE [id number] 05/19/2019 12:55:00 00:01:00 DIS Outpatient GUNNAR RODRIGUEZ MD [facility] CHRONIC KIDNEY DISEASE [id number] 05/24/2019 07:35:00 23:59:59 CLS Outpatient GUNNAR RODRIGUEZ MD [facility] LAB FS RENAL PANEL, CB C, VIT D 25, URIC ACID, IPTH [id number] 05/03/2019 09:45:00 17:15:00 DIS Inpatient CHERELLE GUO, HARVEY Hernandez [facility] 4TH W/V;ACUTE OR CHRONIC RF ;DEHYDRATION [id number] 02/17/2019 12:40:00 00:01:00 DIS Outpatient GUNNAR RODRIGUEZ MD [facility] CHRONIC KIDNEY DISEASE [id number] 01/29/2019 19:54:00 23:59:59 CLS Outpatient KWAKU RAM APRN [facility] SLEEP YESSI G47.33 [id number] 12/25/2018 08:00:00 23:59:59 CLS Outpatient GUNNAR RODRIGUEZ MD [facility] LAB [id number] 12/11/2018 13:00:00 23:59:59 CLS Preadmit GUNNAR RODRIGUEZ MD [facility] IRON DEFICIENCY ANEMIA [id number] 12/04/2018 13:00:00 13:00:00 CAN Preadmit GUNNAR RODRIGUEZ MD [facility] IRON DEFICIENCY ANEMIA
--- OUTSIDE RECORDS SUMMARY | 2020-02-23 12:36 | XMS REPORT ---
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.51 14 Jun, 2017 0 [id number] Problem 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 Jun, 0 645241569 Problem Incomplete tear of left rotator cuff M75.112 Dec, 0 603857583 Problem Olecranon bursitis, left elbow M70.22 14 Jun, 018 0 [id number] Problem Chronic kidney disease, 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 Active [id number] Problem COPD (chronic obstructive pulmonary disease) J44.9 Aug, 0 59125460 Problem 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 Dec, 0 [id number] Problem H/O repair of right rotator cuff Z98.890 Dec, 0 497536562 Problem Acute on chronic systolic congestive heart failure I50.23 Aug, 0 523316884 Problem Right foot drop M21.371 Jan, 0 3 [id number] ALLERGIES No Information ENCOUNTERS Encounter Location Date Diagnosis [facility] [place] [address] [place] [address] Feb, [place] [address] [address] [place] [address] Jan, Acute on chronic systolic (c ongestive) heart failure I50.23 ; Chronic kidney disease, 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 ; PVD (peripheral vascular disease) I73.9 and COPD (chronic obstructive pulmonary disease) J44.9 [facility] [address] [id number] [place] [address] Dec, [facility] [address] [facility] [id number] [place] [address] Dec, [facility] [address] [id number] [place] [address] Dec, [address] [place] [address] Dec, [address] [place] [address] Dec, COPD (chronic obstructive pu lmonary disease) J44.9 and Type 2 diabetes mellitus with diabetic peripheral angiopathy without gangrene E11.51 [address] [place] [address] Nov, Type 2 diabetes mellitus wit h stage 4 chronic kidney disease GFR 15-29 E11.22 [facility] [id number] [place] [address] Nov, [address] [place] [address] Oct, [address] [place] [address] Oct, Type 2 diabetes mellitus wit h stage 4 chronic kidney disease GFR 15-29 E11.22 ; PVD (peripheral vascular disease) I73.9 ; Mixed hyperlipidemia E78.2 and Benign hypertension I10 [address] [place] [address] Oct, 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.51 [address] [address] [place] [address] Oct, 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.51 and Benign hypertension I10 [facility] [place] [address] [place] [address] Sep, [facility] [place] [address] [place] [address] Aug, [facility] [place] [address] [place] [address] Jun, [facility] [place] [address] [facility] [address] Jun, Type 2 diabetes mellitus wit h stage 4 chronic kidney disease GFR 15-29 E11.22 [facility] [place] [address] [place] [address] Jun, 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.51 ; Mixed hyperlipidemia E78.2 ; Chronic kidney disease, 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 and BMI 24.0-24.9, adult Z68.24 [facility] [place] [address] [place] [address] Jun, [facility] [place] [address] [place] [address] May, [facility] [place] [address] [place] [address] May, [facility] [place] [address] [facility] [address] May, [facility] [place] [address] [facility] [address] May, [facility] [place] [address] [place] [address] May, Type 2 diabetes mellitus wit h stage 4 chronic kidney disease GFR 15-29 E11.22 [facility] [address] [facility] [place] [address] Apr, [facility] [place] [address] [place] [address] Apr, [facility] [place] [address] [place] [address] Feb, 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.51 ; Mixed hyperlipidemia E78.2 ; Benign hypertension I10 and Type 2 diabetes mellitus with stage 4 chronic kidney di sease GFR 15-29 E11.22 [facility] [place] [address] [place] [address] Jan, Type 2 diabetes mellitus wit h diabetic chronic kidney disease, unspecified CKD stage, 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 [facility] [address] [place] [address] Dec, Dehydration E86.0 ; Vomiting R11.10 and Diarrhea R19.7 [place] [address] [address] Nov, [facility] [address] [address] Oct, [place] [address] [address] Oct, [facility] [address] [address] Oct, [facility] [address] [address] Oct, [facility] [address] [address] Oct, [facility] [address] [address] Sep, [facility] [address] [address] Sep, IMMUNIZATIONS No Known Immunizations SOCIAL HISTORY Never Assessed REASON FOR VISIT Lab (walk-in) PLAN OF CARE VITAL SIGNS MEDICATIONS Unknown Medications RESULTS No Results PROCEDURES Procedure Date Ordered Result Body Site VENIPUNCT, ROUTINE* February 05, 2019 LIPID PANEL February 05, 2019 COMPREHEN METABOLIC PANEL February 05, 2019 Hemoglobin Test Send Out 0 dollar February 05, 2019 INSTRUCTIONS MEDICATIONS ADMINISTERED No Known Medications MEDICAL (GENERAL) HISTORY Type Description Date Medical History Type 2 diabetes mellitus Medical History Hyperlipidemia Medical History Olecranon bursitis of left elbow Medical History COPD (chronic obstructive pulmonary dise ase) Medical History PVD (peripheral vascular disease) Medical History Hypertension Medical History Right foot drop Medical History CKD (Chronic Kidney Disease) Stage 4 Medical History Scoliosis Medical History GERD Medical History Major depressive disorder Medical History Atherosclerotic Heart Disease Medical History Primary Generalized Osteoarthritis Surgical History Hysterectomy Surgical History Lap Appy Surgical History Lap Irene Hospitalization History surgeries Hospitalization History Marian Carroll 10/10/2019
--- NOTE | 2020-02-23 12:44 | NUR ---
PT BACK FROM CT. WARM BLANKETS AND CALL LIGHT GIVEN TO HER. PT DENIES NEEDS AT THIS TIME.
--- NOTE | 2020-02-23 12:55 | Diagnostic Imaging Report ---
PROCEDURE: CT head and CT cervical spine without contrast. TECHNIQUE: Multiple contiguous axial images were obtained through the brain and cervical spine without the use of intravenous contrast. Sagittal and coronal reformations through the cervical spine were then performed. Auto Exposure Controls were utilized during the CT exam to meet ALARA standards for radiation dose reduction. INDICATION: Fall. Trauma to head. History of previous traumatic injury. COMPARISON: 08/06/2019 FINDINGS: CT head: Moderate sized area of encephalomalacia of the right temporal lobe extending into the right occipital lobe is noted consistent with prior infarct or traumatic injury. There are also scattered and confluent areas of decreased attenuation within the periventricular and subcortical deep white matter consistent with chronic small vessel ischemic changes. There is no new loss of mcdermott-white matter junction differentiation to suggest new acute territorial infarct. Ventricles and cortical sulci are diffusely prominent consistent with underlying age-related parenchymal volume loss. There is no mass effect or midline shift. There is no evidence of intra or extra-axial intracranial hemorrhage. Bony calvarium is intact. Paranasal sinuses are clear. There is partial opacification of the mastoid air cells on the left. CT cervical spine: Evaluation static alignment shows mild reversal of normal lordotic curvature. There is also slight grade 1 anterolisthesis at the C3-C4 and C7-T1 levels. There is also slight grade 1 retrolisthesis at C5-C6 and C6-C7. Findings are likely degenerative. There is no evidence of jumped facets. Vertebral body heights are maintained. There is no evidence of acute fracture. No bony fragments are seen within the spinal canal. There are advanced multilevel degenerative changes of the cervical spine consisting of diffuse severe disc space narrowing as well as a large anterior and posterior disc osteophyte complex formations and moderate multilevel facet arthropathy. This does result in multilevel osseous spinal canal and neuroforaminal stenosis. Pre and paravertebral soft tissue structures are unremarkable. Note is made of calcified carotid atherosclerosis. Included portions lung apices show no additional acute abnormalities. IMPRESSION: 1. No new acute intracranial abnormality. No CT evidence of acute infarct, mass, nor hemorrhage. 2. Area of old encephalomalacia of the right temporal occipital lobes as well as background chronic small vessel ischemic changes and age-related parenchymal volume loss. 3. No acute fracture or dislocation of the cervical spine. 4. Advanced multilevel degenerative changes of the cervical spine. Dictated by: Dictated on workstation # [id number]
--- NOTE | 2020-02-23 13:07 | Diagnostic Imaging Report ---
INDICATION: Fall with pain in the right arm. TIME OF EXAM: 12:36 PM. FINDINGS: Multiple views of the right humerus were obtained. There is a high riding humeral head with significant narrowing of the acromiohumeral space, consistent with chronic rotator cuff arthropathy. There are acromioclavicular joint degenerative changes as well. The alignment at the elbow is normal. The humerus is demineralized but no definite fracture is identified. No dislocation is seen. IMPRESSION: Chronic changes of the right shoulder. No acute bony abnormality is detected. Dictated by: Dictated on workstation # [id number]
[2020-02-23 13:15] VITALS: BP 148/67
== END 2020-02-23 13:15 | disposition home or self-care (01) ==
LOC: EDUNIT# 11:58 → ER 12:00
DX: S00.81XA Abrasion of other part of head, initial encounter (principal); J44.9 Chronic obstructive pulmonary disease, unspecified; E78.00 Pure hypercholesterolemia, unspecified; I10 Essential (primary) hypertension; E11.9 Type 2 diabetes mellitus without complications; W19.XXXA Unspecified fall, initial encounter; Z79.84 Long term (current) use of oral hypoglycemic drugs; Z79.899 Other long term (current) drug therapy; Z88.0 Allergy status to penicillin; Z88.1 Allergy status to other antibiotic agents
CPT/HCPCS: 70450; 72125; 73060

== ENCOUNTER 2020-05-17 10:36 | Outpatient (RCR) | payer MEDICARE ==
[2020-02-23 13:37] LABS: HEMOGLOBIN 11.1 G/DL (11.5-16.0)
[2020-02-23 14:00] VITALS: BP 122/80
[2020-03-08 10:05] VITALS: BP 157/78
[2020-03-08 10:23] LABS: HEMOGLOBIN 9.9 G/DL (11.5-16.0)
[2020-03-08] MEDS: DARBEPOETIN 40 MCG/ML (ARANESP) HOSPITAL SC SCH (11:03)
[2020-03-22 11:05] VITALS: BP 197/82
[2020-03-23 10:40] VITALS: BP 112/55
[2020-03-23] MEDS: DARBEPOETIN 40 MCG/ML (ARANESP) HOSPITAL SC SCH (10:53)
[2020-04-05 11:35] LABS: HEMOGLOBIN 9.9 G/DL (11.5-16.0)
[2020-04-05] MEDS: DARBEPOETIN 40 MCG/ML (ARANESP) HOSPITAL SC SCH (11:59)
[2020-04-05 12:00] VITALS: BP 164/73
[2020-04-19 10:45] VITALS: BP 197/80
[2020-04-20 10:45] VITALS: BP 156/65
[2020-04-20] MEDS: DARBEPOETIN 40 MCG/ML (ARANESP) HOSPITAL SC SCH (11:09)
[2020-05-03 09:35] VITALS: BP 146/71
[2020-05-03 10:03] LABS: HEMOGLOBIN 12.1 G/DL (11.5-16.0)
[2020-05-03 10:33] LABS: CALCIUM 9.1 MG/DL (8.5-10.1); CREATININE SERUM 4.09 MG/DL (0.60-1.30); POTASSIUM 4.6 MMOL/L (3.6-5.0)
[~2020-05-17 10:36] MED LIST changes: +AMLO10TA7 PO; +FAMOTIDINE 20MG/2ML IV (PEPCID) ONE
[2020-05-17 10:51] LABS: HEMOGLOBIN 10.3 G/DL (11.5-16.0)
[2020-05-17 11:30] VITALS: BP 119/55
[2020-05-17] MEDS ORDERED: DARBEPOETIN 25 MCG/ML (ARANESP) 1 ML HOSPITAL SC SCH (11:30)
== END 2020-05-23 | disposition home or self-care (01) ==
LOC: SDC 10:36
PROVIDERS: ATTEND Internal Medicine Nephrology
DX: N18.4 Chronic kidney disease, stage 4 (severe) (principal); D63.1 Anemia in chronic kidney disease
CPT/HCPCS: 36415; 80069; 82728; 83540; 85014; 85018; 96372

== ENCOUNTER 2020-08-09 11:16 | Outpatient (RCR) | payer MEDICARE ==
[2020-05-31 11:30] VITALS: BP 157/67
--- NOTE | 2020-05-31 11:30 | NUR ---
ARANESP INCORRECTLY DOCUMENTED ON CARE ACTIVITY RECORD XOLAIR 300 MG SQ. MED GIVEN WAS ARANESP 22.5 MCG SQ.
[2020-06-14 11:30] VITALS: BP 136/73
[2020-06-14 11:31] LABS: HEMOGLOBIN 9.2 G/DL (11.5-16.0)
--- NOTE | 2020-06-14 12:10 | NUR ---
THIS RN PHONED PHARMACY AND INFORMED THAT THEY SENT SAME DOSE OF 22.5MCG LAST DOSE WAS GIVEN. THIS RN INFORMED THAT HGB WENT FROM 10.3 TO 9.2 AND NEEDS TO BE ROUNDED UP BY 25%. CHELITA PHONED THIS RN BACK AND INFORMED THAT WOULD BE 28.125 AND THAT SHE ROUNDED TO THE NEXT VIAL SIZE WHICH IS 25MCG. THIS RN VERIFIED THAT 25MCG WAS CORRECT AND CHELITA INFORMED IT WAS AND THAT SHE HAD CHANGED THE ORDER.
[2020-06-14] MEDS: DARBEPOETIN 25 MCG/ML (ARANESP) 1 ML HOSPITAL SC SCH (12:43)
[2020-07-12 10:55] VITALS: BP 154/65
[2020-07-12 11:11] LABS: HEMOGLOBIN 9.5 G/DL (11.5-16.0)
[2020-07-12] MEDS: DARBEPOETIN 25 MCG/ML (ARANESP) 1 ML HOSPITAL SC SCH (12:11)
[2020-07-26] MEDS: DARBEPOETIN 25 MCG/ML (ARANESP) 1 ML HOSPITAL SC SCH (11:44)
[2020-07-26 12:00] VITALS: BP 139/73
[2020-07-26 12:14] LABS: ALBUMIN 3.7 GM/DL (3.2-4.5); POTASSIUM 4.7 MMOL/L (3.6-5.0)
[2020-07-26 12:16] LABS: CALCIUM 8.5 MG/DL (8.5-10.1)
[2020-07-26 12:20] LABS: CREATININE SERUM 4.1 MG/DL (0.60-1.30); PHOSPHORUS 3.9 MG/DL (2.3-4.7)
[2020-07-26 12:23] LABS: URIC ACID 5.3 MG/DL (2.6-7.2)
[2020-08-09 11:15] VITALS: BP 121/55
[~2020-08-09 11:16] MED LIST changes: +DARBEPOETIN 25 MCG/ML (ARANESP) 1 ML HOSPITAL SC SCH; -FAMOTIDINE 20MG/2ML IV (PEPCID) ONE
[2020-08-09 11:32] LABS: HEMOGLOBIN 10.1 g/dL (11.5-16.0)
[2020-08-09] MEDS: DARBEPOETIN 25 MCG/ML (ARANESP) 1 ML HOSPITAL SC SCH (12:31)
== END 2020-08-29 | disposition home or self-care (01) ==
LOC: SDC 11:16
PROVIDERS: ATTEND Internal Medicine Nephrology
DX: N18.4 Chronic kidney disease, stage 4 (severe) (principal); D63.1 Anemia in chronic kidney disease
CPT/HCPCS: 36415; 80061; 80069; 82306; 82570; 82728; 83036; 83540; 83970; 84156; 84550; 85014; 85018; 96372

== ENCOUNTER 2020-10-17 15:26 | Emergency (ER) | payer MEDICARE ==
[~2020-10-17 15:26] MED LIST changes: +AMLO-251 PO; -AMLO10TA7 PO; -DARBEPOETIN 25 MCG/ML (ARANESP) 1 ML HOSPITAL SC SCH
[2020-10-17 15:59] LABS: BASOPHILS % (AUTO) 0 % (0-10); EOSINOPHILS % (AUTO) 6 % (0-10); HEMATOCRIT 33 % (35-52); HEMOGLOBIN 10.6 G/DL (11.5-16.0); LYMPHOCYTES % (AUTO) 17 % (12-44); MEAN CORPUSCULAR HEMOGLOBIN 31 PG (25-34); MEAN CORPUSCULAR HGB CONC 32 G/DL (32-36); MEAN CORPUSCULAR VOLUME 98 FL (80-99); MEAN PLATELET VOLUME 11.1 FL (7.4-10.4); MONOCYTES % (AUTO) 11 % (0-12); NEUTROPHILS % (AUTO) 66 % (42-75); PLATELET COUNT 243 10^3/uL (130-400)
[2020-10-17 16:00] LABS: EOSINOPHILS # (AUTO) 0.6 10^3/uL (0.0-0.3); LYMPHOCYTES # (AUTO) 1.9 X 10^3 (1.0-4.0); MONOCYTES # (AUTO) 1.2 X 10^3 (0.0-1.0); NEUTROPHILS # (AUTO) 7.2 X 10^3 (1.8-7.8)
[2020-10-17 16:02] LABS: CARBON DIOXIDE 20 MMOL/L (21-32); CHLORIDE 99 MMOL/L (98-107); POTASSIUM 4.9 MMOL/L (3.6-5.0); SODIUM 132 MMOL/L (135-145)
[2020-10-17 16:03] LABS: ALANINE AMINOTRANSFERASE 12 U/L (0-55); ALKALINE PHOSPHATASE 93 U/L (40-136); BILIRUBIN,TOTAL 0.2 MG/DL (0.1-1.0); BUN/CREATININE RATIO 14; CREATININE SERUM 3.48 MG/DL (0.60-1.30); GFR ESTIMATED 12; GLUCOSE 132 MG/DL (70-105); TOTAL PROTEIN 6.3 GM/DL (6.4-8.2)
[2020-10-17 16:04] LABS: ALBUMIN 4.2 GM/DL (3.2-4.5)
--- NOTE | 2020-10-17 16:18 | Diagnostic Imaging Report ---
INDICATION: Left facial droop and left upper extremity weakness. TECHNIQUE: Multiple contiguous axial images were obtained through the brain without the use of intravenous contrast. Auto Exposure Controls were utilized during the CT exam to meet ALARA standards for radiation dose reduction. COMPARISON: 02/23/2020. FINDINGS: There is a large old infarct in the posterior portion of the right MCA territory involving the right temporal lobe. This has not changed compared to the previous study. There is underlying mild atrophic change. There are patchy low-density changes in the deep white matter, compatible with chronic ischemic change. There is no new parenchymal abnormality in the brain. The ventricles are normal in size. The calvarial windows are unremarkable. IMPRESSION: Atrophic changes. 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 There is no new intracranial abnormality. There are chronic changes in the deep white matter. Dictated by: Dictated on workstation # [id number]
--- NOTE | 2020-10-17 16:33 | ED General ---
General Chief Complaint: Glucose Problems Stated Complaint: UNABLE TO SPEAK Nursing Triage Note: Patient brought to the ED by EMS for stroke like symptoms of facial droop and inability to speak. EMS reports daughter went to check on patient at 11:00 am this morning and found her unable to speak. Daughter states patient's blood sugar was low, so she gave patient an orange to eat. On EMS arrival, patient's blood sugar was 50s-60s, patient given 1/2 amp D50 by EMS, blood sugar recheck 136. Patient alert, oriented, and speaking fluently on arrival to ED, unable to raise left arm higher than bedrail, but no drift on exam. Left facial droop noted. Nursing Sepsis Screen: No Definite Risk Source of Information: Patient, EMS Exam Limitations: No Limitations History of Present Illness Date Seen by Provider: Oct 17, 2020 Time Seen by Provider: 15:20 Initial Comments 89-year-old female presents via EMS with concern of possible stroke and noted low blood sugar on EMS arrival in the 50s. Patient's daughter stopped by to check on her around 1330 (pm) & found her to be weak and unable to speak, she thought her blood sugar was low and was trying to get her glucose up by eating a n orange, but shortly after trying called EMS. On arrival, patient talkative, alert and oriented with mild dysarthria and left upper extremity weakness without ataxia. Review of past medical history shows CT of February 2020 with right MCA ischemia? Allergies and Home Medications Allergies Coded Allergies: Penicillins (Unverified Adverse Reaction, Unknown, 04/29/19) cephalexin (Unverified Adverse Reaction, Unknown, 04/29/19) Home Medications Amlodipine Besylate 10 Mg Tablet, 10 MG PO DAILY, (Reported) Famotidine 20 Mg Tablet, 20 MG PO BID Prescribed by: HARVEY VILLARREAL on 05/03/19 1210 Glipizide 10 Mg Tablet, 10 MG PO BID, (Reported) Hydralazine HCl 25 Mg Tablet, 25 MG PO TID, (Reported) Metoprolol Succinate 100 Mg Tab.er.24h, 100 MG PO HS, (Reported) Omeprazole 20 Mg Capsule.dr, 20 MG PO DAILY PRN for HEARTBURN, (Reported) Spironolactone 25 Mg Tablet, 12.5 MG PO DAILY, (Reported) TAKES 1/2 TABLET (25MG) Patient Home Medication List Home Medication List Reviewed: Yes Review of Systems Review of Systems Constitutional: No fever, No malaise; weakness Respiratory: No cough, No dyspnea on exertion, No short of breath Cardiovascular: No chest pain, No edema, No palpitations Gastrointestinal: No abdominal pain, No loss of appetite, No nausea, No vomiting Musculoskeletal: No back pain, No muscle pain, No neck pain Skin: No change in color, No rash Psychiatric/Neurological: Denies Numbness, Denies Paresthesia, Denies Weakness Past Ngkqjxf-Vlnsfw-Ioffcg Hx Past Med/Social Hx: Reviewed Nursing Past Med/Soc Hx Patient Social History 2nd Hand Smoke Exposure: No Recent Foreign Travel: No Contact w/Someone Who Travel: No Recent Infectious Disease Expo: No Recent Hopitalizations: No Immunizations Up To Date Tetanus Booster (TDap): Unknown Date of Pneumonia Vaccine: Aug 30, 2018 Seasonal Allergies Seasonal Allergies: No Past Medical History Surgeries: Yes Appendectomy, Eye Surgery, Hysterectomy, Orthopedic Respiratory: Yes COPD Cardiac: Yes High Cholesterol, Hypertension Neurological: Yes (BRAIN BLEED FROM A FALL) Genitourinary: No Gastrointestinal: No Musculoskeletal: No Endocrine: Yes Diabetes, Non-Insulin dep HEENT: No Cancer: No Psychosocial: No Integumentary: No Blood Disorders: No Physical Exam Vital Signs Vital Signs - First Documented 10/17/20 10/17/20 15:26 17:15 Temp 36.5 Pulse 64 Resp 18 B/P (MAP) 176/69 (104) Pulse Ox 100 O2 Delivery Room Air O2 Flow Rate 3.00 Capillary Refill : Less Than 3 Seconds Height, Weight, BMI Height: 4'11.00" Weight: 119lbs. 0.0oz. 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 II-XII Norm as Tested Skin: Normal Color, Warm/Dry Focused Exam Lactate Level 10/17/20 16:20: Lactic Acid Level 0.68 Lactic Acid Level Laboratory Tests Test 10/17/20 16:20 Lactic Acid Level 0.68 MMOL/L (0.50-2.00) Procedures/Interventions Suture Size: 5-0 Progress/Results/Core Measures Suspected Sepsis Recent Fever Within 48 Hours: No Infection Criteria Present: None New/Unexplained Altered Menta: No Sepsis Screen: No Definite Risk SIRS Temperature: Pulse: 64 Respiratory Rate: 18 Laboratory Tests 10/17/20 15:25: White Blood Count 11.0 Blood Pressure 176 /69 Mean: 104 10/17/20 16:20: Lactic Acid Level 0.68 Laboratory Tests 10/17/20 15:25: Creatinine 3.48#H, Platelet Count 243, Total Bilirubin 0.2 Results/Orders Lab Results Laboratory Tests Test 10/17/20 15:25 10/17/20 16:20 Range/Units White Blood Count 11.0 4.3-11.0 10^3/uL Red Blood Count 3.37 L 4.35-5.85 10^6/uL Hemoglobin 10.6 L 11.5-16.0 G/DL Hematocrit 33 L 35-52 % Mean Corpuscular Volume 98 80-99 FL Mean Corpuscular Hemoglobin 31 25-34 PG Mean Corpuscular Hemoglobin Concent 32 32-36 G/DL Red Cell Distribution Width 12.2 10.0-14.5 % Platelet Count 243 130-400 10^3/uL Mean Platelet Volume 11.1 H 7.4-10.4 FL Immature Granulocyte % (Auto) 1 % Neutrophils (%) (Auto) 66 42-75 % Lymphocytes (%) (Auto) 17 12-44 % Monocytes (%) (Auto) 11 0-12 % Eosinophils (%) (Auto) 6 0-10 % Basophils (%) (Auto) 0 0-10 % Neutrophils # (Auto) 7.2 1.8-7.8 X 10^3 Lymphocytes # (Auto) 1.9 1.0-4.0 X 10^3 Monocytes # (Auto) 1.2 H 0.0-1.0 X 10^3 Eosinophils # (Auto) 0.6 H 0.0-0.3 10^3/uL Basophils # (Auto) 0.0 0.0-0.1 10^3/uL Immature Granulocyte # (Auto) 0.1 0.0-0.1 10^3/uL Sodium Level 132 L 135-145 MMOL/L Potassium Level 4.9 3.6-5.0 MMOL/L Chloride Level 99 98-107 MMOL/L Carbon Dioxide Level 20 L 21-32 MMOL/L Anion Gap 13 5-14 MMOL/L Blood Urea Nitrogen 49 H 7-18 MG/DL Creatinine 3.48 #H 0.60-1.30 MG/DL Estimat Glomerular Filtration Rate 12 BUN/Creatinine Ratio 14 Glucose Level 132 H 70-105 MG/DL Calcium Level 9.0 8.5-10.1 MG/DL Corrected Calcium 8.8 8.5-10.1 MG/DL Total Bilirubin 0.2 0.1-1.0 MG/DL Aspartate Amino Transf (AST/SGOT) 19 5-34 U/L Alanine Aminotransferase (ALT/SGPT) 12 0-55 U/L Alkaline Phosphatase 93 40-136 U/L Troponin I < 0.30 <0.30 NG/ML Total Protein 6.3 L 6.4-8.2 GM/DL Albumin 4.2 3.2-4.5 GM/DL Lactic Acid Level 0.68 0.50-2.00 MMOL/L My Orders Orders - ROVENSTINELISSET L DO Ed Iv/Invasive Line Start (10/17/20 15:37) Cbc With Automated Diff (10/17/20 15:37) Comprehensive Metabolic Panel (10/17/20 15:37) Lactic Acid Analyzer (10/17/20 15:37) Troponin I Fs (10/17/20 15:37) Ekg Tracing (10/17/20 15:37) Ct Head Wo (10/17/20 15:37) Vital Signs/I&O 10/17/20 10/17/20 15:26 17:15 Temp 36.5 Pulse 64 62 Resp 18 18 B/P (MAP) 176/69 (104) 178/85 Pulse Ox 100 96 O2 Delivery Room Air Nasal Cannula O2 Flow Rate 3.00 Capillary Refill : Less Than 3 Seconds Blood Pressure Mean: 104 Progress Note : Progress Note Called patients, daughter @1345, regarding her LUE "weakness" that I noticed on initial exam....she states her mother has a rotator cuff injury and that it is nothing new. No ataxia and fully functioning LUE- forearm, wrist and hand. Otherwise no Neuro deficits and Ct of head without acute changes. Patient feeling well, alert and oriented. Discussed considerations of increased HH services as pt lives alone. Diagnostic Imaging Diagonstic Imaging: CT Comments COMPARISON: 02/23/2020. FINDINGS: There is a large old infarct in the posterior portion of the right MCA territory involving the right temporal lobe. This has not changed compared to the previous study. There is underlying mild atrophic change. There are patchy low-density changes in the deep white matter, compatible with chronic ischemic change. There is no new parenchymal abnormality in the brain. The ventricles are normal in size. The calvarial windows are unremarkable. IMPRESSION: Atrophic changes. 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 There is no new intracranial abnormality. There are chronic changes in the deep white matter. Dictated on workstation # [id number] Dict: 10/17/20 1615 Trans: 10/17/20 1618 [id number] Interpreted by: MARQUISE CANELA MD Electronically signed by: Departure Impression Primary Impression: Hypoglycemia Disposition: 01 HOME, SELF-CARE Condition: Improved Departure-Patient Inst. Decision time for Depature: 16:52 Referrals: CHRISTIANA BLACK MD (PCP/Family) Primary Care Physician Patient Instructions: Low Blood Sugar, Adult (DC) Add. Discharge Instructions: Call your Primary Doctor tomorrow to notify them of your episode of low blood sugar. It is also recommended you pursue more frequent home health evaluations All discharge instructions reviewed with patient and/or family. Voiced understanding. LISSET WARREN DO Oct 17, 2020 16:32
[2020-10-17 17:15] VITALS: BP 178/85
== END 2020-10-17 17:14 | disposition home or self-care (01) ==
LOC: EDUNIT# 15:26 → ER FS 15:27
DX: E11.649 Type 2 diabetes mellitus with hypoglycemia without coma (principal); I10 Essential (primary) hypertension; Z88.0 Allergy status to penicillin; Z88.1 Allergy status to other antibiotic agents
CPT/HCPCS: 36415; 70450; 80053; 83605; 84484; 85025; 93005

== ENCOUNTER 2020-11-15 10:24 | Outpatient (RCR) | payer MEDICARE ==
[2020-08-30] MEDS: DARBEPOETIN 25 MCG/ML (ARANESP) 1 ML HOSPITAL SC SCH (11:59)
[2020-08-30 12:03] VITALS: BP 178/67
[2020-09-13 11:16] LABS: HEMOGLOBIN 10.8 g/dL (11.5-16.0)
[2020-09-13 12:17] VITALS: BP 160/73
[2020-09-13] MEDS: DARBEPOETIN 25 MCG/ML (ARANESP) 1 ML HOSPITAL SC SCH (12:17)
[2020-09-27] MEDS: DARBEPOETIN 25 MCG/ML (ARANESP) 1 ML HOSPITAL SC SCH (11:24)
[2020-09-27 11:28] VITALS: BP 172/76
[2020-10-11 10:50] VITALS: BP 138/86
[2020-10-11 11:13] LABS: HEMOGLOBIN 10.8 g/dL (11.5-16.0)
[2020-10-11 11:34] LABS: ALBUMIN 3.9 GM/DL (3.2-4.5); CALCIUM 8.6 MG/DL (8.5-10.1); CREATININE SERUM 3.93 MG/DL (0.60-1.30); PHOSPHORUS 5.5 MG/DL (2.3-4.7); POTASSIUM 4.3 MMOL/L (3.6-5.0)
[2020-10-11] MEDS: DARBEPOETIN 25 MCG/ML (ARANESP) 1 ML HOSPITAL SC SCH (12:08)
[2020-10-25 10:50] VITALS: BP 184/75
[2020-11-01 10:00] VITALS: BP 124/71
[2020-11-01] MEDS: DARBEPOETIN 25 MCG/ML (ARANESP) 1 ML HOSPITAL SC SCH (10:26)
[~2020-11-15] VITALS: Ht 149.9 cm; Wt 49500.0 kg
[2020-11-15 08:55] VITALS: BP 124/71
[~2020-11-15 10:24] MED LIST changes: +CITA20TA9 PO; +FURO20TA4 PO; +ISOS30TA3 PO; +NF-SODBICA PO; +PANT40TA52 PO
[2020-11-15 10:50] LABS: HEMOGLOBIN 10.5 g/dL (11.5-16.0)
[2020-11-15] MEDS: DARBEPOETIN 25 MCG/ML (ARANESP) 1 ML HOSPITAL SC SCH (11:23)
== END 2020-11-28 | disposition home or self-care (01) ==
LOC: SDC 10:24
PROVIDERS: ATTEND Internal Medicine Nephrology
DX: N18.4 Chronic kidney disease, stage 4 (severe) (principal); D63.1 Anemia in chronic kidney disease
CPT/HCPCS: 36415; 80069; 82728; 83540; 85014; 85018; 96372

== ENCOUNTER 2020-12-16 10:42 | Observation (INO) | payer MEDICARE ==
[~2020-12-16] VITALS: Ht 149.8 cm; Wt 53.6 kg
[~2020-12-16 10:42] MED LIST changes: -ISOS30TA3 PO; +ISOS30TA82 PO
--- NOTE | 2020-12-16 11:02 | ED Hip Pain/Injury ---
General Chief Complaint: Hip/Pelvic Problems Stated Complaint: LT HIP PAIN Source: patient, EMS Exam Limitations: no limitations History of Present Illness Date Seen by Provider: Dec 16, 2020 Time Seen by Provider: 10:45 Initial Comments 89 y/o female presents via EMS with c/o left hip pain for 3 days. Saw her PCP 2 days ago and was given a shot of steroid w no relief. Taking hydrocodone and says it's not helping. Patient states this morning she could not get out of bed to use the restrooom, so she called 911. Told EMS her pain was 10/10, given 100mg Fentanyl en route and 3/10 pain on arrival. Denies injury or trauma. No recent illness. Denies fever or chills. Lives alone. Allergies and Home Medications Allergies Coded Allergies: Penicillins (Unverified Adverse Reaction, Unknown, 04/29/19) cephalexin (Unverified Adverse Reaction, Unknown, 04/29/19) Home Medications Amlodipine Besylate 10 Mg Tablet, 10 MG PO DAILY, (Reported) Citalopram Hydrobromide 20 Mg Tablet, 20 MG PO DAILY, (Reported) Furosemide 20 Mg Tablet, 20 MG PO DAILY, (Reported) Glipizide 10 Mg Tablet, 10 MG PO BID, (Reported) Hydralazine HCl 25 Mg Tablet, 25 MG PO TID, (Reported) Isosorbide Mononitrate 30 Mg Tab.er.24h, 30 MG PO HS, (Reported) Metoprolol Succinate 100 Mg Tab.er.24h, 100 MG PO HS, (Reported) Pantoprazole Sodium 40 Mg Tablet.dr, 40 MG PO DAILY, (Reported) Sodium Bicarbonate 650 Mg Tablet, 2 TAB PO BID, (Reported) Patient Home Medication List Home Medication List Reviewed: Yes Review of Systems Constitutional: No dizziness, No fever, No malaise, No weakness Respiratory: No cough, No short of breath Cardiovascular: No chest pain, No edema, No palpitations Gastrointestinal: No abdominal pain, No loss of appetite, No nausea, No vomiting Musculoskeletal: other (left hip and buttock pain) Skin: No change in color, No lesions, No rash Psychiatric/Neurological: Denies Numbness, Denies Paresthesia, Denies Weakness Past Byniwpg-Vqvzgv-Sbryfx Hx Past Med/Social Hx: Reviewed Nursing Past Med/Soc Hx Patient Social History 2nd Hand Smoke Exposure: No Recent Hopitalizations: No Immunizations Up To Date Tetanus Booster (TDap): Unknown Date of Pneumonia Vaccine: Aug 30, 2018 Seasonal Allergies Seasonal Allergies: No Past Medical History Surgeries: Yes Appendectomy, Eye Surgery, Hysterectomy, Orthopedic Respiratory: Yes COPD Cardiac: Yes High Cholesterol, Hypertension Neurological: Yes (BRAIN BLEED FROM A FALL) Genitourinary: No Gastrointestinal: No Musculoskeletal: No Endocrine: Yes Diabetes, Non-Insulin dep HEENT: No Cancer: No Psychosocial: No Integumentary: No Blood Disorders: No Physical Exam Vital Signs Vital Signs - First Documented 12/16/20 10:44 Temp 36.8 Pulse 70 Resp 18 B/P (MAP) 188/71 (110) Pulse Ox 98 O2 Delivery Room Air Capillary Refill : Height, Weight, BMI Height: 4'11.00" Weight: 119lbs. 0.0oz. 53.352063je; 22.00 BMI Method:Stated General Appearance: No Apparent Distress, WD/WN HEENT: PERRL/EOMI, Normal ENT Inspection Cardiovascular: Regular Rate, Rhythm, No JVD Respiratory: Chest Non Tender, Lungs Clear Gastrointestinal: Non Tender, Soft Back: Normal Inspection, No CVA Tenderness Extremity: Normal Capillary Refill, Normal Inspection, Non Tender Neurologic/Psychiatric: Alert, Oriented x3, No Motor/Sensory Deficits, Normal Mood/Affect Skin: Normal Color, Warm/Dry Procedures/Interventions Suture Size: 5-0 Progress/Results/Core Measures Results/Orders My Orders Orders - LISSET WARREN DO Pelvis (Ap) (12/16/20 10:49) Vital Signs/I&O 12/16/20 10:44 Temp 36.8 Pulse 70 Resp 18 B/P (MAP) 188/71 (110) Pulse Ox 98 O2 Delivery Room Air Progress Progress Note : Time: 11:34 Progress Note REsting comfortably, pain improved and able to straighten her LLE (lying flat in bed)....previously L hip held in flexion. Diagnostic Imaging Diagonstic Imaging: Xray Comments IMPRESSION: 1. No acute findings are present. 2. Degenerative changes present in the lower lumbar spine and both hips right greater than left with arterial sclerosis. Dictated by: Dictated on workstation # [id number] Dict: 12/16/20 1104 Trans: 12/16/20 1232 [id number] Interpreted by: BONNIE GOMEZ MD Electronically signed by: BONNIE GOMEZ MD 12/16/20 1232 Departure Communication (Admissions) Time/Spoke to Admitting Phy: 12:[address] Clemente re need to admit as pt lives alone and is unable to stand and or walk without assistance and great pain. Will admit w plan to manage pain and to see PT for return to ADL Impression Primary Impression: Sciatica of left side Additional Impression: Intractable pain Disposition: 30 STILL A PATIENT Condition: Improved Admissions Decision to Admit Reason: Admit from ER (General) Decision to Admit/Date: Dec 16, 2020 Time/Decision to Admit Time: 12:15 Departure-Patient Inst. Referrals: CHRISTIANA BLACK MD (PCP/Family) Primary Care Physician LISSET WARREN DO Dec 16, 2020 11:02
--- NOTE | 2020-12-16 12:25 | Diagnostic Imaging Report ---
INDICATION: Left hip pain radiating down left leg. FINDINGS: AP view of the pelvis demonstrates joint space narrowing in both hips right worse than the left. Degenerative changes are present in the lower lumbar spine. Diffuse arterial sclerosis is present. No fracture or dislocation is present. IMPRESSION: 1. No acute findings are present. 2. Degenerative changes present in the lower lumbar spine and both hips right greater than left with arterial sclerosis. Dictated by: Dictated on workstation # [id number]
[2020-12-16] MEDS ORDERED: fentaNYL INJECTION 100 MCG/2 ML AMP IVP ONE ×2 (13:15→15:15)
[2020-12-16] MEDS ORDERED: fentaNYL INJECTION 100 MCG/2 ML AMP ONE (15:03)
[2020-12-16 16:26] VITALS: BP 180/77
[2020-12-16] MEDS ORDERED: amLODIPine 10 MG (NORVASC) TAB ONE (17:16)
[2020-12-16] MEDS: hydrALAZINE (APRESOLINE) 25 MG TAB PO SCH (17:22)
[2020-12-16] MEDS: amLODIPine 10 MG (NORVASC) TAB PO SCH (17:22)
[2020-12-16 18:11] VITALS: BP 169/77
[2020-12-16] MEDS: fentaNYL INJECTION 100 MCG/2 ML AMP IVP PRN ×4 (18:58→21:38)
[2020-12-16 19:50] VITALS: BP 151/67
[2020-12-16] MEDS ORDERED: CATHETER FLUSH 10 ML SYR IV PRN (20:30)
[2020-12-16] MEDS ORDERED: meTOprolol SUCCINATE 100 MG (TOPROL XL) TAB PO SCH (21:00)
[2020-12-16] MEDS: ISOSORBIDE MONONITRATE 30 MG (IMDUR) TAB PO SCH (21:09)
[2020-12-16] MEDS: meTOprolol SUCCINATE 100 MG (TOPROL XL) TAB PO SCH (21:09)
[2020-12-16] MEDS: SODIUM BICARBONATE 650 MG TABLET (NON-FORMULARY) PO SCH (21:10)
[2020-12-16] MEDS: polyethylene glycoL POWDER 17 GM (MIRALAX) PACK PO SCH (21:13)
[2020-12-16] MEDS: CATHETER FLUSH 10 ML SYR IV SCH (21:13)
[2020-12-17 00:15] VITALS: BP 155/69
[2020-12-17] MEDS: fentaNYL INJECTION 100 MCG/2 ML AMP IVP PRN ×4 (01:39→11:46)
[2020-12-17 04:00] VITALS: BP 186/81
[2020-12-17] MEDS: hydrALAZINE (APRESOLINE) 25 MG TAB PO SCH ×3 (05:59→21:05)
[2020-12-17] MEDS: CATHETER FLUSH 10 ML SYR IV SCH ×3 (05:59→21:06)
[2020-12-17 08:00] VITALS: BP 177/81
[2020-12-17] MEDS: PANTOPRAZOLE 40 MG (PROTONIX) TAB PO SCH (08:15)
[2020-12-17] MEDS: FUROSEMIDE 20 MG (LASIX) TAB PO SCH (08:15)
[2020-12-17] MEDS: SODIUM BICARBONATE 650 MG TABLET (NON-FORMULARY) PO SCH ×2 (08:15→21:14)
[2020-12-17] MEDS: amLODIPine 10 MG (NORVASC) TAB PO SCH (08:15)
[2020-12-17] MEDS ORDERED: FLU QUAD HIGH DOSE 240 MCG/0.7 ML 2020-21 (FLUZONE) IM ONE (08:45)
[2020-12-17] MEDS: HYDROcodone/APAP 7.5 MG/325 MG (LORTAB, LORCET PLUS) TABLET PO PRN ×3 (09:46→21:39)
--- NOTE | 2020-12-17 10:10 | History & Physical-Hospitalist ---
History of Present Illness HPI/Chief Complaint This is an 89-year-old white female who lives alone. She had been loading laundry into the close washer and had sudden onset of severe back pain with radiation down the left leg. She describes the pain is intractable and is unable to function at home. She has a history of a nerve stimulator in her back and has had 3 back surgeries first 1 in 1968. The patient remains very uncomfortable. She had a CT lumbar spine this morning results are pending pelvic film was unremarkable. Source: patient Exam Limitations: no limitations Date Seen 12/17/20 Time Seen by a Provider: 09:30 Attending Physician Cathryn Clemente MD PCP Christiana Walker MD Referring Physician Date of Admission Dec 16, 2020 at 15:00 Home Medications & Allergies Home Medications Reviewed patient Home Medication Reconciliation performed by pharmacy medication reconciliations civil drafting technician and/or nursing. Patients Allergies have been reviewed. Allergies Allergies Coded Allergies Penicillins (Verified Adverse Reaction, Unknown, 12/16/20) cephalexin (Verified Adverse Reaction, Unknown, 12/16/20) Past Vjznony-Kuhhao-Khbbtu Hx Past Med/Social Hx: Reviewed Nursing Past Med/Soc Hx Patient Social History Marrital Status: Employed/Student: retired Alcohol Use: Denies Use Recreational Drug Use: No Smoking Status: Never a Smoker 2nd Hand Smoke Exposure: No Recent Foreign Travel: No Contact w/other who traveled: No Recent Hopitalizations: No Recent Infectious Disease Expo: No Immunizations Up To Date Tetanus Booster (TDap): Unknown Date of Pneumonia Vaccine: Aug 30, 2018 Seasonal Allergies Seasonal Allergies: No Past Medical History Surgeries: Appendectomy, Eye Surgery, Gallbladder, Hysterectomy, Orthopedic Cardiac: High Cholesterol, Hypertension Musculoskeletal: 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), Foot Drop (Right) Endocrine: Diabetes, Non-Insulin dep Hearing Impairment: Hard of Hearing History of Blood Disorders: No Review of Systems Constitutional: see HPI Respiratory: no symptoms reported Cardiovascular: no symptoms reported Musculoskeletal: see HPI, back pain, muscle pain (Left leg) Skin: no symptoms reported Psychiatric/Neurological: Weakness Physical Exam Physical Exam Vital Signs Vital Signs - First Documented 12/16/20 12/16/20 10:44 20:00 Temp 36.8 Pulse 70 Resp 18 B/P (MAP) 188/71 (110) Pulse Ox 98 O2 Delivery Room Air O2 Flow Rate 2.00 Capillary Refill : Less Than 3 SecondsLess Than 3 Seconds Height, Weight, BMI Height: 4'11.00" Weight: 119lbs. 0.0oz. 53.860419op; 23.97 BMI Method:Stated General Appearance: No Apparent Distress, WD/WN HEENT: Normal ENT Inspection Neck: Normal Inspection, Limited Range of Motion Respiratory: Lungs Clear, Normal Breath Sounds, No Accessory Muscle Use, No Respiratory Distress Cardiovascular: Regular Rate, Rhythm, No Edema, No Gallop, Extra Beats Gastrointestinal: Normal Bowel Sounds, Non Tender, Soft Rectal: Deferred Back: Normal Inspection Extremity: No Pedal Edema Neurologic/Psychiatric: Alert, Oriented x3, Normal Mood/Affect, Other (Muscle strength normal bilateral lower extremities) Skin: Normal Color, Warm/Dry Results Results/Procedures Labs Patient resulted labs reviewed. Imaging: Reviewed Imaging Films, Reviewed Imaging Report Assessment/Plan Admission Diagnosis Severe back pain possible compression fracture imagings pending Chronic back pain Hypertension Coronary artery disease Diabetes Plan to admit for pain control and physical therapy consult and orthopedic surgery consult Admission Status: Observation Copy Copies To 1: CHRISTIANA WALKER MD, KATHLEEN M MD Dec 17, 2020 10:10
--- NOTE | 2020-12-17 10:21 | Diagnostic Imaging Report ---
PROCEDURE: CT lumbar spine without contrast. TECHNIQUE: Multiple contiguous axial images were obtained through the lumbar spine without the use of intravenous contrast. Sagittal and coronal reformations were then performed. Auto Exposure Controls were utilized during the CT exam to meet ALARA standards for radiation dose reduction. INDICATION: Radicular pain radiating down the left hip and leg. Previous neural stimulator placement. COMPARISON STUDY: CT of the abdomen and pelvis from 04/29/2019. FINDINGS: No fractures are present. Neurostimulator remains in place. Diffuse arterial sclerosis is present. Bilateral renal cysts are again identified. Levoscoliosis has not appreciably changed. The T12-L1 level demonstrates disc space narrowing. Mild right lateral subluxation is present. This with scoliosis results in mild narrowing of the right neural foramina. L1-L2 level demonstrates. No stenosis is present. L3-L4 level demonstrates disc space narrowing and osteophytic ridging. There is moderate narrowing of the left neural foramina. L4-L5 level demonstrates disc space narrowing. No significant stenosis is present. L5-S1 level demonstrates facet arthropathy. No significant stenosis is present. IMPRESSION: Multilevel spondylosis is present with fairly severe scoliosis. No fractures are present. Facet arthropathy and some osteophytes on the right side. There is mild narrowing of the right neural foramina. Dictated by: Dictated on workstation # [id number]
[2020-12-17 10:53] LABS: ALBUMIN 3.5 GM/DL (3.2-4.5); POTASSIUM 4.8 MMOL/L (3.6-5.0)
[2020-12-17 10:54] LABS: CALCIUM 7.9 MG/DL (8.5-10.1)
[2020-12-17 10:57] LABS: BILIRUBIN,TOTAL 0.5 MG/DL (0.1-1.0)
[2020-12-17 10:59] LABS: CREATININE SERUM 3.99 MG/DL (0.60-1.30)
[2020-12-17 11:19] LABS: BASOPHILS % (AUTO) 0 % (0-10); EOSINOPHILS # (AUTO) 0.1 10^3/uL (0.0-0.3); EOSINOPHILS % (AUTO) 1 % (0-10); HEMATOCRIT 31 % (35-52); HEMOGLOBIN 9.9 g/dL (11.5-16.0); LYMPHOCYTES % (AUTO) 8 % (12-44); MEAN CORPUSCULAR HEMOGLOBIN 32 pg (25-34); MEAN CORPUSCULAR HGB CONC 33 g/dL (32-36); MEAN CORPUSCULAR VOLUME 97 fL (80-99); MEAN PLATELET VOLUME 10.8 fL (9.0-12.2); MONOCYTES # (AUTO) 1.3 10^3/uL (0.0-1.0); MONOCYTES % (AUTO) 11 % (0-12); NEUTROPHILS # (AUTO) 9.3 10^3/uL (1.8-7.8); NEUTROPHILS % (AUTO) 79 % (42-75); PLATELET COUNT 164 10^3/uL (130-400); WHITE BLOOD COUNT 11.7 10^3/uL (4.3-11.0)
[2020-12-17] MEDS ORDERED: inSUlin ASPART (NovoLOG) 1 UNIT/0.01 ML (CHARGE PER UNIT) SC ONE (11:30)
[2020-12-17 11:46] LABS: ERYTHROCYTE SEDIMENTATION RATE 31 MM/HR (0-30)
[2020-12-17 12:00] VITALS: BP 167/68
[2020-12-17 15:48] VITALS: BP 154/78
[2020-12-17] MEDS: inSUlin ASPART (NovoLOG) 1 UNIT/0.01 ML (CHARGE PER UNIT) SC SCH ×2 (16:29→21:05)
[2020-12-17 19:52] VITALS: BP 157/70
[2020-12-17] MEDS: ISOSORBIDE MONONITRATE 30 MG (IMDUR) TAB PO SCH (21:04)
[2020-12-17] MEDS: polyethylene glycoL POWDER 17 GM (MIRALAX) PACK PO SCH (21:05)
[2020-12-17] MEDS: meTOprolol SUCCINATE 100 MG (TOPROL XL) TAB PO SCH (21:05)
[2020-12-18] VITALS (8 sets, daily range): BP systolic 112–178; BP diastolic 57–74
[2020-12-18] MEDS: inSUlin ASPART (NovoLOG) 1 UNIT/0.01 ML (CHARGE PER UNIT) SC SCH ×4 (05:34→20:52)
[2020-12-18] MEDS: CATHETER FLUSH 10 ML SYR IV SCH ×3 (05:49→20:53)
[2020-12-18 07:12] LABS: BASOPHILS % (AUTO) 0 % (0-10); EOSINOPHILS # (AUTO) 0.3 10^3/uL (0.0-0.3); EOSINOPHILS % (AUTO) 4 % (0-10); HEMATOCRIT 29 % (35-52); HEMOGLOBIN 9.6 g/dL (11.5-16.0); LYMPHOCYTES # (AUTO) 1.5 10^3/uL (1.0-4.0); LYMPHOCYTES % (AUTO) 17 % (12-44); MEAN CORPUSCULAR HEMOGLOBIN 32 pg (25-34); MEAN CORPUSCULAR HGB CONC 33 g/dL (32-36); MEAN CORPUSCULAR VOLUME 97 fL (80-99); MEAN PLATELET VOLUME 11.1 fL (9.0-12.2); MONOCYTES # (AUTO) 1.1 10^3/uL (0.0-1.0); MONOCYTES % (AUTO) 13 % (0-12); NEUTROPHILS # (AUTO) 5.9 10^3/uL (1.8-7.8); NEUTROPHILS % (AUTO) 67 % (42-75); PLATELET COUNT 177 10^3/uL (130-400); WHITE BLOOD COUNT 8.8 10^3/uL (4.3-11.0)
[2020-12-18 07:33] LABS: ALBUMIN 3.4 GM/DL (3.2-4.5); BILIRUBIN,TOTAL 0.3 MG/DL (0.1-1.0); CALCIUM 8.4 MG/DL (8.5-10.1); CREATININE SERUM 4.51 MG/DL (0.60-1.30); POTASSIUM 4.1 MMOL/L (3.6-5.0); TOTAL PROTEIN 5.9 GM/DL (6.4-8.2)
[2020-12-18] MEDS: hydrALAZINE (APRESOLINE) 25 MG TAB PO SCH ×3 (07:42→20:51)
[2020-12-18] MEDS: HYDROcodone/APAP 7.5 MG/325 MG (LORTAB, LORCET PLUS) TABLET PO PRN ×3 (07:42→20:52)
[2020-12-18] MEDS: FUROSEMIDE 20 MG (LASIX) TAB PO SCH (07:42)
[2020-12-18] MEDS: amLODIPine 10 MG (NORVASC) TAB PO SCH (07:42)
[2020-12-18] MEDS: PANTOPRAZOLE 40 MG (PROTONIX) TAB PO SCH (07:43)
[2020-12-18] MEDS: SODIUM BICARBONATE 650 MG TABLET (NON-FORMULARY) PO SCH ×2 (07:43→20:51)
--- NOTE | 2020-12-18 10:04 | Physical Therapy Evaluation ---
PT Evaluation-General Medical Diagnosis Admission Date Dec 16, 2020 at 15:00 Medical Diagnosis: intractable pain/acute sciatica Onset Date: Dec 16, 2020 Therapy Diagnosis Therapy Diagnosis: debility/weakness/left hip pain Height/Weight Height (Feet): 4 Height (Inches): 11.00 Weight (Pounds): 119 Weight (Ounces): 0.0 Precautions Precautions/Isolations: Fall Prevention, Standard Precautions Weight Bear Status Right Lower Extremity: Right Weight Bearing/Tolerated Left Lower Extremity: Left Weight Bearing/Tolerated Referral Physician: Bryn Reason for Referral: Evaluation/Treatment Medical History Pertinent Medical History: CAD, COPD, DM, HTN Additional Medical History 3 back surgeries Current History EMS secondary to left hip pain and inability to care for self Reviewed History: Yes Social History Home: Single Level Current Living Status: Alone Prior Prior Level of Function SCALE: Activities may be completed with or without assistive devices. 4-Yvgyucyquz-lqcyrgi completes the activity by him/herself with no assistance from a helper. 5-Set-up or Clean-up Assistance-helper sets up or cleans up; patient completes activity. [place] assists only prior to or following the activity. 4-Supervision or Touching Assistance-helper provides verbal cues and/or touching/steadying and/or contact guard assistance as patient completes activity. Assistance may be provided throughout the activity or intermittently. 3-Partial/Moderate Assistance-helper does LESS THAN HALF the effort. [place] lifts, holds or supports trunk or limbs, but provides less than half the effort. 2-Substantial/Maximal Assistance-helper does MORE THAN HALF the effort. [place] lifts or holds trunk or limbs and provides more than half the effort. 2-Ehqtdanem-lpfqbv does ALL the effort. Patient does none of the effort to complete the activity. Or, the assistance of 2 or more helpers is required for the patient to complete the activity. If activity was not attempted, code reason: 7-Patient Refused. 9-Not Applicable-not attempted and the patient did not perform the activity before the current illness, exacerbation or injury. 10-Not Attempted due to Environmental Limitations-(lack of equipment, weather restraints, etc.). 88-Not Attempted due to Medical Conditions or Safety Concerns. Bed Mobility: 6 Transfers (B,C,W/C): 6 Gait: 6 Indoor Mobility (Ambulation): Independent Prior Devices Use: Walker PT Evaluation-Current Subjective Patient reluctantly agrees to PT. Pain Numeric Pain Scale: 8 Location: Left Location Body Site: Hip Pain Description: Acute Objective Patient Orientation: Normal For Age Attachments: Oxygen ROM/Strength ROM Lower Extremities bilateral LE WFL Strength Lower Extremities right drop foot chronic/left and right LE 3+/5 grossly Integumentary/Posture Integumentary refer to nursing notes Bowel Incontinence: No Bladder Incontinence: No Posture WFL/scoliosis Neuromuscular (Tone, Coordination, Reflexes) grossly intact Sensory Vision: Wears Glasses Hearing: Impaired Transfers Roll Left to Right (QC): 6 Sit to Lying (QC): 5 Lying to Sitting/Side of Bed(Q: 5 Sit to Stand (QC): 4 Chair/Olx-cu-Dzbzy Xfer(QC): 4 CGA for safety/initial assessment Gait Does the Patient Walk?: Yes Mode of Locomotion: Walk Anticipated Mode of Locomotion: Walk Walk 10 feet (QC): 4 Walk 50 ft with 2 Turns(QC): 4 Walk 150 ft (QC): 4 Distance: 150' Gait Assistive Device: FWW Comments/Gait Description safe and functional with no deviation Balance Sitting Static: Normal Sitting Dynamic: Normal Standing Static: Normal Standing Dynamic: Normal Treatment ice placed left piriformis region due to pain Assessment/Needs 89 y.o. female, will be seen short term by skilled PT to address left gluteal pain and functional mobility to ensure safe return to home. Rehab Potential: Fair PT Skilled Nursing Goals Skilled Nursing Goals PT Skilled Nursing Goals Time Frame: Dec 30, 2020 Roll Left & Right (QC): 5 Sit to Lying (QC): 5 Lying-Sitting on Side/Bed(QC): 5 Sit to Stand (QC): 5 Chair/Lkb-qw-Drfkw Xfer(QC): 5 Toilet Transfer (QC): 5 Does the Patient Walk: Yes Walk 10 feet (QC): 5 Walk 50ft with 2 Turns (QC): 5 Walk 150 ft (QC): 5 PT Plan Problem List Problem List: Activity Tolerance, Other (left hip pain) Treatment/Plan Treatment Plan: Continue Plan of Care Treatment Plan: Education, Functional Activity Katerina, Functional Strength, Gait, Safety, Therapeutic Exercise, Transfers Treatment Duration: Dec 30, 2020 Frequency: 6 times per week Estimated Hrs Per Day: .25 hour per day Patient and/or Family Agrees t: Yes Time/GCodes Time In: 844 Time Out: 906 Total Billed Treatment Time: 22 Total Billed Treatment 1 visit EVModC 22 min KASSY PEREYRA PT Dec 18, 2020 10:04
--- NOTE | 2020-12-18 10:11 | Progress Note - Hospitalist ---
Subjective HPI/CC On Admission Date Seen by Provider: Dec 18, 2020 Time Seen by Provider: 10:00 This is an 89-year-old white female who lives alone. She had been loading laundry into the close washer and had sudden onset of severe back pain with radiation down the left leg. She describes the pain is intractable and is unable to function at home. She has a history of a nerve stimulator in her back and has had 3 back surgeries first 1 in 1968. The patient remains very uncomfortable. She had a CT lumbar spine this morning results are pending pelvic film was unremarkable. Subjective/Events-last exam Pt reports having a lot of back pain PT and OT consulted and rehab referral CT scan did not reveal any compression fracture Back surgeries in the passed multiple times Solumedrol and Baclofen will be started Has not had a BM since Friday so will start aggressive medication Spoke to PCP and Stage 5 CKD has been present for years Review of Systems Musculoskeletal: back pain Objective Exam Vital Signs Vital Signs Date Time Temp Pulse Resp B/P (MAP) Pulse Ox O2 Delivery O2 Flow Rate FiO2 12/19/20 04:00 36.3 61 20 177/76 (109) 99 Room Air 12/18/20 08:00 2.00 Capillary Refill : Less Than 3 SecondsLess Than 3 Seconds General Appearance: No Apparent Distress, WD/WN, Chronically ill, Thin Respiratory: Lungs Clear, Normal Breath Sounds Cardiovascular: Regular Rate, Rhythm Back: Decreased Range of Motion, Muscle Spasm, Vertebral Tenderness Neurologic/Psychiatric: Alert, Oriented x3, No Motor/Sensory Deficits, Normal Mood/Affect Results/Procedures Lab Laboratory Tests 12/18/20 06:52 12/19/20 05:15 Patient resulted labs reviewed. Imaging: Reviewed Imaging Films, Reviewed Imaging Report Assessment/Plan Assessment and Plan Assess & Plan/Chief Complaint Assessment: Severe and incapacitating back pain CT reveals no compression fracture CKD Stage 5 for years per PCP HTN CAD Advanced age Constipation Plan: PT OT Steroids Pain control BM regimen Diagnosis/Problems Diagnosis/Problems (1) Intractable pain Status: Acute (2) CKD (chronic kidney disease) stage 5, GFR less than 15 ml/min (3) Sciatica of left side Status: Acute RONY MONROE DO Dec 18, 2020 10:11
[2020-12-18] MEDS: methylPREDNISolone 40 MG/ML (Solu-MEDROL) VIAL IV SCH ×4 (10:47→20:53)
[2020-12-18] MEDS: BISACODYL 10 MG SUPP (DULCOLAX) PR SCH (10:48)
[2020-12-18] MEDS: BACLOFEN 10 MG (LIORESAL) TAB PO SCH ×3 (10:48→20:52)
[2020-12-18] MEDS: LACTULOSE SYRUP 10GM/15ML (ENULOSE) 30ML UDC PO SCH ×2 (10:48→20:50)
[2020-12-18] MEDS: SENNA W/DOCUSATE (SENOKOT S) TABLET PO SCH ×2 (10:48→20:51)
[2020-12-18] MEDS: polyethylene glycoL POWDER 17 GM (MIRALAX) PACK PO SCH ×3 (10:53→20:53)
--- NOTE | 2020-12-18 14:10 | Occupational Therapy Eval ---
OT Evaluation-General/PLF Medical Diagnosis Admission Date Dec 16, 2020 at 15:00 Medical Diagnosis: intractable pain/acute sciatica Onset Date: Dec 16, 2020 Therapy Diagnosis Therapy Diagnosis: Weakness, Decreased ADL skills Height/Weight Height (Feet): 4 Height (Inches): 11.00 Weight (Pounds): 119 Weight (Ounces): 0.0 Precautions Precautions/Isolations: Fall Prevention, Standard Precautions Weight Bear Status Weight Bearing Restriction: Weight Bearing/Tolerated Referral Physician: Brny Referral Reason: Activity Tolerance, Self Care, Evaluation/Treatment, Strengthening/ROM Medical History Pertinent Medical History: CAD, COPD, DM, HTN Additional Medical History DDD, Right foot drop, nerve stimulator, multiple back surgeries. Current History Pt. has history of back pain. Began having severe pain at home. Came to ER and found to have multi-level spondylosis with severe scoliosis. Reviewed History: Yes Social History Home: Single Level Current Living Status: Alone Entry Into Home: Ramp ADL-Prior Level of Function SCALE: Activities may be completed with or without assistive devices. 6-Qamcejcxom-vbxsfae completes the activity by him/herself with no assistance from a helper. 5-Set-up or Clean-up Assistance-helper sets up or cleans up; patient completes activity. [place] assists only prior to or following the activity. 4-Supervision or Touching Assistance-helper provides verbal cues and/or touching/steadying and/or contact guard assistance as patient completes activ ity. Assistance may be provided throughout the activity or intermittently. 3-Partial/Moderate Assistance-helper does LESS THAN HALF the effort. [place] lifts, holds or supports trunk or limbs, but provides less than half the effort. 2-Substantial/Maximal Assistance-helper does MORE THAN HALF the effort. [place] lifts or holds trunk or limbs and provides more than half the effort. 8-Zgvnbmllr-oxhghw does ALL the effort. Patient does none of the effort to complete the activity. Or, the assistance of 2 or more helpers is required for the patient to complete the activity. If activity was not attempted, code reason: 7-Patient Refused. 9-Not Applicable-not attempted and the patient did not perform the activity before the current illness, exacerbation or injury. 10-Not Attempted due to Environmental Limitations-(lack of equipment, weather restraints, etc.). 88-Not Attempted due to Medical Conditions or Safety Concerns. ADL PLOF Comments Pt. lives alone but states that she has a bath aide that comes 2x/week, and a nurse that comes 1x/week. Her daughter brings her food and groceries. She uses a walker at home. She has an AFO for her right LE, but does not always use it. Self Care: Needed Some Help Functional Cognition: Independent DME/Equipment: Bath Chair, Shower DME/Equipment Comments Pt. uses a walker at home. OT Current Status Subjective Pt. reports 8/10 pain down right LE from hip after ambulation. Nursing notified. Appearance Pt. in bed. Agrees to work with OT. Mental Status/Objective Patient Orientation: Person, Place Current Glasses/Contacts: Yes Upper Extremity ROM Pt. has limited shoulder ROM in bilateral UE. She is able to flex bilateral shoulders to approximately 60 degrees. She states that she had a RCR in left shoulder, and needed one in right shoulder but did not get one done. ADL-Treatment On/Off Footwear (QC): 4 (SBA seated on side of bed to bring bilateral LE up to her to doff don slipper socks.) Other Treatments Pt. transferred supine-sit with min assist. She reports pain in left LE, but agrees to ambulate with walker. Pt. stands at walker with min assist. She is able to ambulate with CGA and walker approximately 50 feet. Noted that pt. has foot drop in right LE, and has to lift LE when ambulating. Pt. does state that she has an AFO somewhere but does not use it very much. Pt. reports significant pain in left hip and down leg after ambulation. Pt. transferred back to bed with CGA. All needs met and pt. requests pain medication. OT reports this to nurse aide who will report to nurse. Education OT Patient Education: Correct positioning, Modified ADL techniques, Progress toward Goal/Update tx plan, Purpose of tx/functional activities, Reviewed pre cautions, Rehab process, Transfer techniques Teaching Recipient: Patient Teaching Methods: Demonstration, Discussion Response to Teaching: Verbalize Understanding, Return Demonstration OT Shelter Goals Grease Man Goals Time Frame: Jan 01, 2021 Eating (QC): 6 Oral Hygiene (QC): 6 Toileting Hygiene (QC): 4 Shower/Bathe Self (QC): 4 Upper Body Dressing (QC): 5 Lower Body Dressing (QC): 4 On/Off Footwear (QC): 4 Additional Goals: 1-Demonstrate ADL Tasks, 2-Verbalize Understanding, 3- ImproveStrength/Katerina 1=Demonstrate adherence to instructed precautions during ADL tasks. 2=Patient will verbalize/demonstrate understanding of assistive devices/modifications for ADL. 3=Patient will improve strength/tolerance for activity to enable patient to perform ADL's. OT Education/Plan Problem List/Assessment Assessment: Decreased Activ Tolerance, Dependent Transfers, Impaired I ADL's, Impaired Self-Care Skills, Restricted Funct UE ROM Discharge Recommendations Plan/Recommendations: Continue POC Therapy Discharge Recommendati: Post Acute OT Treatment Plan/Plan of Care Treatment,Training & Education: Yes Patient would benefit from OT for education, treatment and training to promote independence in ADL's, mobility, safety and/or upper extremity function for ADL's. Plan of Care: ADL Retraining, Functional Mobility, UE Funct Exercise/Act Treatment Duration: Jan 01, 2021 Frequency: 5 times per week Estimated Hrs Per Day: .25 hour per day Agreement: Yes Rehab Potential: Fair Time/GCodes Start Time: 13:25 Stop Time: 13:38 Total Time Billed (hr/min): 13 Billed Treatment Time 1, EMILY NOE OT Dec 18, 2020 14:10
[2020-12-18] MEDS: ISOSORBIDE MONONITRATE 30 MG (IMDUR) TAB PO SCH (20:51)
[2020-12-18] MEDS ORDERED: meTOproloL SUCCINATE 50 MG (TOPROL XL) TAB PO SCH (21:00)
[2020-12-19 04:00] VITALS: BP 177/76
[2020-12-19] MEDS: methylPREDNISolone 40 MG/ML (Solu-MEDROL) VIAL IV SCH ×2 (04:12→09:25)
[2020-12-19] MEDS: CATHETER FLUSH 10 ML SYR IV SCH (04:12)
[2020-12-19 05:41] LABS: BASOPHILS % (AUTO) 0 % (0-10); EOSINOPHILS % (AUTO) 0 % (0-10); HEMATOCRIT 31 % (35-52); HEMOGLOBIN 10.1 g/dL (11.5-16.0); LYMPHOCYTES # (AUTO) 0.4 10^3/uL (1.0-4.0); LYMPHOCYTES % (AUTO) 7 % (12-44); MEAN CORPUSCULAR HEMOGLOBIN 32 pg (25-34); MEAN CORPUSCULAR HGB CONC 33 g/dL (32-36); MEAN CORPUSCULAR VOLUME 96 fL (80-99); MEAN PLATELET VOLUME 11.1 fL (9.0-12.2); MONOCYTES # (AUTO) 0.2 10^3/uL (0.0-1.0); MONOCYTES % (AUTO) 3 % (0-12); NEUTROPHILS # (AUTO) 5.4 10^3/uL (1.8-7.8); NEUTROPHILS % (AUTO) 90 % (42-75); PLATELET COUNT 218 10^3/uL (130-400)
[2020-12-19 05:59] LABS: ALBUMIN 3.7 GM/DL (3.2-4.5); POTASSIUM 4.7 MMOL/L (3.6-5.0)
[2020-12-19 06:00] LABS: CALCIUM 8.8 MG/DL (8.5-10.1)
[2020-12-19 06:02] LABS: TOTAL PROTEIN 6.2 GM/DL (6.4-8.2)
[2020-12-19 06:03] LABS: BILIRUBIN,TOTAL 0.3 MG/DL (0.1-1.0)
[2020-12-19 06:05] LABS: CREATININE SERUM 4.5 MG/DL (0.60-1.30)
[2020-12-19] MEDS: inSUlin ASPART (NovoLOG) 1 UNIT/0.01 ML (CHARGE PER UNIT) SC SCH (06:20)
[2020-12-19 08:00] VITALS: BP 140/79
[2020-12-19] MEDS ORDERED: CLC600T PO (08:24)
[2020-12-19] MEDS ORDERED: NF-DOR2% OU (08:24)
[2020-12-19] MEDS ORDERED: LATA2.5D19 OU (08:24)
[2020-12-19] MEDS ORDERED: MULT-1136 PO (08:24)
[2020-12-19] MEDS ORDERED: CYAN500T8 PO (08:24)
[2020-12-19] MEDS: BACLOFEN 10 MG (LIORESAL) TAB PO SCH (08:32)
[2020-12-19] MEDS: hydrALAZINE (APRESOLINE) 25 MG TAB PO SCH (08:32)
[2020-12-19] MEDS: PANTOPRAZOLE 40 MG (PROTONIX) TAB PO SCH (08:32)
[2020-12-19] MEDS: FUROSEMIDE 20 MG (LASIX) TAB PO SCH (08:32)
[2020-12-19] MEDS: BISACODYL 10 MG SUPP (DULCOLAX) PR SCH (08:32)
[2020-12-19] MEDS: amLODIPine 10 MG (NORVASC) TAB PO SCH (08:32)
[2020-12-19] MEDS: SODIUM BICARBONATE 650 MG TABLET (NON-FORMULARY) PO SCH (08:32)
[2020-12-19] MEDS: HYDROcodone/APAP 7.5 MG/325 MG (LORTAB, LORCET PLUS) TABLET PO PRN (08:32)
[2020-12-19] MEDS: polyethylene glycoL POWDER 17 GM (MIRALAX) PACK PO SCH (08:33)
[2020-12-19] MEDS: LACTULOSE SYRUP 10GM/15ML (ENULOSE) 30ML UDC PO SCH (08:33)
[2020-12-19] MEDS: SENNA W/DOCUSATE (SENOKOT S) TABLET PO SCH (08:33)
--- NOTE | 2020-12-19 09:38 | Physical Therapy Daily Note ---
PT Daily Note-Current Subjective Patient denies pain on this date and agrees to PT. Pain Numeric Pain Scale: 0-No Pain Location: No Pain Reported Mental Status Patient Orientation: Normal For Age Transfers SCALE: Activities may be completed with or without assistive devices. 8-Fxtcrsqjkj-qroeoww completes the activity by him/herself with no assistance from a helper. 5-Set-up or Clean-up Assistance-helper sets up or cleans up; patient completes activity. Wirtz assists only prior to or following the activity. 4-Supervision or Touching Assistance-helper provides verbal cues and/or to uching/steadying and/or contact guard assistance as patient completes activity. Assistance may be provided throughout the activity or intermittently. 3-Partial/Moderate Assistance-helper does LESS THAN HALF the effort. Wirtz lifts, holds or supports trunk or limbs, but provides less than half the effort. 2-Substantial/Maximal Assistance-helper does MORE THAN HALF the effort. Wirtz lifts or holds trunk or limbs and provides more than half the effort. 2-Hrufnyzba-upuuxx does ALL the effort. Patient does none of the effort to complete the activity. Or, the assistance of 2 or more helpers is required for the patient to complete the activity. If activity was not attempted, code reason: 7-Patient Refused. 9-Not Applicable-not attempted and the patient did not perform the activity before the current illness, exacerbation or injury. 10-Not Attempted due to Environmental Limitations-(lack of equipment, weather restraints, etc.). 88-Not Attempted due to Medical Conditions or Safety Concerns. Sit to Stand (QC): 4 Weight Bearing Right Lower Extremity: Right Weight Bearing/Tolerated Left Lower Extremity: Left Weight Bearing/Tolerated Gait Training Does the Patient Walk?: Yes Distance: 300' Walk 10 feet (QC): 4 Walk 50 ft with 2 Turns(QC): 4 Walk 150 ft (QC): 4 Gait Assistive Device: FWW SBA/chronic right drop foot (several years)/steady pace Exercises Seated Therapy Exercises: Ankle pumps (left LE only), Long arc quads, Hip flexion Seated Reps: 15 (2 sets) Assessment Patient much improved from yesterday with denial of pain. Patient improved with distance with FWW. Has ramp at home and declined step training. Chronic right drop foot of several years from previous back surgery. 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 Goals Time Frame: Dec 30, 2020 Roll Left & Right (QC): 5 Sit to Lying (QC): 5 Lying-Sitting on Side/Bed(QC): 5 Sit to Stand (QC): 5 Chair/Ndi-os-Lqstz Xfer(QC): 5 Toilet Transfer (QC): 5 Does the Patient Walk: Yes Walk 10 feet (QC): 5 Walk 50ft with 2 Turns (QC): 5 Walk 150 ft (QC): 5 PT Plan Treatment/Plan Treatment Plan: Continue Plan of Care Treatment Plan: Education, Functional Activity Katerina, Functional Strength, Ga it, Safety, Therapeutic Exercise, Transfers Treatment Duration: Dec 30, 2020 Frequency: 6 times per week Estimated Hrs Per Day: .25 hour per day Patient and/or Family Agrees t: Yes Time/GCodes Time In: 820 Time Out: 843 Total Billed Treatment Time: 23 Total Billed Treatment 1 visit GT 12 min EX 11 min KASSY PEREYRA PT Dec 19, 2020 09:38
--- NOTE | 2020-12-19 10:37 | Discharge Summary ---
Diagnosis/Chief Complaint Date of Admission Dec 16, 2020 at 15:00 Date of Discharge Discharge Date: Dec 19, 2020 Discharge Diagnosis Severe back pain h/p back surgeries Stage 5 CKD HTN Angina Discharge Summary Discharge Physical Examination Allergies: Coded Allergies: Penicillins (Verified Adverse Reaction, Unknown, 12/16/20) cephalexin (Verified Adverse Reaction, Unknown, 12/16/20) Vitals & I&Os Vital Signs Date Time Temp Pulse Resp B/P (MAP) Pulse Ox O2 Delivery O2 Flow Rate FiO2 12/19/20 08:00 36.3 69 18 140/79 (99) 98 Room Air 12/18/20 08:00 2.00 General Appearance: Alert, Oriented X3, Cooperative Respiratory: Clear to Auscultation Cardiovascular: Regular Rate Hospital Course Was the Problem List Reviewed?: Yes Standard course after admitted for severe back pain placed on pain meds and PT OT evaluated. CT scan revealed no fx. BM regimen successful and patient was deemed stable for move to IRF. Labs (last 24 hrs) Laboratory Tests 12/16/20 20:48: Glucometer 210H 12/17/20 05:39: Glucometer 138H 12/17/20 10:34: Sodium Level 125*L, Potassium Level 4.8, Chloride Level 99, Carbon Dioxide Level 15L, Anion Gap 11, Blood Urea Nitrogen 54H, Creatinine 3.99H, Estimat Glomerular Filtration Rate 11, BUN/Creatinine Ratio 14, Glucose Level 264H, Calcium Level 7.9L, Corrected Calcium 8.3L, Total Bilirubin 0.5, Aspartate Amino Transf (AST/SGOT) 26, Alanine Aminotransferase (ALT/SGPT) 10, Alkaline Phosphatase 55, Total Protein 6.0L, Albumin 3.5 12/17/20 11:01: Glucometer 304H 12/17/20 11:10: White Blood Count 11.7H, Red Blood Count 3.13L, Hemoglobin 9.9L, Hematocrit 31L, Mean Corpuscular Volume 97, Mean Corpuscular Hemoglobin 32, Mean Corpuscular Hemoglobin Concent 33, Red Cell Distribution Width 12.6, Platelet Count 164, Mean Platelet Volume 10.8, Immature Granulocyte % (Auto) 0, Neutrophils (%) (Auto) 79H, Lymphocytes (%) (Auto) 8L, Monocytes (%) (Auto) 11, Eosinophils (%) (Auto) 1, Basophils (%) (Auto) 0, Neutrophils # (Auto) 9.3H, Lymphocytes # (Auto) 1.0, Monocytes # (Auto) 1.3H, Eosinophils # (Auto) 0.1, Basophils # (Auto) 0.0, Immature Granulocyte # (Auto) 0.0, Erythrocyte Sedimentation Rate 31H 12/17/20 15:51: Glucometer 65L 12/17/20 20:31: Glucometer 301H 12/18/20 05:16: Glucometer 165H 12/18/20 06:52: White Blood Count 8.8, Red Blood Count 3.01L, Hemoglobin 9.6L, Hematocrit 29L, Mean Corpuscular Volume 97, Mean Corpuscular Hemoglobin 32, Mean Corpuscular Hemoglobin Concent 33, Red Cell Distribution Width 12.6, Platelet Count 177, Mean Platelet Volume 11.1, Immature Granulocyte % (Auto) 0, Neutrophils (%) (Auto) 67, Lymphocytes (%) (Auto) 17, Monocytes (%) (Auto) 13H, Eosinophils (%) (Auto) 4, Basophils (%) (Auto) 0, Neutrophils # (Auto) 5.9, Lymphocytes # (Auto) 1.5, Monocytes # (Auto) 1.1H, Eosinophils # (Auto) 0.3, Basophils # (Auto) 0.0, Immature Granulocyte # (Auto) 0.0, Sodium Level 131L, Potassium Level 4.1, Chloride Level 102, Carbon Dioxide Level 17L, Anion Gap 12, Blood Urea Nitrogen 62H, Creatinine 4.51#H, Estimat Glomerular Filtration Rate 9, BUN/Creatinine Ratio 14, Glucose Level 167H, Calcium Level 8.4L, Corrected Calcium 8.9, Total Bilirubin 0.3, Aspartate Amino Transf (AST/SGOT) 12, Alanine Aminotransferase (ALT/SGPT) 8, Alkaline Phosphatase 64, Total Protein 5.9L, Albumin 3.4 12/18/20 11:10: Glucometer 235H 12/18/20 15:59: Glucometer 164H 12/18/20 20:12: Glucometer 315H 12/19/20 05:04: Glucometer 294H 12/19/20 05:15: White Blood Count 6.0, Red Blood Count 3.18L, Hemoglobin 10.1L, Hematocrit 31L, Mean Corpuscular Volume 96, Mean Corpuscular Hemoglobin 32, Mean Corpuscular Hemoglobin Concent 33, Red Cell Distribution Width 12.4, Platelet Count 218, Mean Platelet Volume 11.1, Immature Granulocyte % (Auto) 0, Neutrophils (%) (Auto) 90H, Lymphocytes (%) (Auto) 7L, Monocytes (%) (Auto) 3, Eosinophils (%) (Auto) 0, Basophils (%) (Auto) 0, Neutrophils # (Auto) 5.4, Lymphocytes # (Auto) 0.4L, Monocytes # (Auto) 0.2, Eosinophils # (Auto) 0.0, Basophils # (Auto) 0.0, Immature Granulocyte # (Auto) 0.0, Sodium Level 129L, Potassium Level 4.7, Chloride Level 99, Carbon Dioxide Level 17L, Anion Gap 13, Blood Urea Nitrogen 70H, Creatinine 4.50H, Estimat Glomerular Filtration Rate 9, BUN/Creatinine Ratio 16, Glucose Level 286H, Calcium Level 8.8, Corrected Calcium 9.0, Total Bilirubin 0.3, Aspartate Amino Transf (AST/SGOT) 15, Alanine Aminotransferase (ALT/SGPT) 16, Alkaline Phosphatase 83, Total Protein 6.2L, Albumin 3.7 12/19/20 11:51: Glucometer 300H Pending Labs Laboratory Tests 12/16/20 20:48: Glucometer 210 12/17/20 05:39: Glucometer 138 12/17/20 10:34: Sodium Level 125, Potassium Level 4.8, Chloride Level 99, Carbon Dioxide Level 15, Anion Gap 11, Blood Urea Nitrogen 54, Creatinine 3.99, Estimat Glomerular Filtration Rate 11, BUN/Creatinine Ratio 14, Glucose Level 264, Calcium Level 7.9, Corrected Calcium 8.3, Total Bilirubin 0.5, Aspartate Amino Transf (AST/SGOT) 26, Alanine Aminotransferase (ALT/SGPT) 10, Alkaline Phosphatase 55, Total Protein 6.0, Albumin 3.5 12/17/20 11:01: Glucometer 304 12/17/20 11:10: White Blood Count 11.7, Red Blood Count 3.13, Hemoglobin 9.9, Hematocrit 31, Mean Corpuscular Volume 97, Mean Corpuscular Hemoglobin 32, Mean Corpuscular Hemoglobin Concent 33, Red Cell Distribution Width 12.6, Platelet Count 164, Mean Platelet Volume 10.8, Immature Granulocyte % (Auto) 0, Neutrophils (%) (Auto) 79, Lymphocytes (%) (Auto) 8, Monocytes (%) (Auto) 11, Eosinophils (%) (Auto) 1, Basophils (%) (Auto) 0, Neutrophils # (Auto) 9.3, Lymphocytes # (Auto) 1.0, Monocytes # (Auto) 1.3, Eosinophils # (Auto) 0.1, Basophils # (Auto) 0.0, Immature Granulocyte # (Auto) 0.0, Erythrocyte Sedimentation Rate 31 12/17/20 15:51: Glucometer 65 12/17/20 20:31: Glucometer 301 12/18/20 05:16: Glucometer 165 12/18/20 06:52: White Blood Count 8.8, Red Blood Count 3.01, Hemoglobin 9.6, Hematocrit 29, Mean Corpuscular Volume 97, Mean Corpuscular Hemoglobin 32, Mean Corpuscular Hemoglobin Concent 33, Red Cell Distribution Width 12.6, Platelet Count 177, Mean Platelet Volume 11.1, Immature Granulocyte % (Auto) 0, Neutrophils (%) (Auto) 67, Lymphocytes (%) (Auto) 17, Monocytes (%) (Auto) 13, Eosinophils (%) (Auto) 4, Basophils (%) (Auto) 0, Neutrophils # (Auto) 5.9, Lymphocytes # (Auto) 1.5, Monocytes # (Auto) 1.1, Eosinophils # (Auto) 0.3, Basophils # (Auto) 0.0, Immature Granulocyte # (Auto) 0.0, Sodium Level 131, Potassium Level 4.1, Chloride Level 102, Carbon Dioxide Level 17, Anion Gap 12, Blood Urea Nitrogen 62, Creatinine 4.51, Estimat Glomerular Filtration Rate 9, BUN/Creatinine Ratio 14, Glucose Level 167, Calcium Level 8.4, Corrected Calcium 8.9, Total Bilirubin 0.3, Aspartate Amino Transf (AST/SGOT) 12, Alanine Aminotransferase (ALT/SGPT) 8, Alkaline Phosphatase 64, Total Protein 5.9, Albumin 3.4 12/18/20 11:10: Glucometer 235 12/18/20 15:59: Glucometer 164 12/18/20 20:12: Glucometer 315 12/19/20 05:04: Glucometer 294 12/19/20 05:15: White Blood Count 6.0, Red Blood Count 3.18, Hemoglobin 10.1, Hematocrit 31, Mean Corpuscular Volume 96, Mean Corpuscular Hemoglobin 32, Mean Corpuscular Hemoglobin Concent 33, Red Cell Distribution Width 12.4, Platelet Count 218, Mean Platelet Volume 11.1, Immature Granulocyte % (Auto) 0, Neutrophils (%) (Auto) 90, Lymphocytes (%) (Auto) 7, Monocytes (%) (Auto) 3, Eosinophils (%) (Auto) 0, Basophils (%) (Auto) 0, Neutrophils # (Auto) 5.4, Lymphocytes # (Auto) 0.4, Monocytes # (Auto) 0.2, Eosinophils # (Auto) 0.0, Basophils # (Auto) 0.0, Immature Granulocyte # (Auto) 0.0, Sodium Level 129, Potassium Level 4.7, Chloride Level 99, Carbon Dioxide Level 17, Anion Gap 13, Blood Urea Nitrogen 70, Creatinine 4.50, Estimat Glomerular Filtration Rate 9, BUN/Creatinine Ratio 16, Glucose Level 286, Calcium Level 8.8, Corrected Calcium 9.0, Total Bilirubin 0.3, Aspartate Amino Transf (AST/SGOT) 15, Alanine Aminotransferase (ALT/SGPT) 16, Alkaline Phosphatase 83, Total Protein 6.2, Albumin 3.7 12/19/20 11:51: Glucometer 300 Discharge Home Medications: Active Scripts Active Reported Vitamin B-12 (Cyanocobalamin (Vitamin B-12)) 500 Mcg Tablet 500 Mcg PO DAILY Calcium (Calcium Carbonate) 600 Mg Tablet 600 Mg PO DAILY Multivitamin 1 Each Tablet 1 Each PO DAILY Xalatan (Latanoprost) 2.5 Ml Drops 1 Drops OU HS Dorzolamide HCl 10 Ml Drops 1 Drop OU BID Sodium Bicarbonate 650 Mg Tablet 1,300 Mg PO BID TAKES 2 (650MG) TABS Furosemide 20 Mg Tablet 20 Mg PO DAILY Isosorbide Mononitrate ER (Isosorbide Mononitrate) 30 Mg Tab.er.24h 30 Mg PO HS Pantoprazole Sodium 40 Mg Tablet.dr 40 Mg PO HS Citalopram HBr (Citalopram Hydrobromide) 20 Mg Tablet 20 Mg PO HS Amlodipine Besylate 10 Mg Tablet 10 Mg PO DAILY Hydralazine HCl 25 Mg Tablet 25 Mg PO TID Metoprolol Succinate 100 Mg Tab.er.24h 50 Mg PO HS TAKES OF A 100MG TAB Glipizide 10 Mg Tablet 10 Mg PO DAILY Instructions to patient/family Please see electronic discharge instructions given to patient. Diagnosis/Problems Diagnosis/Problems (1) Intractable pain Status: Acute (2) CKD (chronic kidney disease) stage 5, GFR less than 15 ml/min (3) Sciatica of left side Status: Acute RONY MONROE DO Dec 19, 2020 10:37
== END 2020-12-19 11:22 ==
LOC: ER FS 10:42 → EDUNIT# 10:42 → ER FS 14:23 → 4TH 15:00
PROVIDERS: ADMIT Internal Medicine; ATTEND Internal Medicine
DX: M54.9 Dorsalgia, unspecified (principal); I12.0 Hypertensive chronic kidney disease with stage 5 chronic kidney disease or end stage renal disease; N18.5 Chronic kidney disease, stage 5; E11.22 Type 2 diabetes mellitus with diabetic chronic kidney disease; I20.9 Angina pectoris, unspecified; M54.32 Sciatica, left side; J44.9 Chronic obstructive pulmonary disease, unspecified; E78.00 Pure hypercholesterolemia, unspecified; Z79.899 Other long term (current) drug therapy; Z88.0 Allergy status to penicillin; Z88.1 Allergy status to other antibiotic agents; Z90.710 Acquired absence of both cervix and uterus
CPT/HCPCS: 36415; 72131; 72170; 80053; 82962; 85025; 85652; 90662; 96374; G0378

== ENCOUNTER 2020-12-19 09:46 | Inpatient (IN) | payer MEDICARE ==
[~2020-12-19] VITALS: Ht 147.3 cm; Wt 53.9 kg
[~2020-12-19 09:46] MED LIST changes: +CLC600T PO; +CYAN500T8 PO; +LATA2.5D19 OU; +MULT-1136 PO; +NF-DOR2% OU
[2020-12-19] MEDS ORDERED: FLEET ENEMA ADULT 1 EA BTL PR PRN (11:00)
[2020-12-19] MEDS ORDERED: guaiFENesin/CODEINE (ROBITUSSIN AC) 10ML UDC PO PRN (11:00)
[2020-12-19] MEDS ORDERED: diphenhydrAMINE 25 MG TAB (BENADRYL) PO PRN (11:00)
[2020-12-19] MEDS ORDERED: LACTULOSE SYRUP 10GM/15ML (ENULOSE) 30ML UDC PO PRN (11:00)
[2020-12-19] MEDS ORDERED: ONDANSETRON 4 MG (ZOFRAN) ORAL DISSOLVE TAB PO PRN (11:00)
[2020-12-19] MEDS ORDERED: ACETAMINOPHEN 500 MG TAB (TYLENOL) PO PRN (11:00)
[2020-12-19] MEDS ORDERED: MELATONIN 3 MG TABLET PO PRN (11:00)
[2020-12-19] MEDS ORDERED: CALCIUM CARBONATE 500 MG (TUMS) TAB.CHEW PO PRN (11:00)
[2020-12-19] MEDS ORDERED: ALPRAZolam 0.25 MG (XANAX) TAB PO PRN (11:00)
[2020-12-19] MEDS ORDERED: BISACODYL 10 MG SUPP (DULCOLAX) PR PRN (11:00)
[2020-12-19] MEDS ORDERED: DOCUSATE SODIUM 100 MG (COLACE) CAP PO PRN (11:00)
[2020-12-19] MEDS ORDERED: LOPERAMIDE 2 MG (IMODIUM) TABLET PO PRN (11:00)
--- NOTE | 2020-12-19 11:13 | PM&R Post Admission Assessment ---
PM&R Date of Visit: Dec 20, 2020 Time of Visit: 11:30 History of Present Illness CC: Severe back pain with debility and in need of recovery before discharging home alone HPI: This is an 89yoWF clinic pt of Dr. Walker in [facility] who has a PMH of HTN, CAD, angina and severe back pain three prior surgeries since 1968 with stage 5 renal insufficiency who presents to the inpatient rehab unit in need of additional recovery before returning home to live alone. She is reporting left sided sciatica pain. CT scan showed no compression fracture. She was given IV steroids to help with any type of inflammatory reaction and she does have a right foot drop which appears to be chronic. Bowels moved after laxatives given yesterday. Overall she is wanting to get stronger to be able to go home. Past Knqlcqb-Msddhh-Lyccqt Hx Past Med/Social Hx: Reviewed Nursing Past Med/Soc Hx, Reviewed and Corrections made Patient Social History Marrital Status: Employed/Student: retired Alcohol Use: Denies Use Smoking Status: Never a Smoker 2nd Hand Smoke Exposure: No Recent Hopitalizations: No Immunizations Up To Date Tetanus Booster (TDap): Unknown Date of Pneumonia Vaccine: Aug 30, 2018 Date of Influenza Vaccine: Dec 18, 2020 Seasonal Allergies Seasonal Allergies: No Past Medical History Surgeries: Appendectomy, Eye Surgery, Gallbladder, Hysterectomy, Orthopedic Cardiac: High Cholesterol, Hypertension Genitourinary: Renal Failure, UTI-Chronic Musculoskeletal: Degenerate Disk Disease, Foot Drop Endocrine: Diabetes, Non-Insulin dep Hearing Impairment: Hard of Hearing History of Blood Disorders: No PM&R Allergy/Meds/Data Review Allergies Coded Allergies: Penicillins (Verified Adverse Reaction, Unknown, 12/16/20) cephalexin (Verified Adverse Reaction, Unknown, 12/16/20) Home Medications Scheduled Amlodipine Besylate (Amlodipine Besylate), 10 MG PO DAILY, (Reported) Calcium Carbonate (Calcium), 600 MG PO DAILY, (Reported) Citalopram Hydrobromide (Citalopram HBr), 20 MG PO HS, (Reported) Cyanocobalamin (Vitamin B-12) (Vitamin B-12), 500 MCG PO DAILY, (Reported) Dorzolamide HCl (Dorzolamide HCl), 1 DROP OU BID, (Reported) Furosemide (Furosemide), 20 MG PO DAILY, (Reported) Glipizide (Glipizide), 10 MG PO DAILY, (Reported) Hydralazine HCl (Hydralazine HCl), 25 MG PO TID, (Reported) Isosorbide Mononitrate (Isosorbide Mononitrate ER), 30 MG PO HS, (Reported) Latanoprost (Xalatan), 1 DROPS OU HS, (Reported) Metoprolol Succinate (Metoprolol Succinate), 50 MG PO HS, (Reported) Multivitamin (Multivitamin), 1 EACH PO DAILY, (Reported) Pantoprazole Sodium (Pantoprazole Sodium), 40 MG PO HS, (Reported) Sodium Bicarbonate (Sodium Bicarbonate), 1,300 MG PO BID, (Reported) Current Medications Current Medications Reviewed Review of Systems Constitutional: see HPI, malaise, weakness Musculoskeletal: back pain Physical Exam Physical Exam Vital Signs Capillary Refill : Height, Weight, BMI Height: 4'11.00" Weight: 119lbs. 0.0oz. [id number]; 23.97 BMI Method:Stated General Appearance: No Apparent Distress, WD/WN, Chronically ill Eyes: Bilateral Eye Normal Inspection, Bilateral Eye PERRL HEENT: PERRL/EOMI, Normal ENT Inspection, Pharynx Normal, Other (blackfeet severe) Neck: Full Range of Motion, Normal Inspection, Non Tender, Supple, Carotid Bruit Respiratory: Chest Non Tender, Lungs Clear, Normal Breath Sounds, No Accessory Muscle Use, No Respiratory Distress Cardiovascular: Regular Rate, Rhythm, No Edema, No Gallop, No JVD, No Murmur, Normal Peripheral Pulses Gastrointestinal: Normal Bowel Sounds, No Organomegaly, No Pulsatile Mass, Non Tender, Soft Back: Normal Inspection, Decreased Range of Motion, Muscle Spasm, Vertebral Tenderness Extremity: Normal Capillary Refill, Normal Inspection, Normal Range of Motion, Non Tender, No Calf Tenderness, No Pedal Edema Neurologic/Psychiatric: Alert, Oriented x3, No Motor/Sensory Deficits, Normal Mood/Affect, Abnormal Gait, Motor Weakness (lower extremities 4/5) Skin: Normal Color, Warm/Dry Lymphatic: No Adenopathy PM&R Medical Assessment & Plan REHAB/MEDICAL ASSESSMENT AND PLAN: REHAB IMPAIRMENT GROUP: Severe back pain and lives alone ETIOLOGIC DIAGNOSIS: Severe back pain and lives alone The comorbidities that impact the patients function and/or functional outcome by: advanced age, Stage 5 CKD, DM OOC, Severe [place], debility, fall risk REHAB PLAN: The patient is being admitted to our comprehensive inpatient rehabilitation facility and can tolerate the intensity of service consisting of at least: 180 minutes of therapy a day, 5 out of 7 days a week Rehab treatment will consist of: PT OT will help patient regain function with increased stamina and use of assistive devices to help navigate and ambulate and increase ADL independence The patient/family has a good understanding of our discharge process and will benefit from an interdisciplinary inpatient rehabilitation program. The patient has potential to make improvement and is in need of at least two of the following multidisciplinary therapies including but not limited to physical, occupational, speech, and prosthetics and orthotics. Additionally the patient will need services from respiratory, nutritional services, wound care, psychology, etc. (Customize this to each patient). Given the patients complex condition and risk of further medical complications, rehabilitation services cannot be safely or effectively provided at a lower level of care such as a retirement facility. BARRIERS TO DISCHARGE: Advanced age and lives alone ESTIMATED LOS: 7 days DISPOSITION: Home RELEVANT CHANGES SINCE PREADMISSION SCREENING: I have compared the patients medical and functional status at the time of the preadmission screening and there are: no changes PROGNOSIS: Guarded REHABILITATION GOALS: 1. PT OT will help patient regain function with increased stamina and use of assistive devices to help navigate and ambulate and increase ADL All the above goals were reviewed with the patient and he/she is in agreement. By signing this document, I acknowledge that I have personally performed a full physical examination on this patient within 24 hours of admission to this [facility] rehabilitation facility and have determined the patient to be able to tolerate the above course of treatment at an intensive level for a reasonable period of time. I will be completing a detailed individualized Plan of Care for this patient by day #4 of the patients stay based upon the Preadmission Screen, the Post-Admission Evaluation, and the therapy evaluations. Admission Dx/Comorbidities: (1) Sciatica of left side Status: Acute ICD Codes: M54.32 - Sciatica, left side (2) CKD (chronic kidney disease) stage 5, GFR less than 15 ml/min ICD Codes: N18.5 - Chronic kidney disease, stage 5 (3) Intractable pain Status: Acute ICD Codes: R52 - Pain, unspecified (4) Hypoglycemia Status: Acute ICD Codes: E16.2 - Hypoglycemia, unspecified Assessment/Plan Assessment and Plan Assess & Plan/Chief Complaint Assessment: Severe back pain with h/o [address] negative for fracture CKD Stage V not a hemodialysis candidate DM OOC HTN OOC Angina CAD Falls in past Plan: IRF protocol Limit pain meds and muscle relaxants Monitor confusion RONY MONROE DO Dec 19, 2020 11:13
[2020-12-19 11:33] VITALS: BP 143/77
[2020-12-19] MEDS ORDERED: ACETAMINOPHEN 325 MG TABLET PO PRN (12:00)
--- NOTE | 2020-12-19 12:10 | Occupational Therapy Eval ---
OT Evaluation-General/PLF Medical Diagnosis Admission Date Dec 19, 2020 at 11:00 Medical Diagnosis: Intractable back pain Onset Date: Dec 16, 2020 Therapy Diagnosis Therapy Diagnosis: Weakness, pain, decreased ADL skills Height/Weight Height (Feet): 4 Height (Inches): 11.00 Weight (Pounds): 119 Weight (Ounces): 0.0 Precautions Precautions/Isolations: Fall Prevention, Standard Precautions Weight Bear Status Weight Bearing Restriction: Weight Bearing/Tolerated Referral Physician: Dr. Hinton Referral Reason: Activity Tolerance, Self Care, Evaluation/Treatment, Strengthening/ROM Medical History Pertinent Medical History: CAD, COPD, DM, HTN Additional Medical History Multiple back surgeries, nerve stimulator, left RCR Current History Pt. states that she was loading washing machine and had intense pain in her back. She came to ER and had testing. No fx. Pt. has multilevel spondylosis and scoliosis. Reviewed History: Yes Social History Home: Single Level Current Living Status: Alone Entry Into Home: Ramp ADL-Prior Level of Function SCALE: Activities may be completed with or without assistive devices. 2-Wfvbldhvuz-lbibtuy completes the activity by him/herself with no assistance from a helper. 5-Set-up or Clean-up Assistance-helper sets up or cleans up; patient completes activity. [place] assists only prior to or following the activity. 4-Supervision or Touching Assistance-helper provides verbal cues and/or touching/steadying and/or contact guard assistance as patient completes activity. Assistance may be provided throughout the activity or intermittently. 3-Partial/Moderate Assistance-helper does LESS THAN HALF the effort. [place] lifts, holds or supports trunk or limbs, but provides less than half the effort. 2-Substantial/Maximal Assistance-helper does MORE THAN HALF the effort. [place] lifts or holds trunk or limbs and provides more than half the effort. 4-Bxsoitrow-mcikrz does ALL the effort. Patient does none of the effort to complete the activity. Or, the assistance of 2 or more helpers is required for the patient to complete the activity. If activity was not attempted, code reason: 7-Patient Refused. 9-Not Applicable-not attempted and the patient did not perform the activity before the current illness, exacerbation or injury. 10-Not Attempted due to Environmental Limitations-(lack of equipment, weather restraints, etc.). 88-Not Attempted due to Medical Conditions or Safety Concerns. ADL PLOF Comments Pt. reports yesterday at acute evaluation that she has a bath aide that comes 2 x per week, and a nurse that comes 1 x per week. Her daughter brings her groceries and she is able to use the microwave. Pt. reports that she is independent with her walker. She has foot drop on the right side, and has an AFO that she is unsure where it is. She does not use it she states. Self Care: Needed Some Help Functional Cognition: Independent DME/Equipment: Bath Chair, Shower DME/Equipment Comments Walker OT Current Status Subjective Pt. reports 5/10 pain in left hip, but winces throughout treatment. Pt. has had pain medication. Mental Status/Objective Patient Orientation: Unable to Assess Current Glasses/Contacts: Yes Upper Extremity ROM Pt. has limited AROM at bilateral shoulders. Approximately 60 degrees. ADL-Treatment Eating (QC): 4 Oral Hygiene (QC): 7 Shower/Bathe Self (QC): 3 (Min assist for balance, and cues to sequence steps. Pt. washes glasses on her face instead of taking them off.) Upper Body Dressing (QC): 10 (No street clothing available.) Lower Body Dressing (QC): 10 On/Off Footwear (QC): 4 (SBA to doff/don slipper socks.) Toileting Hygiene (QC): 4 (CGA on toilet ) Other Treatments Pt. seen for co-treatment with PT due to need of skilled assistance x 2. Pt. verbalizes fatigue and pain. PT focused on transfers and mobility while OT facilitated ADL training. Noted throughout treatment pt. became groggy, and had increased difficulty attending to tasks. She would repeat herself and had difficulty focusing on what was being asked of her. She also had difficulty following simple 2 step commands. Nursing notified immediately. BP taken several times and is 179/68. Blood sugar at 300. 02 sats at 99%. Pt. transferred back to bed. All needs met for comfort. Nursing monitoring pt. Education OT Patient Education: Correct positioning, Modified ADL techniques, Progress t annaard Goal/Update tx plan, Purpose of tx/functional activities, Reviewed precautions, Rehab process, Transfer techniques Teaching Recipient: Patient Teaching Methods: Demonstration Response to Teaching: Verbalize Understanding, Return Demonstration, Reinforcement Needed OT Short Term Goals Short Term Goals Time Frame: Dec 26, 2020 Eatin Oral hygiene: 4 Toileting hygiene: 5 Shower/bathe self: 4 Upper body dressin Lower body dressin Putting on/taking off footwear: 4 OT Emission Technician Goals Shelter Goals Time Frame: Jan 02, 2021 Eating (QC): 6 Oral Hygiene (QC): 6 Toileting Hygiene (QC): 6 Shower/Bathe Self (QC): 4 Upper Body Dressing (QC): 5 Lower Body Dressing (QC): 4 On/Off Footwear (QC): 6 Additional Goals: 1-Demonstrate ADL Tasks, 2-Verbalize Understanding, 3-ImproveStrength/Katerina 1=Demonstrate adherence to instructed precautions during ADL tasks. 2=Patient will verbalize/demonstrate understanding of assistive devices/modifications for ADL. 3=Patient will improve strength/tolerance for activity to enable patient to perform ADL's. Pt. will be able to complete full ADL task without complaint of pain. OT Education/Plan Problem List/Assessment Assessment: Decreased Activ Tolerance, Decreased UE Strength, Dependent Transfers, Impaired Bed Mobility, Impaired Cognition, Impaired I ADL's, Impaired Self-Care Skills, Restricted Funct UE ROM Discharge Recommendations Plan/Recommendations: Continue POC Therapy Discharge Recommendati: Post Acute OT Comment Equipment needs and location status to be determined. Treatment Plan/Plan of Care Treatment,Training & Education: Yes Patient would benefit from OT for education, treatment and training to promote independence in ADL's, mobility, safety and/or upper extremity function for ADL's. Plan of Care: ADL Retraining, Functional Mobility, UE Funct Exercise/Act Treatment Duration: Jan 02, 2021 Frequency: 5 times per week Estimated Hrs Per Day: 1.5 hours per day Agreement: Yes Rehab Potential: Good Time/GCodes Start Time: 11:00 Stop Time: 12:00 Total Time Billed (hr/min): 50 Billed Treatment Time 9059-2805 PT candaceal, no charge [id number] 1, EVM x 10minutes [id number] ADL x 40minutes (only charge 2 units because 50 minutes total is 3 units) Treatment completed with PT EMILY TODD OT Dec 19, 2020 12:10
--- NOTE | 2020-12-19 13:14 | Occupational Ther Daily Note ---
OT Current Status-Daily Note Subjective Pt sleeping in bed. Woke to touch and name. Pt agrees to therapy. Pt c/o pain in L hip and lower L back, nrsg aware and Kpac placed. Mental Status/Objective Patient Orientation: Person, Place Attachments: IV ADL-Treatment Increased time required due to pain. PT/OT co-treat ([id number]) skills of 2 clinicians required due to increased pain and decreased mobility. PT focusing on bed mobility and transfers while OT focused on positioning and B UE placement during mobility. Pt was then given a late lunch. Pt positioned to eat in comfort then pt complete eating independently. After session, pt sitting in rec liner with call light/phone in reach. All needs met in room. Therapy Code Descriptions/Definitions Functional [place] Measure: 0=Not Assessed/NA 4=Minimal Assistance 1=Total Assistance 5=Supervision or Setup 2=Maximal Assistance 6=Modified [place] 3=Moderate Assistance 7=Complete IndependenceSCALE: Activities may be completed with or without assistive devices. 8-Klilvusrmz-owcxvbi completes the activity by him/herself with no assistance from a helper. 5-Set-up or Clean-up Assistance-helper sets up or cleans up; patient completes activity. [place] assists only prior to or following the activity. 4-Supervision or Touching Assistance-helper provides verbal cues and/or touching/steadying and/or contact guard assistance as patient completes activity. Assistance may be provided throughout the activity or intermittently. 3-Partial/Moderate Assistance-helper does LESS THAN HALF the effort. [place] lifts, holds or supports trunk or limbs, but provides less than half the effort. 2-Substantial/Maximal Assistance-helper does MORE THAN HALF the effort. [place] lifts or holds trunk or limbs and provides more than half the effort. 2-Wdbjcmdra-vwwisl does ALL the effort. Patient does none of the effort to complete the activity. Or, the assistance of 2 or more helpers is required for the patient to complete the activity. If activity was not attempted, code reason: 7-Patient Refused. 9-Not Applicable-not attempted and the patient did not perform the activity before the current illness, exacerbation or injury. 10-Not Attempted due to Environmental Limitations-(lack of equipment, weather restraints, etc.). 88-Not Attempted due to Medical Conditions or Safety Concerns. Eating (QC): 6 (Pt able to open packages and containers then use regular utensils to eat.) Other Treatment Pt given light resistance theraband for B UE strengthening. Will go over exercises tomorrow. OT Short Term Goals Short Term Goals Time Frame: Dec 26, 2020 Eatin Oral hygiene: 4 Toileting hygiene: 5 Shower/bathe self: 4 Upper body dressin Lower body dressin Putting on/taking off footwear: 4 OT Fdc Goals Fdc Goals Time Frame: Jan 02, 2021 Eating (QC): 6 Oral Hygiene (QC): 6 Toileting Hygiene (QC): 6 Shower/Bathe Self (QC): 4 Upper Body Dressing (QC): 5 Lower Body Dressing (QC): 4 On/Off Footwear (QC): 6 Additional Goals: 1-Demonstrate ADL Tasks, 2-Verbalize Understanding, 3- ImproveStrength/Katerina 1=Demonstrate adherence to instructed precautions during ADL tasks. 2=Patient will verbalize/demonstrate understanding of assistive devices/modifications for ADL. 3=Patient will improve strength/tolerance for activity to enable patient to perform ADL's. OT Education/Plan Problem List/Assessment Assessment: Decreased Activ Tolerance, Decreased UE Strength, Impaired Funct Balance, Impaired Self-Care Skills, Restricted Funct UE ROM Discharge Recommendations Plan/Recommendations: Continue POC Treatment Plan/Plan of Care Patient would benefit from OT for education, treatment and training to promote independence in ADL's, mobility, safety and/or upper extremity function for ADL's. Plan of Care: ADL Retraining, Functional Mobility, UE Funct Exercise/Act Treatment Duration: Jan 02, 2021 Frequency: 5 times per week Estimated Hrs Per Day: 1.5 hours per day Agreement: Yes Rehab Potential: Good Time/GCodes Start Time: 12:50 Stop Time: 13:30 Total Time Billed (hr/min): 40 Billed Treatment Time 1 visit-ADL 2 (30 min) FA 1 (10 min) co-treat with PT [id number], individual [id number] KUMAR KEYS Dec 19, 2020 13:14
--- NOTE | 2020-12-19 13:46 | Physical Therapy Evaluation ---
PT Evaluation-General Medical Diagnosis Admission Date Dec 19, 2020 at 11:00 Medical Diagnosis: Intractable back pain Onset Date: Dec 16, 2020 Therapy Diagnosis Therapy Diagnosis: impaired mobility, strength, endurance Height/Weight Height (Feet): 4 Height (Inches): 11.00 Weight (Pounds): 119 Weight (Ounces): 0.0 Precautions Precautions/Isolations: Fall Prevention, Standard Precautions Referral Physician: Dr. Hinton Reason for Referral: Evaluation/Treatment Medical History Pertinent Medical History: CAD, COPD, DM, HTN Reviewed History: Yes Social History Home: Single Level Current Living Status: Alone Entry Into Home: Ramp Prior Prior Level of Function SCALE: Activities may be completed with or without assistive devices. 4-Gydnvjggbg-gqfeicd completes the activity by him/herself with no assistance from a helper. 5-Set-up or Clean-up Assistance-helper sets up or cleans up; patient completes activity. [place] assists only prior to or following the activity. 4-Supervision or Touching Assistance-helper provides verbal cues and/or touching/steadying and/or contact guard assistance as patient completes activity. Assistance may be provided throughout the activity or intermittently. 3-Partial/Moderate Assistance-helper does LESS THAN HALF the effort. [place] lifts, holds or supports trunk or limbs, but provides less than half the effort. 2-Substantial/Maximal Assistance-helper does MORE THAN HALF the effort. [place] lifts or holds trunk or limbs and provides more than half the effort. 9-Tcbvfkbsr-uakadq does ALL the effort. Patient does none of the effort to complete the activity. Or, the assistance of 2 or more helpers is required for the patient to complete the activity. If activity was not attempted, code reason: 7-Patient Refused. 9-Not Applicable-not attempted and the patient did not perform the activity before the current illness, exacerbation or injury. 10-Not Attempted due to Environmental Limitations-(lack of equipment, weather restraints, etc.). 88-Not Attempted due to Medical Conditions or Safety Concerns. Bed Mobility: 6 Transfers (B,C,W/C): 6 Gait: 6 Indoor Mobility (Ambulation): Independent Prior Devices Use: Walker PT Evaluation-Current Subjective Patient in recliner pre tx, agrees to PT, has 5/10 pain in left hip but patient presents with probably more pain than that. Patient has already had pain meds. Will be co-treating with OT due to poor patient mobility, strength, pain with activity, coordinate UE and LE during activity, safety and reduce risk of fall. Pt/Family Goals to be independent at home Objective Patient Orientation: Person, Confused, Situation ROM/Strength ROM Lower Extremities NT due to pain Strength Lower Extremities NT in LLE due to pain, patient has trouble following directions due to [place] and confusion so not able to be tested on the right leg either. Sensory Vision: Wears Glasses Hearing: Impaired Sensation Right Lower Extremit: Intact Sensation Left Lower Extremity: Intact Transfers Roll Left & Right (QC): 4 Sit to Lying (QC): 3 Lying to Sitting/Side of Bed(Q: 3 Sit to Stand (QC): 3 Chair/Dkx-gn-Pmkgg Xfer(QC): 3 Toilet Transfer (QC): 3 Car Transfer (QC): 3 Patient performs bed mobility with SBA, supine <-> sit min assist, sit <-> stand min assist, transfers min assist, car transfer min assist. Patient need tactile and visual cues for safety and positioning due to [place]. Gait Does the Patient Walk?: Yes Mode of Locomotion: Walk Anticipated Mode of Locomotion: Walk Walk 10 feet (QC): 4 Walk 50 ft with 2 Turns(QC): 4 Walk 150 ft (QC): 88 Walking 10ft/uneven surface-QC: 4 Distance: 120'x2 Gait Assistive Device: FWW Comments/Gait Description Gait is antalgic, slow, has right dropfoot. Wheelchair Training Wheel 50 ft with 2 turns (QC): 1 Wheel 150 ft (QC): 1 Type of Wheelchair: Manual Stairs 1 Step (curb) (QC): 3 4 Steps (QC): 88 12 Steps (QC): 88 Balance Sitting Static: Normal Sitting Dynamic: Normal Standing Static: Fair Standing Dynamic: Fair Picking up an Object (QC): 88 Treatment PT performed bed mobility and transfer training, ambulation, stair training, standing balance and positioning during bathing and dressing, OT performed bathing and dressing and UE positioning and safety during activity. Assessment/Needs Patient in bed post tx with nurse call, phone, tray, all needs met, bed alarm on. Patient became increasingly confused during tx, her O2 stayed at 97-99%, BP was at 140's/77 at the beginning of tx, and 175/68 at the end, her blood sugar was 300. Rehab Potential: Guarded PT Short Term Goals Short Term Goals Time Frame: Dec 26, 2020 Roll Left & Right: 6 Sit to lyin Lying to sitting on side of be: 4 Sit to stand: 4 Chair/rae-qv-ifrgs transfer: 4 Walk 10 feet: 4 Walk 50 feet with two turns: 4 Walk 150 feet: 4 PT Ordnance Equipment Worker Goals Ordnance Equipment Worker Goals PT Ordnance Equipment Worker Goals Time Frame: Jan 09, 2021 Roll Left & Right (QC): 6 Sit to Lying (QC): 6 Lying-Sitting on Side/Bed(QC): 6 Sit to Stand (QC): 6 Chair/Tiv-wt-Twool Xfer(QC): 6 Toilet Transfer (QC): 6 Car Transfer (QC): 6 Does the Patient Walk: Yes Walk 10 feet (QC): 6 Walk 50ft with 2 Turns (QC): 6 Walk 150 ft (QC): 6 Walking 10ft on Uneven Surface: 6 1 Step (curb) (QC): 4 4 Steps (QC): 4 12 Steps (QC): 88 Picking up an Object (QC): 88 Wheel 50 feet with 2 turns (QC: 9 Wheel 150 feet: 9 PT Plan Problem List Problem List: Activity Tolerance, Functional Strength, Safety, Balance, Gait, Transfer, Bed Mobility, ROM Treatment/Plan Treatment Plan: Continue Plan of Care Treatment Plan: Bed Mobility, Education, Functional Activity Katerina, Functional Strength, Group Therapy, Gait, Safety, Therapeutic Exercise, Transfers Treatment Duration: Jan 09, 2021 Frequency: At least 5 of 7 days/Wk (IRF) Estimated Hrs Per Day: 1.5 hours per day Patient and/or Family Agrees t: Yes Safety Risks/Education Patient Education: Gait Training, Transfer Techniques, Steps, Correct Positioning, Safety Issues Teaching Recipient: Patient Teaching Methods: Demonstration, Discussion Response to Teaching: Reinforcement Needed Discharge Recommendations Plan Patient will perform bed mobility and transfer training, balance and endurance training, functional strengthening, stair training, gait training, and education, to improve functional mobility and independence at home. Therapy Discharge Recommendati: 24 Hour Supervision, Scheduled Assistance, Home & Family Time/GCodes Time In: 1100 Time Out: 1200 Total Billed Treatment Time: 50 Total Billed Treatment 1 visit EVM 10' FA 40' PT eval from [id number], OT eval from [id number], co-treat from [id number] BEBETO GARCIA PT Dec 19, 2020 13:45
--- NOTE | 2020-12-19 14:19 | Physical Therapy Daily Note ---
PT Daily Note-Current Subjective Patient in bed pre tx, would like to get into recliner to eat lunch, has severe unrated pain in left hip area. Will be co-treating with OT due to poor patient mobility, strength, endurance, severe pain with activity, coordinate UE and LE during activity, safety and reduced risk of falls. Appearance Patient in recliner post tx with nurse call, phone, tray, all needs met, chair alarm on, hot pack on left hip. Mental Status Patient Orientation: Person, Confused Transfers SCALE: Activities may be completed with or without assistive devices. 7-Kmztormfme-whycehu completes the activity by him/herself with no assistance from a helper. 5-Set-up or Clean-up Assistance-helper sets up or cleans up; patient completes activity. [place] assists only prior to or following the activity. 4-Supervision or Touching Assistance-helper provides verbal cues and/or touching /steadying and/or contact guard assistance as patient completes activity. Assistance may be provided throughout the activity or intermittently. 3-Partial/Moderate Assistance-helper does LESS THAN HALF the effort. [place] lifts, holds or supports trunk or limbs, but provides less than half the effort. 2-Substantial/Maximal Assistance-helper does MORE THAN HALF the effort. [place] lifts or holds trunk or limbs and provides more than half the effort. 6-Artdvjugn-dsrghk does ALL the effort. Patient does none of the effort to complete the activity. Or, the assistance of 2 or more helpers is required for the patient to complete the activity. If activity was not attempted, code reason: 7-Patient Refused. 9-Not Applicable-not attempted and the patient did not perform the activity before the current illness, exacerbation or injury. 10-Not Attempted due to Environmental Limitations-(lack of equipment, weather restraints, etc.). 88-Not Attempted due to Medical Conditions or Safety Concerns. Roll Left & Right (QC): 3 Lying to Sitting/Side of Bed(Q: 3 Sit to Stand (QC): 3 Chair/Fhr-dh-Ntgrv Xfer(QC): 3 Patient needs min assist for supine to sit, min assist for sit to stand, patient ambulates a few feet to recliner and turns to sit with min assist. Gait Training Distance: 5' Gait Assistive Device: FWW cues for positioning and safety Treatments bed mobility and transfers, ambulation, OT worked on UE positioning and safety during activity, setup patient for lunch Assessment Current Status: Poor Progress severe pain, nurse aware PT Short Term Goals Short Term Goals Time Frame: Dec 26, 2020 Roll Left & Right: 6 Sit to lyin Lying to sitting on side of be: 4 Sit to stand: 4 Chair/oks-ix-zfjrc transfer: 4 Walk 10 feet: 4 Walk 50 feet with two turns: 4 Walk 150 feet: 4 PT Real Estate Instructor Goals Real Estate Instructor Goals PT Half-Way Goals Time Frame: Jan 09, 2021 Roll Left & Right (QC): 6 Sit to Lying (QC): 6 Lying-Sitting on Side/Bed(QC): 6 Sit to Stand (QC): 6 Chair/Iwc-pr-[place] Xfer(QC): 6 Toilet Transfer (QC): 6 Car Transfer (QC): 6 Does the Patient Walk: Yes Walk 10 feet (QC): 6 Walk 50ft with 2 Turns (QC): 6 Walk 150 ft (QC): 6 Walking 10ft on Uneven Surface: 6 1 Step (curb) (QC): 4 4 Steps (QC): 4 12 Steps (QC): 88 Picking up an Object (QC): 88 Wheel 50 feet with 2 turns (QC: 9 Wheel 150 feet: 9 PT Plan Problem List Problem List: Activity Tolerance, Functional Strength, Safety, Balance, Gait, Transfer, Bed Mobility, ROM Treatment/Plan Treatment Plan: Continue Plan of Care Treatment Plan: Bed Mobility, Education, Functional Activity Katerina, Functional Strength, Group Therapy, Gait, Safety, Therapeutic Exercise, Transfers Treatment Duration: Jan 09, 2021 Frequency: At least 5 of 7 days/Wk (IRF) Estimated Hrs Per Day: 1.5 hours per day Patient and/or Family Agrees t: Yes Safety Risks/Education Patient Education: Gait Training, Transfer Techniques, Correct Positioning, Safety Issues Teaching Recipient: Patient Teaching Methods: Demonstration, Discussion Response to Teaching: Reinforcement Needed Time/GCodes Time In: 1300 Time Out: 1310 Total Billed Treatment Time: 10 Total Billed Treatment 1 visit FA BEBETO PIEDRA PT Dec 19, 2020 14:19
--- NOTE | 2020-12-19 14:50 | Physical Therapy Daily Note ---
PT Daily Note-Current Subjective Patient in recliner pre tx, hard to rouse, she wakes and agrees to PT, has unrated left hip pain. Appearance Patient in bed post tx with nurse call, phone, tray, all needs met, bed alarm on. Mental Status Patient Orientation: Person, Confused Transfers SCALE: Activities may be completed with or without assistive devices. 6-Uuzhwvakcw-tbybxjf completes the activity by him/herself with no assistance from a helper. 5-Set-up or Clean-up Assistance-helper sets up or cleans up; patient completes activity. [place] assists only prior to or following the activity. 4-Supervision or Touching Assistance-helper provides verbal cues and/or touching/steadying and/or contact guard assistance as patient completes activity. Assistance may be provided throughout the activity or intermittently. 3-Partial/Moderate Assistance-helper does LESS THAN HALF the effort. [place] lifts, holds or supports trunk or limbs, but provides less than half the effort. 2-Substantial/Maximal Assistance-helper does MORE THAN HALF the effort. [place] lifts or holds trunk or limbs and provides more than half the effort. 7-Kjsdonayk-bavlwq does ALL the effort. Patient does none of the effort to complete the activity. Or, the assistance of 2 or more helpers is required for the patient to complete the activity. If activity was not attempted, code reason: 7-Patient Refused. 9-Not Applicable-not attempted and the patient did not perform the activity before the current illness, exacerbation or injury. 10-Not Attempted due to Environmental Limitations-(lack of equipment, weather restraints, etc.). 88-Not Attempted due to Medical Conditions or Safety Concerns. Roll Left & Right (QC): 6 Sit to Lying (QC): 3 Sit to Stand (QC): 3 Chair/Ihm-zf-Mlzwb Xfer(QC): 3 Gait Training Distance: 150'x2 Walk 10 feet (QC): 4 Walk 50 ft with 2 Turns(QC): 4 Walk 150 ft (QC): 4 Gait Assistive Device: FWW cues for direction, antalgic ambulation, right foot drop Exercises NuStep Minutes: 10 NuStep Workload: 4 Treatments bed mobility and transfers, ambulation, functional strengthening Assessment Current Status: Fair Progress improved ambulation but still confused PT Short Term Goals Short Term Goals Time Frame: Dec 26, 2020 Roll Left & Right: 6 Sit to lyin Lying to sitting on side of be: 4 Sit to stand: 4 Chair/nad-ag-swtrm transfer: 4 Walk 10 feet: 4 Walk 50 feet with two turns: 4 Walk 150 feet: 4 PT Media Operator Goals Mcc Goals PT Mcc Goals Time Frame: Jan 09, 2021 Roll Left & Right (QC): 6 Sit to Lying (QC): 6 Lying-Sitting on Side/Bed(QC): 6 Sit to Stand (QC): 6 Chair/Ihm-qg-Oxwqv Xfer(QC): 6 Toilet Transfer (QC): 6 Car Transfer (QC): 6 Does the Patient Walk: Yes Walk 10 feet (QC): 6 Walk 50ft with 2 Turns (QC): 6 Walk 150 ft (QC): 6 Walking 10ft on Uneven Surface: 6 1 Step (curb) (QC): 4 4 Steps (QC): 4 12 Steps (QC): 88 Picking up an Object (QC): 88 Wheel 50 feet with 2 turns (QC: 9 Wheel 150 feet: 9 PT Plan Problem List Problem List: Activity Tolerance, Functional Strength, Safety, Balance, Gait, Transfer, Bed Mobility, ROM Treatment/Plan Treatment Plan: Continue Plan of Care Treatment Plan: Bed Mobility, Education, Functional Activity Katerina, Functional Strength, Group Therapy, Gait, Safety, Therapeutic Exercise, Transfers Treatment Duration: Jan 09, 2021 Frequency: At least 5 of 7 days/Wk (IRF) Estimated Hrs Per Day: 1.5 hours per day Patient and/or Family Agrees t: Yes Safety Risks/Education Patient Education: Gait Training, Transfer Techniques, Correct Positioning, Safety Issues Teaching Recipient: Patient Teaching Methods: Demonstration, Discussion Response to Teaching: Reinforcement Needed Time/GCodes Time In: 1420 Time Out: 1450 Total Billed Treatment Time: 30 Total Billed Treatment 1 visit EX 10' GT 20' BEBETO GARCIA PT Dec 19, 2020 14:50
[2020-12-19 15:14] VITALS: BP 168/72
[2020-12-19 16:00] VITALS: BP 143/68
[2020-12-19] MEDS ORDERED: inSUlin (REGULAR) HUMAN 1 UNIT/0.01 ML (CHARGE PER UNIT) SC NR (16:00)
[2020-12-19] MEDS: inSUlin ASPART (NovoLOG) 1 UNIT/0.01 ML (CHARGE PER UNIT) SC SCH ×2 (16:17→21:08)
[2020-12-19] MEDS ORDERED: NS IV 1000 ML 1,000 ML ONE (16:39)
[2020-12-19] MEDS ORDERED: NS (IVPB) 250 ML IV ONE (16:45)
[2020-12-19] MEDS ORDERED: fentaNYL INJECTION 100 MCG/2 ML AMP IVP PRN (16:45)
[2020-12-19] MEDS ORDERED: HALOPERIDOL 5 MG/ML (HALDOL) VIAL IM PRN (17:15)
[2020-12-19] MEDS ORDERED: LORazepam INJ 2 MG/ML (ATIVAN) VIAL IVP PRN (17:15)
[2020-12-19] MEDS: NS IV 1000 ML 1,000 ML IV SCH (17:34)
--- NOTE | 2020-12-19 18:56 | Progress Note ---
OSWALDO ALLEN,[employer] 12/19/20 1856: Progress Note HOSPITAL COURSE 89 yo woman with PMH of chronic back pain & PSH of spinal nerve stimulator placement and spine surgery x3 presented to [facility] on 12/16 with left-sided back pain that radiated to the left hip that began on 12/14 and was not relieved by hydrocodone. She was transferred to in [place] on 12/16 and admitted to the floor where she received baclofen, lortab, & fentanyl but still experienced some discomfort. She was discharged to inpatient rehab on 12/19 to work with PT/OT who note that she still complains of pain in her L hip/L lower back for which she received a Kpac. She was found to have a glucometer reading of 428 and received 10 units regular insulin & 12 units SSI Novolog. BRITANY MONROE DO 12/20/20 0621: Supervisory-Addendum Brief Verification & Attestation Participated in pt care: history, MDM, physical Personally performed: exam, history, MDM, supervision of care Care discussed with: Medical Student Procedures: n/a Results interpretation: Verified all documentation Verification and Attestation of Medical Student E/M Service A medical student performed and documented this service in my presence. I reviewed and verified all information documented by the medical student and made modifications to such information, when appropriate. I personally performed the physical exam and medical decision making. Britany Monroe, Dec 20, 2020,06:21 OSWALDO ALLEN,[employer]cos[employer]EN Dec 19, 2020 18:56 BRITANY MONROE DO Dec 20, 2020 06:21
[2020-12-19] MEDS: polyethylene glycoL POWDER 17 GM (MIRALAX) PACK PO SCH (19:56)
[2020-12-19] MEDS ORDERED: PANTOPRAZOLE 40 MG (PROTONIX) TAB PO SCH (21:00)
[2020-12-19] MEDS ORDERED: meTOprolol SUCCINATE 100 MG (TOPROL XL) TAB PO SCH (21:00)
[2020-12-19] MEDS: SODIUM BICARBONATE 650 MG TABLET (NON-FORMULARY) PO SCH (22:19)
[2020-12-19] MEDS: DOCUSATE SODIUM 100 MG (COLACE) CAP PO SCH (22:20)
[2020-12-19] MEDS: SENNA W/DOCUSATE (SENOKOT S) TABLET PO SCH (22:20)
[2020-12-19] MEDS: ISOSORBIDE MONONITRATE 30 MG (IMDUR) TAB PO SCH (22:21)
[2020-12-19] MEDS: hydrALAZINE (APRESOLINE) 25 MG TAB PO SCH (22:21)
[2020-12-19] MEDS: LATANOPROST 0.005% (XALATAN) OPHTH SOLN 2.5 ML OU SCH (22:22)
[2020-12-19] MEDS: DORZOLAMIDE 2% 10 ML BTL (TRUSOPT) OU SCH (22:22)
[2020-12-20] MEDS: NS IV 1000 ML 1,000 ML IV SCH (03:48)
[2020-12-20 05:57] LABS: BASOPHILS % (AUTO) 0 % (0-10); EOSINOPHILS % (AUTO) 0 % (0-10); HEMATOCRIT 30 % (35-52); HEMOGLOBIN 9.9 g/dL (11.5-16.0); LYMPHOCYTES # (AUTO) 0.6 10^3/uL (1.0-4.0); LYMPHOCYTES % (AUTO) 6 % (12-44); MEAN CORPUSCULAR HEMOGLOBIN 32 pg (25-34); MEAN CORPUSCULAR HGB CONC 33 g/dL (32-36); MEAN CORPUSCULAR VOLUME 97 fL (80-99); MEAN PLATELET VOLUME 10.9 fL (9.0-12.2); MONOCYTES % (AUTO) 9 % (0-12); NEUTROPHILS # (AUTO) 8.9 10^3/uL (1.8-7.8); NEUTROPHILS % (AUTO) 85 % (42-75); PLATELET COUNT 243 10^3/uL (130-400); WHITE BLOOD COUNT 10.5 10^3/uL (4.3-11.0)
[2020-12-20 05:59] VITALS: BP 164/72
[2020-12-20 06:09] LABS: ALBUMIN 3.5 GM/DL (3.2-4.5)
[2020-12-20 06:10] LABS: POTASSIUM 4.2 MMOL/L (3.6-5.0)
[2020-12-20 06:11] LABS: CALCIUM 8.4 MG/DL (8.5-10.1)
[2020-12-20 06:12] LABS: TOTAL PROTEIN 5.7 GM/DL (6.4-8.2)
[2020-12-20 06:14] LABS: BILIRUBIN,TOTAL 0.2 MG/DL (0.1-1.0)
[2020-12-20 06:16] LABS: CREATININE SERUM 4.48 MG/DL (0.60-1.30)
[2020-12-20] MEDS: MULTIVIT W/MINERALS TAB (THERAGRAN M) PO SCH (06:23)
[2020-12-20] MEDS: CYANOCOBALAMIN 1,000 MCG (VITAMIN B-12) TABLET PO SCH (06:23)
[2020-12-20] MEDS: inSUlin ASPART (NovoLOG) 1 UNIT/0.01 ML (CHARGE PER UNIT) SC SCH ×4 (06:24→21:42)
--- NOTE | 2020-12-20 08:56 | Physical Therapy Daily Note ---
PT Daily Note-Current Subjective Pt sitting in recliner upon arrival. Pt demonstrates some confusion but asks to use BR. Pain Location Body Site: Back Pain Description: Ache Comment: Pt reports back pain but doesn't rate. Mental Status Patient Orientation: Person, Confused Attachments: Oxygen (2L) Additional O2 line added so pt can reach BR. Transfers SCALE: Activities may be completed with or without assistive devices. 1-Rfumpovgib-phiixsi completes the activity by him/herself with no assistance from a helper. 5-Set-up or Clean-up Assistance-helper sets up or cleans up; patient completes activity. [place] assists only prior to or following the activity. 4-Supervision or Touching Assistance-helper provides verbal cues and/or touching/steadying and/or contact guard assistance as patient completes activity. Assistance may be provided throughout the activity or intermittently. 3-Partial/Moderate Assistance-helper does LESS THAN HALF the effort. [place] lifts, holds or supports trunk or limbs, but provides less than half the effort. 2-Substantial/Maximal Assistance-helper does MORE THAN HALF the effort. [place] lifts or holds trunk or limbs and provides more than half the effort. 4-Dallrrimo-ukqbhy does ALL the effort. Patient does none of the effort to complete the activity. Or, the assistance of 2 or more helpers is required for the patient to complete the activity. If activity was not attempted, code reason: 7-Patient Refused. 9-Not Applicable-not attempted and the patient did not perform the activity before the current illness, exacerbation or injury. 10-Not Attempted due to Environmental Limitations-(lack of equipment, weather restraints, etc.). 88-Not Attempted due to Medical Conditions or Safety Concerns. Sit to Stand (QC): 4 Toilet Transfer (QC): 4 Weight Bearing Full Weight Bearing Full Weight Bearing Gait Training Does the Patient Walk?: Yes Distance: 10' x2 Walk 10 feet (QC): 4 Gait Persons Needed: 1 Gait Assistive Device: FWW Pt has long standing R drop foot. Pt is more impulsive but tired today. Treatments Additional O2 line was added so pt could make it to BR. TF to standing then amb. to BR. After finishing, LOCOMOTIVE SUPERVISOR encourages pt to wash hands. Pt reports back pain and asks to rest bedside. Pt demonstrates confusion with VC given, impulsive. Pt resting in bed at end of tx with all needs met, call light in hand. Assessment Current Status: Poor Progress Pt demonstrates lack of motivation for Therapy but also confused. Pt is [place] and has difficulty hearing LOCOMOTIVE SUPERVISOR. PT Short Term Goals Short Term Goals Time Frame: Dec 26, 2020 Roll Left & Right: 6 Sit to lyin Lying to sitting on side of be: 4 Sit to stand: 4 Chair/jjr-lu-cnanj transfer: 4 Walk 10 feet: 4 Walk 50 feet with two turns: 4 Walk 150 feet: 4 PT Fitting Room Associate Goals Fitting Room Associate Goals PT Fitting Room Associate Goals Time Frame: Jan 09, 2021 Roll Left & Right (QC): 6 Sit to Lying (QC): 6 Lying-Sitting on Side/Bed(QC): 6 Sit to Stand (QC): 6 Chair/Jeh-cd-Hobij Xfer(QC): 6 Toilet Transfer (QC): 6 Car Transfer (QC): 6 Does the Patient Walk: Yes Walk 10 feet (QC): 6 Walk 50ft with 2 Turns (QC): 6 Walk 150 ft (QC): 6 Walking 10ft on Uneven Surface: 6 1 Step (curb) (QC): 4 4 Steps (QC): 4 12 Steps (QC): 88 Picking up an Object (QC): 88 Wheel 50 feet with 2 turns (QC: 9 Wheel 150 feet: 9 PT Plan Problem List Problem List: Activity Tolerance, Functional Strength, Safety, Balance, Gait Treatment/Plan Treatment Plan: Continue Plan of Care Treatment Plan: Bed Mobility, Education, Functional Activity Katerina, Functional Strength, Group Therapy, Gait, Safety, Therapeutic Exercise, Transfers Treatment Duration: Jan 09, 2021 Frequency: At least 5 of 7 days/Wk (IRF) Estimated Hrs Per Day: 1.5 hours per day Patient and/or Family Agrees t: Yes Safety Risks/Education Patient Education: Gait Training, Transfer Techniques, Correct Positioning, Safety Issues Teaching Recipient: Patient Teaching Methods: Discussion Response to Teaching: Reinforcement Needed Time/GCodes Time In: 815 Time Out: 900 Total Billed Treatment Time: 45 Total Billed Treatment 1, FA x3 (45m) ALANIS LÓPEZ LOCOMOTIVE SUPERVISOR Dec 20, 2020 08:56
[2020-12-20 09:00] VITALS: BP 149/66
[2020-12-20] MEDS ORDERED: NON-FORMULARY MEDICATION 1 EA EA (Cyanocobalamin (Vitamin B-12) (Vitamin B-12) 500 MCG) PO SCH (09:00)
[2020-12-20] MEDS ORDERED: NON-FORMULARY MEDICATION 1 EA EA (Multivitamin 1 EACH) PO SCH (09:00)
--- NOTE | 2020-12-20 09:29 | Individualized Plan of Care ---
Individualized Plan of Care Rehab Nursing IPOC Order Admission Date Dec 19, 2020 at 11:00 Current Orders Orders Admission Order(Inpt,Obs,Sdc) (12/19/20 11:00) Vital Signs: Per Unit Policy ( 08,16,00 (12/19/20 11:00) Sheet Hanger-Inpt Rehab Con (12/19/20 11:00) Rehab Nursing Orders-Ipoc (12/19/20 11:00) Physical Therapy Rehab Orders (12/19/20 11:00) Occupational Therapy Rehab Ord (12/19/20 11:00) Speech Therapy Rehab Orders (12/19/20 11:00) Cbc With Automated Diff (12/20/20 06:00) Comprehensive Metabolic Panel (12/20/20 06:00) Intake & Output 06,14,22 (12/19/20 11:00) Precautions (Aru) (12/19/20 11:00) Weekly Weight WEEK (12/19/20 11:00) Rehab-Intensity Of Therapy (12/19/20 11:00) Initiate Admission Nursing Pro .admission (12/19/20 11:00) Acetaminophen Tablet (Tylenol Tablet) (12/19/20 11:00) Alprazolam Tablet (Xanax Tablet) (12/19/20 11:00) Calcium Carbonate Chew Tablet (Antacid C (12/19/20 11:00) Diphenhydramine Tablet (Benadryl Tablet) (12/19/20 11:00) Docusate Sodium Capsule (Colace Capsule) (12/19/20 21:00) Docusate Sodium Capsule (Colace Capsule) (12/19/20 11:00) Bisacodyl Suppository (Dulcolax Supposit (12/19/20 11:00) Lactulose Oral Solution (Enulose Oral So (12/19/20 11:00) Na Phos/Na Biphos Enema (Fleet Enema Frederic (12/19/20 11:00) Guaifenesin/Codeine Syrup (Robitussin Ac (12/19/20 11:00) Loperamide Tablet (Imodium Tablet) (12/19/20 11:00) Melatonin Tablet (Melatonin Tablet) (12/19/20 11:00) Polyethylene Glycol Powder Pkt (Miralax (12/19/20 21:00) Ondansetron Oral Dissolve Tab (Zofran (12/19/20 11:00) Senna S Tablet (Senokot S Tablet) (12/19/20 21:00) Initiate Admission Nursing Pro .admission (12/19/20 11:00) Admission Arrival Bed Request (12/19/20 11:39) Acetaminophen Tablet/Caplet (Tylenol T (12/19/20 12:00) Cho 60g/M 3snack (16-2000 Cristóbal) (12/19/20 Lunch) Patient Visit (12/19/20 ) Pt Eval Moderate Complexity (12/19/20 ) Functional Activities, Ea 15 (12/19/20 ) Exercise Therap, Ea 15 Min (12/19/20 ) Gait Training, Ea 15 Min (12/19/20 ) Insulin Aspart (Novolog) (Novolog (Charg (12/19/20 16:00) Hemoglobin A1c (12/19/20 15:59) Insulin (Regular) Human (Novolin R (Per (12/19/20 16:00) Insulin Determir (Per Unit) (Levemir (Pe (12/19/20 21:00) Amlodipine Tablet (Norvasc Tablet) (12/20/20 09:00) Calcium Carbonate Tablet (Calcarb 600 Ta (12/20/20 08:00) Citalopram Tablet (Celexa Tablet) (12/19/20 21:00) Dorzolamide 2% Ophthalmic Soln (Trusopt (12/19/20 21:00) Furosemide Tablet (Lasix Tablet) (12/20/20 09:00) Hydralazine Tablet (Apresoline Tablet) (12/19/20 21:00) Isosorbide Mononitrate Tablet (Imdur Tab (12/19/20 21:00) Latanoprost 0.005% Ophth Soln (Xalatan 0 (12/19/20 21:00) Metoprolol Succinate (Xl) Tab (Toprol Xl (12/19/20 21:00) Pantoprazole Tablet (Protonix Tablet) (12/19/20 21:00) Sodium Bicarbonate Tablet (Nf) (Sodium B (12/19/20 21:00) (Nf) Cyanocobalamin (Vitamin B-12) (Megan (12/20/20 09:00) (Nf) Multivitamin (12/20/20 09:00) Hydrocodone/Apap 5/325 Tablet (Lortab 5 (12/19/20 16:15) Therapeutic Multivitamin Tab (Vitamins, (12/20/20 07:00) Cyanocobalamin Tablet (Vitamin B-12 Tabl (12/20/20 07:00) Ns (Ivpb) (Sodium Chloride 0.9%) (12/19/20 16:45) Ns Iv 1000 Ml (Sodium Chloride 0.9%) (12/19/20 16:45) Fentanyl Injection (Sublimaze Injection (12/19/20 16:45) Transfer - Bed/Room/Location (12/19/20 16:40) Ns Iv 1000 Ml (Sodium Chloride 0.9%) (12/19/20 16:39) Haloperidol Injection (Haldol Injectio (12/19/20 17:15) Lorazepam Injection (Ativan Injection) (12/19/20 17:15) Insulin Determir (Per Unit) (Levemir (Pe (12/19/20 21:00) Occult Blood Stool (12/20/20 17:35) Iron Test (Fe) (12/20/20 06:52) Metoprolol Succinate (Xl) Tab (Toprol Xl (12/20/20 21:00) Patient Visit (12/20/20 ) Speech Sound Lang Comp (12/20/20 ) Treat. Speech/Lang/Voice (12/20/20 ) Patient Visit (12/20/20 ) Functional Activities, Ea 15 (12/20/20 ) Exercise Therap, Ea 15 Min (12/20/20 ) Pantoprazole Tablet (Protonix Tablet) (12/20/20 21:00) Rehab Nursing Orders: Ongoing Assess. of Cognitive Status, Ongoing Assess. of Function Status, Bladder Management, Bladder Scan, Bladder Training, Bowel Management, Bowel Training, Disease Management & Educaiton, DVT Prophylaxis, Fall Prevention, Fluid/Electrolyte/Nutrition Mgmt, Infection Prevention, Medication Management & Education, Management of Risks & Complications, Manageme nt of Skin Intergrity, Nutrition Management, Pain Management, Patient/Family Support, Safety Management Intensity of Therapy to be met Patient to be seen: Min.3h per day/5 of 7d PT IPOC Problem List: Activity Tolerance, Functional Strength, Safety, Balance, Gait, Transfer, Bed Mobility, ROM Treatment Plan: Continue Plan of Care Bed Mobility, Education, Functional Activity Katerina, Functional Strength, Group Therapy, Gait, Safety, Therapeutic Exercise, Transfers Treatment Duration: Jan 09, 2021 Frequency: At least 5 of 7 days/Wk (IRF) Estimated Hrs Per Day: 1.5 hours per day OT IPOC Problems: Decreased Activ Tolerance, Decreased UE Strength, Impaired Funct Balance, Impaired Self-Care Skills, Restricted Funct UE ROM OT Treatment, Training and Edu: Yes Plan of Care: ADL Retraining, Functional Mobility, UE Funct Exercise/Act Treatment Duration: Jan 02, 2021 Frequency: 5 times per week Estimated Hrs Per Day: 1.[address] IPOC Speech Therapy Treatment Plan: Continue Plan of Care Treatment Duration: Dec 20, 2020 Frequency: 3 times per week Estimated Hrs Per Day: .25 hour per day Sheet Hanger/Case Mgmt Sheet Hanger/Case Managemen: Discharge Planning Dietitian/Vegetable Farmworker Dietitian/Vegetable Farmworker to monitor nutritional status and make changes and/or recommendations as needed and work with speech pathology on dietary upgrades as the occur. Physician IPOC Medical Issues being managed closely and that require the 24 hour availability of a physician: Advanced age and end stage kidney disease now with confusion but pain requiring pain meds will need close monitoring for decompensation Medical Issues: Bowel/Bladder Function, DVT Prophylaxis, Falls Precautions, Fluid/Electrolyte/Nutrition Balance, Infection Protection, Pain Management Brief Synthesis of Preadmission Screen, Post-Admission Evaluation, and Therapy Evaluations: PT OT ST will all focus on regaining function and work through back pain and help clear thought process in order to continue treatment to increase independence Medical Prognosis: Guarded Anticipated Length of Stay: 7 days RONY MONROE DO Dec 20, 2020 09:29
--- NOTE | 2020-12-20 09:29 | PM&R Progress Note ---
Subjective HPI/CC On Admission Date Seen by Provider: Dec 20, 2020 Time Seen by Provider: 09:30 Subjective/Events-last exam Having some significant problems with a bit of confusion Hemoccult is pending Hgb is stable BP 164/72 Two liters of oxygen she uses at home Bowels moved yesterday Heplocking IV fluid Will go skilled care at discharge Review of Systems General: Fatigue Musculoskeletal: back pain, leg pain Neurological: Weakness, Confusion Objective Exam Vital Signs Vital Signs Date Time Temp Pulse Resp B/P (MAP) Pulse Ox O2 Delivery O2 Flow Rate FiO2 12/20/20 21:40 Room Air 12/20/20 20:00 62 163/72 (102) 12/20/20 18:14 36.2 20 98 12/20/20 09:00 2.00 Capillary Refill : General Appearance: No Apparent Distress, WD/WN, Chronically ill HEENT: PERRL/EOMI, Normal ENT Inspection, Pharynx Normal, Other (poarch severe) Neck: Full Range of Motion, Normal Inspection, Non Tender, Supple, Carotid Bruit Respiratory: Chest Non Tender, Lungs Clear, Normal Breath Sounds, No Accessory Muscle Use, No Respiratory Distress Cardiovascular: Regular Rate, Rhythm, No Edema, No Gallop, No JVD, No Murmur, Normal Peripheral Pulses Gastrointestinal: Normal Bowel Sounds, No Organomegaly, No Pulsatile Mass, Non Tender, Soft Back: Normal Inspection, Decreased Range of Motion, Muscle Spasm, Vertebral Tenderness Extremity: Normal Capillary Refill, Normal Inspection, Normal Range of Motion, Non Tender, No Calf Tenderness, No Pedal Edema Neurologic/Psychiatric: Alert, Oriented x3, No Motor/Sensory Deficits, Normal Mood/Affect, Abnormal Gait, Motor Weakness (lower extremities 4/5) Skin: Normal Color, Warm/Dry Lymphatic: No Adenopathy Results/Procedures Lab Laboratory Tests 12/20/20 05:39 Patient resulted labs reviewed. FIM Transfers Therapy Code Descriptions/Definitions Functional [place] Measure: 0=Not Assessed/NA 4=Minimal Assistance 1=Total Assistance 5=Supervision or Setup 2=Maximal Assistance 6=Modified [place] 3=Moderate Assistance 7=Complete IndependenceSCALE: Activities may be completed with or without assistive devices. 5-Oqroomyjly-hrudkek completes the activity by him/herself with no assistance from a helper. 5-Set-up or Clean-up Assistance-helper sets up or cleans up; patient completes activity. [place] assists only prior to or following the activity. 4-Supervision or Touching Assistance-helper provides verbal cues and/or touching/steadying and/or contact guard assistance as patient completes activity. Assistance may be provided throughout the activity or intermittently. 3-Partial/Moderate Assistance-helper does LESS THAN HALF the effort. [place] lifts, holds or supports trunk or limbs, but provides less than half the effort. 2-Substantial/Maximal Assistance-helper does MORE THAN HALF the effort. [place] lifts or holds trunk or limbs and provides more than half the effort. 3-Jxdfqtwrc-dktrrd does ALL the effort. Patient does none of the effort to complete the activity. Or, the assistance of 2 or more helpers is required for the patient to complete the activity. If activity was not attempted, code reason: 7-Patient Refused. 9-Not Applicable-not attempted and the patient did not perform the activity before the current illness, exacerbation or injury. 10-Not Attempted due to Environmental Limitations-(lack of equipment, weather restraints, etc.). 88-Not Attempted due to Medical Conditions or Safety Concerns. Roll Left to Right (QC): 6 Sit to Lying (QC): 3 Sit to Stand (QC): 4 Chair/Kdl-ux-Hrhev Xfer(QC): 3 Car Transfer (QC): 3 Gait Training Does the Patient Walk?: Yes Distance: 10' x2 Walk 10 feet (QC): 4 Walk 50 ft with 2 Turns(QC): 4 Walk 150 ft (QC): 4 Walking 10ft/uneven surface-QC: 4 Gait Persons Needed: 1 Gait Assistive Device: FWW Wheelchair Training Wheel 50 ft with 2 turns (QC): 1 Wheel 150 ft (QC): 1 Type of Wheelchair: Manual Stair Training 1 Step (curb) (QC): 3 4 Steps (QC): 88 12 Steps (QC): 88 Balance Picking up an Object (QC): 88 ADL-Treatment Eating (QC): 6 (Pt able to open packages and containers then use regular utensils to eat.) Oral Hygiene (QC): 7 Shower/Bathe Self (QC): 3 (Min assist for balance, and cues to sequence steps. Pt. washes glasses on her face instead of taking them off.) Upper Body Dressing (QC): 10 (No street clothing available.) Lower Body Dressing (QC): 10 On/Off Footwear (QC): 4 (SBA to doff/don slipper socks.) Toileting Hygiene (QC): 4 (CGA on toilet ) Assessment/Plan Assessment and Plan Assess & Plan/Chief Complaint Assessment: Severe back pain with h/o [address] negative for fracture CKD Stage V not a hemodialysis candidate DM OOC HTN OOC Angina CAD Falls in past Plan: IRF protocol Limit pain meds and muscle relaxants Monitor confusion 12/20/20: Monitor confusion Increase PO fluids Minimize pain meds (1) Sciatica of left side Status: Acute (2) CKD (chronic kidney disease) stage 5, GFR less than 15 ml/min (3) Intractable pain Status: Acute (4) Hypoglycemia Status: Acute RONY MONROE DO Dec 20, 2020 09:29
[2020-12-20] MEDS: amLODIPine 10 MG (NORVASC) TAB PO SCH (09:35)
[2020-12-20] MEDS: DOCUSATE SODIUM 100 MG (COLACE) CAP PO SCH ×2 (09:35→21:46)
[2020-12-20] MEDS: SENNA W/DOCUSATE (SENOKOT S) TABLET PO SCH ×2 (09:35→21:46)
[2020-12-20] MEDS: hydrALAZINE (APRESOLINE) 25 MG TAB PO SCH ×3 (09:36→21:33)
[2020-12-20] MEDS: FUROSEMIDE 20 MG (LASIX) TAB PO SCH (09:36)
[2020-12-20] MEDS: CALCIUM CARBONATE 600 MG (CALCARB) TAB PO SCH (09:38)
[2020-12-20] MEDS: DORZOLAMIDE 2% 10 ML BTL (TRUSOPT) OU SCH ×2 (09:45→21:31)
[2020-12-20] MEDS: SODIUM BICARBONATE 650 MG TABLET (NON-FORMULARY) PO SCH ×2 (09:55→21:33)
[2020-12-20] MEDS: HYDROcodone/APAP 5 MG/325 MG (LORTAB) TAB PO PRN ×3 (09:56→21:34)
[2020-12-20] MEDS: polyethylene glycoL POWDER 17 GM (MIRALAX) PACK PO SCH ×2 (10:06→21:46)
--- NOTE | 2020-12-20 10:57 | ST Cognitive Linguistic Eval ---
Speech Evaluation-General Medical Diagnosis Intractable back pain Onset Date: Dec 16, 2020 Therapy Diagnosis Therapy Diagnosis: Cognitive-communication Referral Referring Physician: Dr. Hinton Medical History Pertinent Medical History: CAD, COPD, DM, HTN Reviewed History: Yes Social History Current Living Status: Alone Speech PLF-Current Status Prior Level of Function Patient was still living in her home with support from family for her daily needs. Subjective Patient was resting in bed and cooperated with the cognitive assessment. Patient states she was in a lot of pain. She completed the questions, however she appeared to be unhappy to be bothered. She states she is moving to a senior care. Language Eval: Auditory Comprehends Simple Yes/No Ques: Functional Indent/Objects Multiple [place]: Functional Ident/Pics in Multiple [place]: Functional Follows 1-Step Commands: Functional Follows Complex Directions: Mild Follows General Conversations: Mild Language Eval: Verbal Language Completes Spontaneous Greeting: Functional Produces Auto, Serial Info: Functional Imitates Simple Words/Phrases: Functional Requests Basic Needs: Functional States Basic Personal Info: Mild Expresses Complex Ideas: Moderate Objective Cognitive Domain Attention: Mild Memory: Mild Problem Solving: Mild Executive Functions: Mild Visuospatial Skills: Mild Composite Severity Rating: Mild Objective Formal/Standardized Tests [facility] Mental Status ([facility]) Results 19/30, Moderate Dementia range of function Oral Motor/Speech Production Within Normal Limits Impression Patient is an 89 y/o female who was admitted to the ARU due to constant pain in her back. The patient was given the SLUMS at bedside with much encouragement. She obtained a score of 19/30 which is within the moderate dementia range of function. The patient states she thinks she is moving to a senior care soon. I explained that in the meantime she will be receiving all therapies to help her pain and gain strength. ST will focus on improving functional level for improved quality of life. Speech Patient Assess Expression of Ideas/Wants: Exhibits (3) Understanding Verbal Content: Usually Understands (3) Brief Interview-Mental Status: Yes Repetition of Three Words: Three (3) Temporal Orientation: Year: Correct (3) Temporal Orientation: Month: Accurate within 5 days(2) Temporal Orientation: Day: Incorrect or No Answer(0) Recall : Wear to say "Sock": No, could not recall (0) Recall : Color: No, could not recall (0) Recall : Bed: Yes,after cueing (1) Memory/Recall Ability: Current season, That he or she is in a hsp/hsp unit Speech Short Term Goals Short Term Goals Short Term Goals 1) Patient will complete memory tasks related to her daily needs with 80% or greater with minimal cues. 2) Patient will complete safety awareness tasks related to her daily needs with 80% or greater with minimal cues. 3) Patient will complete problem solving tasks related to her daily needs with 80% or greater with minimal cues. Speech Residential Goals Residential Goals Patient will improve cognitive-communication necessary for safety and daily living tasks with minimal assist. Speech-Plan Patient/Family Goals Patient/Family Goals: Patient states she will have to go to a senior care due to not being able to return home. Treatment Plan Speech Therapy Treatment Plan: Continue Plan of Care Treatment Duration: Jan 05, 2021 Frequency: 4 times per week Estimated Hrs Per Day: .5 hour per day Rehab Potential: Guarded Barriers to Learning: Patient has moderate cognitive deficits, age, health Pt/Family Agrees to Plan: Yes Safety Risks/Education Teaching Recipient: Patient Teaching Methods: Discussion Response to Teaching: Verbalize Understanding Education Topics Provided: Safety awareness, communication of wants/needs Time Speech Therapy Time In: 10:30 Speech Therapy Time Out: 11:00 Total Billed Time: 30 Billed Treatment Time 1, CONNOR HALL [place] ST Dec 20, 2020 10:56
--- NOTE | 2020-12-20 11:15 | Occupational Ther Daily Note ---
OT Current Status-Daily Note Subjective Pt. reports 8/10 pain in left hip. Nursing notified and gives pt. pain medication. Appearance Pt. in bed. Agrees to work with OT with encouragement. Mental Status/Objective Patient Orientation: Unable to Assess ADL-Treatment Therapy Code Descriptions/Definitions Functional [place] Measure: 0=Not Assessed/NA 4=Minimal Assistance 1=Total Assistance 5=Supervision or Setup 2=Maximal Assistance 6=Modified [place] 3=Moderate Assistance 7=Complete IndependenceSCALE: Activities may be completed with or without assistive devices. 8-Gfwkrnehrz-rmwkotb completes the activity by him/herself with no assistance from a helper. 5-Set-up or Clean-up Assistance-helper sets up or cleans up; patient completes activity. [place] assists only prior to or following the activity. 4-Supervision or Touching Assistance-helper provides verbal cues and/or touching/steadying and/or contact guard assistance as patient completes activity. Assistance may be provided throughout the activity or intermittently. 3-Partial/Moderate Assistance-helper does LESS THAN HALF the effort. [place] lifts, holds or supports trunk or limbs, but provides less than half the effort. 2-Substantial/Maximal Assistance-helper does MORE THAN HALF the effort. [place] lifts or holds trunk or limbs and provides more than half the effort. 3-Dotmbsviv-tjhpxa does ALL the effort. Patient does none of the effort to complete the activity. Or, the assistance of 2 or more helpers is required for the patient to complete the activity. If activity was not attempted, code reason: 7-Patient Refused. 9-Not Applicable-not attempted and the patient did not perform the activity before the current illness, exacerbation or injury. 10-Not Attempted due to Environmental Limitations-(lack of equipment, weather restraints, etc.). 88-Not Attempted due to Medical Conditions or Safety Concerns. Upper Body Dressing (QC): 3 (Min assist and max cues. Shirt is already buttoned. Initially, pt. attempts to don it like pants. Pt. is corrected and then dons it backwards. Pt. corrected again, and is able to don appropriately, with assist for over head.) Lower Body Dressing (QC): 4 (CGA to don underwear and pants over LE and over hips in stance.) On/Off Footwear: 4 Other Treatment Pt. is very [place] and reporting pain. She keeps eyes closed and has to be verbally instructed to do the next thing. Pt. transfers to side of bed with CGA, and completes dressing tasks. She ambulates with walker and CGA to therapy gym. Attempted arm bike, but pt. reports that bike hurts her shoulders after 3 minutes. Bike is replaced with simple fine motor activity. Pt. requires cues on how to complete effectively, as she keeps her eyes closed when attempting it. Requires cues to verbalize how she is feeling to OT. Ambulates back to room and transfers to bed. Pillow placed under left side. All needs met. Education OT Patient Education: Correct positioning, Exercise program, Modified ADL techn iques, Progress toward Goal/Update tx plan, Purpose of tx/functional activities, Reviewed precautions, Rehab process, Transfer techniques Teaching Recipient: Patient Teaching Methods: Demonstration, Discussion Response to Teaching: Verbalize Understanding, Return Demonstration OT Short Term Goals Short Term Goals Time Frame: Dec 26, 2020 Eatin Oral hygiene: 4 Toileting hygiene: 5 Shower/bathe self: 4 Upper body dressin Lower body dressin Putting on/taking off footwear: 4 OT Milk Runner Goals Mcfp Goals Time Frame: Jan 02, 2021 Eating (QC): 6 Oral Hygiene (QC): 6 Toileting Hygiene (QC): 6 Shower/Bathe Self (QC): 4 Upper Body Dressing (QC): 5 Lower Body Dressing (QC): 4 On/Off Footwear (QC): 6 Additional Goals: 1-Demonstrate ADL Tasks, 2-Verbalize Understanding, 3-Impr oveStrength/Katerina 1=Demonstrate adherence to instructed precautions during ADL tasks. 2=Patient will verbalize/demonstrate understanding of assistive devices/modifications for ADL. 3=Patient will improve strength/tolerance for activity to enable patient to perform ADL's. OT Education/Plan Problem List/Assessment Assessment: Decreased Activ Tolerance, Decreased UE Strength, Impaired Bed Mobility, Impaired I ADL's, Impaired Self-Care Skills, Restricted Funct UE ROM Discharge Recommendations Plan/Recommendations: Continue POC Therapy Discharge Recommendati: Post Acute OT Treatment Plan/Plan of Care Treatment,Training & Education: Yes Patient would benefit from OT for education, treatment and training to promote independence in ADL's, mobility, safety and/or upper extremity function for ADL's. Plan of Care: ADL Retraining, Functional Mobility, UE Funct Exercise/Act Treatment Duration: Jan 02, 2021 Frequency: 5 times per week Estimated Hrs Per Day: 1.5 hours per day Agreement: Yes Rehab Potential: Fair Time/GCodes Start Time: 09:45 Stop Time: 10:30 Total Time Billed (hr/min): 45 Billed Treatment Time 1, ADL x 15minutes, Ex x 15minutes, FA x 15minutes EMILY TODD OT Dec 20, 2020 11:15
--- NOTE | 2020-12-20 13:39 | Occupational Ther Daily Note ---
OT Current Status-Daily Note Subjective No pain reported. Mental Status/Objective Patient Orientation: Person ADL-Treatment Therapy Code Descriptions/Definitions Functional [place] Measure: 0=Not Assessed/NA 4=Minimal Assistance 1=Total Assistance 5=Supervision or Setup 2=Maximal Assistance 6=Modified [place] 3=Moderate Assistance 7=Complete IndependenceSCALE: Activities may be completed with or without assistive devices. 3-Pudwzbvijh-mnhdglx completes the activity by him/herself with no assistance from a helper. 5-Set-up or Clean-up Assistance-helper sets up or cleans up; patient completes activity. [place] assists only prior to or following the activity. 4-Supervision or Touching Assistance-helper provides verbal cues and/or touching/steadying and/or contact guard assistance as patient completes activity. Assistance may be provided throughout the activity or intermittently. 3-Partial/Moderate Assistance-helper does LESS THAN HALF the effort. [place] lifts, holds or supports trunk or limbs, but provides less than half the effort. 2-Substantial/Maximal Assistance-helper does MORE THAN HALF the effort. [place] lifts or holds trunk or limbs and provides more than half the effort. 7-Nvztcvzfy-lmglxh does ALL the effort. Patient does none of the effort to complete the activity. Or, the assistance of 2 or more helpers is required for the patient to complete the activity. If activity was not attempted, code reason: 7-Patient Refused. 9-Not Applicable-not attempted and the patient did not perform the activity before the current illness, exacerbation or injury. 10-Not Attempted due to Environmental Limitations-(lack of equipment, weather restraints, etc.). 88-Not Attempted due to Medical Conditions or Safety Concerns. Eating (QC): 5 Other Treatment Pt. sitting on side of bed when OT enters room. Tray has arrived and pt. has been able to place sauces where she wants them. She is having difficulty cutt ing up and eating her hamburger, as she is attempting to hold it. OT cuts up hamburger for her, and she is able to eat with fork. Pt. reports that she is feeling better, and that she isn't having pain sitting on side of bed. Continues to have difficulty with hearing, and so OT obtains amplifier from ST and sets it up for pt. Pt. is able to hear appropriately it seems at this po int, and is able to answer questions. Pt. educated on how amplifier works and how to control volume. Pt. verbalizes understanding. OT asks pt. if she has any questions regarding therapy at this point, now that she can better understand. She does not. OT refills pt's drinks and all needs are met. Pt. finishing eating at this time. Education OT Patient Education: Correct positioning, Modified ADL techniques, Progress toward Goal/Update tx plan, Purpose of tx/functional activities, Reviewed precautions, Rehab process Teaching Recipient: Patient Teaching Methods: Demonstration, Discussion Response to Teaching: Verbalize Understanding, Return Demonstration, R einforcement Needed OT Short Term Goals Short Term Goals Time Frame: Dec 26, 2020 Eatin Oral hygiene: 4 Toileting hygiene: 5 Shower/bathe self: 4 Upper body dressin Lower body dressin Putting on/taking off footwear: 4 OT Earth Boring Machine Operator Goals Longterm Goals Time Frame: Jan 02, 2021 Eating (QC): 6 Oral Hygiene (QC): 6 Toileting Hygiene (QC): 6 Shower/Bathe Self (QC): 4 Upper Body Dressing (QC): 5 Lower Body Dressing (QC): 4 On/Off Footwear (QC): 6 Additional Goals: 1-Demonstrate ADL Tasks, 2-Verbalize Understanding, 3- ImproveStrength/Katerina 1=Demonstrate adherence to instructed precautions during ADL tasks. 2=Patient will verbalize/demonstrate understanding of assistive devices/modifications for ADL. 3=Patient will improve strength/tolerance for activity to enable patient to perform ADL's. OT Education/Plan Problem List/Assessment Assessment: Decreased Activ Tolerance, Impaired I ADL's Discharge Recommendations Plan/Recommendations: Continue POC Therapy Discharge Recommendati: Post Acute OT Treatment Plan/Plan of Care Treatment,Training & Education: Yes Patient would benefit from OT for education, treatment and training to promote independence in ADL's, mobility, safety and/or upper extremity function for ADL' s. Plan of Care: ADL Retraining, Functional Mobility, UE Funct Exercise/Act Treatment Duration: Jan 02, 2021 Frequency: 5 times per week Estimated Hrs Per Day: 1.5 hours per day Agreement: Yes Rehab Potential: Fair Time/GCodes Start Time: 13:00 Stop Time: 13:30 Total Time Billed (hr/min): 30 Billed Treatment Time 1, ADL x 30minutes NACCARATO,EMILY OT Dec 20, 2020 13:39
[2020-12-20 13:40] VITALS: BP 128/61
--- NOTE | 2020-12-20 14:53 | Physical Therapy Daily Note ---
PT Daily Note-Current Subjective Pt asleep sitting in recliner upon arrival. Pt reluctantly agrees to PT, stating "my butt hurts". Pain Location Body Site: Sacrum Comment: Pt reports pain but doesn't rate. Mental Status Patient Orientation: Person, Confused Transfers SCALE: Activities may be completed with or without assistive devices. 2-Ogknkcyfrq-zufxhsh completes the activity by him/herself with no assistance from a helper. 5-Set-up or Clean-up Assistance-helper sets up or cleans up; patient completes activity. [place] assists only prior to or following the activity. 4-Supervision or Touching Assistance-helper provides verbal cues and/or touching/steadying and/or contact guard assistance as patient completes activity. Assistance may be provided throughout the activity or intermittently. 3-Partial/Moderate Assistance-helper does LESS THAN HALF the effort. [place] lifts, holds or supports trunk or limbs, but provides less than half the effort. 2-Substantial/Maximal Assistance-helper does MORE THAN HALF the effort. [place] lifts or holds trunk or limbs and provides more than half the effort. 3-Gvreivzve-awyfgv does ALL the effort. Patient does none of the effort to complete the activity. Or, the assistance of 2 or more helpers is required for the patient to complete the activity. If activity was not attempted, code reason: 7-Patient Refused. 9-Not Applicable-not attempted and the patient did not perform the activity before the current illness, exacerbation or injury. 10-Not Attempted due to Environmental Limitations-(lack of equipment, weather restraints, etc.). 88-Not Attempted due to Medical Conditions or Safety Concerns. Sit to Lying (QC): 4 Sit to Stand (QC): 4 Weight Bearing Full Weight Bearing Full Weight Bearing Treatments Pt doesn't want to participate so TAILOR FITTER tries to encourage. Suggests repositioning or even ambulating to assist. Pt declines ambulation and asks to transfer back to bed. Attempts Supine Ex but pt declines due to discomfort on sacrum. Pt declines pain medicine. Pt lays R sidelying with pillow positioned behind pt to comfort. All needs met, call light in hand. Assessment Current Status: Poor Progress Lack of motivation/confusion during tx. PT Short Term Goals Short Term Goals Time Frame: Dec 26, 2020 Roll Left & Right: 6 Sit to lyin Lying to sitting on side of be: 4 Sit to stand: 4 Chair/sss-zt-bewfc transfer: 4 Walk 10 feet: 4 Walk 50 feet with two turns: 4 Walk 150 feet: 4 PT Motor Vehicle License Clerk Goals Fpc Goals PT Fpc Goals Time Frame: Jan 09, 2021 Roll Left & Right (QC): 6 Sit to Lying (QC): 6 Lying-Sitting on Side/Bed(QC): 6 Sit to Stand (QC): 6 Chair/Com-ds-Lbpdx Xfer(QC): 6 Toilet Transfer (QC): 6 Car Transfer (QC): 6 Does the Patient Walk: Yes Walk 10 feet (QC): 6 Walk 50ft with 2 Turns (QC): 6 Walk 150 ft (QC): 6 Walking 10ft on Uneven Surface: 6 1 Step (curb) (QC): 4 4 Steps (QC): 4 12 Steps (QC): 88 Picking up an Object (QC): 88 Wheel 50 feet with 2 turns (QC: 9 Wheel 150 feet: 9 PT Plan Problem List Problem List: Activity Tolerance, Functional Strength, Safety Treatment/Plan Treatment Plan: Continue Plan of Care Treatment Plan: Bed Mobility, Education, Functional Activity Katerina, Functional Strength, Group Therapy, Gait, Safety, Therapeutic Exercise, Transfers Treatment Duration: Jan 09, 2021 Frequency: At least 5 of 7 days/Wk (IRF) Estimated Hrs Per Day: 1.5 hours per day Patient and/or Family Agrees t: Yes Safety Risks/Education Patient Education: Correct Positioning, Safety Issues Teaching Recipient: Patient Teaching Methods: Discussion Response to Teaching: Reinforcement Needed Time/GCodes Time In: 1400 Time Out: 1430 Total Billed Treatment Time: 30 Total Billed Treatment 1, FA (20m), EX (10m) ALANIS LÓPEZ TAILOR FITTER Dec 20, 2020 14:53
[2020-12-20 16:14] VITALS: BP 179/76
[2020-12-20 18:14] VITALS: BP 179/76
[2020-12-20 20:00] VITALS: BP 163/72
[2020-12-20] MEDS: meTOproloL SUCCINATE 50 MG (TOPROL XL) TAB PO SCH (21:33)
[2020-12-20] MEDS: ISOSORBIDE MONONITRATE 30 MG (IMDUR) TAB PO SCH (21:33)
[2020-12-20] MEDS: PANTOPRAZOLE 40 MG (PROTONIX) TAB PO SCH (21:33)
[2020-12-20] MEDS: LATANOPROST 0.005% (XALATAN) OPHTH SOLN 2.5 ML OU SCH (21:43)
--- NOTE | 2020-12-21 05:53 | PM&R Progress Note ---
Subjective HPI/CC On Admission Date Seen by Provider: Dec 21, 2020 Time Seen by Provider: 10:00 Subjective/Events-last exam 12/21/20: Weaned off O2 but then she became upset and said "you all are trying to kill me" O2 placed back on Hypoglycemia noted so minimized long acting Bowels are moving 12/20/20: Having some significant problems with a bit of confusion Hemoccult is pending Hgb is stable BP 164/72 Two liters of oxygen she uses at home Bowels moved yesterday Heplocking IV fluid Will go skilled care at discharge Review of Systems General: Fatigue Musculoskeletal: back pain Objective Exam Vital Signs Vital Signs Date Time Temp Pulse Resp B/P (MAP) Pulse Ox O2 Delivery O2 Flow Rate FiO2 12/21/20 23:54 Room Air 12/21/20 17:39 36.4 62 18 164/72 (102) 99 0.50 Capillary Refill : General Appearance: No Apparent Distress, WD/WN, Chronically ill HEENT: PERRL/EOMI, Normal ENT Inspection, Pharynx Normal, Other ([place] severe) Neck: Full Range of Motion, Normal Inspection, Non Tender, Supple, Carotid Bruit Respiratory: Chest Non Tender, Lungs Clear, Normal Breath Sounds, No Accessory Muscle Use, No Respiratory Distress Cardiovascular: Regular Rate, Rhythm, No Edema, No Gallop, No JVD, No Murmur, Normal Peripheral Pulses Gastrointestinal: Normal Bowel Sounds, No Organomegaly, No Pulsatile Mass, Non Tender, Soft Back: Normal Inspection, Decreased Range of Motion, Muscle Spasm, Vertebral Tenderness Extremity: Normal Capillary Refill, Normal Inspection, Normal Range of Motion, Non Tender, No Calf Tenderness, No Pedal Edema Neurologic/Psychiatric: Alert, Oriented x3, No Motor/Sensory Deficits, Normal Mood/Affect, Abnormal Gait, Motor Weakness (lower extremities 4/5) Skin: Normal Color, Warm/Dry Lymphatic: No Adenopathy Results/Procedures Lab Patient resulted labs reviewed. FIM Transfers Therapy Code Descriptions/Definitions Functional [place] Measure: 0=Not Assessed/NA 4=Minimal Assistance 1=Total Assistance 5=Supervision or Setup 2=Maximal Assistance 6=Modified [place] 3=Moderate Assistance 7=Complete IndependenceSCALE: Activities may be completed with or without assistive devices. 8-Hzryrzgtki-rauucpf completes the activity by him/herself with no assistance f rom a helper. 5-Set-up or Clean-up Assistance-helper sets up or cleans up; patient completes activity. [place] assists only prior to or following the activity. 4-Supervision or Touching Assistance-helper provides verbal cues and/or touching/steadying and/or contact guard assistance as patient completes activity. Assistance may be provided throughout the activity or intermittently. 3-Partial/Moderate Assistance-helper does LESS THAN HALF the effort. [place] lifts, holds or supports trunk or limbs, but provides less than half the effort. 2-Substantial/Maximal Assistance-helper does MORE THAN HALF the effort. [place] lifts or holds trunk or limbs and provides more than half the effort. 5-Xwkdubdzb-pagwde does ALL the effort. Patient does none of the effort to complete the activity. Or, the assistance of 2 or more helpers is required for the patient to complete the activity. If activity was not attempted, code reason: 7-Patient Refused. 9-Not Applicable-not attempted and the patient did not perform the activity before the current illness, exacerbation or injury. 10-Not Attempted due to Environmental Limitations-(lack of equipment, weather restraints, etc.). 88-Not Attempted due to Medical Conditions or Safety Concerns. Roll Left to Right (QC): 6 Sit to Lying (QC): 4 Sit to Stand (QC): 4 Chair/Ekg-ew-Dvhss Xfer(QC): 3 Car Transfer (QC): 3 Gait Training Does the Patient Walk?: Yes Distance: 10' x2 Walk 10 feet (QC): 4 Walk 50 ft with 2 Turns(QC): 4 Walk 150 ft (QC): 4 Walking 10ft/uneven surface-QC: 4 Gait Persons Needed: 1 Gait Assistive Device: FWW Wheelchair Training Wheel 50 ft with 2 turns (QC): 1 Wheel 150 ft (QC): 1 Type of Wheelchair: Manual Stair Training 1 Step (curb) (QC): 3 4 Steps (QC): 88 12 Steps (QC): 88 Balance Picking up an Object (QC): 88 ADL-Treatment Eating (QC): 5 Oral Hygiene (QC): 7 Shower/Bathe Self (QC): 3 (Min assist for balance, and cues to sequence steps. Pt. washes glasses on her face instead of taking them off.) Upper Body Dressing (QC): 3 (Min assist and max cues. Shirt is already buttoned. Initially, pt. attempts to don it like pants. Pt. is corrected and then dons it backwards. Pt. corrected again, and is able to don appropriately, with assist for over head.) Lower Body Dressing (QC): 4 (CGA to don underwear and pants over LE and over hips in stance.) On/Off Footwear (QC): 4 Toileting Hygiene (QC): 4 (CGA on toilet ) Assessment/Plan Assessment and Plan Assess & Plan/Chief Complaint Assessment: Severe back pain with h/o [address] negative for fracture CKD Stage V not a hemodialysis candidate DM OOC HTN OOC Angina CAD Falls in past Plan: IRF protocol Limit pain meds and muscle relaxants Monitor confusion 12/20/20: Monitor confusion Increase PO fluids Minimize pain meds 12/21/20: Minimize insulin Monitor O2 Pain control (1) Sciatica of left side Status: Acute (2) CKD (chronic kidney disease) stage 5, GFR less than 15 ml/min (3) Intractable pain Status: Acute (4) Hypoglycemia Status: Acute RONY MONROE DO Dec 21, 2020 05:53
[2020-12-21 06:00] VITALS: BP 167/71
[2020-12-21] MEDS: inSUlin ASPART (NovoLOG) 1 UNIT/0.01 ML (CHARGE PER UNIT) SC SCH ×4 (06:00→21:32)
[2020-12-21] MEDS: MULTIVIT W/MINERALS TAB (THERAGRAN M) PO SCH (06:57)
[2020-12-21] MEDS: CYANOCOBALAMIN 1,000 MCG (VITAMIN B-12) TABLET PO SCH (06:59)
[2020-12-21 08:00] VITALS: BP 135/63
[2020-12-21] MEDS: PANTOPRAZOLE 40 MG (PROTONIX) TAB PO SCH ×2 (08:13→21:38)
[2020-12-21] MEDS: CALCIUM CARBONATE 600 MG (CALCARB) TAB PO SCH (08:13)
[2020-12-21] MEDS: amLODIPine 10 MG (NORVASC) TAB PO SCH (08:13)
[2020-12-21] MEDS: FUROSEMIDE 20 MG (LASIX) TAB PO SCH (08:13)
[2020-12-21] MEDS: SENNA W/DOCUSATE (SENOKOT S) TABLET PO SCH ×2 (08:13→21:00)
[2020-12-21] MEDS: hydrALAZINE (APRESOLINE) 25 MG TAB PO SCH ×3 (08:13→21:35)
[2020-12-21] MEDS: SODIUM BICARBONATE 650 MG TABLET (NON-FORMULARY) PO SCH ×2 (08:16→21:39)
[2020-12-21] MEDS: DORZOLAMIDE 2% 10 ML BTL (TRUSOPT) OU SCH ×2 (08:18→21:35)
[2020-12-21] MEDS: HYDROcodone/APAP 5 MG/325 MG (LORTAB) TAB PO PRN ×2 (08:22→17:34)
[2020-12-21] MEDS: DOCUSATE SODIUM 100 MG (COLACE) CAP PO SCH ×2 (08:24→22:29)
[2020-12-21] MEDS: polyethylene glycoL POWDER 17 GM (MIRALAX) PACK PO SCH ×2 (08:25→22:29)
--- NOTE | 2020-12-21 10:43 | Speech Therapy Daily Note ---
Speech Daily Progress Note Subjective Date Seen by Provider: Dec 21, 2020 Time Seen by Provider: 00:30 Patient was resting in her bed following her other therapies this morning. Objective Patient completed a series of q/a related to her daily needs/routine with 85% given moderate repetitions due to [place]. Assessment Assessment Current Status: Good Progress Treatment Plan Continue Plan of Care Speech Short Term Goals Short Term Goals Short Term Goals 1) Patient will complete memory tasks related to her daily needs with 80% or greater with minimal cues. 2) Patient will complete safety awareness tasks related to her daily needs with 80% or greater with minimal cues. 3) Patient will complete problem solving tasks related to her daily needs with 80% or greater with minimal cues. Speech Senior Living Goals Senior Living Goals Patient will improve cognitive-communication necessary for safety and daily living tasks with minimal assist. Speech-Plan Patient/Family Goals Patient/Family Goals: Patient's daughter is involved with coordinating a transfer to SNF near her. Treatment Plan Speech Therapy Treatment Plan: Continue Plan of Care Treatment Duration: Dec 20, 2020 Frequency: 4 times per week (Patient will receive skilled ST 4-5x per week) Estimated Hrs Per Day: .25 hour per day Rehab Potential: Fair Barriers to Learning: Patient's debility due to pain and age Pt/Family Agrees to Plan: Yes Safety Risks/Education Teaching Recipient: Patient Teaching Methods: Demonstration, Discussion Response to Teaching: Verbalize Understanding, Return Demonstration Education Topics Provided: Continued safety and communication Time Speech Therapy Time In: 10:30 Speech Therapy Time Out: 11:00 Total Billed Time: 30 Billed Treatment Time 1, ARDEN Garcia Dec 21, 2020 10:43
--- NOTE | 2020-12-21 11:20 | Physical Therapy Daily Note ---
PT Daily Note-Current Subjective Pt sitting in recliner upon arrival. Pt reluctantly agrees to PT but reports pain on L hip. Pain Numeric Pain Scale: 7 Location: Left Location Body Site: Hip Pain Description: Ache Mental Status Patient Orientation: Person, Confused Attachments: Oxygen Transfers SCALE: Activities may be completed with or without assistive devices. 7-Ygzlznyral-ixbzate completes the activity by him/herself with no assistance from a helper. 5-Set-up or Clean-up Assistance-helper sets up or cleans up; patient completes activity. [place] assists only prior to or following the activity. 4-Supervision or Touching Assistance-helper provides verbal cues and/or touching/steadying and/or contact guard assistance as patient completes activity. Assistance may be provided throughout the activity or intermittently. 3-Partial/Moderate Assistance-helper does LESS THAN HALF the effort. [place] lifts, holds or supports trunk or limbs, but provides less than half the effort. 2-Substantial/Maximal Assistance-helper does MORE THAN HALF the effort. [place] lifts or holds trunk or limbs and provides more than half the effort. 1-Osrivpxjr-tvvede does ALL the effort. Patient does none of the effort to complete the activity. Or, the assistance of 2 or more helpers is required for the patient to complete the activity. If activity was not attempted, code reason: 7-Patient Refused. 9-Not Applicable-not attempted and the patient did not perform the activity before the current illness, exacerbation or injury. 10-Not Attempted due to Environmental Limitations-(lack of equipment, weather restraints, etc.). 88-Not Attempted due to Medical Conditions or Safety Concerns. Sit to Stand (QC): 4 Weight Bearing Full Weight Bearing Full Weight Bearing Gait Training Distance: 10' Walk 10 feet (QC): 4 Gait Assistive Device: FWW Treatments Pt receives morning meds and discusses need for continued therapy and working with PT & OT. OT/PT begin treatment with partial co-treat due to need of skilled assistance x 2 for poor endurance and pain. Pt. requires cues and max encouragement throughout. Transferred sit-stand with walker with min assist, a nd ambulates with CGA to shower. Cues needed for shower transfer and ADL skills. PT focuses on mobility and transfers while OT engages pt. in ADL participation. Pt. closes eyes throughout treatment and requires cues to engage at times. Pt. is given amplifier for hearing, which she does state works. LINEN SUPERVISOR leaves room and pt. completes ADLs with OT. Assessment Current Status: Fair Progress Pt needs encouragement to participate. PT Short Term Goals Short Term Goals Time Frame: Dec 26, 2020 Roll Left & Right: 6 Sit to lyin Lying to sitting on side of be: 4 Sit to stand: 4 Chair/eco-ob-iitgh transfer: 4 Walk 10 feet: 4 Walk 50 feet with two turns: 4 Walk 150 feet: 4 PT Penitentiary Goals Digital Media Specialist Goals PT Penitentiary Goals Time Frame: Jan 09, 2021 Roll Left & Right (QC): 6 Sit to Lying (QC): 6 Lying-Sitting on Side/Bed(QC): 6 Sit to Stand (QC): 6 Chair/Wmf-eo-Eswct Xfer(QC): 6 Toilet Transfer (QC): 6 Car Transfer (QC): 6 Does the Patient Walk: Yes Walk 10 feet (QC): 6 Walk 50ft with 2 Turns (QC): 6 Walk 150 ft (QC): 6 Walking 10ft on Uneven Surface: 6 1 Step (curb) (QC): 4 4 Steps (QC): 4 12 Steps (QC): 88 Picking up an Object (QC): 88 Wheel 50 feet with 2 turns (QC: 9 Wheel 150 feet: 9 PT Plan Problem List Problem List: Activity Tolerance, Functional Strength, Safety, Balance Treatment/Plan Treatment Plan: Continue Plan of Care Treatment Plan: Bed Mobility, Education, Functional Activity Katerina, Functional Strength, Group Therapy, Gait, Safety, Therapeutic Exercise, Transfers Treatment Duration: Jan 09, 2021 Frequency: At least 5 of 7 days/Wk (IRF) Estimated Hrs Per Day: 1.5 hours per day Patient and/or Family Agrees t: Yes Safety Risks/Education Patient Education: Transfer Techniques, Safety Issues Teaching Recipient: Patient Teaching Methods: Discussion Response to Teaching: Reinforcement Needed Time/GCodes Time In: 815 Time Out: 900 Total Billed Treatment Time: 45 Total Billed Treatment 1, FA x3 (45m) Co-treat w/OT for 30 (640-900) ALANIS LÓPEZ LINEN SUPERVISOR Dec 21, 2020 11:20
[2020-12-21 12:20] VITALS: BP 177/75
--- NOTE | 2020-12-21 12:32 | Occupational Ther Daily Note ---
OT Current Status-Daily Note Subjective Pt. reports 7/10 pain in left hip. Nursing gives pain medication. Mental Status/Objective Patient Orientation: Unable to Assess Attachments: Oxygen ADL-Treatment Therapy Code Descriptions/Definitions Functional [place] Measure: 0=Not Assessed/NA 4=Minimal Assistance 1=Total Assistance 5=Supervision or Setup 2=Maximal Assistance 6=Modified [place] 3=Moderate Assistance 7=Complete IndependenceSCALE: Activities may be completed with or without assistive devices. 0-Ofvqjdmfzy-zdeseld completes the activity by him/herself with no assistance from a helper. 5-Set-up or Clean-up Assistance-helper sets up or cleans up; patient completes activity. [place] assists only prior to or following the activity. 4-Supervision or Touching Assistance-helper provides verbal cues and/or touching/steadying and/or contact guard assistance as patient completes activity. Assistance may be provided throughout the activity or intermittently. 3-Partial/Moderate Assistance-helper does LESS THAN HALF the effort. [place] lifts, holds or supports trunk or limbs, but provides less than half the effort. 2-Substantial/Maximal Assistance-helper does MORE THAN HALF the effort. [place] lifts or holds trunk or limbs and provides more than half the effort. 0-Ursihvspc-vrrove does ALL the effort. Patient does none of the effort to complete the activity. Or, the assistance of 2 or more helpers is required for the patient to complete the activity. If activity was not attempted, code reason: 7-Patient Refused. 9-Not Applicable-not attempted and the patient did not perform the activity before the current illness, exacerbation or injury. 10-Not Attempted due to Environmental Limitations-(lack of equipment, weather restraints, etc.). 88-Not Attempted due to Medical Conditions or Safety Concerns. Oral Hygiene (QC): 4 (SBA and cues to sequence next step. Pt. is seated at sink to brush teeth.) Shower/Bathe Self (QC): 3 (Min assist in stance to wash simran area.) Upper Body Dressing (QC): 3 (Mod assistance overall to don bra and shirt.) Lower Body Dressing (QC): 3 On/Off Footwear: 2 Other Treatment OT/PT begin treatment with partial co-treat due to need of skilled assistance x 2 for poor endurance and pain. Pt. requires cues and max encouragement throughout. Transferred sit-stand with walker with min assist, and ambulates with CGA to shower. Cues needed for shower transfer and ADL skills. PT focuses on mobility and transfers while OT engages pt. in ADL participation. Pt. closes eyes throughout treatment and requires cues to engage at times. Pt. is given amplifier for hearing, which she does state works. PT leaves room and pt. completes ADLs. Pt. transfers to wheelchair with CGA and is taken to therapy gym. Applied moist heat pack to left hip area, and gave pt. coffee, as she states that she is hurting too bad to "do much." Pt. does not engage very much, but after coffee, agrees to ambulate back to room. Pt. transfers to bed. Pt. on .5 L02. Sats at98% but pt. requests to keep oxygen on. All needs are met. Bed alarm set. Education OT Patient Education: Correct positioning, Exercise program, Modified ADL techniques, Progress toward Goal/Update tx plan, Purpose of tx/functional activities, Reviewed precautions, Rehab process, Transfer techniques Teaching Recipient: Patient OT Short Term Goals Short Term Goals Time Frame: Dec 26, 2020 Eatin Oral hygiene: 4 Toileting hygiene: 5 Shower/bathe self: 4 Upper body dressin Lower body dressin Putting on/taking off footwear: 4 OT Social Media Coordinator Goals Social Media Coordinator Goals Time Frame: Jan 02, 2021 Eating (QC): 6 Oral Hygiene (QC): 6 Toileting Hygiene (QC): 6 Shower/Bathe Self (QC): 4 Upper Body Dressing (QC): 5 Lower Body Dressing (QC): 4 On/Off Footwear (QC): 6 Additional Goals: 1-Demonstrate ADL Tasks, 2-Verbalize Understanding, 3- ImproveStrength/Katerina 1=Demonstrate adherence to instructed precautions during ADL tasks. 2=Patient will verbalize/demonstrate understanding of assistive devices/modifications for ADL. 3=Patient will improve strength/tolerance for activity to enable patient to perform ADL's. OT Education/Plan Problem List/Assessment Assessment: Decreased Activ Tolerance, Impaired I ADL's, Impaired Self-Care Sk ills Discharge Recommendations Plan/Recommendations: Continue POC Therapy Discharge Recommendati: 24 Hour Supervision Treatment Plan/Plan of Care Treatment,Training & Education: Yes Patient would benefit from OT for education, treatment and training to promote independence in ADL's, mobility, safety and/or upper extremity function for ADL's. Plan of Care: ADL Retraining, Functional Mobility, UE Funct Exercise/Act Treatment Duration: Jan 02, 2021 Frequency: 5 times per week Estimated Hrs Per Day: 1.5 hours per day Agreement: Yes Rehab Potential: Fair Time/GCodes Start Time: 08:25 Stop Time: 09:40 Total Time Billed (hr/min): 75 Billed Treatment Time [id number] 1, ADL x 35minutes (co-treatment with PT) [id number] ADL x 10minutes, FA x 30minutes EMILY TODD OT Dec 21, 2020 12:32
--- NOTE | 2020-12-21 16:11 | Physical Therapy Daily Note ---
PT Daily Note-Current Subjective Pt asleep Supine in bed upon arrival. Pt is difficult to awaken. Mental Status Patient Orientation: Person, Confused Attachments: Oxygen Transfers SCALE: Activities may be completed with or without assistive devices. 1-Gupskmzuyq-sjlsalk completes the activity by him/herself with no assistance from a helper. 5-Set-up or Clean-up Assistance-helper sets up or cleans up; patient completes activity. [place] assists only prior to or following the activity. 4-Supervision or Touching Assistance-helper provides verbal cues and/or touching/steadying and/or contact guard assistance as patient completes activi ty. Assistance may be provided throughout the activity or intermittently. 3-Partial/Moderate Assistance-helper does LESS THAN HALF the effort. [place] lifts, holds or supports trunk or limbs, but provides less than half the effort. 2-Substantial/Maximal Assistance-helper does MORE THAN HALF the effort. [place] lifts or holds trunk or limbs and provides more than half the effort. 6-Elfxxhbti-emcfpf does ALL the effort. Patient does none of the effort to complete the activity. Or, the assistance of 2 or more helpers is required for the patient to complete the activity. If activity was not attempted, code reason: 7-Patient Refused. 9-Not Applicable-not attempted and the patient did not perform the activity before the current illness, exacerbation or injury. 10-Not Attempted due to Environmental Limitations-(lack of equipment, weather restraints, etc.). 88-Not Attempted due to Medical Conditions or Safety Concerns. Lying to Sitting/Side of Bed(Q: 4 Sit to Stand (QC): 4 Toilet Transfer (QC): 4 Weight Bearing Full Weight Bearing Full Weight Bearing Gait Training Does the Patient Walk?: Yes Distance: 10' Walk 10 feet (QC): 4 Gait Persons Needed: 1 Gait Assistive Device: FWW Treatments Pt is difficult to awaken and keep awake. Pt is more alert when [place] present. Pt asks to use BR. TF and amb to BR. Pt returns to bed to rest at end of tx. All needs met, call light in hand. Assessment Current Status: Fair Progress Pt needs encouragement to participate. PT Short Term Goals Short Term Goals Time Frame: Dec 26, 2020 Roll Left & Right: 6 Sit to lyin Lying to sitting on side of be: 4 Sit to stand: 4 Chair/fmr-ew-itrkr transfer: 4 Walk 10 feet: 4 Walk 50 feet with two turns: 4 Walk 150 feet: 4 PT Mcfp Goals Buying Agent Goals PT Buying Agent Goals Time Frame: Jan 09, 2021 Roll Left & Right (QC): 6 Sit to Lying (QC): 6 Lying-Sitting on Side/Bed(QC): 6 Sit to Stand (QC): 6 Chair/Vos-lp-Aewqf Xfer(QC): 6 Toilet Transfer (QC): 6 Car Transfer (QC): 6 Does the Patient Walk: Yes Walk 10 feet (QC): 6 Walk 50ft with 2 Turns (QC): 6 Walk 150 ft (QC): 6 Walking 10ft on Uneven Surface: 6 1 Step (curb) (QC): 4 4 Steps (QC): 4 12 Steps (QC): 88 Picking up an Object (QC): 88 Wheel 50 feet with 2 turns (QC: 9 Wheel 150 feet: 9 PT Plan Problem List Problem List: Activity Tolerance, Functional Strength, Safety, Gait Treatment/Plan Treatment Plan: Continue Plan of Care Treatment Plan: Bed Mobility, Education, Functional Activity Katerina, Functional Strength, Group Therapy, Gait, Safety, Therapeutic Exercise, Transfers Treatment Duration: Jan 09, 2021 Frequency: At least 5 of 7 days/Wk (IRF) Estimated Hrs Per Day: 1.5 hours per day Patient and/or Family Agrees t: Yes Safety Risks/Education Patient Education: Gait Training, Transfer Techniques, Correct Positioning, Safety Issues Teaching Recipient: Patient Teaching Methods: Discussion Response to Teaching: Reinforcement Needed Time/GCodes Time In: 1415 Time Out: 1445 Total Billed Treatment Time: 30 Total Billed Treatment 1, FA x2 (30m) ALANIS LÓPEZ MARKETING SALES REPRESENTATIVE Dec 21, 2020 16:11
[2020-12-21 17:39] VITALS: BP 164/72
[2020-12-21] MEDS: ISOSORBIDE MONONITRATE 30 MG (IMDUR) TAB PO SCH (21:34)
[2020-12-21] MEDS: LATANOPROST 0.005% (XALATAN) OPHTH SOLN 2.5 ML OU SCH (21:35)
[2020-12-21] MEDS: meTOproloL SUCCINATE 50 MG (TOPROL XL) TAB PO SCH (21:35)
[2020-12-22] MEDS: inSUlin ASPART (NovoLOG) 1 UNIT/0.01 ML (CHARGE PER UNIT) SC SCH ×3 (05:27→16:47)
[2020-12-22] MEDS: CYANOCOBALAMIN 1,000 MCG (VITAMIN B-12) TABLET PO SCH (05:31)
[2020-12-22] MEDS: MULTIVIT W/MINERALS TAB (THERAGRAN M) PO SCH (05:31)
[2020-12-22] MEDS: hydrALAZINE (APRESOLINE) 25 MG TAB PO SCH ×2 (05:31→11:12)
[2020-12-22 06:25] VITALS: BP 190/81
[2020-12-22] MEDS: amLODIPine 10 MG (NORVASC) TAB PO SCH (08:00)
[2020-12-22] MEDS: FUROSEMIDE 20 MG (LASIX) TAB PO SCH (08:00)
[2020-12-22] MEDS: CALCIUM CARBONATE 600 MG (CALCARB) TAB PO SCH (08:00)
[2020-12-22] MEDS: polyethylene glycoL POWDER 17 GM (MIRALAX) PACK PO SCH (08:01)
[2020-12-22] MEDS: DOCUSATE SODIUM 100 MG (COLACE) CAP PO SCH (08:01)
[2020-12-22] MEDS: HYDROcodone/APAP 5 MG/325 MG (LORTAB) TAB PO PRN ×2 (08:01→11:29)
[2020-12-22] MEDS: SODIUM BICARBONATE 650 MG TABLET (NON-FORMULARY) PO SCH (08:02)
[2020-12-22] MEDS: SENNA W/DOCUSATE (SENOKOT S) TABLET PO SCH (08:03)
[2020-12-22] MEDS: PANTOPRAZOLE 40 MG (PROTONIX) TAB PO SCH (08:05)
[2020-12-22] MEDS: DORZOLAMIDE 2% 10 ML BTL (TRUSOPT) OU SCH (08:06)
[2020-12-22] MEDS ORDERED: ZINC OXIDE 16% OINT (BUTT PASTE) 57 GM TUBE TOP PRN (08:15)
--- NOTE | 2020-12-22 10:03 | Occupational Ther Daily Note ---
OT Current Status-Daily Note Subjective Pt sleeping in bed, woke to name. Pt agrees to therapy. Pt c/o pain in back and tailbone. Nrsg notified. MHP placed on back and ointment on tailbone to decrease pain. Mental Status/Objective Patient Orientation: Person, Place, Time, Situation Attachments: Oxygen (0.5L) ADL-Treatment Pt declined shower stating that she had shower yesterday. Pt did agree to sponge bath. After set up, pt able to cleanse upper body with bath pack independently. Pt stood and manipulated pants then cleansed self with SBA. Pt ambulated to bathroom and stood at sink to complete oral care with supervision for safety. Pt fatigued and sat in w/c. Therapy Code Descriptions/Definitions Functional [place] Measure: 0=Not Assessed/NA 4=Minimal Assistance 1=Total Assistance 5=Supervision or Setup 2=Maximal Assistance 6=Modified [place] 3=Moderate Assistance 7=Complete IndependenceSCALE: Activities may be completed with or without assistive devices. 3-Swaoubtxmp-nxokots completes the activity by him/herself with no assistance from a helper. 5-Set-up or Clean-up Assistance-helper sets up or cleans up; patient completes activity. [place] assists only prior to or following the activity. 4-Supervision or Touching Assistance-helper provides verbal cues and/or touching/steadying and/or contact guard assistance as patient completes activity. Assistance may be provided throughout the activity or intermittently. 3-Partial/Moderate Assistance-helper does LESS THAN HALF the effort. [place] lifts, holds or supports trunk or limbs, but provides less than half the effort. 2-Substantial/Maximal Assistance-helper does MORE THAN HALF the effort. [place] lifts or holds trunk or limbs and provides more than half the effort. 6-Epkiyltmh-qajbqc does ALL the effort. Patient does none of the effort to complete the activity. Or, the assistance of 2 or more helpers is required for the patient to complete the activity. If activity was not attempted, code reason: 7-Patient Refused. 9-Not Applicable-not attempted and the patient did not perform the activity before the current illness, exacerbation or injury. 10-Not Attempted due to Environmental Limitations-(lack of equipment, weather restraints, etc.). 88-Not Attempted due to Medical Conditions or Safety Concerns. Oral Hygiene (QC): 4 (Supervision only due to standing at sink. Pt is independent if sitting in w/c.) Upper Body Dressing (QC): 5 (Completed independently after set up.) Other Treatment Pt uses feet to propel chair small distances. Pt completed arm bike with minimal resistance with 2 long recovery breaks to increase strength and activity tolerance for daily functional tasks. Pt then transferred back to bed with SBA and independent with bed mobility. After session, pt lying in bed with call light/phone in reach. All needs met in room. OT Short Term Goals Short Term Goals Time Frame: Dec 26, 2020 Eatin Oral hygiene: 4 Toileting hygiene: 5 Shower/bathe self: 4 Upper body dressin Lower body dressin Putting on/taking off footwear: 4 OT [facility] Goals [facility] Goals Time Frame: Jan 02, 2021 Eating (QC): 6 Oral Hygiene (QC): 6 Toileting Hygiene (QC): 6 Shower/Bathe Self (QC): 4 Upper Body Dressing (QC): 5 Lower Body Dressing (QC): 4 On/Off Footwear (QC): 6 Additional Goals: 1-Demonstrate ADL Tasks, 2-Verbalize Understanding, 3- ImproveStrength/Katerina 1=Demonstrate adherence to instructed precautions during ADL tasks. 2=Patient will verbalize/demonstrate understanding of assistive devices/modifications for ADL. 3=Patient will improve strength/tolerance for activity to enable patient to perform ADL's. OT Education/Plan Problem List/Assessment Assessment: Decreased Activ Tolerance, Decreased UE Strength, Impaired Self- Care Skills Discharge Recommendations Plan/Recommendations: Continue POC Treatment Plan/Plan of Care Patient would benefit from OT for education, treatment and training to promote independence in ADL's, mobility, safety and/or upper extremity function for ADL's. Plan of Care: ADL Retraining, Functional Mobility, UE Funct Exercise/Act Treatment Duration: Jan 02, 2021 Frequency: 5 times per week Estimated Hrs Per Day: 1.5 hours per day Agreement: Yes Rehab Potential: Fair Time/GCodes Start Time: 08:45 Stop Time: 10:00 Total Time Billed (hr/min): 75 Billed Treatment Time 1 visit-ADL 2 (30 min) FA 2 (30 min) EX 1 (15 min) KUMAR KEYS Dec 22, 2020 10:03
--- NOTE | 2020-12-22 10:22 | PM&R Progress Note ---
Subjective HPI/CC On Admission Date Seen by Provider: Dec 22, 2020 Time Seen by Provider: 10:30 Subjective/Events-last exam 12/22/20: Granddaughter visiting today Patient has pain but otherwise doing well Adjusted BP meds today due to continued increased levels. 12/21/20: Weaned off O2 but then she became upset and said "you all are trying to kill me" O2 placed back on Hypoglycemia noted so minimized long acting Bowels are moving 12/20/20: Having some significant problems with a bit of confusion Hemoccult is pending Hgb is stable BP 164/72 Two liters of oxygen she uses at home Bowels moved yesterday Heplocking IV fluid Will go skilled care at discharge Review of Systems Musculoskeletal: back pain Objective Exam Vital Signs Vital Signs Date Time Temp Pulse Resp B/P (MAP) Pulse Ox O2 Delivery O2 Flow Rate FiO2 12/22/20 17:12 35.7 76 18 181/78 (112) 97 Nasal Cannula 0.50 Capillary Refill : General Appearance: No Apparent Distress, WD/WN, Chronically ill HEENT: PERRL/EOMI, Normal ENT Inspection, Pharynx Normal, Other (qagan tayagungin severe) Neck: Full Range of Motion, Normal Inspection, Non Tender, Supple, Carotid Bruit Respiratory: Chest Non Tender, Lungs Clear, Normal Breath Sounds, No Accessory Muscle Use, No Respiratory Distress Cardiovascular: Regular Rate, Rhythm, No Edema, No Gallop, No JVD, No Murmur, Normal Peripheral Pulses Gastrointestinal: Normal Bowel Sounds, No Organomegaly, No Pulsatile Mass, Non Tender, Soft Back: Normal Inspection, Decreased Range of Motion, Muscle Spasm, Vertebral Tenderness Extremity: Normal Capillary Refill, Normal Inspection, Normal Range of Motion, Non Tender, No Calf Tenderness, No Pedal Edema Neurologic/Psychiatric: Alert, Oriented x3, No Motor/Sensory Deficits, Normal Mood/Affect, Abnormal Gait, Motor Weakness (lower extremities 4/5) Skin: Normal Color, Warm/Dry Lymphatic: No Adenopathy Results/Procedures Lab Patient resulted labs reviewed. FIM Transfers Therapy Code Descriptions/Definitions Functional [place] Measure: 0=Not Assessed/NA 4=Minimal Assistance 1=Total Assistance 5=Supervision or Setup 2=Maximal Assistance 6=Modified [place] 3=Moderate Assistance 7=Complete IndependenceSCALE: Activities may be completed with or without assistive devices. 0-Yxuqnvrajv-mcmqwos completes the activity by him/herself with no assistance from a helper. 5-Set-up or Clean-up Assistance-helper sets up or cleans up; patient completes activity. [place] assists only prior to or following the activity. 4-Supervision or Touching Assistance-helper provides verbal cues and/or touching/steadying and/or contact guard assistance as patient completes activity. Assistance may be provided throughout the activity or intermittently. 3-Partial/Moderate Assistance-helper does LESS THAN HALF the effort. [place] lifts, holds or supports trunk or limbs, but provides less than half the effort. 2-Substantial/Maximal Assistance-helper does MORE THAN HALF the effort. [place] lifts or holds trunk or limbs and provides more than half the effort. 5-Wisaymtnr-gadcyc does ALL the effort. Patient does none of the effort to complete the activity. Or, the assistance of 2 or more helpers is required for the patient to complete the activity. If activity was not attempted, code reason: 7-Patient Refused. 9-Not Applicable-not attempted and the patient did not perform the activity before the current illness, exacerbation or injury. 10-Not Attempted due to Environmental Limitations-(lack of equipment, weather restraints, etc.). 88-Not Attempted due to Medical Conditions or Safety Concerns. Roll Left to Right (QC): 6 Sit to Lying (QC): 4 Sit to Stand (QC): 4 Chair/Kik-op-Vdvfl Xfer(QC): 3 Car Transfer (QC): 3 Gait Training Does the Patient Walk?: Yes Distance: 10' Walk 10 feet (QC): 4 Walk 50 ft with 2 Turns(QC): 4 Walk 150 ft (QC): 4 Walking 10ft/uneven surface-QC: 4 Gait Persons Needed: 1 Gait Assistive Device: FWW Wheelchair Training Wheel 50 ft with 2 turns (QC): 1 Wheel 150 ft (QC): 1 Type of Wheelchair: Manual Stair Training 1 Step (curb) (QC): 3 4 Steps (QC): 88 12 Steps (QC): 88 Balance Picking up an Object (QC): 88 ADL-Treatment Eating (QC): 5 Oral Hygiene (QC): 4 (Supervision only due to standing at sink. 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
--- NOTE | 2020-12-22 10:59 | Speech Therapy Daily Note ---
Speech Daily Progress Note Subjective Date Seen by Provider: Dec 22, 2020 Time Seen by Provider: 00:30 Patient was resting in her bed following her other therapies. Objective Patient completed a series of safety awareness card, "what's wrong with this picture?" at 65% with min to mod verbal and/or visual cues given. Assessment Assessment Current Status: Good Progress Treatment Plan Continue Plan of Care Speech Short Term Goals Short Term Goals Short Term Goals 1) Patient will complete memory tasks related to her daily needs with 80% or greater with minimal cues. 2) Patient will complete safety awareness tasks related to her daily needs with 80% or greater with minimal cues. 3) Patient will complete problem solving tasks related to her daily needs with 80% or greater with minimal cues. Speech Manager Disaster Recovery Goals Nursing Home Goals Patient will improve cognitive-communication necessary for safety and daily living tasks with minimal assist. Speech-Plan Patient/Family Goals Patient/Family Goals: Patient's daughter is getting details lined out for SNF placement upon discharge. Treatment Plan Speech Therapy Treatment Plan: Continue Plan of Care Treatment Duration: Dec 20, 2020 Frequency: 4 times per week (Patient will receive skilled ST 4-5x per week) Estimated Hrs Per Day: .25 hour per day Rehab Potential: Fair Barriers to Learning: Patient's confusion, age, debility Pt/Family Agrees to Plan: Yes Safety Risks/Education Teaching Recipient: Patient Teaching Methods: Demonstration, Discussion Response to Teaching: Verbalize Understanding, Return Demonstration, Reinforcement Needed Education Topics Provided: Continued safety within her room, utilization of call light as needed Time Speech Therapy Time In: 10:30 Speech Therapy Time Out: 11:00 Total Billed Time: 30 Billed Treatment Time CONNOR Garcia [facility] Dec 22, 2020 10:59
--- NOTE | 2020-12-22 11:56 | Physical Therapy Daily Note ---
PT Daily Note-Current Subjective Pt. and 1 family member present speaking to another family member on face time call, all teary eyed and emotional, some mention of "comfort care" Pt stating "I've lost all my fire". Pt. off phone then states she is in 8/10 pain in left hip. Agrees to Rx and activity as tolerated. After gait and exercises pt. states pain is now 6/10 Pain Numeric Pain Scale: 8 Location: Left Location Body Site: Hip Pain Description: Ache Mental Status Patient Orientation: Normal For Age Transfers SCALE: Activities may be completed with or without assistive devices. 6-Wsjvbxhkhn-xbbbvju completes the activity by him/herself with no assistance from a helper. 5-Set-up or Clean-up Assistance-helper sets up or cleans up; patient completes activity. [place] assists only prior to or following the activity. 4-Supervision or Touching Assistance-helper provides verbal cues and/or touching/steadying and/or contact guard assistance as patient completes activity. Assistance may be provided throughout the activity or intermittently. 3-Partial/Moderate Assistance-helper does LESS THAN HALF the effort. [place] lifts, holds or supports trunk or limbs, but provides less than half the effort. 2-Substantial/Maximal Assistance-helper does MORE THAN HALF the effort. [place] lifts or holds trunk or limbs and provides more than half the effort. 6-Lygalhsdf-dnkunf does ALL the effort. Patient does none of the effort to complete the activity. Or, the assistance of 2 or more helpers is required for the patient to complete the activity. If activity was not attempted, code reason: 7-Patient Refused. 9-Not Applicable-not attempted and the patient did not perform the activity before the current illness, exacerbation or injury. 10-Not Attempted due to Environmental Limitations-(lack of equipment, weather restraints, etc.). 88-Not Attempted due to Medical Conditions or Safety Concerns. Lying to Sitting/Side of Bed(Q: 5 Sit to Stand (QC): 5 Toilet Transfer (QC): 5 Weight Bearing Full Weight Bearing Full Weight Bearing Gait Training Does the Patient Walk?: Yes Walk 10 feet (QC): 4 Walk 50 ft with 2 Turns(QC): 4 Gait Persons Needed: 1 Gait Assistive Device: FWW high steppage gait on right secondary to foot drop. Pt. states she has an AFO at home but only uses it to go out some where. CGA to min for gait 50ft, 20 ft Exercises Supine Ex: Ankle pumps, Quad Set, Glut sets, Heel Slides, Scooting, Straight leg raise (right only), Hip abd/add Supine Reps: 15 Seated Therapy Exercises: Ankle pumps, Long arc quads, Hip flexion, Hip abd/add Seated Reps: 12 Treatments toileted and washed hands at sink all SBA to CGA Assessment Current Status: Fair Progress c/o pain and tearful affect limited activity this date. PT Short Term Goals Short Term Goals Time Frame: Dec 26, 2020 Roll Left & Right: 6 Sit to lyin Lying to sitting on side of be: 4 Sit to stand: 4 Chair/ppx-ef-zqkie transfer: 4 Walk 10 feet: 4 Walk 50 feet with two turns: 4 Walk 150 feet: 4 PT Nursing Home Goals [employer] Inspector Goals PT Nursing Home Goals Time Frame: Jan 09, 2021 Roll Left & Right (QC): 6 Sit to Lying (QC): 6 Lying-Sitting on Side/Bed(QC): 6 Sit to Stand (QC): 6 Chair/Qrm-lp-Bcjei Xfer(QC): 6 Toilet Transfer (QC): 6 Car Transfer (QC): 6 Does the Patient Walk: Yes Walk 10 feet (QC): 6 Walk 50ft with 2 Turns (QC): 6 Walk 150 ft (QC): 6 Walking 10ft on Uneven Surface: 6 1 Step (curb) (QC): 4 4 Steps (QC): 4 12 Steps (QC): 88 Picking up an Object (QC): 88 Wheel 50 feet with 2 turns (QC: 9 Wheel 150 feet: 9 PT Plan Treatment/Plan Treatment Plan: Continue Plan of Care Treatment Plan: Bed Mobility, Education, Functional Activity Katerina, Functional Strength, Group Therapy, Gait, Safety, Therapeutic Exercise, Transfers Treatment Duration: Jan 09, 2021 Frequency: At least 5 of 7 days/Wk (IRF) Estimated Hrs Per Day: 1.5 hours per day Patient and/or Family Agrees t: Yes Safety Risks/Education Patient Education: Gait Training, Transfer Techniques, Correct Positioning, Disease Process, Safety Issues Teaching Recipient: Patient Teaching Methods: Demonstration, Discussion Response to Teaching: Verbalize Understanding, Return Demonstration, Reinforcement Needed Time/GCodes Time In: 1100 Time Out: 1200 Total Billed Treatment Time: 60 Total Billed Treatment 1,FA30m,EX15m,GT15m RILEY SUMMERS OCCUPATIONAL THERAPY DIRECTOR Dec 22, 2020 11:56
[2020-12-22] MEDS ORDERED: HYDROcodone/APAP 7.5 MG/325 MG (LORTAB, LORCET PLUS) TABLET PO PRN (12:30)
[2020-12-22] MEDS ORDERED: cloNIDine 0.1 MG (CATAPRES) TAB PO PRN (12:30)
[2020-12-22] MEDS ORDERED: HYDR-3817 PO (12:59)
[2020-12-22] MEDS ORDERED: hydrALAZINE (APRESOLINE) 25 MG TAB PO SCH (13:00)
[2020-12-22] MEDS ORDERED: DICLOFENAC 1% GEL 100 GM (VOLTAREN) TUBE TOP SCH (13:00)
--- NOTE | 2020-12-22 14:02 | Physical Therapy Daily Note ---
PT Daily Note-Current Subjective Pt. agrees to short Rx to walk to bathroom etc. Pain Numeric Pain Scale: 5-Moderate Pain Location: Left Location Body Site: Hip Pain Description: Ache Transfers SCALE: Activities may be completed with or without assistive devices. 6-Htnlaoloac-ctblwwx completes the activity by him/herself with no assistance from a helper. 5-Set-up or Clean-up Assistance-helper sets up or cleans up; patient completes activity. [place] assists only prior to or following the activity. 4-Supervision or Touching Assistance-helper provides verbal cues and/or touching/steadying and/or contact guard assistance as patient completes activity. Assistance may be provided throughout the activity or intermittently. 3-Partial/Moderate Assistance-helper does LESS THAN HALF the effort. [place] lifts, holds or supports trunk or limbs, but provides less than half the effort. 2-Substantial/Maximal Assistance-helper does MORE THAN HALF the effort. [place] lifts or holds trunk or limbs and provides more than half the effort. 7-Huhcolvhb-cocjmh does ALL the effort. Patient does none of the effort to complete the activity. Or, the assistance of 2 or more helpers is required for the patient to complete the activity. If activity was not attempted, code reason: 7-Patient Refused. 9-Not Applicable-not attempted and the patient did not perform the activity before the current illness, exacerbation or injury. 10-Not Attempted due to Environmental Limitations-(lack of equipment, weather restraints, etc.). 88-Not Attempted due to Medical Conditions or Safety Concerns. in out bed and on off toilet SBA to CGA Weight Bearing Full Weight Bearing Full Weight Bearing Gait Training Does the Patient Walk?: Yes Gait Assistive Device: FWW 40 ft x 2 CGA no LOB, steppage gait Exercises Supine Ex: Ankle pumps, Heel Slides, Hip abd/add Supine Reps: 8 Treatments toileted managing pants and clean up indep, Assessment Current Status: Good Progress PT Short Term Goals Short Term Goals Time Frame: Dec 26, 2020 Roll Left & Right: 6 Sit to lyin Lying to sitting on side of be: 4 Sit to stand: 4 Chair/vdg-pr-ehhwf transfer: 4 Walk 10 feet: 4 Walk 50 feet with two turns: 4 Walk 150 feet: 4 PT Maintenance Supervisor Mechanical Goals Maintenance Supervisor Mechanical Goals PT Detention Goals Time Frame: Jan 09, 2021 Roll Left & Right (QC): 6 Sit to Lying (QC): 6 Lying-Sitting on Side/Bed(QC): 6 Sit to Stand (QC): 6 Chair/Mvt-jn-Gbipw Xfer(QC): 6 Toilet Transfer (QC): 6 Car Transfer (QC): 6 Does the Patient Walk: Yes Walk 10 feet (QC): 6 Walk 50ft with 2 Turns (QC): 6 Walk 150 ft (QC): 6 Walking 10ft on Uneven Surface: 6 1 Step (curb) (QC): 4 4 Steps (QC): 4 12 Steps (QC): 88 Picking up an Object (QC): 88 Wheel 50 feet with 2 turns (QC: 9 Wheel 150 feet: 9 PT Plan Treatment/Plan Treatment Plan: Continue Plan of Care Treatment Plan: Bed Mobility, Education, Functional Activity Katerina, Functional Strength, Group Therapy, Gait, Safety, Therapeutic Exercise, Transfers Treatment Duration: Jan 09, 2021 Frequency: At least 5 of 7 days/Wk (IRF) Estimated Hrs Per Day: 1.5 hours per day Patient and/or Family Agrees t: Yes Safety Risks/Education Patient Education: Gait Training, Transfer Techniques Time/GCodes Time In: 1345 Time Out: 1400 Total Billed Treatment Time: 15 Total Billed Treatment 1,EX15m RILEY SUMMERS JIGSAW OPERATOR Dec 22, 2020 14:02
--- NOTE | 2020-12-22 16:37 | Discharge Summary ---
Diagnosis/Chief Complaint Date of Admission Dec 19, 2020 at 11:00 Date of Discharge Discharge Date: Dec 22, 2020 Discharge Diagnosis Incapacitating back pain with h/o 3 prior back surgeries no fracture on CT scan Stage V CKD not a hemodialysis candidate Advanced age [place] Confusion HTN malignant type Discharge Summary Discharge Physical Examination Allergies: Coded Allergies: Penicillins (Verified Adverse Reaction, Unknown, 12/16/20) cephalexin (Verified Adverse Reaction, Unknown, 12/16/20) Vitals & I&Os Vital Signs Date Time Temp Pulse Resp B/P (MAP) Pulse Ox O2 Delivery O2 Flow Rate FiO2 12/22/20 17:12 35.7 76 18 181/78 (112) 97 Nasal Cannula 0.50 General Appearance: Alert, Oriented X3, Cooperative Respiratory: Clear to Auscultation Cardiovascular: Regular Rate Psych/Mental Status: Mental Status NL Hospital Course Was the Problem List Reviewed?: Yes Short course before patient left AMA at daughter's insistence. Pain was managed with Lortab since all other attempts with other meds caused significant confusion. Stage 5 CKD limited the use of other modalities and required close monitoring during rehab course. PCP was notified and more hx obtained. Overall she was impoving and BP meds were adjusted and patient was stable but daughter was insistent on DC so she left AMA and PCP notified. Labs (last 24 hrs) Laboratory Tests 12/19/20 05:15: Mean Blood Glucose 120, Hemoglobin A1c 5.8H 12/19/20 15:44: Glucometer 428*H 12/19/20 18:33: Glucometer 243H 12/19/20 21:00: Glucometer 99 12/20/20 01:24: Glucometer 345H 12/20/20 05:39: White Blood Count 10.5, Red Blood Count 3.12L, Hemoglobin 9.9L, Hematocrit 30L, Mean Corpuscular Volume 97, Mean Corpuscular Hemoglobin 32, Mean Corpuscular Hemoglobin Concent 33, Red Cell Distribution Width 12.7, Platelet Count 243, Mean Platelet Volume 10.9, Immature Granulocyte % (Auto) 0, Neutrophils (%) (Aut o) 85H, Lymphocytes (%) (Auto) 6L, Monocytes (%) (Auto) 9, Eosinophils (%) (Auto) 0, Basophils (%) (Auto) 0, Neutrophils # (Auto) 8.9H, Lymphocytes # (Auto) 0.6L, Monocytes # (Auto) 1.0, Eosinophils # (Auto) 0.0, Basophils # (Auto) 0.0, Immature Granulocyte # (Auto) 0.0, Sodium Level 133L, Potassium Level 4.2, Chloride Level 103, Carbon Dioxide Level 17L, Anion Gap 13, Blood Urea Nitrogen 82H, Creatinine 4.48H, Estimat Glomerular Filtration Rate 9, BUN/Creatinine Ratio 18, Glucose Level 353H, Calcium Level 8.4L, Corrected Calcium 8.8, Iron Level 67, Total Bilirubin 0.2, Aspartate Amino Transf (AST/SGOT) 9, Alanine Aminotransferase (ALT/SGPT) 13, Alkaline Phosphatase 92, Total Protein 5.7L, Albumin 3.5 12/20/20 11:21: Glucometer 141H 12/20/20 16:33: Glucometer 154H 12/20/20 17:30: Stool Occult Blood Immunoassay POSITIVEH 12/20/20 20:35: Glucometer 221H 12/21/20 05:20: Glucometer 41*L 12/21/20 05:56: Glucometer 81 12/21/20 11:34: Glucometer 181H 12/21/20 16:33: Glucometer 191H 12/21/20 21:17: Glucometer 172H 12/22/20 05:24: Glucometer 160H 12/22/20 10:54: Glucometer 219H 12/22/20 16:40: Glucometer 138H Pending Labs Laboratory Tests 12/19/20 05:15: Mean Blood Glucose 120, Hemoglobin A1c 5.8 12/19/20 15:44: Glucometer 428 12/19/20 18:33: Glucometer 243 12/19/20 21:00: Glucometer 99 12/20/20 01:24: Glucometer 345 12/20/20 05:39: White Blood Count 10.5, Red Blood Count 3.12, Hemoglobin 9.9, Hematocrit 30, Mean Corpuscular Volume 97, Mean Corpuscular Hemoglobin 32, Mean Corpuscular Hemoglobin Concent 33, Red Cell Distribution Width 12.7, Platelet Count 243, Mean Platelet Volume 10.9, Immature Granulocyte % (Auto) 0, Neutrophils (%) (Auto) 85, Lymphocytes (%) (Auto) 6, Monocytes (%) (Auto) 9, Eosinophils (%) (Auto) 0, Basophils (%) (Auto) 0, Neutrophils # (Auto) 8.9, Lymphocytes # (Auto) 0.6, Monocytes # (Auto) 1.0, Eosinophils # (Auto) 0.0, Basophils # (Auto) 0.0, Immature Granulocyte # (Auto) 0.0, Sodium Level 133, Potassium Level 4.2, Chloride Level 103, Carbon Dioxide Level 17, Anion Gap 13, Blood Urea Nitrogen 82, Creatinine 4.48, Estimat Glomerular Filtration Rate 9, BUN/Creatinine Ratio 18, Glucose Level 353, Calcium Level 8.4, Corrected Calcium 8.8, Iron Level 67, Total Bilirubin 0.2, Aspartate Amino Transf (AST/SGOT) 9, Alanine Aminotransferase (ALT/SGPT) 13, Alkaline Phosphatase 92, Total Protein 5.7, Albumin 3.5 12/20/20 11:21: Glucometer 141 12/20/20 16:33: Glucometer 154 12/20/20 17:30: Stool Occult Blood Immunoassay POSITIVE 12/20/20 20:35: Glucometer 221 12/21/20 05:20: Glucometer 41 12/21/20 05:56: Glucometer 81 12/21/20 11:34: Glucometer 181 12/21/20 16:33: Glucometer 191 12/21/20 21:17: Glucometer 172 12/22/20 05:24: Glucometer 160 12/22/20 10:54: Glucometer 219 12/22/20 16:40: Glucometer 138 Discharge Home Medications: Active Scripts Active Reported Hydrocodone-Acetamin 7.5-325 (Hydrocodone/Acetaminophen) 1 Each Tablet 0.5-1 Ea PO Q4H PRN Vitamin B-12 (Cyanocobalamin (Vitamin B-12)) 500 Mcg Tablet 500 Mcg PO DAILY Calcium (Calcium Carbonate) 600 Mg Tablet 600 Mg PO DAILY Multivitamin 1 Each Tablet 1 Each PO DAILY Xalatan (Latanoprost) 2.5 Ml Drops 1 Drops OU HS Dorzolamide HCl 10 Ml Drops 1 Drop OU BID Sodium Bicarbonate 650 Mg Tablet 1,300 Mg PO BID TAKES 2 (650MG) TABS Furosemide 20 Mg Tablet 20 Mg PO DAILY Isosorbide Mononitrate ER (Isosorbide Mononitrate) 30 Mg Tab.er.24h 30 Mg PO HS Pantoprazole Sodium 40 Mg Tablet.dr 40 Mg PO HS Citalopram HBr (Citalopram Hydrobromide) 20 Mg Tablet 20 Mg PO HS Amlodipine Besylate 10 Mg Tablet 10 Mg PO DAILY Hydralazine HCl 25 Mg Tablet 25 Mg PO TID Metoprolol Succinate 100 Mg Tab.er.24h 50 Mg PO HS TAKES OF A 100MG TAB Glipizide 10 Mg Tablet 10 Mg PO DAILY Instructions to patient/family Please see electronic discharge instructions given to patient. 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
[2020-12-22 17:12] VITALS: BP 181/78
--- NOTE | 2020-12-25 10:20 | Therapy Team Discharge Summary ---
Therapy Discharge Summary Discharge Recommendations Date of Discharge Dec 22, 2020 at 17:45 Physical Therapy Patient came to rehab with intractable back pain. Upon evaluation patient performed bed mobility with SBA, supine <-> sit min assist, sit <-> stand min assist, transfers min assist, car transfer min assist, ambulated 120' with a rolling walker with CGA (including 50' with at least 2 turns of 90 degrees and 10' over an uneven surface), dependent with WC mobility, went up and down 1 step using a rolling walker with min assist. Patient has been performing bed mo bility and transfer training, balance and endurance training, functional strengthening, stair training, gait training, and education. Patient has made little progress during her stay and has not met any of her care home goals. Patient left AMA this weekend and discharge quality code scores were not obtained. She was performing bed mobility and supine to sit with setup last week but ambulating less distance. Patient has been discharged from this facility and will be discharged from PT at this time. Occupational Therapy Decreased Activ Tolerance, Decreased UE Strength, Impaired Self-Care Skills PT Custodial Goals Custodial Goals PT Instrument Repair Technician Goals Time Frame: Jan 09, 2021 Roll Left to Right (QC): 6 Sit to Lying (QC): 6 Lying-Sitting on Side/Bed(QC): 6 Sit to Stand (QC): 6 Chair/Ojv-bd-Uvzmy Xfer(QC): 6 Car Transfer (QC): 6 Does the Patient Walk: Yes Walk 10 feet (QC): 6 Walk 10ft-Uneven Surface(QC): 6 Walk 50ft with 2 Turns (QC): 6 Walk 150 ft (QC): 6 Wheel 50 feet with 2 turns (QC: 9 1 Step (curb) (QC): 4 4 Steps (QC): 4 12 Steps (QC): 88 Picking up an Object (QC): 88 OT Instrument Repair Technician Goals Custodial Goals Time Frame: Jan 02, 2021 Eating (FIM): 6 Eating (QC): 6 Oral Hygiene (QC): 6 Shower/Bathe Self (QC): 4 Upper Body Dressing (QC): 5 Lower Body Dressing (QC): 4 On/Off Footwear (QC): 6 Toileting(FIM): 6 Toileting Hygiene (QC): 6 Toilet/Commode Transfer (QC): 6 Additional Goals: 1-Demonstrate ADL Tasks, 2-Verbalize Understanding, 3-ImproveStrength/Katerina 1=Demonstrate adherence to instructed precautions during ADL tasks. 2=Patient will verbalize/demonstrate understanding of assistive devices/modifications for ADL. 3=Patient will improve strength/tolerance for activity to enable patient to perform ADL's. Speech Custodial Goals Instrument Repair Technician Goals Patient will improve cognitive-communication necessary for safety and daily living tasks with minimal assist. BEBETO GARCIA PT Dec 25, 2020 10:20
--- NOTE | 2020-12-25 11:47 | Therapy Team Discharge Summary ---
Therapy Discharge Summary Discharge Recommendations Date of Discharge Dec 22, 2020 at 17:45 Therapy D/C Recommendations: 24 hr Supervision Occupational Therapy Pt. was being seen by occupational therapy to increase overall strength and independence with daily tasks. Pt. met goal of UE dressing, but continues to require assistance with other ADLs due to pain. Pt. left AMA with family, as they felt she would be more comfortable at home. Therefore, pt. did not meet any other goals at this time. Pt. would benefit from continued skilled care to increase overall strength and independence, and decrease pain. Decreased Activ Tolerance, Decreased UE Strength, Dependent Transfers, Impaired I ADL's, Impaired Self-Care Skills PT Meat Wrapper Goals Meat Wrapper Goals PT Meat Wrapper Goals Time Frame: Jan 09, 2021 Roll Left to Right (QC): 6 Sit to Lying (QC): 6 Lying-Sitting on Side/Bed(QC): 6 Sit to Stand (QC): 6 Chair/Vdd-qu-Ynleb Xfer(QC): 6 Car Transfer (QC): 6 Does the Patient Walk: Yes Walk 10 feet (QC): 6 Walk 10ft-Uneven Surface(QC): 6 Walk 50ft with 2 Turns (QC): 6 Walk 150 ft (QC): 6 Wheel 50 feet with 2 turns (QC: 9 1 Step (curb) (QC): 4 4 Steps (QC): 4 12 Steps (QC): 88 Picking up an Object (QC): 88 OT Meat Wrapper Goals Meat Wrapper Goals Time Frame: Jan 02, 2021 Eating (FIM): 6 (not met) Eating (QC): 6 (not met) Oral Hygiene (QC): 6 (not met) Shower/Bathe Self (QC): 4 (not met) Upper Body Dressing (QC): 5 (met) Lower Body Dressing (QC): 4 (not met) On/Off Footwear (QC): 6 (not met) Toileting(FIM): 6 (not met) Toileting Hygiene (QC): 6 (not met) Toilet/Commode Transfer (QC): 6 (not met) Additional Goals: 1-Demonstrate ADL Tasks, 2-Verbalize Understanding, 3- ImproveStrength/Katerina 1=Demonstrate adherence to instructed precautions during ADL tasks. 2=Patient will verbalize/demonstrate understanding of assistive devices/modifications for ADL. 3=Patient will improve strength/tolerance for activity to enable patient to perform ADL's. Speech Meat Wrapper Goals Meat Wrapper Goals Patient will improve cognitive-communication necessary for safety and daily living tasks with minimal assist. EMILY TODD OT Dec 25, 2020 11:47
--- NOTE | 2020-12-26 08:26 | Therapy Team Discharge Summary ---
Therapy Discharge Summary Discharge Recommendations Date of Discharge Dec 22, 2020 at 17:45 Therapy D/C Recommendations: 24 hr Supervision Occupational Therapy Decreased Activ Tolerance, Decreased UE Strength, Dependent Transfers, Impaired I ADL's, Impaired Self-Care Skills Speech-Language Pathology Patient was admitted to the ARU due to severe back pain. Due to confusion and SLUMS score she was receiving ST for improvement in function. Patient was making gains, however her daughter insisted the patient be discharged. She left the hospital AMA on 12/22/2020. PT Mcc Goals Mcc Goals PT Load Out Worker Goals Time Frame: Jan 09, 2021 Roll Left to Right (QC): 6 Sit to Lying (QC): 6 Lying-Sitting on Side/Bed(QC): 6 Sit to Stand (QC): 6 Chair/Sop-ym-Qodvo Xfer(QC): 6 Car Transfer (QC): 6 Does the Patient Walk: Yes Walk 10 feet (QC): 6 Walk 10ft-Uneven Surface(QC): 6 Walk 50ft with 2 Turns (QC): 6 Walk 150 ft (QC): 6 Wheel 50 feet with 2 turns (QC: 9 1 Step (curb) (QC): 4 4 Steps (QC): 4 12 Steps (QC): 88 Picking up an Object (QC): 88 OT Load Out Worker Goals Load Out Worker Goals Time Frame: Jan 02, 2021 Eating (FIM): 6 (not met) Eating (QC): 6 (not met) Oral Hygiene (QC): 6 (not met) Shower/Bathe Self (QC): 4 (not met) Upper Body Dressing (QC): 5 (met) Lower Body Dressing (QC): 4 (not met) On/Off Footwear (QC): 6 (not met) Toileting(FIM): 6 (not met) Toileting Hygiene (QC): 6 (not met) Toilet/Commode Transfer (QC): 6 (not met) Additional Goals: 1-Demonstrate ADL Tasks, 2-Verbalize Understanding, 3- ImproveStrength/Katerina 1=Demonstrate adherence to instructed precautions during ADL tasks. 2=Patient will verbalize/demonstrate understanding of assistive devices/modifications for ADL. 3=Patient will improve strength/tolerance for activity to enable patient to perform ADL's. Speech Mcc Goals Load Out Worker Goals Patient will improve cognitive-communication necessary for safety and daily living tasks with minimal assist. ARDEN FUENTES Dec 26, 2020 08:26
== END 2020-12-22 17:45 | disposition left against medical advice (07) | DRG 552 ==
PROVIDERS: ADMIT Internal Medicine; ATTEND Internal Medicine
DX: M54.42 Lumbago with sciatica, left side (principal); I12.0 Hypertensive chronic kidney disease with stage 5 chronic kidney disease or end stage renal disease; N18.5 Chronic kidney disease, stage 5; E11.22 Type 2 diabetes mellitus with diabetic chronic kidney disease; E11.65 Type 2 diabetes mellitus with hyperglycemia; E11.649 Type 2 diabetes mellitus with hypoglycemia without coma; M21.371 Foot drop, right foot; I25.119 Atherosclerotic heart disease of native coronary artery with unspecified angina pectoris; E78.00 Pure hypercholesterolemia, unspecified; H91.90 Unspecified hearing loss, unspecified ear; Z79.84 Long term (current) use of oral hypoglycemic drugs; Z91.81 History of falling; Z88.1 Allergy status to other antibiotic agents; Z88.0 Allergy status to penicillin
CPT/HCPCS: 36415; 80053; 82274; 82962; 83036; 83540; 85025

== ENCOUNTER → 2021-01-16 | Outpatient (CLI) | payer MEDICARE ==
[~2021-01-16] MED LIST changes: +HYDR-3817 PO
--- NOTE | 2021-01-16 10:11 | Diagnostic Imaging Report ---
INDICATION: Knee pain. COMPARISON: None available. TECHNIQUE: Three radiographs of the left knee dated 01/16/2021. FINDINGS: Surgical clips are noted within the soft tissues near the distal right femur. No acute fracture or dislocation. Mild medial and lateral joint space narrowing. No significant osteophytosis. Chondrocalcinosis of the medial and lateral meniscus. No joint effusion. Advanced vascular calcifications. IMPRESSION: No acute osseous abnormality with minimal degenerative changes for age. 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 Moderate background vascular calcifications. Dictated by: Dictated on workstation # [id number]
== END ==
LOC: RAD FS 09:14
PROVIDERS: ATTEND Nurse Practitioner
DX: M11.262 Other chondrocalcinosis, left knee (principal)
CPT/HCPCS: 73562

== ENCOUNTER → 2021-02-08 | Outpatient (CLI) | payer MEDICARE ==
--- NOTE | 2021-02-08 11:15 | Diagnostic Imaging Report ---
INDICATION: Shoulder pain. COMPARISON: None FINDINGS: 2 radiographic views of the right shoulder were obtained. There is no evidence of acute fracture or dislocation. There are advanced degenerative changes at the AC joint. There is also moderate narrowing of the acromiohumeral joint space with superior subluxation of the humeral head in respect to glenoid. Findings are suggestive of chronic rotator cuff tear. Joint spaces are otherwise maintained. No unexpected radiopaque foreign bodies are seen. Included portions right hemithorax clear. IMPRESSION: 1. No acute fracture or dislocation right shoulder. 2. 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 Dictated by: Dictated on workstation # [id number]
== END ==
LOC: RAD FS 10:36
PROVIDERS: ATTEND Nurse Practitioner Family
DX: M19.011 Primary osteoarthritis, right shoulder (principal)
CPT/HCPCS: 73030

== ENCOUNTER 2021-02-21 09:52 | Outpatient (RCR) | payer MEDICARE ==
[2020-11-29 10:20] VITALS: BP 139/70
[2020-11-29] MEDS: DARBEPOETIN 25 MCG/ML (ARANESP) 1 ML HOSPITAL SC SCH (11:00)
[2020-12-13 10:35] LABS: HEMOGLOBIN 10.4 g/dL (11.5-16.0)
[2020-12-13 10:50] LABS: ALBUMIN 3.7 GM/DL (3.2-4.5); CALCIUM 8.3 MG/DL (8.5-10.1); CREATININE SERUM 4.29 MG/DL (0.60-1.30); PHOSPHORUS 4.1 MG/DL (2.3-4.7); POTASSIUM 4.4 MMOL/L (3.6-5.0)
[2020-12-13] MEDS: DARBEPOETIN 25 MCG/ML (ARANESP) 1 ML HOSPITAL SC SCH (10:57)
[2020-12-13 11:11] VITALS: BP 131/60
[2021-01-03 11:14] LABS: HEMOGLOBIN 9.7 g/dL (11.5-16.0)
[2021-01-03] MEDS: DARBEPOETIN 40 MCG/ML (ARANESP) HOSPITAL SC SCH (11:48)
[2021-01-03 11:50] VITALS: BP 156/59
[2021-01-17] MEDS: DARBEPOETIN 40 MCG/ML (ARANESP) HOSPITAL SC SCH (11:37)
[2021-01-17 11:40] VITALS: BP 153/70
[2021-01-31 11:28] LABS: HEMOGLOBIN 10.3 g/dL (11.5-16.0)
[2021-01-31] MEDS: DARBEPOETIN 40 MCG/ML (ARANESP) HOSPITAL SC SCH (11:45)
[2021-01-31 11:48] VITALS: BP 154/90
[2021-02-14 10:35] VITALS: BP 197/89
[~2021-02-21 09:52] MED LIST changes: +CALC600T91 PO; -CLC600T PO
[2021-02-21] MEDS: DARBEPOETIN 40 MCG/ML (ARANESP) HOSPITAL SC SCH (10:22)
[2021-02-21 10:25] VITALS: BP 151/71
== END 2021-02-27 | disposition home or self-care (01) ==
LOC: SDC 09:52
PROVIDERS: ATTEND Internal Medicine Nephrology
DX: N18.4 Chronic kidney disease, stage 4 (severe) (principal); D63.1 Anemia in chronic kidney disease
CPT/HCPCS: 36415; 80069; 82728; 83540; 85014; 85018; 96372

== ENCOUNTER 2021-05-31 08:40 | Outpatient (RCR) | payer MEDICARE ==
[2021-03-07 10:55] LABS: HEMOGLOBIN 11.1 g/dL (11.5-16.0)
[2021-03-07 11:00] VITALS: BP 133/64
[2021-03-21 10:30] VITALS: BP 148/73
[2021-03-21 11:19] LABS: HEMOGLOBIN 11.8 g/dL (11.5-16.0)
[2021-04-04 09:04] LABS: HEMOGLOBIN 9.3 g/dL (11.5-16.0)
[2021-04-04 09:24] VITALS: BP 150/65
[2021-04-04] MEDS: DARBEPOETIN 60 MCG/ML (ARANESP) HOSPITAL SQ SCH (09:31)
[2021-04-18 09:45] VITALS: BP 118/63
[2021-04-18 10:27] LABS: ALBUMIN 3.6 GM/DL (3.2-4.5); CALCIUM 8.4 MG/DL (8.5-10.1); CREATININE SERUM 4.39 MG/DL (0.60-1.30); PHOSPHORUS 4.1 MG/DL (2.3-4.7); POTASSIUM 3.9 MMOL/L (3.6-5.0)
[2021-04-18] MEDS: DARBEPOETIN 60 MCG/ML (ARANESP) HOSPITAL SQ SCH (10:38)
[2021-05-09 11:15] VITALS: BP 150/76
[2021-05-09] MEDS: DARBEPOETIN 60 MCG/ML (ARANESP) HOSPITAL SQ SCH (12:00)
[~2021-05-31] VITALS: Ht 147.3 cm; Wt 49500.0 kg
[2021-05-31 09:15] LABS: HEMOGLOBIN 11.6 g/dL (11.5-16.0)
== END 2021-06-05 | disposition home or self-care (01) ==
LOC: SDC 08:40
PROVIDERS: ATTEND Internal Medicine Nephrology
DX: N18.4 Chronic kidney disease, stage 4 (severe) (principal); D63.1 Anemia in chronic kidney disease
CPT/HCPCS: 36415; 80069; 82728; 83540; 83550; 85014; 85018; 90471; 96372

== ENCOUNTER 2021-06-13 09:58 | Outpatient (RCR) | payer MEDICARE ==
[2021-06-13 10:12] VITALS: BP 150/66
[2021-06-13 10:19] LABS: HEMOGLOBIN 10.5 g/dL (11.5-16.0)
[2021-06-13] MEDS ORDERED: DARBEPOETIN 60 MCG/ML (ARANESP) HOSPITAL SQ SCH (10:45)
[2021-06-13] MEDS ORDERED: DARBEPOETIN 40 MCG/ML (ARANESP) HOSPITAL SC SCH (11:00)
== END 2021-07-04 11:46 | disposition home or self-care (01) ==
LOC: SDC 09:58
PROVIDERS: ATTEND Internal Medicine Nephrology
DX: N18.4 Chronic kidney disease, stage 4 (severe) (principal); D63.1 Anemia in chronic kidney disease
CPT/HCPCS: 36415; 85014; 85018; 96372